=== PATIENT | male | born 1940 | race Two or more races ===

== ENCOUNTER 2017-08-13 17:44 | Inpatient (IN) | payer MEDICARE, OTHER ==
[~2017-08-13] VITALS: Ht 162.6 cm; Wt 65.8 kg
[2017-08-13 17:44] VITALS: BP 82/54
[~2017-08-13 17:44] MED LIST: ASPIRIN81 MG ORAL; ATIVAN0.5 MG ORAL; BISACODYL5 MG RECTAL; CELEXA20 MG ORAL; DOCUSATE SODIU100 MG ORAL; DONEPEZIL HCL10 M2 ORAL; FLEET ENEMA133 ML RECTAL; METFORMIN HCL500 M1 ORAL; METOPROLOL SUC100 MG ORAL; MILK OF MA400 MG/51 ORAL; NAPROSYN500 M1 ORAL; SIMVASTATIN20 MG ORAL; TYLENOL EXTRA500 MG ORAL; VITAMIN D-32000 UNI1 PO; ZOCOR40 MG ORAL
[2017-08-13 18:51] VITALS: BP 119/52
[2017-08-13 18:52] LABS: BASOPHILS % (AUTO) 0.4 % (0.0-2.0); EOSINOPHILS % (AUTO) 0.3 % (0.0-3.0); HEMATOCRIT 40.2 % (42.0-52.0); LYMPHOCYTES % (AUTO) 13.4 % (20.0-45.0); MEAN CORPUSCULAR VOLUME 98 FL (80-99); MONOCYTES % (AUTO) 9.3 % (1.0-10.0); NEUTROPHILS % (AUTO) 76.6 % (45.0-75.0); PLATELET COUNT 148 K/UL (150-450); RED BLOOD COUNT 4.11 M/UL (4.70-6.10); RED CELL DISTRIBUTION WIDTH 11.4 % (11.6-14.8); WHITE BLOOD COUNT 8.6 K/UL (4.8-10.8)
[2017-08-13 19:13] LABS: ANION GAP 9 mmol/L (5-15); BLOOD UREA NITROGEN 50 mg/dL (7-18); CALCIUM 9.8 MG/DL (8.5-10.1); CARBON DIOXIDE 27 MMOL/L (21-32); CHLORIDE 109 MMOL/L (98-107); CREATININE 2.3 MG/DL (0.55-1.30); POTASSIUM 4.3 MMOL/L (3.5-5.1); SODIUM 145 MMOL/L (136-145)
[2017-08-13 19:30] LABS: ALANINE AMINOTRANSFERASE 31 U/L (12-78); ALBUMIN/GLOBULIN RATIO 0.6 (1.0-2.7); ALKALINE PHOSPHATASE 67 U/L (46-116); ASPARTATE AMINO TRANSFERASE 125 U/L (15-37); BILIRUBIN,TOTAL 0.3 MG/DL (0.2-1.0); CKMB < 0.5 NG/ML (0.0-3.6); CREATINE KINASE 1847 U/L (26-308)
[2017-08-13 19:35] VITALS: BP 120/68
--- NOTE | 2017-08-13 19:46 | Emergency Room Report ---
History of Present Illness General Chief Complaint: Generalized Weakness Source: Medical Record Present Illness HPI Patient presents with complaints of altered mental status and weakness Patient himself has underlying dementia History somewhat limited Patient lives at a nursing facility appears to have had recent visit to [facility] for head trauma There was a note that no imaging was obtained Patient has been acting weaker than usual Not eating and presents for further eval history of present illness is limited given the patient's ability to provide history There was no reports of fevers Allergies: Coded Allergies: NO KNOWN ALLERGIES (Unverified Allergy, Unknown, 08/25/15) Patient History Past Medical History: see triage record Pertinent Family History: none Reviewed Nursing Documentation: PMH: Agreed, PSxH: Agreed Nursing Documentation-PMH Hx Cardiac Problems: Yes - chf Hx Hypertension: Yes Hx Pacemaker: Yes - icd Hx COPD: Yes Hx Diabetes: Yes Hx Cancer: No Hx Gastrointestinal Problems: No History Of Psychiatric Problem: Yes - psychosis Hx Neurological Problems: Yes Hx Dementia: Yes Hx Alzheimer's Disease: Yes Hx Seizures: Yes Review of Systems All Other Systems: limited - Other than the ones mentioned in the history of present illness all others are reviewed however they do stay limited due to the patient's mental status Physical Exam Vital Signs Date Time Temp Pulse Resp B/P (MAP) Pulse Ox O2 Delivery O2 Flow Rate FiO2 08/13/17 17:31 97.9 76 16 82/54 97 Room Air Sp02 EP Interpretation: reviewed, normal General Appearance: no apparent distress Head: other - Ecchymosis and hematoma left upper maxillary area and orbital wall, stitches in place Eyes: bilateral eye PERRL ENT: normal pharynx, dry mucus membranes Neck: supple Respiratory: lungs clear, normal breath sounds Cardiovascular #1: regular rate, rhythm, no edema Gastrointestinal: non tender, soft, no mass Musculoskeletal: other - No obvious focal weakness Neurologic: responsive - Patient is verbal appears somewhat confused, no obvious focal weakness Skin: no rash, other - As above with ecchymosis left orbital region Lymphatic: no adenopathy Medical Decision Making Diagnostic Impression: Primary Impression: Rhabdomyolysis Additional Impressions: Head trauma Encephalopathy ER Course Patient is a fairly complex patient with multiple differential to consideration including but not limited to cardiac cardiopulmonary and vascular emergencies Patient's blood work reveals elevated total CK CT head does not show any acute pathology Patient admitted for further inpatient care in improved condition Labs Test 08/13/17 18:25 White Blood Count 8.6 K/UL (4.8-10.8) Red Blood Count 4.11 M/UL (4.70-6.10) Hemoglobin 13.0 G/DL (14.2-18.0) Hematocrit 40.2 % (42.0-52.0) Mean Corpuscular Volume 98 FL (80-99) Mean Corpuscular Hemoglobin 31.7 PG (27.0-31.0) Mean Corpuscular Hemoglobin Concent 32.4 G/DL (32.0-36.0) Red Cell Distribution Width 11.4 % (11.6-14.8) Platelet Count 148 K/UL (150-450) Mean Platelet Volume 8.9 FL (6.5-10.1) Neutrophils (%) (Auto) 76.6 % (45.0-75.0) Lymphocytes (%) (Auto) 13.4 % (20.0-45.0) Monocytes (%) (Auto) 9.3 % (1.0-10.0) Eosinophils (%) (Auto) 0.3 % (0.0-3.0) Basophils (%) (Auto) 0.4 % (0.0-2.0) Sodium Level 145 MMOL/L (136-145) Potassium Level 4.3 MMOL/L (3.5-5.1) Chloride Level 109 MMOL/L (98-107) Carbon Dioxide Level 27 MMOL/L (21-32) Anion Gap 9 mmol/L (5-15) Blood Urea Nitrogen 50 mg/dL (7-18) Creatinine 2.3 MG/DL (0.55-1.30) Estimat Glomerular Filtration Rate mL/min (>60) Glucose Level 158 MG/DL (74-106) Lactic Acid Level 2.70 mmol/L (0.66-2.22) Calcium Level 9.8 MG/DL (8.5-10.1) Total Bilirubin 0.3 MG/DL (0.2-1.0) Aspartate Amino Transf (AST/SGOT) 125 U/L (15-37) Alanine Aminotransferase (ALT/SGPT) 31 U/L (12-78) Alkaline Phosphatase 67 U/L (46-116) Total Creatine Kinase 1847 U/L (26-308) Creatine Kinase MB < 0.5 NG/ML (0.0-3.6) Creatine Kinase MB Relative Index 0.0 Troponin I 0.036 ng/mL (0.000-0.056) Pro-B-Type Natriuretic Peptide 277 pg/mL (0-125) Total Protein 7.8 G/DL (6.4-8.2) Albumin 3.0 G/DL (3.4-5.0) Globulin 4.8 g/dL Albumin/Globulin Ratio 0.6 (1.0-2.7) Lipase 201 U/L (73-393) Rhythm Strip Diag. Results EP Interpretation: yes Rate: 88 Rhythm: NSR, no PVC's, no ectopy Chest X-Ray Diagnostic Results Chest X-Ray Diagnostic Results : Chest X-Ray Ordered: Yes # of Views/Limited/Complete: 1 View Indication: Shortness of Breath EP Interpretation: Yes Interpretation: no consolidation, no effusion, no pneumothorax, other - Wide mediastinum, pacemaker in place Impression: No acute disease Electronically Signed by: Concha Beatty DO CT/MRI/US Diagnostic Results CT/MRI/US Diagnostic Results : Impression CT head no intracranial hemorrhage left periorbital convexity scalp soft tissue swelling Last Vital Signs Date Time Temp Pulse Resp B/P (MAP) Pulse Ox O2 Delivery O2 Flow Rate FiO2 08/13/17 18:51 98.3 63 21 119/52 100 Room Air Status: improved Disposition: ADMITTED INPATIENT Condition: Serious Referrals: [facility]HE[facility] (PCP) CONCHA BEATTY D.O. Aug 13, 2017 19:46
[2017-08-13] MEDS ORDERED: CRANBERRY450 M3 PO (20:32)
[2017-08-13] MEDS ORDERED: DEPAKOTE250 MG PO (20:33)
[2017-08-13] MEDS ORDERED: BISACODYL10 M1 RC (20:35)
[2017-08-13] MEDS ORDERED: FLEET ENEMA133 ML RECTAL (20:37)
[2017-08-13] MEDS ORDERED: ALUM-MAG HYDRO360 ML PO (20:42)
[2017-08-13] MEDS ORDERED: TRADJENTA5 MG PO (20:43)
[2017-08-13] MEDS ORDERED: ISOSORBIDE DINI10 MG ORAL (20:43)
[2017-08-13] MEDS ORDERED: MAGNESIUM400 M2 PO (20:45)
[2017-08-13] MEDS ORDERED: MAGNESIUM OXID400 M1 ORAL (20:45)
[2017-08-13] MEDS ORDERED: NEPHROVITE1 TAB ORAL (20:48)
[2017-08-13] MEDS ORDERED: METOPROLOL TAR100 M1 ORAL (20:48)
[2017-08-13] MEDS ORDERED: SINEMET 25-1001 EAC1 ORAL (20:49)
[2017-08-13] MEDS ORDERED: MIRTAZAPINE7.5 MG ORAL (20:49)
[2017-08-13] MEDS ORDERED: ACETAMINOPHEN325 M1 ORAL (20:52)
[2017-08-13] MEDS ORDERED: LISINOPRIL40 MG ORAL (20:53)
[2017-08-13] MEDS ORDERED: SEROQUEL25 MG ORAL (20:54)
[2017-08-13] MEDS ORDERED: cefTRIAXone 1 GM in NS 55 ML IVPB ONE (21:00)
[2017-08-13 21:05] VITALS: BP 125/68
[2017-08-14] VITALS (7 sets, daily range): BP systolic 125–170; BP diastolic 60–98
[2017-08-14] MEDS ORDERED: Milk of Magnesia 30ml Ud ORAL PRN (04:15)
[2017-08-14] MEDS ORDERED: LORazepam 0.5mg tab ORAL PRN (04:15)
[2017-08-14] MEDS ORDERED: metFORMIN 500mg tab ORAL SCH (09:00)
[2017-08-14] MEDS ORDERED: Heparin 5000 units/ml inj SUBQ SCH ×2 (09:00→21:00)
[2017-08-14] MEDS: Lisinopril 20mg tab ORAL SCH (09:07)
[2017-08-14] MEDS: Levodopa/Carbidopa 25/100 tab ORAL SCH ×3 (09:08→17:24)
[2017-08-14] MEDS: Docusate Sod/Senna tab ORAL SCH (09:12)
[2017-08-14] MEDS: Aspirin Baby 81mg ORAL SCH (09:15)
[2017-08-14] MEDS: Depakote 500mg tab ORAL SCH ×2 (09:17→21:40)
[2017-08-14] MEDS: Metoprolol Succinate XL 100mg tab ORAL SCH (09:39)
[2017-08-14 09:51] LABS: BASOPHILS % (AUTO) 0.6 % (0.0-2.0); EOSINOPHILS % (AUTO) 0.7 % (0.0-3.0); HEMATOCRIT 39.4 % (42.0-52.0); HEMOGLOBIN 12.8 G/DL (14.2-18.0); LYMPHOCYTES % (AUTO) 15.1 % (20.0-45.0); MEAN CORPUSCULAR VOLUME 98 FL (80-99); MONOCYTES % (AUTO) 8.5 % (1.0-10.0); NEUTROPHILS % (AUTO) 75.1 % (45.0-75.0); PLATELET COUNT 149 K/UL (150-450); RED BLOOD COUNT 4.01 M/UL (4.70-6.10); RED CELL DISTRIBUTION WIDTH 11.3 % (11.6-14.8); WHITE BLOOD COUNT 6.1 K/UL (4.8-10.8)
[2017-08-14 09:58] LABS: ALANINE AMINOTRANSFERASE 53 U/L (12-78); ALBUMIN 2.8 G/DL (3.4-5.0); ALBUMIN/GLOBULIN RATIO 0.6 (1.0-2.7); ALKALINE PHOSPHATASE 58 U/L (46-116); ANION GAP 9 mmol/L (5-15); ASPARTATE AMINO TRANSFERASE 114 U/L (15-37); BILIRUBIN,TOTAL 0.4 MG/DL (0.2-1.0); BLOOD UREA NITROGEN 35 mg/dL (7-18); CALCIUM 9.9 MG/DL (8.5-10.1); CARBON DIOXIDE 25 MMOL/L (21-32); CHLORIDE 111 MMOL/L (98-107); CREATININE 1.1 MG/DL (0.55-1.30); POTASSIUM 3.9 MMOL/L (3.5-5.1); SODIUM 145 MMOL/L (136-145)
[2017-08-14] MEDS ORDERED: Acetaminophen 500mg (ES) tab ORAL PRN (10:00)
--- NOTE | 2017-08-14 10:17 | Consultation ---
History of Present Illness General Date patient seen: Aug 14, 2017 Time patient seen: 11:02 Chief Complaint: Generalized Weakness Present Illness HPI 77 y/o M, skilled nursing resident with hx of CHF, HTN, ICM s/p AICD, COPD, DM2, Alzheimer dementia, psychosis and seizure disorder presents to ED on 08/13 with AMS, weakness and poor PO intake No reports of fevers Apparently patient had recent visit to [facility] for head trauma afebrile, no leukocytosis. Given one dose of Ceftriaxone. CXR and U/a pending. Allergies: Coded Allergies: NO KNOWN ALLERGIES (Unverified Allergy, Unknown, 08/25/15) Medication History Scheduled Aspirin* (Aspirin*), 81 MG ORAL DAILY, (Reported) Carbidopa/Levodopa 25-100 Mg* (Sinemet 25-100 Mg Tablet*), 1 TAB ORAL THREE TIMES A DAY, (Reported) Cranberry Fruit Concentrate (Cranberry), 450 MG PO DAILY, (Reported) Divalproex Sodium* (Depakote*), 500 MG PO BID, (Reported) Docusate Sodium* (Docusate Sodium*), 100 MG ORAL DAILY, (Reported) Donepezil Hcl* (Donepezil Hcl*), 10 MG ORAL QHS, (Reported) Isosorbide Dinitrate* (Isordil*), 20 MG ORAL BID, (Reported) Linagliptin (Tradjenta), 5 MG PO DAILY, (Reported) Lisinopril* (Lisinopril*), 40 MG ORAL DAILY, (Reported) Magnesium Oxide (Magnesium Oxide), 400 MG ORAL BID, (Reported) Metformin Hcl* (Metformin Hcl*), 500 MG ORAL BID, (Reported) Metoprolol Tartrate* (Metoprolol Tartrate*), 100 MG ORAL DAILY, (Reported) Mirtazapine* (Mirtazapine*), 7.5 MG ORAL BEDTIME, (Reported) Quetiapine Fumarate* (Seroquel*), 50 MG ORAL TWICE A DAY, (Reported) Vitamin B Cmplx/Vit C/Folic AC (Nephro-[place] Tablet), 1 TAB ORAL DAILY, (Reported ) Scheduled PRN Acetaminophen* (Tylenol Extra Strength*), 1,000 MG ORAL Q6H PRN for Moderate Breakthru Pain (5-7), (Reported) Acetaminophen* (Acetaminophen 325MG Tablet*), 650 MG ORAL Q6H PRN for Mild Pain (Pain Scale 1-3), (Reported) Bisacodyl (Bisacodyl), 10 MG RC DAILY PRN for Constipation, (Reported) Lorazepam* (Ativan*), 0.5 MG ORAL Q6HR PRN for For Anxiety, (Reported) Mag Hydrox/Al Hydrox/Simeth (Alum-Mag Hydroxide-Simeth Liq), Unknown Dose PO Q6HR PRN for STOMACH UPSET, (Reported) Magnesium Hydroxide* (Milk Of Magnesia*), 30 ML ORAL QHS PRN for Constipation, ( Reported) Na Phos,M-B/Na Phos,Di-Ba* (Fleet Enema*), 133 ML RECTAL EVERY OTHER DAY PRN for Constipation, (Reported) Discontinued Medications Acetaminophen* (Tylenol Extra Strength*), 500 MG ORAL BID PRN for Prn Headache/ Temp > 101, (Reported) Discontinued Reason: Therapy completed Cholecalciferol (Vitamin D3) (Vitamin D-3), 5,000 UNIT PO, (Reported) Discontinued Reason: Therapy completed Citalopram Hydrobromide* (Celexa*), 20 MG ORAL DAILY, (Reported) Discontinued Reason: Therapy completed Metoprolol Succinate* (Metoprolol Succinate*), 100 MG ORAL BID, (Reported) Discontinued Reason: Medication dose changed Naproxen* (Naprosyn*), 500 MG ORAL TWICE A DAY, (Reported) Discontinued Reason: Therapy completed Simvastatin (Zocor), 20 MG ORAL BEDTIME, (Reported) Discontinued Reason: Therapy completed Patient History Healthcare decision maker Resuscitation status Full Code Advanced Directive on File Patient History Narrative PMhx: as above Shx: unable to obtain Fhx: non contributory Review of Systems ROS Narrative unable to obtain Physical Exam Physical Exam Narrative General Appearance: no apparent distress Head: other - Ecchymosis and hematoma left upper maxillary area and orbital wall, stitches in place Eyes: bilateral eye PERRL ENT: normal pharynx, dry mucus membranes Neck: supple Respiratory: lungs clear, normal breath sounds Cardiovascular regular rate, rhythm, no edema Gastrointestinal: non tender, soft, no mass Musculoskeletal: other - No obvious focal weakness Neurologic: responsive - Patient is verbal appears somewhat confused, no obvious focal weakness Skin: no rash, other - As above with ecchymosis left orbital region Lymphatic: no adenopathy Last 24 Hour Vital Signs Date Time Temp Pulse Resp B/P (MAP) Pulse Ox O2 Delivery O2 Flow Rate FiO2 08/14/17 09:39 61 170/86 08/14/17 09:17 170/86 08/14/17 09:07 170/86 08/14/17 04:00 63 08/14/17 04:00 97.7 64 20 148/98 94 Room Air 64 08/14/17 00:50 98.3 72 17 130/78 98 Room Air 08/14/17 00:11 98.3 72 17 130/78 98 Room Air 08/14/17 00:00 97.7 63 22 159/74 94 Nasal Cannula 3.0 08/13/17 21:05 98.2 68 22 125/68 99 Room Air 08/13/17 19:35 69 18 120/68 99 Room Air 08/13/17 18:51 98.3 63 21 119/52 100 Room Air 08/13/17 17:44 97.9 78 16 82/54 97 Room Air 08/13/17 17:31 97.9 76 16 82/54 97 Room Air Intake and Output 08/13/17 08/14/17 19:00 07:00 Intake Total 1200 ml Balance 1200 ml Intake IV Total 1200 ml # Voids 1 # Bowel Movements 1 Laboratory Tests Test 08/13/17 18:25 08/13/17 23:15 08/14/17 09:05 White Blood Count 8.6 K/UL (4.8-10.8) 6.1 K/UL (4.8-10.8) Red Blood Count 4.11 M/UL (4.70-6.10) L 4.01 M/UL (4.70-6.10) L Hemoglobin 13.0 G/DL (14.2-18.0) L 12.8 G/DL (14.2-18.0) L Hematocrit 40.2 % (42.0-52.0) L 39.4 % (42.0-52.0) L Mean Corpuscular Volume 98 FL (80-99) 98 FL (80-99) Mean Corpuscular Hemoglobin 31.7 PG (27.0-31.0) H 32.0 PG (27.0-31.0) H Mean Corpuscular Hemoglobin Concent 32.4 G/DL (32.0-36.0) 32.5 G/DL (32.0-36.0) Red Cell Distribution Width 11.4 % (11.6-14.8) L 11.3 % (11.6-14.8) L Platelet Count 148 K/UL (150-450) L 149 K/UL (150-450) L Mean Platelet Volume 8.9 FL (6.5-10.1) 8.4 FL (6.5-10.1) Neutrophils (%) (Auto) 76.6 % (45.0-75.0) H 75.1 % (45.0-75.0) H Lymphocytes (%) (Auto) 13.4 % (20.0-45.0) L 15.1 % (20.0-45.0) L Monocytes (%) (Auto) 9.3 % (1.0-10.0) 8.5 % (1.0-10.0) Eosinophils (%) (Auto) 0.3 % (0.0-3.0) 0.7 % (0.0-3.0) Basophils (%) (Auto) 0.4 % (0.0-2.0) 0.6 % (0.0-2.0) Sodium Level 145 MMOL/L (136-145) 145 MMOL/L (136-145) Potassium Level 4.3 MMOL/L (3.5-5.1) 3.9 MMOL/L (3.5-5.1) Chloride Level 109 MMOL/L (98-107) H 111 MMOL/L (98-107) H Carbon Dioxide Level 27 MMOL/L (21-32) 25 MMOL/L (21-32) Anion Gap 9 mmol/L (5-15) 9 mmol/L (5-15) Blood Urea Nitrogen 50 mg/dL (7-18) H 35 mg/dL (7-18) H Creatinine 2.3 MG/DL (0.55-1.30) H 1.1 MG/DL (0.55-1.30) # Estimat Glomerular Filtration Rate mL/min (>60) mL/min (>60) Glucose Level 158 MG/DL (74-106) H 121 MG/DL (74-106) H Lactic Acid Level 2.70 mmol/L (0.66-2.22) H 2.60 mmol/L (0.66-2.22) H Calcium Level 9.8 MG/DL (8.5-10.1) 9.9 MG/DL (8.5-10.1) Total Bilirubin 0.3 MG/DL (0.2-1.0) 0.4 MG/DL (0.2-1.0) Aspartate Amino Transf (AST/SGOT) 125 U/L (15-37) H 114 U/L (15-37) H Alanine Aminotransferase (ALT/SGPT) 31 U/L (12-78) 53 U/L (12-78) Alkaline Phosphatase 67 U/L (46-116) 58 U/L (46-116) Total Creatine Kinase 1847 U/L (26-308) H Creatine Kinase MB < 0.5 NG/ML (0.0-3.6) Creatine Kinase MB Relative Index 0.0 Troponin I 0.036 ng/mL (0.000-0.056) Pro-B-Type Natriuretic Peptide 277 pg/mL (0-125) H Total Protein 7.8 G/DL (6.4-8.2) 7.5 G/DL (6.4-8.2) Albumin 3.0 G/DL (3.4-5.0) L 2.8 G/DL (3.4-5.0) L Globulin 4.8 g/dL 4.7 g/dL Albumin/Globulin Ratio 0.6 (1.0-2.7) L 0.6 (1.0-2.7) L Lipase 201 U/L (73-393) Height (Feet): 5 Height (Inches): 4.00 Weight (Pounds): 145 Medications Current Medications Medications (Trade) Dose Ordered Sig/Vahe Route PRN Reason Start Time Stop Time Status Last Admin Dose Admin Acetaminophen (Tylenol) 500 mg Q6H PRN ORAL Breakthrough pain 08/14/17 10:00 09/13/17 09:59 Acetaminophen (Tylenol) 650 mg Q6H PRN ORAL Mild Pain (Pain Scale 1-3) 08/14/17 04:15 09/13/17 04:14 Aspirin (ASA) 81 mg DAILY ORAL 08/14/17 09:00 09/13/17 08:59 08/14/17 09:15 Bisacodyl (Dulcolax) 10 mg DAILY PRN RECTAL Constipation 08/14/17 04:15 09/13/17 04:14 Carbidopa/Levodopa (Sinemet 25/100) 1 ea THREE TIMES A DAY ORAL 08/14/17 09:00 09/13/17 08:59 08/14/17 09:08 Divalproex Sodium (Depakote) 500 mg EVERY 12 HOURS ORAL 08/14/17 09:00 09/13/17 08:59 08/14/17 09:17 Donepezil HCl (Aricept) 10 mg QHS ORAL 08/14/17 21:00 09/13/17 20:59 Heparin Sodium (Porcine) (Heparin 5000 units/ml) 5,000 units EVERY 12 HOURS SUBQ 08/14/17 21:00 09/13/17 20:59 Isosorbide Dinitrate (Isordil) 20 mg BID@0900,2100 ORAL 08/14/17 09:00 09/13/17 08:59 08/14/17 09:17 Lisinopril (Prinivil) 40 mg DAILY ORAL 08/14/17 09:00 09/13/17 08:59 08/14/17 09:07 Lorazepam (Ativan) 0.5 mg Q6H PRN ORAL For Anxiety 08/14/17 04:15 08/21/17 04:14 Magnesium Hydroxide (Mom) 30 ml DAILYPRN PRN ORAL Constipation 08/14/17 04:15 09/13/17 04:14 Metoprolol Succinate (Toprol XL) 100 mg DAILY ORAL 08/14/17 09:30 09/13/17 09:29 08/14/17 09:39 Mirtazapine (Remeron) 7.5 mg BEDTIME ORAL 08/14/17 21:00 09/13/17 20:59 Senna/Docusate Sodium ([place]-Colace) 1 ea DAILY ORAL 08/14/17 09:00 09/13/17 08:59 08/14/17 09:12 Sodium Chloride 1,000 ml @ 150 mls/hr Q6H40M IV 08/14/17 05:30 09/13/17 05:29 08/14/17 05:30 Assessment/Plan Assessment/Plan Abx: Ceftriaxone x1 08/13 Assessment: AMS on baseline Dementia- likely dehydration as elevated BUN and Cr; afebrile, no leukocytosis- no evidence fo infectious process at this point u/a p CXR p Afebrile, no leukocytosis RENETTA, elevated BUN- improving Mild lactic acidosis- likely due to dehydration CHF HTN ICM s/p AICD COPD DM2 Alzheimer dementia, psychosis seizure disorder care home resident Full code NKDA Plan: -Continue to monitor off abx unless febrile, HD unstable -f/u cx, u/a and CXR -Monitor CBC/BMP, temperatures -aspiration precautions Thank you for this consultation. Will continue to follow along with you. Discussed with VARINDER. Michelle Watt M.D. Aug 14, 2017 10:17
--- NOTE | 2017-08-14 10:42 | Diagnostic Imaging Report ---
Indication: Head trauma. Headache. Technique: Contiguous 5 mm thick transaxial imaging of the head obtained in a Siemens Sensation [address] scanner. Soft tissue and bone windows generated. Automatic Exposure Control was utilized. Total Dose length Product (DLP): 1453.[address] Dose Index Volume (CTDIvol): 70.38 mGy Comparison: 08/26/2015 Findings: Small cystic focus demonstrated within the right caudate and lentiform nucleus consistent with old lacunar infarcts. There is moderate prominence of the ventricles, basal cisterns, and cerebral sulci consistent with atrophy. Moderate, nonspecific, white matter hypoattenuation is noted throughout the brain consistent with chronic small vessel disease. There is no midline shift, edema, acute hemorrhage, mass effect, or abnormal extra-axial fluid collections. Bones and extra osseous soft tissues are unremarkable. Impression: No acute intracranial bleed, mass effect or edema. Moderate atrophy of the brain. Evidence of chronic small vessel disease involving white matter tracts. [facility] has communicated the preliminary results to the Emergency Department. Their findings are largely concordant with this report. The CT scanner at [facility] is accredited by the [employer] and the scans are performed using dose optimization techniques as appropriate to a performed exam including Automatic Exposure control.
[2017-08-14] MEDS: Heparin 5000 units/ml inj SUBQ SCH ×2 (11:11→21:43)
--- NOTE | 2017-08-14 12:14 | Diagnostic Imaging Report ---
Indication: Dyspnea Comparison: None A single view chest radiograph was obtained. Findings: No definite infiltrate or pulmonary vascular congestion identified. There is a pacemaker on the left noted with 2 leads. The heart is enlarged. The aorta is mildly enlarged consistent with atherosclerotic vascular disease. The bones are osteopenic. Impression: No acute disease
--- NOTE | 2017-08-14 12:57 | Cardiology Report ---
APPROVED REPORT EKG Measurement Heart [id number] Sinus rhythm with premature atrial complexes Otherwise normal ECG
--- NOTE | 2017-08-14 17:44 | Wound Care Consultation ---
Wound Assessment Wound Assessment #1: Wound Number: 1 Wound Present on Admission: Yes New Wound: No Status Change of Wound: No Wound Location Body Site Modif: mid Wound Location Body Site: other - Sacrococcygeal Wound Type: pressure ulcer Odalys Test: Does not Odalys Pressure Ulcer Stage: Deep Tissue Injury Wound Thickness: Full Thickness Wound Length: 6.5 Wound Width: 8.5 Wound Depth: utd Percent of Wound Purple/Maroon: 100 Wound Drainage Amount: None Wound Drainage Odor: None/Absent Tissue Surrounding Wound: Erythemic Wound General Appearance: Reddened - purple/maroon Wound Assessment #2: Wound Number: 2 Wound Present on Admission: Yes New Wound: No Status Change of Wound: No Wound Location Body Site Modif: left, lower Wound Location Body Site: leg Wound Type: lesion-etiology unknown Odalys Test: Does not Odalys Wound Thickness: Full Thickness Wound Length: 1.0 Wound Width: 1.0 Percent of Wound [place]/Red: 100 Wound Drainage Amount: None Wound Drainage Odor: None/Absent Tissue Surrounding Wound: Intact Wound General Appearance: Asymptomatic Wound Assessment #3: Wound Number: 3 Wound Present on Admission: Yes New Wound: No Status Change of Wound: No Wound Location Body Site Modif: right Wound Location Body Site: heel Wound Type: pressure ulcer Odalys Test: Does not Odalys Pressure Ulcer Stage: I Wound Thickness: Partial Thickness Wound Length: 5.5 Wound Width: 3.5 Percent of Wound [place]/Red: 100 Wound Drainage Amount: None Wound Drainage Odor: None/Absent Tissue Surrounding Wound: Intact Wound General Appearance: Reddened Wound Assessment #4: Wound Number: 4 Wound Present on Admission: Yes New Wound: No Status Change of Wound: No Wound Location Body Site Modif: right, anterior Wound Location Body Site: toe - 4th and 5th toe Wound Type: scab Odalys Test: Does not Odalys Wound Thickness: Full Thickness Wound Drainage Amount: None Wound Drainage Odor: None/Absent Tissue Surrounding Wound: Intact Wound General Appearance: Asymptomatic Wound Assessment #5: Wound Number: 5 Wound Present on Admission: Yes New Wound: No Status Change of Wound: No Wound Location Body Site Modif: left Wound Location Body Site: head Wound Type: traumatic injury Odalys Test: Does not Odalys Wound Thickness: Full Thickness Percent of Wound Purple/Maroon: 100 Wound Drainage Amount: None Wound Drainage Odor: None/Absent Tissue Surrounding Wound: Erythemic Wound General Appearance: Reddened - purple/maroon, Sutures Intact Wound Assessment #6: Wound Number: 6 Wound Present on Admission: Yes New Wound: No Status Change of Wound: No Wound Location Body Site: other - right shoulder and left chin abrasion Odalys Test: Does not Odalys Percent of Wound Purple/Maroon: 100 Wound Drainage Amount: None Wound Drainage Odor: None/Absent Tissue Surrounding Wound: Intact Wound General Appearance: Reddened Wound Comment #1 Left forehead traumatic wound with stitches intact.Surrounding skin with purple/maroon discolorations #2 Sacrococcygeal DTI pressure ulcer #3 Left leg lesion etiology unknown #4 Right 4th and 5th dry scabs #5 Right heel stage I pressure ulcer #6 Right shoulder and left chin abrasion Recommendation -Local wound care per protocol -Keep clean and dry -Turn and dry -Optimize nutrition -Low air loss mattress -Offload both heels -Heel protector on both heels -Assess and f/u accordingly for any changes NETTE LANGE RN Aug 14, 2017 17:44
[2017-08-14] MEDS: Donepezil 10mg tab ORAL SCH (21:40)
[2017-08-15] VITALS (7 sets, daily range): BP systolic 119–164; BP diastolic 62–91
[2017-08-15 08:20] LABS: BASOPHILS % (AUTO) 1.2 % (0.0-2.0); EOSINOPHILS % (AUTO) 2.9 % (0.0-3.0); HEMATOCRIT 34.4 % (42.0-52.0); HEMOGLOBIN 11.4 G/DL (14.2-18.0); LYMPHOCYTES % (AUTO) 32.2 % (20.0-45.0); MEAN CORPUSCULAR VOLUME 97 FL (80-99); MONOCYTES % (AUTO) 7.9 % (1.0-10.0); NEUTROPHILS % (AUTO) 55.9 % (45.0-75.0); PLATELET COUNT 144 K/UL (150-450); RED BLOOD COUNT 3.54 M/UL (4.70-6.10); RED CELL DISTRIBUTION WIDTH 11.4 % (11.6-14.8); WHITE BLOOD COUNT 4.8 K/UL (4.8-10.8)
[2017-08-15 09:09] LABS: ALANINE AMINOTRANSFERASE 52 U/L (12-78); ALBUMIN 2.6 G/DL (3.4-5.0); ALBUMIN/GLOBULIN RATIO 0.6 (1.0-2.7); ALKALINE PHOSPHATASE 56 U/L (46-116); ANION GAP 8 mmol/L (5-15); ASPARTATE AMINO TRANSFERASE 109 U/L (15-37); BILIRUBIN,TOTAL 0.4 MG/DL (0.2-1.0); BLOOD UREA NITROGEN 20 mg/dL (7-18); CALCIUM 9.2 MG/DL (8.5-10.1); CARBON DIOXIDE 26 MMOL/L (21-32); CHLORIDE 110 MMOL/L (98-107); CREATININE 0.8 MG/DL (0.55-1.30); POTASSIUM 3.8 MMOL/L (3.5-5.1); SODIUM 144 MMOL/L (136-145)
[2017-08-15] MEDS: Levodopa/Carbidopa 25/100 tab ORAL SCH ×3 (09:15→17:11)
[2017-08-15] MEDS: Metoprolol Succinate XL 100mg tab ORAL SCH (09:16)
[2017-08-15] MEDS: Docusate Sod/Senna tab ORAL SCH (09:16)
[2017-08-15] MEDS: Aspirin Baby 81mg ORAL SCH (09:16)
[2017-08-15] MEDS: Depakote 500mg tab ORAL SCH ×2 (09:16→22:06)
[2017-08-15] MEDS: Lisinopril 20mg tab ORAL SCH (09:18)
[2017-08-15] MEDS: Heparin 5000 units/ml inj SUBQ SCH ×2 (09:19→22:09)
--- NOTE | 2017-08-15 10:15 | History and Physical Report ---
DATE OF ADMISSION: 08/13/2017 NOTE: POOR AUDIO REASON FOR ADMISSION: This is one of several admissions to [facility] of this 77-year-old patient because of multiple traumatic brain injury associated with and periorbital hematoma. HISTORY OF PRESENT ILLNESS: The patient is a resident of an extended care facility where he has been in stable condition over the last several months. He is known to have several chronic medical syndrome, but has been stable on current medication. One day prior to the present admission in the facility, he developed periorbital hematoma. He was get by bath mixer and was brought to [facility] emergency room where apparently he had assessment and discharged back to the facility. According to the patient, he has not had any current management or skull x-rays in the facility. Following his arrival from [facility], the patient became progressively lethargic. He was transferred by paramedics because of hypotension [facility] ER and was admitted. PAST MEDICAL HISTORY: The patient underwent cerebrovascular accident several days ago. He has had an insertion of AICD in 2009. He had no other surgical antecedent. Medically, he is known to have high blood pressure for the last 10 years. MEDICATIONS: , Sinemet mg p.o. t.i.d. x2. He has chronic psychosis mg at bedtime. He is 500 mg q.12 h. He is on lorazepam 0.5 mg q.6 h. 10 mg at bedtime. for which he is on metoprolol 100 mg daily and lisinopril 40 mg daily. FAMILY HISTORY: Noncontributory. SOCIAL HISTORY: He was born in [place]. He lives in [place] most of his life. Prior to the appearance of his total disability, he was not on job. The patient does not smoke, drink, or use illicit drugs. REVIEW OF SYSTEMS: The patient is unable to give any information regarding his state of health. PHYSICAL EXAMINATION: VITAL SIGNS: His blood pressure was 125/66, pulse was 60, respirations were 18, and temperature 97.5. HEENT: Eyes were normal. He has periorbital ecchymosis in the left eye. Extraocular movements were probably normal. Temporal arteries were palpable bilaterally. There was no bilateral temporal wasting. Visual lara to confrontation. Neglect sign could not be assessed. ENT, mucous membranes were not dehydrated. Auditory canals were clear and tympanic membranes could not be visualized. Nasal cavity was not congested. Nasal septum was intact. Soft palate was free of ulcerations. Pharynx was clear from exudate or tonsillar hypertrophy. Uvula micky to phonation. Tongue was moist, midline, and normally papillated. NECK: Supple. There was no goiter. No mass. No lymphadenopathy. There was no jugular venous distention no bruits. Carotid upstroke was 2+. LUNGS: Clear. HEART: PMI was in fifth left intercostal space in midclavicular line. There was normal S1 and normal S2. There was no murmur. No arrhythmia. No S3. No S4. No pericardial rub. ABDOMEN: Soft, nontender without organomegaly. There were no masses palpable. Normal bowel sounds without bruits. There was no guarding. No rebound tenderness. No ascites. No hernia. No CVA tenderness. Liver span was 8 cm, mostly nontender. EXTREMITIES: No cyanosis, clubbing, or edema. Extremities were warm. NEUROLOGICAL: Reflexes in biceps, triceps, and brachioradialis were present. Patellar retinacula were present. Plantar were in flexion. Cranial nerves from II through XII were symmetric and equal. Cerebellar function, gait, [id number] and rapid alternating movements were not performed by the patient. There was no tremor. No nystagmus. No extrapyramidal rigidity. Sensory exam to pinprick, cotton touch, and position could not be assessed because the patient is obtunded. Motor strength was 4/5 against resistance in upper and lower extremities in proximal and distal muscles. LABORATORY DATA: His hemoglobin is 13.0, hematocrit 40.2 with MCV of 98, WBC 8.6 and platelets is 148. His BUN and creatinine is 16 and 0.3 respectively. Sodium 145, potassium 4.3, chloride 109, and CO2 is 27. His calcium was 9.8. SGOT was 95 and SGPT 71. Alkaline phosphatase . His total CK was 1847. Troponin was 0.036. Albumin was 3.0. Globulin 4.8. IMAGING STUDIES: CT scan of the brain shows moderate atrophy of the brain. He has a chronic small vessel disease. IMPRESSION AND PLAN: The patient had traumatic brain injury and noted to be in altered mental status. Neurology consult was called to assist in the management of this case. Evans Jarrett M.D. DR: KEITH JOB#: [id number] CC:
--- NOTE | 2017-08-15 10:15 | Consultation ---
DATE OF CONSULTATION: 08/14/2017 NOTE: POOR AUDIO HEMATOLOGY/ONCOLOGY CONSULTATION IDENTIFICATION DATA: The patient is a pleasant 77-year-old [facility] resident. Dr. Jarrett asked him [facility]. PAST MEDICAL HISTORY: Significant for CHF, hypertension, ICM, status post AICD, COPD, Alzheimer's dementia, and psychosis, at this time presents with altered mental status to the emergency room, noted to be anemic, which is very mild, thrombocytopenia. Creatinine was elevated 2.3, currently improved. The patient with transaminitis, potentially drinking history, and acute . ID Service consulted. PAST MEDICAL HISTORY: As noted above, CHF, hypertension, and ICM. MEDICATIONS: Aspirin, cranberry juice, Colace, donepezil, Imdur, lisinopril, magnesium oxide, metformin, . ALLERGIES: No known drug allergies. SOCIAL HISTORY: Unobtainable. FAMILY HISTORY: Noncontributory. REVIEW OF SYSTEMS: Unobtainable. . PHYSICAL EXAMINATION: GENERAL: In no acute distress. VITAL SIGNS: Reviewed. HEENT: Ecchymosis, hematoma area . PULMONARY: Decreased breath sounds. CARDIOVASCULAR: Regular rate. No S3 or S4. ABDOMEN: Soft, nontender, and nondistended. EXTREMITIES: A 1+ edema. LABORATORY AND DIAGNOSTIC DATA: WBC 8.1, hemoglobin 10.8, hematocrit 29.0, and platelet count 149,000. Imaging reviewed. ASSESSMENT AND RECOMMENDATIONS: 1. Thrombocytopenia, potentially reactive process. Continue to closely monitor. . 2. Congestive heart failure, to be seen Cardiology if worsens, fluid overload. 3. Altered mental status. . 4. Dehydration. BUN and creatinine elevated. 5. half-way resident. 6. Diabetes mellitus type 2. 7. Chronic obstructive pulmonary disease. 8. ICM, status post AICD. 9. . I appreciate the consult, Dr. Jarrett. Elias Walters M.D. DR: MONIKA JOB#: [id number] CC:
--- NOTE | 2017-08-15 10:33 | Infectious Diseases Prog Note ---
Assessment/Plan Assessment/Plan Abx: Ceftriaxone x1 08/13 Assessment: AMS on baseline Dementia- likely dehydration as elevated BUN and Cr; afebrile, no leukocytosis- no evidence fo infectious process at this point- mental status improving Bcx NTD CXR no acute disease Afebrile, no leukocytosis RENETTA, elevated BUN- improving Mild lactic acidosis- likely due to dehydration CHF HTN ICM s/p AICD COPD DM2 Alzheimer dementia, psychosis seizure disorder longterm resident Full code NKDA Plan: -Continue to monitor off abx unless febrile, HD unstable -f/u Bcx -Monitor CBC/BMP, temperatures -aspiration precaution Thank you for this consultation. Will continue to follow along with you. Discussed with RN. Subjective Allergies: Coded Allergies: NO KNOWN ALLERGIES (Unverified Allergy, Unknown, 08/25/15) Subjective afebrile no leukocytosis cxr neg Objective Vital Signs Last 24 Hour Vital Signs Date Time Temp Pulse Resp B/P (MAP) Pulse Ox O2 Delivery O2 Flow Rate FiO2 08/15/17 09:18 162/91 08/15/17 09:17 162/91 08/15/17 09:16 60 162/91 08/15/17 08:00 60 08/15/17 08:00 97.0 60 20 162/91 95 Room Air 08/15/17 05:15 97.0 60 18 146/78 95 08/15/17 04:00 97.0 60 18 164/75 95 08/15/17 04:00 60 08/15/17 00:00 60 08/15/17 00:00 97.2 60 16 124/62 95 08/14/17 21:41 145/76 08/14/17 20:00 97.3 60 16 145/76 97 08/14/17 20:00 60 08/14/17 16:00 97.9 60 18 137/72 96 Room Air 08/14/17 16:00 60 08/14/17 14:54 60 08/14/17 12:00 97.5 60 18 125/60 98 Room Air Height (Feet): 5 Height (Inches): 4.00 Weight (Pounds): 148 Objective General Appearance: no apparent distress Head: other - Ecchymosis and hematoma left upper maxillary area and orbital wall, stitches in place Eyes: bilateral eye PERRL ENT: normal pharynx, dry mucus membranes Neck: supple Respiratory: lungs clear, normal breath sounds Cardiovascular regular rate, rhythm, no edema Gastrointestinal: non tender, soft, no mass Musculoskeletal: other - No obvious focal weakness Neurologic: responsive - Patient is verbal appears somewhat confused, no obvious focal weakness Skin: no rash, other - As above with ecchymosis left orbital region Lymphatic: no adenopathy Microbiology Date/Time Source Procedure Growth Status 08/13/17 18:25 Blood Blood Culture - Preliminary NO GROWTH AFTER 24 HOURS Resulted 08/13/17 18:10 Blood Blood Culture - Preliminary NO GROWTH AFTER 24 HOURS Resulted Laboratory Tests Test 08/15/17 06:50 White Blood Count 4.8 K/UL (4.8-10.8) Red Blood Count 3.54 M/UL (4.70-6.10) L Hemoglobin 11.4 G/DL (14.2-18.0) L Hematocrit 34.4 % (42.0-52.0) L Mean Corpuscular Volume 97 FL (80-99) Mean Corpuscular Hemoglobin 32.3 PG (27.0-31.0) H Mean Corpuscular Hemoglobin Concent 33.2 G/DL (32.0-36.0) Red Cell Distribution Width 11.4 % (11.6-14.8) L Platelet Count 144 K/UL (150-450) L Mean Platelet Volume 8.0 FL (6.5-10.1) Neutrophils (%) (Auto) 55.9 % (45.0-75.0) Lymphocytes (%) (Auto) 32.2 % (20.0-45.0) Monocytes (%) (Auto) 7.9 % (1.0-10.0) Eosinophils (%) (Auto) 2.9 % (0.0-3.0) Basophils (%) (Auto) 1.2 % (0.0-2.0) Erythrocyte Sedimentation Rate 87 MM/HR (0-20) H Sodium Level 144 MMOL/L (136-145) Potassium Level 3.8 MMOL/L (3.5-5.1) Chloride Level 110 MMOL/L (98-107) H Carbon Dioxide Level 26 MMOL/L (21-32) Anion Gap 8 mmol/L (5-15) Blood Urea Nitrogen 20 mg/dL (7-18) H Creatinine 0.8 MG/DL (0.55-1.30) Estimat Glomerular Filtration Rate mL/min (>60) Glucose Level 92 MG/DL (74-106) Calcium Level 9.2 MG/DL (8.5-10.1) Total Bilirubin 0.4 MG/DL (0.2-1.0) Aspartate Amino Transf (AST/SGOT) 109 U/L (15-37) H Alanine Aminotransferase (ALT/SGPT) 52 U/L (12-78) Alkaline Phosphatase 56 U/L (46-116) Total Protein 6.9 G/DL (6.4-8.2) Albumin 2.6 G/DL (3.4-5.0) L Globulin 4.3 g/dL Albumin/Globulin Ratio 0.6 (1.0-2.7) L Thyroid Stimulating Hormone (TSH) 1.309 uiU/mL (0.358-3.740) Current Medications Medications (Trade) Dose Ordered Sig/Vahe Route PRN Reason Start Time Stop Time Status Last Admin Dose Admin Acetaminophen (Tylenol) 500 mg Q6H PRN ORAL Breakthrough pain 08/14/17 10:00 09/13/17 09:59 Acetaminophen (Tylenol) 650 mg Q6H PRN ORAL Mild Pain (Pain Scale 1-3) 08/14/17 04:15 09/13/17 04:14 Aspirin (ASA) 81 mg DAILY ORAL 08/14/17 09:00 09/13/17 08:59 08/15/17 09:16 Bisacodyl (Dulcolax) 10 mg DAILY PRN RECTAL Constipation 08/14/17 04:15 09/13/17 04:14 Carbidopa/Levodopa (Sinemet 25/100) 1 ea THREE TIMES A DAY ORAL 08/14/17 09:00 09/13/17 08:59 08/15/17 09:15 Divalproex Sodium (Depakote) 500 mg EVERY 12 HOURS ORAL 08/14/17 09:00 09/13/17 08:59 08/15/17 09:16 Donepezil HCl (Aricept) 10 mg QHS ORAL 08/14/17 21:00 09/13/17 20:59 08/14/17 21:40 Heparin Sodium (Porcine) (Heparin 5000 units/ml) 5,000 units EVERY 12 HOURS SUBQ 08/14/17 10:45 09/13/17 10:44 08/15/17 09:19 Isosorbide Dinitrate (Isordil) 20 mg BID@0900,2100 ORAL 08/14/17 09:00 09/13/17 08:59 08/15/17 09:17 Lisinopril (Prinivil) 40 mg DAILY ORAL 08/14/17 09:00 09/13/17 08:59 08/15/17 09:18 Lorazepam (Ativan) 0.5 mg Q6H PRN ORAL For Anxiety 08/14/17 04:15 08/21/17 04:14 Magnesium Hydroxide (Mom) 30 ml DAILYPRN PRN ORAL Constipation 08/14/17 04:15 09/13/17 04:14 Metoprolol Succinate (Toprol XL) 100 mg DAILY ORAL 08/14/17 09:30 09/13/17 09:29 08/15/17 09:16 Mirtazapine (Remeron) 7.5 mg BEDTIME ORAL 08/14/17 21:00 09/13/17 20:59 08/14/17 21:39 Senna/Docusate Sodium ([place]-Colace) 1 ea DAILY ORAL 08/14/17 09:00 09/13/17 08:59 08/15/17 09:16 Sodium Chloride 1,000 ml @ 150 mls/hr Q6H40M IV 08/14/17 05:30 09/13/17 05:29 08/15/17 09:15 Michelle Watt M.D. Aug 15, 2017 10:33
[2017-08-15] MEDS: Donepezil 10mg tab ORAL SCH (22:05)
[2017-08-16] VITALS: BP 117/65
[2017-08-16 04:00] VITALS: BP 142/79
--- NOTE | 2017-08-16 04:30 | Progress Note ---
DATE: 08/15/2017 SUBJECTIVE: The patient is awake, alert, afebrile, hemodynamically stable, and oriented x3 most of the time. PHYSICAL EXAMINATION: VITAL SIGNS: Blood pressure 119/76, his pulse is 62, respirations 21, and temperature 97.5. HEENT: Eyes were normal. ENT, mucous membranes were moist and intact. NECK: Supple with no JVD without lymph nodes. LUNGS: Clear. HEART: Normal sounds with regular beat. ABDOMEN: Soft and nontender with normal bowel sounds. EXTREMITIES: Warm without cyanosis, clubbing, or edema. LABORATORY DATA: Hemoglobin 11.4, hematocrit 34.4, MCV of 97, WBC of 4.8, and platelets is 144,000. His BUN and creatinine is 20 and 0.6 respectively. His sodium is 144, potassium 3.6, chloride 110, and CO2 is 26. SGOT is elevated to 109 and SGPT is 52. Albumin is 2.3. Total protein is 6.9. TSH is normal. IMPRESSION AND PLAN: The patient's functional capacity has improved. He can walk with assistance from bed to bathroom and back, however, the patient will be assessed by physical therapy and Neurology in the morning. The patient can be discharged back to the extended care facility. Neurology has been consulted likely to discuss the case. Repeat laboratory tests will be done in the a.m. Evans Jarrett M.D. DR: ALYSSA JOB#: [id number] CC:
[2017-08-16 08:00] VITALS: BP 157/80
[2017-08-16 08:44] LABS: BASOPHILS % (AUTO) 0.8 % (0.0-2.0); EOSINOPHILS % (AUTO) 2.3 % (0.0-3.0); HEMOGLOBIN 12.5 G/DL (14.2-18.0); LYMPHOCYTES % (AUTO) 18.8 % (20.0-45.0); MEAN CORPUSCULAR VOLUME 96 FL (80-99); MONOCYTES % (AUTO) 9.5 % (1.0-10.0); NEUTROPHILS % (AUTO) 68.6 % (45.0-75.0); PLATELET COUNT 182 K/UL (150-450); RED BLOOD COUNT 3.86 M/UL (4.70-6.10); RED CELL DISTRIBUTION WIDTH 10.7 % (11.6-14.8); WHITE BLOOD COUNT 6.2 K/UL (4.8-10.8)
--- NOTE | 2017-08-16 09:06 | General Progress Note ---
Assessment/Plan Assessment/Plan late entry ASSESSMENT AND RECOMMENDATIONS: 1. Thrombocytopenia, potentially reactive process. Continue to closely monitor.resolved 2. Congestive heart failure, to be seen by cardiology service 3. Altered mental status. improved 4. Dehydration. BUN and creatinine elevated. 5. [facility] resident. 6. Diabetes mellitus type 2. 7. Chronic obstructive pulmonary disease. 8. ICM, status post AICD. Subjective Allergies: Coded Allergies: NO KNOWN ALLERGIES (Unverified Allergy, Unknown, 08/25/15) All Systems: reviewed and negative except above Subjective NAD Objective Last 24 Hour Vital Signs Date Time Temp Pulse Resp B/P (MAP) Pulse Ox O2 Delivery O2 Flow Rate FiO2 08/16/17 04:00 97.7 64 21 142/79 95 08/16/17 04:00 60 08/16/17 00:00 60 08/16/17 00:00 97.7 55 20 117/65 96 08/15/17 22:22 119/76 08/15/17 20:00 60 08/15/17 20:00 97.5 60 21 119/76 97 08/15/17 16:00 63 08/15/17 16:00 97.5 20 152/78 08/15/17 12:00 97.2 60 20 131/71 96 Room Air 08/15/17 12:00 60 08/15/17 09:18 162/91 08/15/17 09:17 162/91 08/15/17 09:16 60 162/91 Intake and Output 08/15/17 08/16/17 19:00 07:00 Intake Total 1290 ml Output Total 550 ml Balance 740 ml Intake Oral 240 ml IV Total 1050 ml Output Urine Total 550 ml # Voids 1 4 # Bowel Movements 2 Laboratory Tests 08/16/17 08:05: White Blood Count 6.2, Red Blood Count 3.86L, Hemoglobin 12.5L, Hematocrit 37.0L , Mean Corpuscular Volume 96, Mean Corpuscular Hemoglobin 32.5H, Mean Corpuscular Hemoglobin Concent 33.8, Red Cell Distribution Width 10.7L, Platelet Count 182, Mean Platelet Volume 8.4, Neutrophils (%) (Auto) 68.6, Lymphocytes (%) (Auto) 18.8L, Monocytes (%) (Auto) 9.5, Eosinophils (%) (Auto) 2.3, Basophils (%) (Auto) 0.8, Sodium Level [Pending], Potassium Level [Pending] , Chloride Level [Pending], Carbon Dioxide Level [Pending], Blood Urea Nitrogen [Pending], Creatinine [Pending], Estimat Glomerular Filtration Rate [Pending], Glucose Level [Pending], Calcium Level [Pending], Total Bilirubin [Pending], Aspartate Amino Transf (AST/SGOT) [Pending], Alanine Aminotransferase (ALT/SGPT ) [Pending], Alkaline Phosphatase [Pending], Total Protein [Pending], Albumin [ Pending], Globulin [Pending] Height (Feet): 5 Height (Inches): 4.00 Weight (Pounds): 145 General Appearance: no apparent distress EENT: normal ENT inspection Neck: normal alignment Cardiovascular: normal peripheral pulses Extremities: normal range of motion, non-tender Edema: trace edema Elias Walters Aug 16, 2017 09:06
[2017-08-16 09:12] LABS: ALANINE AMINOTRANSFERASE 60 U/L (12-78); ALBUMIN 2.8 G/DL (3.4-5.0); ALBUMIN/GLOBULIN RATIO 0.6 (1.0-2.7); ALKALINE PHOSPHATASE 69 U/L (46-116); ANION GAP 8 mmol/L (5-15); ASPARTATE AMINO TRANSFERASE 82 U/L (15-37); BILIRUBIN,TOTAL 0.5 MG/DL (0.2-1.0); BLOOD UREA NITROGEN 15 mg/dL (7-18); CALCIUM 9.6 MG/DL (8.5-10.1); CARBON DIOXIDE 27 MMOL/L (21-32); CHLORIDE 106 MMOL/L (98-107); CREATININE 0.8 MG/DL (0.55-1.30); POTASSIUM 3.7 MMOL/L (3.5-5.1); SODIUM 141 MMOL/L (136-145)
[2017-08-16] MEDS: Docusate Sod/Senna tab ORAL SCH (09:27)
[2017-08-16] MEDS: Aspirin Baby 81mg ORAL SCH (09:27)
[2017-08-16] MEDS: Levodopa/Carbidopa 25/100 tab ORAL SCH ×2 (09:27→12:13)
[2017-08-16] MEDS: Depakote 500mg tab ORAL SCH (09:27)
[2017-08-16] MEDS: Metoprolol Succinate XL 100mg tab ORAL SCH (09:29)
[2017-08-16] MEDS: Lisinopril 20mg tab ORAL SCH (09:30)
[2017-08-16] MEDS: Heparin 5000 units/ml inj SUBQ SCH (09:31)
--- NOTE | 2017-08-16 10:42 | Infectious Diseases Prog Note ---
Assessment/Plan Assessment/Plan Abx: Ceftriaxone x1 08/13 Assessment: AMS on baseline Dementia- likely dehydration as elevated BUN and Cr; afebrile, no leukocytosis- no evidence fo infectious process at this point- mental status improving Bcx NTD CXR no acute disease Afebrile, no leukocytosis RENETTA, elevated BUN- resolved Mild lactic acidosis- likely due to dehydration CHF HTN ICM s/p AICD COPD DM2 Alzheimer dementia, psychosis seizure disorder [facility] resident Full code NKDA Plan: -Continue to monitor off abx unless febrile, HD unstable- ok to discharge from ID perspective -f/u Bcx -Monitor CBC/BMP, temperatures -aspiration precaution Thank you for this consultation. Will continue to follow along with you. Discussed with RN. Subjective Allergies: Coded Allergies: NO KNOWN ALLERGIES (Unverified Allergy, Unknown, 08/25/15) Subjective afebrile no leukocytosis Bcx NTD Objective Vital Signs Last 24 Hour Vital Signs Date Time Temp Pulse Resp B/P (MAP) Pulse Ox O2 Delivery O2 Flow Rate FiO2 08/16/17 09:30 157/80 08/16/17 09:29 62 157/80 08/16/17 09:29 157/80 08/16/17 08:00 60 08/16/17 08:00 97.3 62 19 157/80 94 08/16/17 04:00 97.7 64 21 142/79 95 08/16/17 04:00 60 08/16/17 00:00 60 08/16/17 00:00 97.7 55 20 117/65 96 08/15/17 22:22 119/76 08/15/17 20:00 60 08/15/17 20:00 97.5 60 21 119/76 97 08/15/17 16:00 63 08/15/17 16:00 97.5 20 152/78 08/15/17 12:00 97.2 60 20 131/71 96 Room Air 08/15/17 12:00 60 Height (Feet): 5 Height (Inches): 4.00 Weight (Pounds): 145 Objective General Appearance: no apparent distress Head: other - Ecchymosis and hematoma left upper maxillary area and orbital wall, stitches in place Eyes: bilateral eye PERRL ENT: normal pharynx, dry mucus membranes Neck: supple Respiratory: lungs clear, normal breath sounds Cardiovascular regular rate, rhythm, no edema Gastrointestinal: non tender, soft, no mass Musculoskeletal: other - No obvious focal weakness Neurologic: responsive - Patient is verbal appears somewhat confused, no obvious focal weakness Skin: no rash, other - As above with ecchymosis left orbital region Lymphatic: no adenopathy Microbiology Date/Time Source Procedure Growth Status 08/13/17 18:25 Blood Blood Culture - Preliminary NO GROWTH AFTER 48 HOURS Resulted 08/13/17 18:10 Blood Blood Culture - Preliminary NO GROWTH AFTER 48 HOURS Resulted 08/13/17 18:10 Rectum VRE Culture - Final NO VANCOMYCIN RESISTANT ENTEROCOCCUS ... Complete Laboratory Tests Test 08/16/17 08:05 White Blood Count 6.2 K/UL (4.8-10.8) Red Blood Count 3.86 M/UL (4.70-6.10) L Hemoglobin 12.5 G/DL (14.2-18.0) L Hematocrit 37.0 % (42.0-52.0) L Mean Corpuscular Volume 96 FL (80-99) Mean Corpuscular Hemoglobin 32.5 PG (27.0-31.0) H Mean Corpuscular Hemoglobin Concent 33.8 G/DL (32.0-36.0) Red Cell Distribution Width 10.7 % (11.6-14.8) L Platelet Count 182 K/UL (150-450) Mean Platelet Volume 8.4 FL (6.5-10.1) Neutrophils (%) (Auto) 68.6 % (45.0-75.0) Lymphocytes (%) (Auto) 18.8 % (20.0-45.0) L Monocytes (%) (Auto) 9.5 % (1.0-10.0) Eosinophils (%) (Auto) 2.3 % (0.0-3.0) Basophils (%) (Auto) 0.8 % (0.0-2.0) Sodium Level 141 MMOL/L (136-145) Potassium Level 3.7 MMOL/L (3.5-5.1) Chloride Level 106 MMOL/L (98-107) Carbon Dioxide Level 27 MMOL/L (21-32) Anion Gap 8 mmol/L (5-15) Blood Urea Nitrogen 15 mg/dL (7-18) Creatinine 0.8 MG/DL (0.55-1.30) Estimat Glomerular Filtration Rate mL/min (>60) Glucose Level 108 MG/DL (74-106) H Calcium Level 9.6 MG/DL (8.5-10.1) Total Bilirubin 0.5 MG/DL (0.2-1.0) Aspartate Amino Transf (AST/SGOT) 82 U/L (15-37) H Alanine Aminotransferase (ALT/SGPT) 60 U/L (12-78) Alkaline Phosphatase 69 U/L (46-116) Total Protein 7.4 G/DL (6.4-8.2) Albumin 2.8 G/DL (3.4-5.0) L Globulin 4.6 g/dL Albumin/Globulin Ratio 0.6 (1.0-2.7) L Current Medications Medications (Trade) Dose Ordered Sig/Vahe Route PRN Reason Start Time Stop Time Status Last Admin Dose Admin Acetaminophen (Tylenol) 500 mg Q6H PRN ORAL Breakthrough pain 08/14/17 10:00 09/13/17 09:59 Acetaminophen (Tylenol) 650 mg Q6H PRN ORAL Mild Pain (Pain Scale 1-3) 08/14/17 04:15 09/13/17 04:14 Aspirin (ASA) 81 mg DAILY ORAL 08/14/17 09:00 09/13/17 08:59 08/16/17 09:27 Bisacodyl (Dulcolax) 10 mg DAILY PRN RECTAL Constipation 08/14/17 04:15 09/13/17 04:14 Carbidopa/Levodopa (Sinemet 25/100) 1 ea THREE TIMES A DAY ORAL 08/14/17 09:00 09/13/17 08:59 08/16/17 09:27 Divalproex Sodium (Depakote) 500 mg EVERY 12 HOURS ORAL 08/14/17 09:00 09/13/17 08:59 08/16/17 09:27 Donepezil HCl (Aricept) 10 mg QHS ORAL 08/14/17 21:00 09/13/17 20:59 08/15/17 22:05 Heparin Sodium (Porcine) (Heparin 5000 units/ml) 5,000 units EVERY 12 HOURS SUBQ 08/14/17 10:45 09/13/17 10:44 08/16/17 09:31 Isosorbide Dinitrate (Isordil) 20 mg BID@0900,2100 ORAL 08/14/17 09:00 09/13/17 08:59 08/16/17 09:29 Lisinopril (Prinivil) 40 mg DAILY ORAL 08/14/17 09:00 09/13/17 08:59 08/16/17 09:30 Lorazepam (Ativan) 0.5 mg Q6H PRN ORAL For Anxiety 08/14/17 04:15 08/21/17 04:14 Magnesium Hydroxide (Mom) 30 ml DAILYPRN PRN ORAL Constipation 08/14/17 04:15 09/13/17 04:14 Metoprolol Succinate (Toprol XL) 100 mg DAILY ORAL 08/14/17 09:30 09/13/17 09:29 08/16/17 09:29 Mirtazapine (Remeron) 7.5 mg BEDTIME ORAL 08/14/17 21:00 09/13/17 20:59 08/15/17 22:07 Senna/Docusate Sodium ([place]-Colace) 1 ea DAILY ORAL 08/14/17 09:00 09/13/17 08:59 08/16/17 09:27 Sodium Chloride 1,000 ml @ 150 mls/hr Q6H40M IV 08/14/17 05:30 09/13/17 05:29 08/16/17 09:33 Michelle Watt M.D. Aug 16, 2017 10:42
[2017-08-16 12:00] VITALS: BP 123/67
--- NOTE | 2017-08-20 10:08 | Discharge Summary ---
Discharge Summary Hospital Course Date of Admission Aug 13, 2017 at 21:04 Date of Discharge Aug 16, 2017 at 17:06 Admitting Diagnosis HYPOTENSION,WEAKNESS HPI Arie Florence is a 77 year old male who was admitted on Aug 13, 2017 at 21:04 for Hypotension, Weakness Hospital Course dc summary #[id number] Discharge Condition Upon Discharge: stable Discharge Disposition Patient was discharged to SNF/Subacute Facility(03) Discharge Diagnoses: Discharge Instructions Discharge Instructions Special Instructions I have been assigned to complete a D/C Summary on this account. I was not involved in the patient management Sanam Corey NP ([place]) Aug 20, 2017 10:08
--- NOTE | 2017-08-21 02:15 | Discharge Summary 2 SIG ---
DATE OF ADMISSION: 08/13/2017 DATE OF DISCHARGE: 08/16/2017 REASON FOR ADMISSION: 77-year-old male with history of cerebrovascular accident, ischemic cardiomyopathy, status post AICD placement in 2009, congestive heart failure, hypertension, COPD, diabetes, Alzheimer dementia, and chronic psychosis, was sent from the senior care facility for evaluation due to hypotension. Apparently, one day prior to this admission, the patient was evaluated at [facility] for periorbital hematoma and possible head injury. However, the patient was sent back to the senior care facility. No acute findings were apparently noted. Following his arrival from [facility], the patient became progressively lethargic and was transferred for evaluation due to lethargy and hypotension. Upon arrival, blood pressure -82/54. The patient received one liter of fluid. Blood pressure responded to intravenous hydration with increase to 119/52. Noted acute renal insufficiency with BUN - 50 and creatinine-2.3. Lactic acid -2.7. CT of the head revealed no acute intracranial pathology. CK was mildly elevated. No leukocytosis. Stable hemoglobin and hematocrit. Stable electrolytes. Chest x-ray revealed evidence of AICD. However, no acute cardiopulmonary pathology was noted. The patient was admitted with encephalopathy, likely dehydration. mild lactic acidosis, head trauma. HOSPITAL COURSE: The patient was admitted. The patient was started on IV fluids. Renal parameters and electrolytes were closely monitored. Electrolytes were corrected as needed. Nephrotoxics were avoided. Acute kidney injury was likely precipitated by dehydration and prior to discharge, BUN from 50 down to 15 and creatinine from 2.3 down to 0.8. Troponin was negative. Pro-BNP - 77. Infectious Disease doctor seen and evaluated the patient. There was no evidence of acute infection, ID specialist recommended to keep the patient off antibiotics. The patient's cardiovascular regimen was resumed including dual antiplatelet therapy with aspirin and Plavix. Blood pressure was managed with beta-glendy and SACHIN inhibitor. Nitrates were continued. DVT prophylaxis provided. Bowel regimen instituted. The patient was restarted on Aricept and Remeron. Mental status was closely monitored. No seizure activity while in the hospital. Depakote was resumed along with Sinemet. The patient's mental status returned back to baseline. Supplemental oxygen and pulmonary toilet were provided as needed to keep saturation above 92%. Prior to discharge, pulse oximetry was stable on room air. Wound care was provided as per wound care nurse recommendation for sacral coccyx deep tissue injury pressure ulcer present on admission. Blood pressure was stable. Initial hypotension was likely secondary to dehydration and acute renal insufficiency and mild lactic acidosis was also likely due to dehydration. Blood pressure prior to discharge -119/76. The patient was stable for discharge back to senior care facility. DISCHARGE DIAGNOSES: 1. Encephalopathy with altered mental status and baseline dementia. 2. Likely dehydration, resolved. 3. Head trauma. 4. Mild lactic acidosis likely secondary to acute renal insufficiency due to dehydration 5. Congestive heart failure, no evidence of exacerbation. 6. Hypertension with a recent history of hypotension. 7. Ischemic cardiomyopathy, status post automatic implanted cardioverter defibrillator. 8. Chronic obstructive pulmonary disease. 9. Diabetes. 10. Alzheimer dementia. 11. Psychosis. 12. Sacral coccyx deep tissue injury pressure ulcer. present on admission DISCHARGE MEDICATIONS: See medication reconciliation list. DISCHARGE INSTRUCTIONS: The patient was discharged to subacute facility. FOLLOWUP: Follow up with medical doctor at the facility. Evans Jarrett M.D. I have been assigned to dictate discharge summary on this account and I was not involved in the patient's management. Sanam Leamitzi N.PLeela DR: Javed JOB#: [id number] CC: JOSE C
--- NOTE | 2017-08-26 21:47 | Cardiology Report ---
APPROVED REPORT EXAM: Two-dimensional and M-mode echocardiogram with Doppler and color Doppler. INDICATION CARDIOMYOPATHY M-Mode DIMENSIONS IVSd2.1 (0.7-1.1cm)Left Atrium (MM)3.6 (1.6-4.0cm) LVDd6.1 (3.5-5.6cm)Aortic Root4.0 (2.0-3.7cm) PWd1.6 (0.7-1.1cm)Aortic Cusp Exc.1.8 (1.5-2.0cm) IVSs2.6 cm LVDs4.1 (2.5-4.0cm) PWs2.2 cm Technically difficult study due to poor acoustical windows and patient resistance. Normal left ventricular chamber size, systolic function and wall motion to extent visualized. Left ventricular ejection fraction estimated to be 60%. mild left ventricular hypertrophy by 2-D. No evidence of pericardial effusion All other cardiac chamber size are within normal. Focal aortic valve sclerosis with adequate cusp excursion. Thickened mitral valve leaflets with normal excursion. Mitral annulus and aortic root calcification. Pulmonic valve not well visualized. IVC at normal size with physiologic collapse. Apical views can not obtained. Tricuspid systolic velocities suggests peak right ventricular systolic pressure of 16 mmHg . No Pulmonic regurgitation present.
== END 2017-08-16 17:06 | DRG 641 ==
LOC: EDBD 17:44 → EMR 18:01 → 4E 21:04 → 2E 21:04 → UNDOADMIN 21:04 → EDBEDREQ 21:16
DX: E86.0 Dehydration (principal); E87.2 Acidosis; D69.6 Thrombocytopenia, unspecified; I11.0 Hypertensive heart disease with heart failure; I50.9 Heart failure, unspecified; J44.9 Chronic obstructive pulmonary disease, unspecified; G30.9 Alzheimer's disease, unspecified; F02.80 Dementia in other diseases classified elsewhere, unspecified severity, without behavioral disturbance, psychotic disturbance, mood disturbance, and anxiety; G40.909 Epilepsy, unspecified, not intractable, without status epilepticus; E11.9 Type 2 diabetes mellitus without complications; S06.890D Other specified intracranial injury without loss of consciousness, subsequent encounter; S05.12XD Contusion of eyeball and orbital tissues, left eye, subsequent encounter; X58.XXXD Exposure to other specified factors, subsequent encounter; Z86.73 Personal history of transient ischemic attack (TIA), and cerebral infarction without residual deficits; Z79.82 Long term (current) use of aspirin; Z95.810 Presence of automatic (implantable) cardiac defibrillator; Z79.84 Long term (current) use of oral hypoglycemic drugs
CPT/HCPCS: 36415; 70450; 71010; 80053; 82550; 82553; 82962; 83605; 83690; 83880; 84443; 84484; 85025; 85651; 87040; 87081; 93005; 93306; 99285; C9399

== ENCOUNTER 2018-08-24 22:22 | Inpatient (IN) | payer MEDICARE, OTHER ==
[~2018-08-24] VITALS: Ht 160 cm; Wt 73.9 kg
[~2018-08-24 22:22] MED LIST changes: +ACETAMINOPHEN325 M1 ORAL; +ALUM-MAG HYDRO360 ML PO; +BISACODYL10 M1 RC; +CRANBERRY450 M3 PO; +DEPAKOTE250 MG PO; +DOCUSATE SODIU100 MG GT; -DOCUSATE SODIU100 MG ORAL; +ISOSORBIDE DINI10 MG ORAL; +LISINOPRIL40 MG ORAL; +MAGNESIUM OXID400 M1 ORAL; +MAGNESIUM400 M2 PO; +METOPROLOL TAR100 M1 GT; +MILK OF MA400 MG/51 GT; -MILK OF MA400 MG/51 ORAL; +MIRTAZAPINE7.5 MG ORAL; +NEPHROVITE1 TAB ORAL; +SEROQUEL25 MG ORAL; +SINEMET 25-1001 EAC1 GT; +TRADJENTA5 MG PO
[2018-08-24 22:30] VITALS: BP 123/56
--- NOTE | 2018-08-24 22:30 | NUR ---
ED Nurse Note: pt noted to have swelling scrotum, pt have bruise on left leg and multiple pressure injury on bilateral foot.
--- NOTE | 2018-08-24 22:30 | NUR ---
ED Nurse Note: pt was brought in by ambulance from [facility] c/o aspiration of phlegm. pt oxygen upon arrival is 85, pt noted to have cervical collar, per ems pt had cervical injury on the past. pt is non verbal, pt is coughing, rales noted on all 4 lobes, pt noted to have contracture on bilateral lower exstremities and edema on upper extremity. pt arrived with g 20 on right forearm, pt noted with multiple pressure ulcer on the sacrococcyx area, right hip, right foot on the right side,right heel, and left leg. pt also noted with bluish discoloration on right rib part, and multiple open ecchymisis on bilateral arm. ermd on bed. will continue to monitor.
--- NOTE | 2018-08-24 22:35 | NUR ---
ED Nurse Note: g 18 iv inseted on left hand with good blood return and sent to lab, iv g 18 inserted on right arm. vidal catheter g 16 inseted with yellowish urine out, oral suctioning done by career resource technician, 0xygen sat 92.. pt pt connected on monitor. will continue to monitor.
--- NOTE | 2018-08-24 22:46 | Emergency Room Report ---
History of Present Illness General Chief Complaint: General Complaint Source: Medical Record, EMS Present Illness HPI Is an 78-year-old male with multiple medical problem including seizure, schizophrenia, CAD with pacemaker. He also had cervical fracture 6 months ago for which he wears a hard collar. He presents with chief complaint of rest or distress and hypoxia. longterm call EMS who said that patient was in rest or distress with pulse oxing in the 70s. He had a history of aspiration. Patient was placed on oxygen and brought here. Unable to get any history from this patient. Patient was also warm to the touch. Allergies: Coded Allergies: NO KNOWN ALLERGIES (Unverified Allergy, Unknown, 08/25/15) Patient History Past Medical History: see triage record, old chart reviewed Past Surgical History: other Pertinent Family History: none Social History: Denies: smoking Immunizations: other Reviewed Nursing Documentation: PMH: Agreed; PSxH: Agreed Nursing Documentation-PM Past Medical History: No History, Except For Hx Cardiac Problems: Yes - chf Hx Hypertension: Yes Hx Pacemaker: Yes - icd Hx COPD: Yes Hx Diabetes: Yes Hx Cancer: No Hx Gastrointestinal Problems: No Hx Neurological Problems: Yes Hx Dementia: Yes Hx Alzheimer's Disease: Yes Hx Seizures: Yes Review of Systems Constitutional: Reports: fever, malaise Respiratory: Reports: shortness of breath All Other Systems: limited - secondary to condition Physical Exam Vital Signs Date Time Temp Pulse Resp B/P (MAP) Pulse Ox O2 Delivery O2 Flow Rate FiO2 08/24/18 22:20 99.9 77 14 125/49 89 Non-Rebreather 15.0 vitals with low-grade fever Sp02 EP Interpretation: abnormal General Appearance: moderate distress, Chronically Ill, Stupor Head: normocephalic, atraumatic Eyes: bilateral eye PERRL ENT: other - Oropharynx with lots of thick mucus Neck: other - stiff with collar on Respiratory: respiratory distress, decreased breath sounds, accessory muscle use, rhonchi Cardiovascular #1: regular rate, rhythm, no murmur Gastrointestinal: normal bowel sounds, non tender, no mass, no organomegaly, no bruit, non-distended Musculoskeletal: other - contracted. UE with edema Skin: warm/dry Lymphatic: normal inspection Procedures Critical Care Time Critical Care Time Critical care is mandated in this patient who presented with sepsis from aspiration pneumonia. Patient require my urgent intervention to attenuate the risks of metabolic collapse which may lead to cardiovascular collapse and . Critical care time is 35 minutes excluding any reportable procedure. Critical care time included evaluation, multiple reevaluation, looking at old charts, interpreting laboratory and diagnostic data, discussing case with patient and family and consultants, and charting. Medical Decision Making Diagnostic Impression: Primary Impression: Sepsis Qualified Codes: A41.9 - Sepsis, unspecified organism Additional Impressions: Aspiration pneumonia Qualified Codes: J69.0 - Pneumonitis due to inhalation of food and vomit ARF (acute renal failure) Qualified Codes: N17.9 - Acute kidney failure, unspecified Respiratory failure with hypoxia Qualified Codes: J96.01 - Acute respiratory failure with hypoxia Encephalopathy UTI (urinary tract infection) Qualified Codes: N30.00 - Acute cystitis without hematuria Proteinuria Qualified Codes: R80.9 - Proteinuria, unspecified Anemia Qualified Codes: D64.9 - Anemia, unspecified ER Course Patient with respiratory distress secondary to aspiration pneumonia. He's also septic. Patient given oxygen and fluids. More improved. Antibiotics given. Pt's condition is critical. We'll admit for further treatment and IV antibiotics. I discussed case with Dr. Jarrett who will admit. Lab Results Impression labs with elevated bun/creat EKG Diagnostic Results Rate: normal Rhythm: NSR ST Segments: no acute changes Rhythm Strip Diag. Results EP Interpretation: yes Rate: 66 Rhythm: NSR, no PVC's, no ectopy Chest X-Ray Diagnostic Results Chest X-Ray Diagnostic Results : Chest X-Ray Ordered: Yes # of Views/Limited/Complete: 1 View Indication: Shortness of Breath EP Interpretation: Yes Interpretation: no effusion, no pneumothorax, other - RML and RLL infiltrate Impression: Other - Rt lung infiltrate Electronically Signed by: Jose Alejandro Caputo MD Last Vital Signs Date Time Temp Pulse Resp B/P (MAP) Pulse Ox O2 Delivery O2 Flow Rate FiO2 08/24/18 22:20 99.9 77 14 125/49 89 Non-Rebreather 15.0 Status: improved Disposition: ADMITTED INPATIENT Condition: Critical Referrals: Evans Jarrett MD (PCP) Jose Alejandro Caputo MD Aug 24, 2018 22:46
[2018-08-24 23:00] VITALS: BP 143/78
[2018-08-24] MEDS ORDERED: FLEET ENEMA133 ML RECTAL (23:08)
[2018-08-24] MEDS ORDERED: TYLENOL325 M1 PO (23:08)
[2018-08-24] MEDS ORDERED: MILK OF MA2400 MG/10 ORAL (23:08)
[2018-08-24 23:11] LABS: HEMATOCRIT 28.6 % (42.0-52.0); HEMOGLOBIN 9.5 G/DL (14.2-18.0); MEAN CORPUSCULAR VOLUME 95 FL (80-99); PLATELET COUNT 222 K/UL (150-450); RED BLOOD COUNT 3.01 M/UL (4.70-6.10); RED CELL DISTRIBUTION WIDTH 17.2 % (11.6-14.8); WHITE BLOOD COUNT 13.9 K/UL (4.8-10.8)
[2018-08-24 23:13] LABS: APPEARANCE,URINE CLOUDY; BILIRUBIN, URINE NEGATIVE (NEGATIVE); COLOR,URINE AMBER; GLUCOSE, URINE (UA) NEGATIVE (NEGATIVE); KETONES,URINE NEGATIVE (NEGATIVE); LEUKOCYTE ESTERASE ,URINE 1+ (NEGATIVE); NITRITE,URINE NEGATIVE (NEGATIVE); PH,URINE 5 (4.5-8.0); PROTEIN,URINE 4+ (NEGATIVE); UROBILINOGEN,URINE 1 MG/DL (0.0-1.0)
[2018-08-24 23:19] LABS: ANION GAP 10 mmol/L (5-15); BLOOD UREA NITROGEN 91 mg/dL (7-18); CALCIUM 8.8 MG/DL (8.5-10.1); CARBON DIOXIDE 27 MMOL/L (21-32); CHLORIDE 107 MMOL/L (98-107); CREATININE 3.3 MG/DL (0.55-1.30); POTASSIUM 3.4 MMOL/L (3.5-5.1); SODIUM 144 MMOL/L (136-145)
[2018-08-24] MEDS ORDERED: Cefepime HCl 1 GM in D5W 55 ML IVPB ONE (23:30)
[2018-08-24 23:32] LABS: ALANINE AMINOTRANSFERASE 13 U/L (12-78); ALBUMIN 1.8 G/DL (3.4-5.0); ALBUMIN/GLOBULIN RATIO 0.4 (1.0-2.7); ALKALINE PHOSPHATASE 138 U/L (46-116); ASPARTATE AMINO TRANSFERASE 103 U/L (15-37); BILIRUBIN,TOTAL 0.3 MG/DL (0.2-1.0); CKMB 4.6 NG/ML (0.0-3.6); CREATINE KINASE 2442 U/L (26-308)
[2018-08-25] VITALS (7 sets, daily range): BP systolic 120–145; BP diastolic 51–61
--- NOTE | 2018-08-25 00:40 | NUR ---
ED Nurse Note: pt was admitted in the hospital and transferd to tele 221 with rn and transplant worker. report given to amelia echevarria.
--- NOTE | 2018-08-25 01:00 | NUR ---
NURSE NOTES: Received pt from ED via gurney. Pt is awake, non-verbal. In no acute distress. Pt is being admitted for aspiration pneumonia. Placed on monitor worker showing NSR. VS stable. Oriented pt to room and unit. Bed in lowest position, is[place] light within reach. Will contact MD for admission orders.
[2018-08-25] MEDS ORDERED: DEPAKOTE ER250 MG ORAL (01:28)
[2018-08-25] MEDS ORDERED: ATORVASTATIN CA10 MG GT (01:28)
[2018-08-25] MEDS ORDERED: Milk of Magnesia 30ml Ud GT PRN (03:30)
[2018-08-25 06:31] LABS: HEMATOCRIT 22.6 % (42.0-52.0); HEMOGLOBIN 7.5 G/DL (14.2-18.0); MEAN CORPUSCULAR VOLUME 95 FL (80-99); PLATELET COUNT 167 K/UL (150-450); RED BLOOD COUNT 2.37 M/UL (4.70-6.10); RED CELL DISTRIBUTION WIDTH 17.6 % (11.6-14.8); WHITE BLOOD COUNT 12.7 K/UL (4.8-10.8)
[2018-08-25 07:12] LABS: ALANINE AMINOTRANSFERASE 12 U/L (12-78); ALBUMIN 1.2 G/DL (3.4-5.0); ALKALINE PHOSPHATASE 78 U/L (46-116); ANION GAP 12 mmol/L (5-15); ASPARTATE AMINO TRANSFERASE 92 U/L (15-37); BILIRUBIN,DIRECT 0.2 MG/DL (0.0-0.3); BILIRUBIN,TOTAL 0.3 MG/DL (0.2-1.0); BLOOD UREA NITROGEN 86 mg/dL (7-18); CALCIUM 7.9 MG/DL (8.5-10.1); CARBON DIOXIDE 24 MMOL/L (21-32); CHLORIDE 109 MMOL/L (98-107); CREATININE 3.1 MG/DL (0.55-1.30); PHOSPHORUS 3.2 MG/DL (2.5-4.9); POTASSIUM 3.1 MMOL/L (3.5-5.1); SODIUM 145 MMOL/L (136-145)
--- NOTE | 2018-08-25 07:32 | NUR ---
HAND-OFF: Report given to VARINDER [place].
--- NOTE | 2018-08-25 07:33 | NUR ---
NURSE NOTES: Received report from VARINDER [place]. Patient is resting in bed, sleeping. Patient in non-verbal. No signs and symptoms of any distress at this time. IV site intact and patent. Call light and bed side table is within reach. Bed brakes engaged. Bed alarm on. Will contact the doctor to report abnormal lab values. Will continue to monitor and follow plan of care.
--- NOTE | 2018-08-25 07:55 | NUR ---
NURSE NOTES: Called and informed Dr. Jarrett regarding patient's lab values: Hgb 7.5, Mg 1.6, and K 3.1. acknowledged and ordered Type and cross do not transfuse at this time - "it is a known problem." Magnesium sulfate 1 gm IV x 2, potassium chloride 40 mEq GT now x 1. Dr. Ball as pulmonology consult, Dr. Jenkins for cardiology consult. Duoneb treatments PRN. Fax CBC and BMP to Dr. Jarrett's office. Orders entered, noted, and carried out. Will continue to monitor patient. Addendum: 08/25/18 at 1048 by IVAN WEINER RN NURSE NOTES: Also ordered per Dr. Jarrett: order 2 units of PRBC, hold transfusion at this time until further instructed. Read back all orders to Dr. Jarrett, per Dr. Jarrett acknowledged and agreed. Will continue to monitor patient.
[2018-08-25] MEDS ORDERED: Albuterol/Ipratropium 3ml neb HHN PRN (08:15)
[2018-08-25] MEDS ORDERED: Depakote ER 250mg tab ORAL SCH ×2 (09:00→14:00)
[2018-08-25] MEDS: Levodopa/Carbidopa 25/100 tab GT SCH ×4 (09:03→20:33)
[2018-08-25] MEDS ORDERED: Tubing IV Secondary IV ONE (09:14)
--- NOTE | 2018-08-25 09:55 | NUR ---
CASE MANAGEMENT:REVIEW 78 YR OLD MALE BIBA FROM [facility] SI: SEPSIS. ASPIRATION PNEUMONIA 99.9 77 14 125/49 89% ON 15 NON REBREATHER WBC+13.9 H/H-9.5/28.6 BUN+91 CR 3.3 TCK 2442 TROPONIN 0.073 IS: 1L NS BOLUS IV CEFEPIME IV LEVAQUIN IV FLAGYL URINE CX BLOOD CX CXR :TO TELEMETRY INTERQUAL CRITERIA MET
--- NOTE | 2018-08-25 10:26 | Consultation ---
Consult Note Consult Note asked to eval at the request of Dr Ball for renal failure Is an 78-year-old male with multiple medical problem including seizure, schizophrenia, CAD with pacemaker. He also had cervical fracture 6 months ago for which he wears a hard collar. He presents with chief complaint of rest or distress and hypoxia. [facility] call EMS who said that patient was in rest or distress with pulse oxing in the 70s. He had a history of aspiration. Patient was placed on oxygen and brought here. Unable to get any history from this patient. Patient was also warm to the touch. NO KNOWN ALLERGIES (Unverified Allergy, Unknown, 08/25/15) Past Medical History: No History, Except For Hx Cardiac Problems: Yes - chf Hx Hypertension: Yes Hx Pacemaker: Yes - icd Hx COPD: Yes Hx Diabetes: Yes Hx Neurological Problems: Yes Hx Dementia: Yes Hx Alzheimer's Disease: Yes Hx Seizures: Yes non historian has Terell has PEG examined data reviewed discussed with immigration consultant/Plan Renal failure- Pre renal picture ? Underlying Renal failure Sepsis Asp pneumonia UTI Anemia Sz disorder CAD + Pacemaker s/p Cervical Fx 6 months ago COPD DM Hold Zestril and Glucophage for now slow hydrate K and Mag supplement Urine studies antibiotics avoid nephrotoxics Anemia ibarra per orders Joe Feliciano MD Aug 25, 2018 10:26
--- NOTE | 2018-08-25 10:28 | Diagnostic Imaging Report ---
Indication: Shortness of breath Technique: One view of the chest Comparison: 08/13/2017 Findings: Interim development of bilateral pleural effusions and generalized interstitial congestion. The heart is borderline enlarged. There is a left chest bifocal AICD. Impression: Bilateral pleural effusions and bilateral interstitial congestion
[2018-08-25 11:27] LABS: CREATINE KINASE 1594 U/L (26-308); FERRITIN 281 NG/ML (8-388); GAMMA GLUTAMYL TRANSPEPTIDASE 17 U/L (5-85)
[2018-08-25 11:48] LABS: % IRON SATURATION 11 % (15-50); IRON 13 ug/dL (50-175); TOTAL IRON BINDING CAPACITY 121 ug/dL (250-450)
[2018-08-25] MEDS ORDERED: Promethazine/Codeine 5ml UD ORAL PRN (12:00)
--- NOTE | 2018-08-25 12:10 | Consultation ---
History of Present Illness General Date patient seen: Aug 25, 2018 Chief Complaint: General Complaint Present Illness HPI 78-year-old male with PMHx of seizure, schizophrenia, CAD, ICD , bed bound, cervical fracture 6 months ago for which he wears a hard collar, presented to ER with chief complaint of respiratory distress and hypoxia with pulse oximeter in the 70s. Patient was placed on oxygen and brought to ER. Pt was diagnosed to have bilateral pneumonia and admitted to telemetry for further work up. Allergies: Coded Allergies: NO KNOWN ALLERGIES (Unverified Allergy, Unknown, 08/25/15) Medication History Scheduled Aspirin* (Aspirin*), 81 MG ORAL DAILY, (Reported) Atorvastatin Calcium* (Lipitor*), 10 MG GT BEDTIME, (Reported) Carbidopa/Levodopa 25-100 Mg* (Sinemet 25-100 Mg Tablet*), 1 TAB GT FOUR TIMES A DAY, (Reported) Cranberry Fruit Concentrate (Cranberry), 450 MG PO DAILY, (Reported) Divalproex Sodium* (Depakote Er*), 125 MG ORAL THREE TIMES A DAY, (Reported) Docusate Sodium* (Docusate Sodium*), 100 MG GT DAILY, (Reported) Donepezil Hcl* (Donepezil Hcl*), 10 MG ORAL QHS, (Reported) Isosorbide Dinitrate* (Isordil*), 20 MG ORAL BID, (Reported) Linagliptin (Tradjenta), 5 MG PO DAILY, (Reported) Lisinopril* (Lisinopril*), 40 MG ORAL DAILY, (Reported) Magnesium Oxide (Magnesium Oxide), 400 MG ORAL BID, (Reported) Metformin Hcl* (Metformin Hcl*), 500 MG ORAL BID, (Reported) Metoprolol Tartrate* (Metoprolol Tartrate*), 100 MG GT BID, (Reported) Mirtazapine* (Mirtazapine*), 7.5 MG ORAL BEDTIME, (Reported) Na Phos,M-B/Na Phos,Di-Ba* (Fleet Enema*), 133 ML RECTAL DAILY, (Reported) Quetiapine Fumarate* (Seroquel*), 50 MG ORAL TWICE A DAY, (Reported) Vitamin B Cmplx/Vit C/Folic AC (Nephro-Geneva Tablet), 1 TAB ORAL DAILY, (Reported ) Scheduled PRN Acetaminophen (Tylenol), 650 MG PO Q4HR PRN for Fever/Headache/Mild Pain, ( Reported) Acetaminophen* (Tylenol Extra Strength*), 1,000 MG ORAL Q6H PRN for Moderate Breakthru Pain (5-7), (Reported) Acetaminophen* (Acetaminophen 325MG Tablet*), 650 MG ORAL Q6H PRN for Mild Pain (Pain Scale 1-3), (Reported) Bisacodyl (Bisacodyl), 10 MG RC DAILY PRN for Constipation, (Reported) Lorazepam* (Ativan*), 0.5 MG ORAL Q6HR PRN for For Anxiety, (Reported) Mag Hydrox/Al Hydrox/Simeth (Alum-Mag Hydroxide-Simeth Liq), Unknown Dose PO Q6HR PRN for STOMACH UPSET, (Reported) Magnesium Hydroxide* (Milk Of Magnesia*), 30 ML GT PRN PRN for Constipation, ( Reported) Magnesium Hydroxide* (Milk Of Magnesia*), 30 ML ORAL QHS PRN for Constipation, ( Reported) Na Phos,M-B/Na Phos,Di-Ba* (Fleet Enema*), 133 ML RECTAL EVERY OTHER DAY PRN for Constipation, (Reported) Patient History Healthcare decision maker Resuscitation status Do Not Resuscitate Advanced Directive on File Past Medical/Surgical History Past Medical/Surgical History: (1) Anemia (2) HTN (hypertension) (3) 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 Review of Systems Constitutional: Reports: no symptoms Physical Exam General Appearance: WD/WN Lines, tubes and drains: peripheral HEENT: normocephalic, atraumatic Neck: non-tender, normal alignment Respiratory/Chest: chest wall non-tender, lungs clear Cardiovascular/Chest: normal peripheral pulses, no JVD Genitourinary/Rectal: normal genital exam Extremities: normal range of motion 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 Last 24 Hour Vital Signs Date Time Temp Pulse Resp B/P (MAP) Pulse Ox O2 Delivery O2 Flow Rate FiO2 08/25/18 09:25 73 18 92 Nasal Cannula 3.0 32 08/25/18 09:25 73 18 92 08/25/18 09:15 69 18 90 Nasal Cannula 3.0 32 08/25/18 09:03 69 120/51 08/25/18 08:00 97.9 69 24 120/51 (74) 90 08/25/18 04:00 98.2 63 20 122/52 (75) 92 08/25/18 04:00 63 08/25/18 01:00 Nasal Cannula 2.0 08/25/18 00:50 71 08/25/18 00:50 97.2 70 20 131/61 (84) 92 08/25/18 00:40 98.9 69 26 123/56 92 Room Air 2.0 08/25/18 00:40 98.9 69 29 123/56 92 Nasal Cannula 2.0 08/24/18 23:00 98.0 72 28 143/78 92 Nasal Cannula 2.0 08/24/18 22:30 98.9 69 29 123/56 92 Room Air 08/24/18 22:30 69 29 Nasal Cannula 2.0 08/24/18 22:20 99.9 77 14 125/49 89 Non-Rebreather 15.0 Intake and Output 08/24/18 08/25/18 19:00 07:00 Intake Total 4360 ml Output Total 900 ml Balance 3460 ml Intake Free Water 150 ml IV Total 4210 ml Output Urine Total 900 ml # Bowel Movements 1 Laboratory Tests Test 08/24/18 22:40 08/24/18 22:55 08/24/18 23:50 08/25/18 06:00 White Blood Count 13.9 K/UL (4.8-10.8) H 12.7 K/UL (4.8-10.8) H Red Blood Count 3.01 M/UL (4.70-6.10) L 2.37 M/UL (4.70-6.10) L Hemoglobin 9.5 G/DL (14.2-18.0) L 7.5 G/DL (14.2-18.0) L Hematocrit 28.6 % (42.0-52.0) L 22.6 % (42.0-52.0) L Mean Corpuscular Volume 95 FL (80-99) 95 FL (80-99) Mean Corpuscular Hemoglobin 31.7 PG (27.0-31.0) H 31.6 PG (27.0-31.0) H Mean Corpuscular Hemoglobin Concent 33.3 G/DL (32.0-36.0) 33.2 G/DL (32.0-36.0) Red Cell Distribution Width 17.2 % (11.6-14.8) H 17.6 % (11.6-14.8) H Platelet Count 222 K/UL (150-450) 167 K/UL (150-450) Mean Platelet Volume 6.9 FL (6.5-10.1) 7.5 FL (6.5-10.1) Neutrophils (%) (Auto) % (45.0-75.0) % (45.0-75.0) Lymphocytes (%) (Auto) % (20.0-45.0) % (20.0-45.0) Monocytes (%) (Auto) % (1.0-10.0) % (1.0-10.0) Eosinophils (%) (Auto) % (0.0-3.0) % (0.0-3.0) Basophils (%) (Auto) % (0.0-2.0) % (0.0-2.0) Differential Total Cells Counted 100 100 Neutrophils % (Manual) 80 % (45-75) H 66 % (45-75) Lymphocytes % (Manual) 9 % (20-45) L 7 % (20-45) L Monocytes % (Manual) 9 % (1-10) 5 % (1-10) Eosinophils % (Manual) 2 % (0-3) 0 % (0-3) Basophils % (Manual) 0 % (0-2) 0 % (0-2) Band Neutrophils 0 % (0-8) 22 % (0-8) H Platelet Estimate Adequate Adequate Platelet Morphology Normal Normal Red Blood Cell Morphology Normal Prothrombin Time 10.5 SEC (9.30-11.50) Prothromb Time International Ratio 1.0 (0.9-1.1) Activated Partial Thromboplast Time 31 SEC (23-33) Sodium Level 144 MMOL/L (136-145) 145 MMOL/L (136-145) Potassium Level 3.4 MMOL/L (3.5-5.1) L 3.1 MMOL/L (3.5-5.1) L Chloride Level 107 MMOL/L (98-107) 109 MMOL/L (98-107) H Carbon Dioxide Level 27 MMOL/L (21-32) 24 MMOL/L (21-32) Anion Gap 10 mmol/L (5-15) 12 mmol/L (5-15) Blood Urea Nitrogen 91 mg/dL (7-18) H 86 mg/dL (7-18) H Creatinine 3.3 MG/DL (0.55-1.30) H 3.1 MG/DL (0.55-1.30) H Estimat Glomerular Filtration Rate mL/min (>60) mL/min (>60) Glucose Level 145 MG/DL (74-106) H 113 MG/DL (74-106) H Lactic Acid Level 3.00 mmol/L (0.4-2.0) H 2.40 mmol/L (0.66-2.22) H Calcium Level 8.8 MG/DL (8.5-10.1) 7.9 MG/DL (8.5-10.1) L Total Bilirubin 0.3 MG/DL (0.2-1.0) 0.3 MG/DL (0.2-1.0) Aspartate Amino Transf (AST/SGOT) 103 U/L (15-37) H 92 U/L (15-37) H Alanine Aminotransferase (ALT/SGPT) 13 U/L (12-78) 12 U/L (12-78) Alkaline Phosphatase 138 U/L (46-116) H 78 U/L (46-116) Total Creatine Kinase 2442 U/L (26-308) H Creatine Kinase MB 4.6 NG/ML (0.0-3.6) H Creatine Kinase MB Relative Index 0.1 Troponin I 0.073 ng/mL (0.000-0.056) Total Protein 6.2 G/DL (6.4-8.2) L 4.6 G/DL (6.4-8.2) L Albumin 1.8 G/DL (3.4-5.0) L 1.2 G/DL (3.4-5.0) L Globulin 4.4 g/dL Albumin/Globulin Ratio 0.4 (1.0-2.7) L Urine Color Kathy Urine Appearance Cloudy Urine pH 5 (4.5-8.0) Urine Specific Sims 1.010 (1.005-1.035) Urine Protein 4+ (NEGATIVE) H Urine Glucose (UA) Negative (NEGATIVE) Urine Ketones Negative (NEGATIVE) Urine Blood 5+ (NEGATIVE) H Urine Nitrite Negative (NEGATIVE) Urine Bilirubin Negative (NEGATIVE) Urine Ictotest Negative (NEGATIVE) Urine Urobilinogen 1 MG/DL (0.0-1.0) H Urine Leukocyte Esterase 1+ (NEGATIVE) H Urine RBC 15-20 /HPF (0 - 0) H Urine WBC 10-15 /HPF (0 - 0) H Urine Squamous Epithelial Cells Occasional /LPF Urine Bacteria Many /HPF (NONE) H Polychromasia 1+ Hypochromasia 2+ Anisocytosis 1+ Phosphorus Level 3.2 MG/DL (2.5-4.9) Magnesium Level 1.6 MG/DL (1.8-2.4) L Direct Bilirubin 0.2 MG/DL (0.0-0.3) Pro-B-Type Natriuretic Peptide 8263 pg/mL (0-125) H Thyroid Stimulating Hormone (TSH) 3.047 uiU/mL (0.358-3.740) Free Thyroxine 0.81 NG/DL (0.76-1.46) Test 08/25/18 09:00 Uric Acid 4.7 MG/DL (2.6-7.2) Iron Level 13 ug/dL (50-175) L Total Iron Binding Capacity 121 ug/dL (250-450) L Percent Iron Saturation 11 % (15-50) L Unsaturated Iron Binding 108 ug/dL (112-346) L Ferritin 281 NG/ML (8-388) Gamma Glutamyl Transpeptidase 17 U/L (5-85) Total Creatine Kinase 1594 U/L (26-308) H Vitamin B12 Level 416 PG/ML (193-986) Folate 11.7 NG/ML (8.6-58.9) Height (Feet): 5 Height (Inches): 3.00 Weight (Pounds): 163 Medications Current Medications Medications (Trade) Dose Ordered Sig/Vahe Route PRN Reason Start Time Stop Time Status Last Admin Dose Admin Albuterol/ Ipratropium (Albuterol/ Ipratropium) 3 ml Q4H PRN HHN Shortness of Breath 08/25/18 08:15 08/30/18 08:14 08/25/18 09:13 Albuterol/ Ipratropium (Albuterol/ Ipratropium) 3 ml Q6HRT HHN 08/25/18 13:00 08/30/18 12:59 UNV Aspirin (ASA) 81 mg DAILY GT 08/25/18 10:45 09/24/18 10:44 Bisacodyl (Dulcolax) 10 mg DAILY PRN RECTAL Constipation 08/25/18 03:30 09/24/18 03:29 Carbidopa/Levodopa (Sinemet 25/100) 1 tab FOUR TIMES A DAY GT 08/25/18 09:00 09/24/18 08:59 08/25/18 09:03 Cefepime HCl 1 gm/ Dextrose 55 ml @ 110 mls/hr Q24H IVPB 08/25/18 23:00 09/01/18 22:59 Divalproex Sodium (Depakote ER) 125 mg Q8HR ORAL 08/25/18 14:00 09/24/18 08:59 Docusate Sodium (Colace) 100 mg THREE TIMES A DAY GT 08/25/18 13:00 09/24/18 12:59 Lansoprazole (Prevacid) 30 mg BID GT 08/25/18 10:30 09/24/18 10:29 Levofloxacin 50 ml @ 50 mls/hr Q48H IVPB 08/26/18 23:00 09/02/18 22:59 Magnesium Hydroxide (Mom) 30 ml PRN PRN GT Constipation 08/25/18 03:30 09/24/18 03:29 Metoprolol Tartrate (Lopressor) 100 mg BID GT 08/25/18 09:00 09/24/18 08:59 08/25/18 09:03 Metronidazole 100 ml @ 100 mls/hr Q8HR IVPB 08/25/18 06:00 09/01/18 05:59 08/25/18 05:58 Promethazine HCl/ Codeine (Phenergan with Codeine) 5 ml Q4H PRN ORAL For Cough 08/25/18 12:00 09/24/18 11:59 UNV Sodium Chloride 1,000 ml @ 75 mls/hr [id number] IV 08/25/18 10:45 09/24/18 10:44 Assessment/Plan Problem List: (1) Aspiration pneumonia ICD Codes: J69.0 - Pneumonitis due to inhalation of food and vomit SNOMED: 390017549 Qualifiers: Qualified Codes: J69.0 - Pneumonitis due to inhalation of food and vomit (2) HTN (hypertension) ICD Codes: I10 - Essential (primary) hypertension SNOMED: 57527801 (3) Sepsis ICD Codes: A41.9 - Sepsis, unspecified organism SNOMED: 11896408 Qualifiers: Qualified Codes: A41.9 - Sepsis, unspecified organism (4) ARF (acute renal failure) ICD Codes: N17.9 - Acute kidney failure, unspecified SNOMED: 05774692 Qualifiers: Qualified Codes: N17.9 - Acute kidney failure, unspecified (5) 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 (6) Acute respiratory failure ICD Codes: J96.00 - Acute respiratory failure, unspecified whether with hypoxia or hypercapnia SNOMED: 51100875 Assessment/Plan molina cultures sputum cultures IV abx check electrolytes renal f/u prbc prn dvt prophylaxis continue Gtube feeding Stefanie Ball MD Aug 25, 2018 12:10
[2018-08-25] MEDS: Aspirin Baby 81mg GT SCH (12:49)
[2018-08-25] MEDS: Docusate 100mg/10ml Liq GT SCH ×2 (12:49→17:34)
[2018-08-25] MEDS: Albuterol/Ipratropium 3ml neb HHN SCH ×2 (13:00→19:13)
[2018-08-25 13:29] LABS: APPEARANCE,URINE SLIGHTLY CLOUDY; BILIRUBIN, URINE NEGATIVE (NEGATIVE); COLOR,URINE PALE YELLOW; GLUCOSE, URINE (UA) NEGATIVE (NEGATIVE); KETONES,URINE NEGATIVE (NEGATIVE); LEUKOCYTE ESTERASE ,URINE 1+ (NEGATIVE); NITRITE,URINE NEGATIVE (NEGATIVE); PH,URINE 5 (4.5-8.0); PROTEIN,URINE 4+ (NEGATIVE); UROBILINOGEN,URINE NORMAL MG/DL (0.0-1.0)
--- NOTE | 2018-08-25 14:22 | NUR ---
RD ASSESSMENT & RECOMMENDATIONS SEE CARE ACTIVITY FOR COMPLETE ASSESSMENT DAILY ESTIMATED NEEDS: Needs based on DM, renal, wounds, TF LINOTYPIST (Adj 60.8kg) 29-34 kcals/kg 2154-6787 total kcals 1.25-1.7 g protein/kg 76-103 g total protein Fluid per MD NUTRITION DIAGNOSIS: 1) Difficulty chewing r/t chronic condition as evidenced by pt is PEG dep 2) Altered nutrition related lab values r/t clinical status, renal failure as evidenced by elev BUN, Cr (3.1), BG (145), elev BNP (8263), elev Creat kinase (1594). 3) Increased kcal and protein needs r/t wound healing as evidenced by pt w/ multiple wounds, pending eval/ assessment. ENTERAL NUTRITION RECOMMENDATIONS: Glucerna 1.5 @50ml/hr x24 hrs to provide 1200ml, 1800 kcal, 99g prot, 911ml free H2O - Rec to maintain current TF of Glucerna 1.5 w/ 24 run time @LOWER rate of 50ml/hr x24 hrs -> LOWER TF TO 50 ML/HR + INCREASE RUN TIME FOR 24 HRS/DAY - Flush per MD. HOB over 30 degrees ADDITIONAL RECOMMENDATIONS: 1) Calibrated bed scale wts 2) F/Up w/ WC eval -> add SEVERO BID 3) Monitor lytes, renal fxn; need for renal TF 4) Hypoglycemic agents for BG control
--- NOTE | 2018-08-25 14:30 | NUR ---
NURSE NOTES:WOUND CARE NOTES:Pt presents with multiple pressure injuries present on admission.Pt has Sulligent collar that is oiled and malodorous .No evidence of skin breakdown noted under collar. DTPI sacrum,Maroon discoloration,marginal erythema ,(+) induration (L)7.5cm x (W)4.5cm. Large serous blister with non-blanching erythema periwound noted to R ischium (L)4cm x (W)7cm. Partial thickness ulcer noted superior,but in close proximity to lateral L malleolus .Wound bed viable with macerated borders,erythema without elevation in skin temp periwound(L)3cm x (W)4cm. DTPI lateral L 1st metatarsal (L)4cm x(W)3.8cm.Maroon discoloration with red margins (+) induration. DTPI L hallux(L)3.4cm x (W)3cm .Maroon discoloration ,(+) induration. Non-blanching erythema distal/lateral L foot 1.3cm x (W)1.1cm. Non-blanching erythema without induration, Medially /lateral L foot(L) 2cm x (W)2cm. L heel boggy with non-blanching erythema(L)7cm x (W)6.5cm. DTPI medial R heel.Maroon discoloration with fluctuance. Non-blanching erythema periwound(L)3cm x (W)4cm. DTPI R lateral Malleolus. Maroon discoloration ,(+) induration.Non-blanching erythema periwound (L)1.4cm x (W)1.2cm. Maroon discoloration without induration R achilles. Periwound without erythema(L)1.3cm x (W)1.5cm. DTPI Medially/lateral R foot (L)0.7cm x (W)0.8cm. DTPI Distally /lateral R foot .Maroon discoloration with marginal erythema,(+) induration (L)1.3cmx (W)1.2cm. DTPI lateral R 5th metatarsal.Maroon discoloration ,with marginal erythema ,(+) induration(L)1.6cm x(W)1cm DTPI R st metatarsal.Maroon discoloration with marginal erythema.(L)2.5cm x (W)2cm. Tx.Plan:Apply Cavilon Skin Barrier Wipes to DTPI's R and L foot.Cover with Optifoam drsgs .Change every 7 days and prn. Apply Cavilon Skin Barrier wipe to Blister R Ischium. Cover with Optifoam drsg.Change every 3 days and prn. Apply Moisture Barrier Paste to sacrum. Cover with Optifoam drsg. Change every 3 days and prn. Cleanse wound Lateral L lower ext with Saline.Apply Silvasorb gel. Cover with Optifoam drsg.Change every 7 days and prn. Reposition at least every 2 hours or as tolerated. Off-load heels with pillow. Position with pillow between knees. Air Fluidized mattress(DONE)
--- NOTE | 2018-08-25 16:13 | Diagnostic Imaging Report ---
Indication: Abnormal liver function tests and abnormal renal function tests Technique: Echeverria-scale and duplex images of the upper abdomen were obtained Comparison: none Findings: Gallbladder is nondistended. No definite stones, wall thickening, nor pericholecystic fluid, although lack of distention makes the gallbladder wall difficult to assess Sonographic Smith's sign is negative. Common bile duct measures 5 mm in diameter. No intrahepatic biliary ductal dilatation. Liver demonstrates normal echogenicity, no focal abnormality. Portal vein and hepatic veins are patent. Pancreas is unremarkable. Spleen is unremarkable. Left kidney measures 10.5 cm in length. Right kidney measures 10.6 cm length. Both kidneys demonstrate normal echogenicity. There is no hydronephrosis. There is a 17 mm right renal cyst . Non-aneurysmal abdominal aorta . Bilateral pleural effusions are incidentally noted Impression: Negative for gallstones or dilated ducts Incidental finding right renal cyst Bilateral pleural effusions
--- NOTE | 2018-08-25 18:01 | Consultation ---
History of Present Illness General Date patient seen: Aug 25, 2018 Chief Complaint: General Complaint Reason for Consultation: multiple wounds / collar Present Illness HPI 78M with multiple medical comorbidities currently admitted for care and management of SOB and respiratory insufficiency. Noted to have bilateral pneumonia requiring care. on admission noted to have multiple wounds. surgery called to assist with care and management. patient seen, chart reviewed, patient examined Allergies: Coded Allergies: NO KNOWN ALLERGIES (Unverified Allergy, Unknown, 08/25/15) Medication History Scheduled Aspirin* (Aspirin*), 81 MG ORAL DAILY, (Reported) Atorvastatin Calcium* (Lipitor*), 10 MG GT BEDTIME, (Reported) Carbidopa/Levodopa 25-100 Mg* (Sinemet 25-100 Mg Tablet*), 1 TAB GT FOUR TIMES A DAY, (Reported) Cranberry Fruit Concentrate (Cranberry), 450 MG PO DAILY, (Reported) Divalproex Sodium* (Depakote Er*), 125 MG ORAL THREE TIMES A DAY, (Reported) Docusate Sodium* (Docusate Sodium*), 100 MG GT DAILY, (Reported) Donepezil Hcl* (Donepezil Hcl*), 10 MG ORAL QHS, (Reported) Isosorbide Dinitrate* (Isordil*), 20 MG ORAL BID, (Reported) Linagliptin (Tradjenta), 5 MG PO DAILY, (Reported) Lisinopril* (Lisinopril*), 40 MG ORAL DAILY, (Reported) Magnesium Oxide (Magnesium Oxide), 400 MG ORAL BID, (Reported) Metformin Hcl* (Metformin Hcl*), 500 MG ORAL BID, (Reported) Metoprolol Tartrate* (Metoprolol Tartrate*), 100 MG GT BID, (Reported) Mirtazapine* (Mirtazapine*), 7.5 MG ORAL BEDTIME, (Reported) Na Phos,M-B/Na Phos,Di-Ba* (Fleet Enema*), 133 ML RECTAL DAILY, (Reported) Quetiapine Fumarate* (Seroquel*), 50 MG ORAL TWICE A DAY, (Reported) Vitamin B Cmplx/Vit C/Folic AC (Nephro-[place] Tablet), 1 TAB ORAL DAILY, (Reported ) Scheduled PRN Acetaminophen (Tylenol), 650 MG PO Q4HR PRN for Fever/Headache/Mild Pain, ( Reported) Acetaminophen* (Tylenol Extra Strength*), 1,000 MG ORAL Q6H PRN for Moderate Breakthru Pain (5-7), (Reported) Acetaminophen* (Acetaminophen 325MG Tablet*), 650 MG ORAL Q6H PRN for Mild Pain (Pain Scale 1-3), (Reported) Bisacodyl (Bisacodyl), 10 MG RC DAILY PRN for Constipation, (Reported) Lorazepam* (Ativan*), 0.5 MG ORAL Q6HR PRN for For Anxiety, (Reported) Mag Hydrox/Al Hydrox/Simeth (Alum-Mag Hydroxide-Simeth Liq), Unknown Dose PO Q6HR PRN for STOMACH UPSET, (Reported) Magnesium Hydroxide* (Milk Of Magnesia*), 30 ML GT PRN PRN for Constipation, ( Reported) Magnesium Hydroxide* (Milk Of Magnesia*), 30 ML ORAL QHS PRN for Constipation, ( Reported) Na Phos,M-B/Na Phos,Di-Ba* (Fleet Enema*), 133 ML RECTAL EVERY OTHER DAY PRN for Constipation, (Reported) Patient History Limited by: medical condition History Provided By: Medical Record, PMD Healthcare decision maker Resuscitation status Do Not Resuscitate Advanced Directive on File Past Medical/Surgical History Past Medical/Surgical History: (1) Acute respiratory failure (2) Hypercalcemia (3) Confusion with nonfocal neurological examination (4) Hypotension (5) ARF (acute renal failure) (6) Sepsis (7) UTI (urinary tract infection) (8) Aspiration pneumonia (9) Anemia (10) HTN (hypertension) (11) 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 Review of Systems All Other Systems: negative except mentioned in HPI ROS Narrative not responding Physical Exam General Appearance: no apparent distress Lines, tubes and drains: other HEENT: mucous membranes moist Neck: normal inspection, other - collar in place Respiratory/Chest: no respiratory distress, decreased breath sounds Cardiovascular/Chest: regular rhythm Abdomen: soft, no organomegaly, no mass Extremities: other Skin Exam: other Neurologic: unresponsiveness Last 24 Hour Vital Signs Date Time Temp Pulse Resp B/P (MAP) Pulse Ox O2 Delivery O2 Flow Rate FiO2 08/25/18 17:34 60 145/51 08/25/18 16:00 97.0 60 22 145/51 (82) 92 08/25/18 16:00 60 08/25/18 12:00 97.0 62 22 128/61 (83) 90 08/25/18 12:00 65 08/25/18 09:25 73 18 92 Nasal Cannula 3.0 32 08/25/18 09:25 73 18 92 08/25/18 09:15 69 18 90 Nasal Cannula 3.0 32 08/25/18 09:03 69 120/51 08/25/18 09:00 Nasal Cannula 2.0 08/25/18 08:00 97.9 69 24 120/51 (74) 90 08/25/18 08:00 68 08/25/18 04:00 98.2 63 20 122/52 (75) 92 08/25/18 04:00 63 08/25/18 01:00 Nasal Cannula 2.0 08/25/18 00:50 71 08/25/18 00:50 97.2 70 20 131/61 (84) 92 08/25/18 00:40 98.9 69 26 123/56 92 Room Air 2.0 08/25/18 00:40 98.9 69 29 123/56 92 Nasal Cannula 2.0 08/24/18 23:00 98.0 72 28 143/78 92 Nasal Cannula 2.0 08/24/18 22:30 98.9 69 29 123/56 92 Room Air 08/24/18 22:30 69 29 Nasal Cannula 2.0 08/24/18 22:20 99.9 77 14 125/49 89 Non-Rebreather 15.0 Intake and Output 08/24/18 08/25/18 19:00 07:00 Intake Total 4360 ml Output Total 900 ml Balance 3460 ml Intake Free Water 150 ml IV Total 4210 ml Output Urine Total 900 ml # Bowel Movements 1 Laboratory Tests Test 08/24/18 22:40 08/24/18 22:55 08/24/18 23:50 08/25/18 06:00 White Blood Count 13.9 K/UL (4.8-10.8) H 12.7 K/UL (4.8-10.8) H Red Blood Count 3.01 M/UL (4.70-6.10) L 2.37 M/UL (4.70-6.10) L Hemoglobin 9.5 G/DL (14.2-18.0) L 7.5 G/DL (14.2-18.0) L Hematocrit 28.6 % (42.0-52.0) L 22.6 % (42.0-52.0) L Mean Corpuscular Volume 95 FL (80-99) 95 FL (80-99) Mean Corpuscular Hemoglobin 31.7 PG (27.0-31.0) H 31.6 PG (27.0-31.0) H Mean Corpuscular Hemoglobin Concent 33.3 G/DL (32.0-36.0) 33.2 G/DL (32.0-36.0) Red Cell Distribution Width 17.2 % (11.6-14.8) H 17.6 % (11.6-14.8) H Platelet Count 222 K/UL (150-450) 167 K/UL (150-450) Mean Platelet Volume 6.9 FL (6.5-10.1) 7.5 FL (6.5-10.1) Neutrophils (%) (Auto) % (45.0-75.0) % (45.0-75.0) Lymphocytes (%) (Auto) % (20.0-45.0) % (20.0-45.0) Monocytes (%) (Auto) % (1.0-10.0) % (1.0-10.0) Eosinophils (%) (Auto) % (0.0-3.0) % (0.0-3.0) Basophils (%) (Auto) % (0.0-2.0) % (0.0-2.0) Differential Total Cells Counted 100 100 Neutrophils % (Manual) 80 % (45-75) H 66 % (45-75) Lymphocytes % (Manual) 9 % (20-45) L 7 % (20-45) L Monocytes % (Manual) 9 % (1-10) 5 % (1-10) Eosinophils % (Manual) 2 % (0-3) 0 % (0-3) Basophils % (Manual) 0 % (0-2) 0 % (0-2) Band Neutrophils 0 % (0-8) 22 % (0-8) H Platelet Estimate Adequate Adequate Platelet Morphology Normal Normal Red Blood Cell Morphology Normal Prothrombin Time 10.5 SEC (9.30-11.50) Prothromb Time International Ratio 1.0 (0.9-1.1) Activated Partial Thromboplast Time 31 SEC (23-33) Sodium Level 144 MMOL/L (136-145) 145 MMOL/L (136-145) Potassium Level 3.4 MMOL/L (3.5-5.1) L 3.1 MMOL/L (3.5-5.1) L Chloride Level 107 MMOL/L (98-107) 109 MMOL/L (98-107) H Carbon Dioxide Level 27 MMOL/L (21-32) 24 MMOL/L (21-32) Anion Gap 10 mmol/L (5-15) 12 mmol/L (5-15) Blood Urea Nitrogen 91 mg/dL (7-18) H 86 mg/dL (7-18) H Creatinine 3.3 MG/DL (0.55-1.30) H 3.1 MG/DL (0.55-1.30) H Estimat Glomerular Filtration Rate mL/min (>60) mL/min (>60) Glucose Level 145 MG/DL (74-106) H 113 MG/DL (74-106) H Lactic Acid Level 3.00 mmol/L (0.4-2.0) H 2.40 mmol/L (0.66-2.22) H Calcium Level 8.8 MG/DL (8.5-10.1) 7.9 MG/DL (8.5-10.1) L Total Bilirubin 0.3 MG/DL (0.2-1.0) 0.3 MG/DL (0.2-1.0) Aspartate Amino Transf (AST/SGOT) 103 U/L (15-37) H 92 U/L (15-37) H Alanine Aminotransferase (ALT/SGPT) 13 U/L (12-78) 12 U/L (12-78) Alkaline Phosphatase 138 U/L (46-116) H 78 U/L (46-116) Total Creatine Kinase 2442 U/L (26-308) H Creatine Kinase MB 4.6 NG/ML (0.0-3.6) H Creatine Kinase MB Relative Index 0.1 Troponin I 0.073 ng/mL (0.000-0.056) Total Protein 6.2 G/DL (6.4-8.2) L 4.6 G/DL (6.4-8.2) L Albumin 1.8 G/DL (3.4-5.0) L 1.2 G/DL (3.4-5.0) L Globulin 4.4 g/dL Albumin/Globulin Ratio 0.4 (1.0-2.7) L Urine Color Kathy Urine Appearance Cloudy Urine pH 5 (4.5-8.0) Urine Specific [place] 1.010 (1.005-1.035) Urine Protein 4+ (NEGATIVE) H Urine Glucose (UA) Negative (NEGATIVE) Urine Ketones Negative (NEGATIVE) Urine Blood 5+ (NEGATIVE) H Urine Nitrite Negative (NEGATIVE) Urine Bilirubin Negative (NEGATIVE) Urine Ictotest Negative (NEGATIVE) Urine Urobilinogen 1 MG/DL (0.0-1.0) H Urine Leukocyte Esterase 1+ (NEGATIVE) H Urine RBC 15-20 /HPF (0 - 0) H Urine WBC 10-15 /HPF (0 - 0) H Urine Squamous Epithelial Cells Occasional /LPF Urine Bacteria Many /HPF (NONE) H Polychromasia 1+ Hypochromasia 2+ Anisocytosis 1+ Phosphorus Level 3.2 MG/DL (2.5-4.9) Magnesium Level 1.6 MG/DL (1.8-2.4) L Direct Bilirubin 0.2 MG/DL (0.0-0.3) Pro-B-Type Natriuretic Peptide 8263 pg/mL (0-125) H Thyroid Stimulating Hormone (TSH) 3.047 uiU/mL (0.358-3.740) Free Thyroxine 0.81 NG/DL (0.76-1.46) Test 08/25/18 09:00 08/25/18 11:00 08/25/18 12:20 Uric Acid 4.7 MG/DL (2.6-7.2) Iron Level 13 ug/dL (50-175) L Total Iron Binding Capacity 121 ug/dL (250-450) L Percent Iron Saturation 11 % (15-50) L Unsaturated Iron Binding 108 ug/dL (112-346) L Ferritin 281 NG/ML (8-388) Gamma Glutamyl Transpeptidase 17 U/L (5-85) Total Creatine Kinase 1594 U/L (26-308) H Vitamin B12 Level 416 PG/ML (193-986) Folate 11.7 NG/ML (8.6-58.9) Stool Occult Blood Pending Urine Color Pale yellow Urine Appearance Slightly cloudy Urine pH 5 (4.5-8.0) Urine Specific [place] 1.010 (1.005-1.035) Urine Protein 4+ (NEGATIVE) H Urine Glucose (UA) Negative (NEGATIVE) Urine Ketones Negative (NEGATIVE) Urine Blood 5+ (NEGATIVE) H Urine Nitrite Negative (NEGATIVE) Urine Bilirubin Negative (NEGATIVE) Urine Urobilinogen Normal MG/DL (0.0-1.0) Urine Leukocyte Esterase 1+ (NEGATIVE) H Urine RBC 30-40 /HPF (0 - 0) H Urine WBC 2-4 /HPF (0 - 0) Urine Squamous Epithelial Cells Few /LPF (NONE/OCC) Urine Bacteria Few /HPF (NONE) Urine Eosinophils None seen (NONE SEEN) Urine Random Sodium 60 mmol/L (20-110) Urine Potassium Timed 26 mmol/L (12-62) Height (Feet): 5 Height (Inches): 3.00 Weight (Pounds): 163 Medications Current Medications Medications (Trade) Dose Ordered Sig/Vahe Route PRN Reason Start Time Stop Time Status Last Admin Dose Admin Albuterol/ Ipratropium (Albuterol/ Ipratropium) 3 ml Q4H PRN HHN Shortness of Breath 08/25/18 08:15 08/30/18 08:14 08/25/18 09:13 Albuterol/ Ipratropium (Albuterol/ Ipratropium) 3 ml Q6HRT HHN 08/25/18 13:00 08/30/18 12:59 Aspirin (ASA) 81 mg DAILY GT 08/25/18 10:45 09/24/18 10:44 08/25/18 12:49 Bisacodyl (Dulcolax) 10 mg DAILY PRN RECTAL Constipation 08/25/18 03:30 09/24/18 03:29 Carbidopa/Levodopa (Sinemet 25/100) 1 tab FOUR TIMES A DAY GT 08/25/18 09:00 09/24/18 08:59 08/25/18 17:34 Cefepime HCl 1 gm/ Dextrose 55 ml @ 110 mls/hr Q24H IVPB 08/25/18 23:00 09/01/18 22:59 Divalproex Sodium (Depakote ER) 125 mg Q8HR ORAL 08/25/18 14:00 09/24/18 08:59 08/25/18 14:44 Docusate Sodium (Colace) 100 mg THREE TIMES A DAY GT 08/25/18 13:00 09/24/18 12:59 08/25/18 17:34 Lansoprazole (Prevacid) 30 mg BID GT 08/25/18 10:30 09/24/18 10:29 08/25/18 17:34 Levofloxacin 50 ml @ 50 mls/hr Q48H IVPB 08/26/18 23:00 09/02/18 22:59 Magnesium Hydroxide (Mom) 30 ml PRN PRN GT Constipation 08/25/18 03:30 09/24/18 03:29 Metoprolol Tartrate (Lopressor) 100 mg BID GT 08/25/18 09:00 09/24/18 08:59 08/25/18 17:34 Metronidazole 100 ml @ 100 mls/hr Q8HR IVPB 08/25/18 06:00 09/01/18 05:59 08/25/18 14:43 Promethazine HCl/ Codeine (Phenergan with Codeine) 5 ml Q4H PRN ORAL For Cough 08/25/18 12:00 09/24/18 11:59 Sodium Chloride 1,000 ml @ 75 mls/hr [id number] IV 08/25/18 10:45 09/24/18 10:44 08/25/18 10:45 Assessment/Plan Problem List: (1) Decubital ulcer Assessment & Plan: Pt presents with multiple pressure injuries present on admission. He has Stockwell collar that is oiled and malodorous .No evidence of skin breakdown noted under collar. DTPI sacrum,Maroon discoloration,marginal erythema ,(+) induration (L)7.5cm x (W )4.5cm. Large serous blister with non-blanching erythema periwound noted to R ischium ( L)4cm x (W)7cm. Partial thickness ulcer noted superior,but in close proximity to lateral L malleolus .Wound bed viable with macerated borders,erythema without elevation in skin temp periwound(L)3cm x (W)4cm. DTPI lateral L 1st metatarsal (L)4cm x(W)3.8cm.Maroon discoloration with red margins (+) induration. DTPI L hallux(L)3.4cm x (W)3cm .Maroon discoloration ,(+) induration. Non-blanching erythema distal/lateral L foot 1.3cm x (W)1.1cm. Non-blanching erythema without induration, Medially /lateral L foot(L) 2cm x (W) 2cm. L heel boggy with non-blanching erythema(L)7cm x (W)6.5cm. DTPI medial R heel.Maroon discoloration with fluctuance. Non-blanching erythema periwound(L)3cm x (W)4cm. DTPI R lateral Malleolus. Maroon discoloration ,(+) induration.Non-blanching erythema periwound (L)1.4cm x (W)1.2cm. Maroon discoloration without induration R achilles. Periwound without erythema(L )1.3cm x (W)1.5cm. DTPI Medially/lateral R foot (L)0.7cm x (W)0.8cm. DTPI Distally /lateral R foot .Maroon discoloration with marginal erythema,(+) induration (L)1.3cmx (W)1.2cm. DTPI lateral R 5th metatarsal.Maroon discoloration ,with marginal erythema ,(+) induration(L)1.6cm x(W)1cm DTPI R st metatarsal.Maroon discoloration with marginal erythema.(L)2.5cm x (W) 2cm. Tx.Plan: Apply Cavilon Skin Barrier Wipes to DTPI's R and L foot.Cover with Optifoam drsgs .Change every 7 days and prn. Apply Cavilon Skin Barrier wipe to Blister R Ischium. Cover with Optifoam drsg.Change every 3 days and prn. Apply Moisture Barrier Paste to sacrum. Cover with Optifoam drsg. Change every 3 days and prn. Cleanse wound Lateral L lower ext with Saline.Apply Silvasorb gel. Cover with Optifoam drsg.Change every 7 daysand prn. Reposition at least every 2 hours or as tolerated. Off-load heels with pillow. Position with pillow between knees. Air Fluidized mattress ICD Codes: L89.90 - Pressure ulcer of unspecified site, unspecified stage SNOMED: 078211843 (2) Sepsis Assessment & Plan: leukocytosis. low grade fevers wounds stable as above. will continue to monitor cont iv abx thank you ICD Codes: A41.9 - Sepsis, unspecified organism SNOMED: 19271102 Qualifiers: Qualified Codes: A41.9 - Sepsis, unspecified organism Jossue Jimenes Aug 25, 2018 18:01
--- NOTE | 2018-08-25 20:00 | NUR ---
NURSE NOTES: Received report from VARINDER Sosa. Patient comfortable in bed, no SOB, no acute distress on 2 L via NC, no s/sx of pain nor any discomfort at this time. IV sites on L hand #18, patent and intact, currently on 2nd PRBC at 110 ml/hr, no A/R noted, R hand with #22, patent and intact. GTF of Glucerna 1.5 at 20 ml/hr, goal at 50 ml/hr, will advance as tolerated. F/C intact and patent with yellow-colored output. On P200 mattress d/t multiple pressure cores/deep tissue injuries. HOB elevated at all times, also noted with neck collar since from SNF at admission. Bed at lowest position, call light within reach. Will continue plan of care.
[2018-08-25] MEDS: Depakote 125mg Sprinkles GT SCH (21:42)
--- NOTE | 2018-08-25 21:53 | Consultation ---
History of Present Illness General Chief Complaint: General Complaint Reason for Consultation: multiple wounds / collar Present Illness HPI 78-year-old male with multiple medical problem including seizure, schizophrenia , CAD with pacemaker. 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 the pt has waxing and waning of consciousness. Allergies: Coded Allergies: NO KNOWN ALLERGIES (Unverified Allergy, Unknown, 08/25/15) Medication History Scheduled Aspirin* (Aspirin*), 81 MG ORAL DAILY, (Reported) Atorvastatin Calcium* (Lipitor*), 10 MG GT BEDTIME, (Reported) Carbidopa/Levodopa 25-100 Mg* (Sinemet 25-100 Mg Tablet*), 1 TAB GT FOUR TIMES A DAY, (Reported) Cranberry Fruit Concentrate (Cranberry), 450 MG PO DAILY, (Reported) Divalproex Sodium* (Depakote Er*), 125 MG ORAL THREE TIMES A DAY, (Reported) Docusate Sodium* (Docusate Sodium*), 100 MG GT DAILY, (Reported) Donepezil Hcl* (Donepezil Hcl*), 10 MG ORAL QHS, (Reported) Isosorbide Dinitrate* (Isordil*), 20 MG ORAL BID, (Reported) Linagliptin (Tradjenta), 5 MG PO DAILY, (Reported) Lisinopril* (Lisinopril*), 40 MG ORAL DAILY, (Reported) Magnesium Oxide (Magnesium Oxide), 400 MG ORAL BID, (Reported) Metformin Hcl* (Metformin Hcl*), 500 MG ORAL BID, (Reported) Metoprolol Tartrate* (Metoprolol Tartrate*), 100 MG GT BID, (Reported) Mirtazapine* (Mirtazapine*), 7.5 MG ORAL BEDTIME, (Reported) Na Phos,M-B/Na Phos,Di-Ba* (Fleet Enema*), 133 ML RECTAL DAILY, (Reported) Quetiapine Fumarate* (Seroquel*), 50 MG ORAL TWICE A DAY, (Reported) Vitamin B Cmplx/Vit C/Folic AC (Nephro-[place] Tablet), 1 TAB ORAL DAILY, (Reported ) Scheduled PRN Acetaminophen (Tylenol), 650 MG PO Q4HR PRN for Fever/Headache/Mild Pain, ( Reported) Acetaminophen* (Tylenol Extra Strength*), 1,000 MG ORAL Q6H PRN for Moderate Breakthru Pain (5-7), (Reported) Acetaminophen* (Acetaminophen 325MG Tablet*), 650 MG ORAL Q6H PRN for Mild Pain (Pain Scale 1-3), (Reported) Bisacodyl (Bisacodyl), 10 MG RC DAILY PRN for Constipation, (Reported) Lorazepam* (Ativan*), 0.5 MG ORAL Q6HR PRN for For Anxiety, (Reported) Mag Hydrox/Al Hydrox/Simeth (Alum-Mag Hydroxide-Simeth Liq), Unknown Dose PO Q6HR PRN for STOMACH UPSET, (Reported) Magnesium Hydroxide* (Milk Of Magnesia*), 30 ML GT PRN PRN for Constipation, ( Reported) Magnesium Hydroxide* (Milk Of Magnesia*), 30 ML ORAL QHS PRN for Constipation, ( Reported) Na Phos,M-B/Na Phos,Di-Ba* (Fleet Enema*), 133 ML RECTAL EVERY OTHER DAY PRN for Constipation, (Reported) Patient History History Provided By: Patient, Medical Record, PMD Healthcare decision maker Resuscitation status Do Not Resuscitate Advanced Directive on File Review of Systems Psychiatric: Reports: prior hx, anxiety, depressed feelings, emotional problems , hallucinations Physical Exam General Appearance: alert, agitated Last 24 Hour Vital Signs Date Time Temp Pulse Resp B/P (MAP) Pulse Ox O2 Delivery O2 Flow Rate FiO2 08/25/18 20:00 60 08/25/18 19:24 60 18 98 Nasal Cannula 3.0 32 08/25/18 19:13 60 18 96 Nasal Cannula 3.0 32 08/25/18 17:34 60 145/51 08/25/18 16:00 97.0 60 22 145/51 (82) 92 08/25/18 16:00 60 08/25/18 12:00 97.0 62 22 128/61 (83) 90 08/25/18 12:00 65 08/25/18 09:25 73 18 92 Nasal Cannula 3.0 32 08/25/18 09:25 73 18 92 08/25/18 09:15 69 18 90 Nasal Cannula 3.0 32 08/25/18 09:03 69 120/51 08/25/18 09:00 Nasal Cannula 2.0 08/25/18 08:00 97.9 69 24 120/51 (74) 90 08/25/18 08:00 68 08/25/18 04:00 98.2 63 20 122/52 (75) 92 08/25/18 04:00 63 08/25/18 01:00 Nasal Cannula 2.0 08/25/18 00:50 71 08/25/18 00:50 97.2 70 20 131/61 (84) 92 08/25/18 00:40 98.9 69 26 123/56 92 Room Air 2.0 08/25/18 00:40 98.9 69 29 123/56 92 Nasal Cannula 2.0 08/24/18 23:00 98.0 72 28 143/78 92 Nasal Cannula 2.0 08/24/18 22:30 98.9 69 29 123/56 92 Room Air 08/24/18 22:30 69 29 Nasal Cannula 2.0 08/24/18 22:20 99.9 77 14 125/49 89 Non-Rebreather 15.0 Intake and Output 08/24/18 08/25/18 19:00 07:00 Intake Total 4360 ml Output Total 900 ml Balance 3460 ml Intake Free Water 150 ml IV Total 4210 ml Output Urine Total 900 ml # Bowel Movements 1 Laboratory Tests Test 08/24/18 22:40 08/24/18 22:55 08/24/18 23:50 08/25/18 06:00 White Blood Count 13.9 K/UL (4.8-10.8) H 12.7 K/UL (4.8-10.8) H Red Blood Count 3.01 M/UL (4.70-6.10) L 2.37 M/UL (4.70-6.10) L Hemoglobin 9.5 G/DL (14.2-18.0) L 7.5 G/DL (14.2-18.0) L Hematocrit 28.6 % (42.0-52.0) L 22.6 % (42.0-52.0) L Mean Corpuscular Volume 95 FL (80-99) 95 FL (80-99) Mean Corpuscular Hemoglobin 31.7 PG (27.0-31.0) H 31.6 PG (27.0-31.0) H Mean Corpuscular Hemoglobin Concent 33.3 G/DL (32.0-36.0) 33.2 G/DL (32.0-36.0) Red Cell Distribution Width 17.2 % (11.6-14.8) H 17.6 % (11.6-14.8) H Platelet Count 222 K/UL (150-450) 167 K/UL (150-450) Mean Platelet Volume 6.9 FL (6.5-10.1) 7.5 FL (6.5-10.1) Neutrophils (%) (Auto) % (45.0-75.0) % (45.0-75.0) Lymphocytes (%) (Auto) % (20.0-45.0) % (20.0-45.0) Monocytes (%) (Auto) % (1.0-10.0) % (1.0-10.0) Eosinophils (%) (Auto) % (0.0-3.0) % (0.0-3.0) Basophils (%) (Auto) % (0.0-2.0) % (0.0-2.0) Differential Total Cells Counted 100 100 Neutrophils % (Manual) 80 % (45-75) H 66 % (45-75) Lymphocytes % (Manual) 9 % (20-45) L 7 % (20-45) L Monocytes % (Manual) 9 % (1-10) 5 % (1-10) Eosinophils % (Manual) 2 % (0-3) 0 % (0-3) Basophils % (Manual) 0 % (0-2) 0 % (0-2) Band Neutrophils 0 % (0-8) 22 % (0-8) H Platelet Estimate Adequate Adequate Platelet Morphology Normal Normal Red Blood Cell Morphology Normal Prothrombin Time 10.5 SEC (9.30-11.50) Prothromb Time International Ratio 1.0 (0.9-1.1) Activated Partial Thromboplast Time 31 SEC (23-33) Sodium Level 144 MMOL/L (136-145) 145 MMOL/L (136-145) Potassium Level 3.4 MMOL/L (3.5-5.1) L 3.1 MMOL/L (3.5-5.1) L Chloride Level 107 MMOL/L (98-107) 109 MMOL/L (98-107) H Carbon Dioxide Level 27 MMOL/L (21-32) 24 MMOL/L (21-32) Anion Gap 10 mmol/L (5-15) 12 mmol/L (5-15) Blood Urea Nitrogen 91 mg/dL (7-18) H 86 mg/dL (7-18) H Creatinine 3.3 MG/DL (0.55-1.30) H 3.1 MG/DL (0.55-1.30) H Estimat Glomerular Filtration Rate mL/min (>60) mL/min (>60) Glucose Level 145 MG/DL (74-106) H 113 MG/DL (74-106) H Lactic Acid Level 3.00 mmol/L (0.4-2.0) H 2.40 mmol/L (0.66-2.22) H Calcium Level 8.8 MG/DL (8.5-10.1) 7.9 MG/DL (8.5-10.1) L Total Bilirubin 0.3 MG/DL (0.2-1.0) 0.3 MG/DL (0.2-1.0) Aspartate Amino Transf (AST/SGOT) 103 U/L (15-37) H 92 U/L (15-37) H Alanine Aminotransferase (ALT/SGPT) 13 U/L (12-78) 12 U/L (12-78) Alkaline Phosphatase 138 U/L (46-116) H 78 U/L (46-116) Total Creatine Kinase 2442 U/L (26-308) H Creatine Kinase MB 4.6 NG/ML (0.0-3.6) H Creatine Kinase MB Relative Index 0.1 Troponin I 0.073 ng/mL (0.000-0.056) Total Protein 6.2 G/DL (6.4-8.2) L 4.6 G/DL (6.4-8.2) L Albumin 1.8 G/DL (3.4-5.0) L 1.2 G/DL (3.4-5.0) L Globulin 4.4 g/dL Albumin/Globulin Ratio 0.4 (1.0-2.7) L Urine Color Kathy Urine Appearance Cloudy Urine pH 5 (4.5-8.0) Urine Specific [place] 1.010 (1.005-1.035) Urine Protein 4+ (NEGATIVE) H Urine Glucose (UA) Negative (NEGATIVE) Urine Ketones Negative (NEGATIVE) Urine Blood 5+ (NEGATIVE) H Urine Nitrite Negative (NEGATIVE) Urine Bilirubin Negative (NEGATIVE) Urine Ictotest Negative (NEGATIVE) Urine Urobilinogen 1 MG/DL (0.0-1.0) H Urine Leukocyte Esterase 1+ (NEGATIVE) H Urine RBC 15-20 /HPF (0 - 0) H Urine WBC 10-15 /HPF (0 - 0) H Urine Squamous Epithelial Cells Occasional /LPF Urine Bacteria Many /HPF (NONE) H Polychromasia 1+ Hypochromasia 2+ Anisocytosis 1+ Phosphorus Level 3.2 MG/DL (2.5-4.9) Magnesium Level 1.6 MG/DL (1.8-2.4) L Direct Bilirubin 0.2 MG/DL (0.0-0.3) Pro-B-Type Natriuretic Peptide 8263 pg/mL (0-125) H Thyroid Stimulating Hormone (TSH) 3.047 uiU/mL (0.358-3.740) Free Thyroxine 0.81 NG/DL (0.76-1.46) Test 08/25/18 09:00 08/25/18 11:00 08/25/18 12:20 Uric Acid 4.7 MG/DL (2.6-7.2) Iron Level 13 ug/dL (50-175) L Total Iron Binding Capacity 121 ug/dL (250-450) L Percent Iron Saturation 11 % (15-50) L Unsaturated Iron Binding 108 ug/dL (112-346) L Ferritin 281 NG/ML (8-388) Gamma Glutamyl Transpeptidase 17 U/L (5-85) Total Creatine Kinase 1594 U/L (26-308) H Vitamin B12 Level 416 PG/ML (193-986) Folate 11.7 NG/ML (8.6-58.9) Stool Occult Blood Pending Urine Color Pale yellow Urine Appearance Slightly cloudy Urine pH 5 (4.5-8.0) Urine Specific [place] 1.010 (1.005-1.035) Urine Protein 4+ (NEGATIVE) H Urine Glucose (UA) Negative (NEGATIVE) Urine Ketones Negative (NEGATIVE) Urine Blood 5+ (NEGATIVE) H Urine Nitrite Negative (NEGATIVE) Urine Bilirubin Negative (NEGATIVE) Urine Urobilinogen Normal MG/DL (0.0-1.0) Urine Leukocyte Esterase 1+ (NEGATIVE) H Urine RBC 30-40 /HPF (0 - 0) H Urine WBC 2-4 /HPF (0 - 0) Urine Squamous Epithelial Cells Few /LPF (NONE/OCC) Urine Bacteria Few /HPF (NONE) Urine Eosinophils None seen (NONE SEEN) Urine Random Sodium 60 mmol/L (20-110) Urine Potassium Timed 26 mmol/L (12-62) Height (Feet): 5 Height (Inches): 3.00 Weight (Pounds): 163 Medications Current Medications Medications (Trade) Dose Ordered Sig/Vahe Route PRN Reason Start Time Stop Time Status Last Admin Dose Admin Albuterol/ Ipratropium (Albuterol/ Ipratropium) 3 ml Q4H PRN HHN Shortness of Breath 08/25/18 08:15 08/30/18 08:14 08/25/18 09:13 Albuterol/ Ipratropium (Albuterol/ Ipratropium) 3 ml Q6HRT HHN 08/25/18 13:00 08/30/18 12:59 08/25/18 19:13 Aspirin (ASA) 81 mg DAILY GT 08/25/18 10:45 09/24/18 10:44 08/25/18 12:49 Bisacodyl (Dulcolax) 10 mg DAILY PRN RECTAL Constipation 08/25/18 03:30 09/24/18 03:29 Carbidopa/Levodopa (Sinemet 25/100) 1 tab FOUR TIMES A DAY GT 08/25/18 09:00 09/24/18 08:59 08/25/18 20:33 Cefepime HCl 1 gm/ Dextrose 55 ml @ 110 mls/hr Q24H IVPB 08/25/18 23:00 09/01/18 22:59 Divalproex Sodium (Depakote Sprinkles) 125 mg Q8HR GT 08/25/18 22:00 09/24/18 08:59 08/25/18 21:42 Docusate Sodium (Colace) 100 mg THREE TIMES A DAY GT 08/25/18 13:00 09/24/18 12:59 08/25/18 17:34 Lansoprazole (Prevacid) 30 mg BID GT 08/25/18 10:30 09/24/18 10:29 08/25/18 17:34 Levofloxacin 50 ml @ 50 mls/hr Q48H IVPB 08/26/18 23:00 09/02/18 22:59 Magnesium Hydroxide (Mom) 30 ml PRN PRN GT Constipation 08/25/18 03:30 09/24/18 03:29 Metoprolol Tartrate (Lopressor) 100 mg BID GT 08/25/18 09:00 09/24/18 08:59 08/25/18 17:34 Metronidazole 100 ml @ 100 mls/hr Q8HR IVPB 08/25/18 06:00 09/01/18 05:59 08/25/18 21:39 Promethazine HCl/ Codeine (Phenergan with Codeine) 5 ml Q4H PRN ORAL For Cough 08/25/18 12:00 09/24/18 11:59 Sodium Chloride 1,000 ml @ 75 mls/hr [id number] IV 08/25/18 10:45 09/24/18 10:44 08/25/18 10:45 Assessment/Plan Problem List: (1) Schizophrenia ICD Codes: F20.9 - Schizophrenia, unspecified SNOMED: [id number] Assessment/Plan cont current meds will readjust the meds Leslie Pearson Dr., MD Aug 25, 2018 21:53
--- NOTE | 2018-08-25 22:15 | NUR ---
NURSE NOTES: 2nd PRBC done, Vitals as follows: 97.6, 60,137/59, 98%, no A/R noted. Will continue to monitor.
[2018-08-25] MEDS: Cefepime HCl 1 GM in D5W 55 ML IVPB SCH (22:59)
[2018-08-26] VITALS: BP 128/58
[2018-08-26] MEDS: Albuterol/Ipratropium 3ml neb HHN SCH ×4 (01:59→21:13)
--- NOTE | 2018-08-26 03:14 | NUR ---
NURSE NOTES: Patient asleep, breathing even and unlabored, O2 sat at 98%, no s/sx of pain nor any discomfort at this time. F/C intact and patent with yellow colored output. Bed at lowest position, call light within reach. Will continue to monitor.
[2018-08-26 04:00] VITALS: BP 145/61
[2018-08-26] MEDS: Depakote 125mg Sprinkles GT SCH ×3 (05:15→21:51)
[2018-08-26 06:12] LABS: HEMATOCRIT 22.2 % (42.0-52.0); HEMOGLOBIN 7.7 G/DL (14.2-18.0); MEAN CORPUSCULAR VOLUME 91 FL (80-99); PLATELET COUNT 145 K/UL (150-450); RED BLOOD COUNT 2.43 M/UL (4.70-6.10); RED CELL DISTRIBUTION WIDTH 17.9 % (11.6-14.8)
[2018-08-26 06:20] LABS: INR 1.3 (0.9-1.1)
[2018-08-26 07:02] LABS: LACTATE DEHYDROGENASE 239 U/L (81-234)
[2018-08-26 07:05] LABS: % IRON SATURATION 18 % (15-50); IRON 23 ug/dL (50-175); TOTAL IRON BINDING CAPACITY 125 ug/dL (250-450)
[2018-08-26 07:10] LABS: ALBUMIN/GLOBULIN RATIO 0.3 (1.0-2.7); ALKALINE PHOSPHATASE 72 U/L (46-116); ANION GAP 13 mmol/L (5-15); BILIRUBIN,TOTAL 0.3 MG/DL (0.2-1.0); BLOOD UREA NITROGEN 66 mg/dL (7-18); CALCIUM 6.7 MG/DL (8.5-10.1); CARBON DIOXIDE 21 MMOL/L (21-32); CHLORIDE 112 MMOL/L (98-107); CREATININE 2.5 MG/DL (0.55-1.30); PHOSPHORUS 4.8 MG/DL (2.5-4.9); SODIUM 145 MMOL/L (136-145)
[2018-08-26 07:12] LABS: POTASSIUM 2.4 MMOL/L (3.5-5.1)
--- NOTE | 2018-08-26 07:32 | NUR ---
HAND-OFF: Report given to VARINDER Taylor. Endorsed plan of care.
--- NOTE | 2018-08-26 07:33 | NUR ---
NURSE NOTES: Received report from VARINDER Torrez. Patient is alert but nonverbal with no signs of distress and denies pain nor any discomfort at this time. F/C intact and patent with yellow-colored output. Bed at lowest position, call light within reach. Will continue to monitor.
[2018-08-26 07:49] LABS: AMYLASE 28 U/L (25-115)
[2018-08-26 08:00] VITALS: BP 166/78
--- NOTE | 2018-08-26 08:39 | NUR ---
NURSE NOTES: Called Mik Kc's office at about lab results which include 2.4 potassium and 7.7 hgb. at 8:38am. Awaiting call back and will follow up in thirty minutes. Addendum: 08/26/18 at 0855 by Brandon Joyce RN @ 8:54am received call from Dr. Jarrett for orders. Will be entered.
[2018-08-26] MEDS: Heparin 5000 units/ml inj SUBQ SCH ×2 (09:00→20:33)
[2018-08-26] MEDS: Aspirin Baby 81mg GT SCH (09:00)
--- NOTE | 2018-08-26 09:27 | Consultation ---
History of Present Illness General Date patient seen: Aug 26, 2018 Chief Complaint: General Complaint Reason for Consultation: PNA Present Illness HPI Mr. Florence is an 78 yo male with pMHx of Seizures, Schizophrenia, CAD s/p Pacemaker and Neck Fx (6mo ago) who was [facility] ED [facility] with desaturation. In the ED he was aferbile but had WBCs of 14. His UA was positive and CXR showed B/L congestion. Inf screen not done. He was started on O2 and given abx. Today he is aferbile and his leukocytosis has resolved. Today he is saturating well on 3L NC. He is not verbal so Hx was obtained from the chart ID consulted for PNA PMHx/PSHx Seizures Schizophrenia CAD s/p Pacemaker Neck Fx (6mo ago) HTN SocHx No E/T/D FamHx Unable to obtain as the patient is not verbal Allergies: Coded Allergies: NO KNOWN ALLERGIES (Unverified Allergy, Unknown, 08/25/15) Medication History Scheduled Aspirin* (Aspirin*), 81 MG ORAL DAILY, (Reported) Atorvastatin Calcium* (Lipitor*), 10 MG GT BEDTIME, (Reported) Carbidopa/Levodopa 25-100 Mg* (Sinemet 25-100 Mg Tablet*), 1 TAB GT FOUR TIMES A DAY, (Reported) Cranberry Fruit Concentrate (Cranberry), 450 MG PO DAILY, (Reported) Divalproex Sodium* (Depakote Er*), 125 MG ORAL THREE TIMES A DAY, (Reported) Docusate Sodium* (Docusate Sodium*), 100 MG GT DAILY, (Reported) Donepezil Hcl* (Donepezil Hcl*), 10 MG ORAL QHS, (Reported) Isosorbide Dinitrate* (Isordil*), 20 MG ORAL BID, (Reported) Linagliptin (Tradjenta), 5 MG PO DAILY, (Reported) Lisinopril* (Lisinopril*), 40 MG ORAL DAILY, (Reported) Magnesium Oxide (Magnesium Oxide), 400 MG ORAL BID, (Reported) Metformin Hcl* (Metformin Hcl*), 500 MG ORAL BID, (Reported) Metoprolol Tartrate* (Metoprolol Tartrate*), 100 MG GT BID, (Reported) Mirtazapine* (Mirtazapine*), 7.5 MG ORAL BEDTIME, (Reported) Na Phos,M-B/Na Phos,Di-Ba* (Fleet Enema*), 133 ML RECTAL DAILY, (Reported) Quetiapine Fumarate* (Seroquel*), 50 MG ORAL TWICE A DAY, (Reported) Vitamin B Cmplx/Vit C/Folic AC (Nephro-[place] Tablet), 1 TAB ORAL DAILY, (Reported ) Scheduled PRN Acetaminophen (Tylenol), 650 MG PO Q4HR PRN for Fever/Headache/Mild Pain, ( Reported) Acetaminophen* (Tylenol Extra Strength*), 1,000 MG ORAL Q6H PRN for Moderate Breakthru Pain (5-7), (Reported) Acetaminophen* (Acetaminophen 325MG Tablet*), 650 MG ORAL Q6H PRN for Mild Pain (Pain Scale 1-3), (Reported) Bisacodyl (Bisacodyl), 10 MG RC DAILY PRN for Constipation, (Reported) Lorazepam* (Ativan*), 0.5 MG ORAL Q6HR PRN for For Anxiety, (Reported) Mag Hydrox/Al Hydrox/Simeth (Alum-Mag Hydroxide-Simeth Liq), Unknown Dose PO Q6HR PRN for STOMACH UPSET, (Reported) Magnesium Hydroxide* (Milk Of Magnesia*), 30 ML GT PRN PRN for Constipation, ( Reported) Magnesium Hydroxide* (Milk Of Magnesia*), 30 ML ORAL QHS PRN for Constipation, ( Reported) Na Phos,M-B/Na Phos,Di-Ba* (Fleet Enema*), 133 ML RECTAL EVERY OTHER DAY PRN for Constipation, (Reported) Patient History Healthcare decision maker Resuscitation status Do Not Resuscitate Advanced Directive on File Review of Systems ROS Narrative Unable to obtain as the patient is not verbal Physical Exam Last 24 Hour Vital Signs Date Time Temp Pulse Resp B/P (MAP) Pulse Ox O2 Delivery O2 Flow Rate FiO2 08/26/18 08:08 69 18 98 Nasal Cannula 3.0 32 08/26/18 08:05 96 Nasal Cannula 3.0 32 08/26/18 08:05 Nasal Cannula 3.0 32 08/26/18 08:01 66 18 96 Nasal Cannula 3.0 32 08/26/18 08:00 97.3 71 20 166/78 (107) 98 1/8/19 04:00 97.7 62 20 145/61 (89) 98 08/26/18 04:00 63 08/26/18 02:09 63 18 100 Nasal Cannula 3.0 32 08/26/18 01:59 60 18 100 Nasal Cannula 3.0 32 08/26/18 00:00 97.9 60 22 128/58 (81) 98 08/26/18 00:00 60 08/25/18 21:00 Nasal Cannula 2.0 08/25/18 20:00 97.3 60 20 131/55 (80) 93 08/25/18 20:00 60 08/25/18 19:24 60 18 98 Nasal Cannula 3.0 32 08/25/18 19:13 60 18 96 Nasal Cannula 3.0 32 08/25/18 17:34 60 145/51 08/25/18 16:00 97.0 60 22 145/51 (82) 92 08/25/18 16:00 60 08/25/18 12:00 97.0 62 22 128/61 (83) 90 08/25/18 12:00 65 Intake and Output 08/25/18 08/26/18 18:59 06:59 Intake Total 1255 ml Output Total 875 ml Balance 380 ml Intake Free Water 330 ml IV Total 605 ml Tube Feeding 320 ml Output Urine Total 875 ml # Voids 1 # Bowel Movements 2 Laboratory Tests Test 08/25/18 11:00 08/25/18 12:20 08/26/18 05:51 Stool Occult Blood Pending Urine Color Pale yellow Urine Appearance Slightly cloudy Urine pH 5 (4.5-8.0) Urine Specific [place] 1.010 (1.005-1.035) Urine Protein 4+ (NEGATIVE) H Urine Glucose (UA) Negative (NEGATIVE) Urine Ketones Negative (NEGATIVE) Urine Blood 5+ (NEGATIVE) H Urine Nitrite Negative (NEGATIVE) Urine Bilirubin Negative (NEGATIVE) Urine Urobilinogen Normal MG/DL (0.0-1.0) Urine Leukocyte Esterase 1+ (NEGATIVE) H Urine RBC 30-40 /HPF (0 - 0) H Urine WBC 2-4 /HPF (0 - 0) Urine Squamous Epithelial Cells Few /LPF (NONE/OCC) Urine Bacteria Few /HPF (NONE) Urine Eosinophils None seen (NONE SEEN) Urine Random Sodium 60 mmol/L (20-110) Urine Potassium Timed 26 mmol/L (12-62) White Blood Count 8.0 K/UL (4.8-10.8) Red Blood Count 2.43 M/UL (4.70-6.10) L Hemoglobin 7.7 G/DL (14.2-18.0) L Hematocrit 22.2 % (42.0-52.0) L Mean Corpuscular Volume 91 FL (80-99) Mean Corpuscular Hemoglobin 31.5 PG (27.0-31.0) H Mean Corpuscular Hemoglobin Concent 34.6 G/DL (32.0-36.0) Red Cell Distribution Width 17.9 % (11.6-14.8) H Platelet Count 145 K/UL (150-450) L Mean Platelet Volume 7.5 FL (6.5-10.1) Neutrophils (%) (Auto) % (45.0-75.0) Lymphocytes (%) (Auto) % (20.0-45.0) Monocytes (%) (Auto) % (1.0-10.0) Eosinophils (%) (Auto) % (0.0-3.0) Basophils (%) (Auto) % (0.0-2.0) Differential Total Cells Counted 100 Neutrophils % (Manual) 85 % (45-75) H Lymphocytes % (Manual) 7 % (20-45) L Monocytes % (Manual) 7 % (1-10) Eosinophils % (Manual) 1 % (0-3) Basophils % (Manual) 0 % (0-2) Band Neutrophils 0 % (0-8) Platelet Estimate Decreased L Platelet Morphology Normal Hypochromasia 3+ Anisocytosis 1+ Spherocytes 2+ Erythrocyte Sedimentation Rate 75 MM/HR (0-20) H Reticulocyte Count 3.5 % (0.0-2.0) H Prothrombin Time 13.1 SEC (9.30-11.50) H Prothromb Time International Ratio 1.3 (0.9-1.1) H Activated Partial Thromboplast Time 47 SEC (23-33) H Sodium Level 145 MMOL/L (136-145) Potassium Level 2.4 MMOL/L (3.5-5.1) *L Chloride Level 112 MMOL/L (98-107) H Carbon Dioxide Level 21 MMOL/L (21-32) Anion Gap 13 mmol/L (5-15) Blood Urea Nitrogen 66 mg/dL (7-18) H Creatinine 2.5 MG/DL (0.55-1.30) H Estimat Glomerular Filtration Rate mL/min (>60) Glucose Level 220 MG/DL (74-106) #H Hemoglobin A1c 5.5 % (4.3-6.0) Lactic Acid Level 1.30 mmol/L (0.4-2.0) Calcium Level 6.7 MG/DL (8.5-10.1) L Phosphorus Level 4.8 MG/DL (2.5-4.9) Magnesium Level 1.7 MG/DL (1.8-2.4) L Iron Level 23 ug/dL (50-175) L Total Iron Binding Capacity 125 ug/dL (250-450) L Percent Iron Saturation 18 % (15-50) Unsaturated Iron Binding 102 ug/dL (112-346) L Total Bilirubin 0.3 MG/DL (0.2-1.0) Aspartate Amino Transf (AST/SGOT) Pending Alanine Aminotransferase (ALT/SGPT) Pending Alkaline Phosphatase 72 U/L (46-116) Lactate Dehydrogenase 239 U/L (81-234) H C-Reactive Protein, Quantitative 27.6 mg/dL (0.00-0.90) H Pro-B-Type Natriuretic Peptide 6225 pg/mL (0-125) H Total Protein 4.3 G/DL (6.4-8.2) L Albumin 1.0 G/DL (3.4-5.0) L Globulin 3.3 g/dL Albumin/Globulin Ratio 0.3 (1.0-2.7) L Amylase Level 28 U/L (25-115) Lipase 58 U/L (73-393) L Carcinoembryonic Antigen Pending Vitamin B12 Level 503 PG/ML (193-986) Folate 13.0 NG/ML (8.6-58.9) Microbiology Date/Time Source Procedure Growth Status 08/25/18 13:00 Sputum Gram Stain - Final Resulted 08/25/18 13:00 Sputum Sputum Culture Pending Resulted Height (Feet): 5 Height (Inches): 3.00 Weight (Pounds): 163 Medications Current Medications Medications (Trade) Dose Ordered Sig/Vahe Route PRN Reason Start Time Stop Time Status Last Admin Dose Admin Albuterol/ Ipratropium (Albuterol/ Ipratropium) 3 ml Q4H PRN HHN Shortness of Breath 08/25/18 08:15 08/30/18 08:14 08/25/18 09:13 Albuterol/ Ipratropium (Albuterol/ Ipratropium) 3 ml Q6HRT HHN 08/25/18 13:00 08/30/18 12:59 08/26/18 08:01 Aspirin (ASA) 81 mg DAILY GT 08/25/18 10:45 09/24/18 10:44 08/25/18 12:49 Bisacodyl (Dulcolax) 10 mg DAILY PRN RECTAL Constipation 08/25/18 03:30 09/24/18 03:29 Carbidopa/Levodopa (Sinemet 25/100) 1 tab FOUR TIMES A DAY GT 08/25/18 09:00 09/24/18 08:59 08/25/18 20:33 Cefepime HCl 1 gm/ Dextrose 55 ml @ 110 mls/hr Q24H IVPB 08/25/18 23:00 09/01/18 22:59 08/25/18 22:59 Divalproex Sodium (Depakote Sprinkles) 125 mg Q8HR GT 08/25/18 22:00 09/24/18 08:59 08/26/18 05:15 Docusate Sodium (Colace) 100 mg THREE TIMES A DAY GT 08/25/18 13:00 09/24/18 12:59 08/25/18 17:34 Heparin Sodium (Porcine) (Heparin 5000 units/ml) 5,000 units EVERY 12 HOURS SUBQ 08/26/18 09:00 09/25/18 08:59 Lansoprazole (Prevacid) 30 mg BID GT 08/25/18 10:30 09/24/18 10:29 08/25/18 17:34 Levofloxacin 50 ml @ 50 mls/hr Q48H IVPB 08/26/18 23:00 09/02/18 22:59 Magnesium Hydroxide (Mom) 30 ml PRN PRN GT Constipation 08/25/18 03:30 09/24/18 03:29 Metoprolol Tartrate (Lopressor) 100 mg BID GT 08/25/18 09:00 09/24/18 08:59 08/25/18 17:34 Metronidazole 100 ml @ 100 mls/hr Q8HR IVPB 08/25/18 06:00 09/01/18 05:59 08/26/18 05:15 Promethazine HCl/ Codeine (Phenergan with Codeine) 5 ml Q4H PRN ORAL For Cough 08/25/18 12:00 09/24/18 11:59 Sodium Chloride 1,000 ml @ 75 mls/hr [id number] IV 08/25/18 10:45 09/24/18 10:44 08/26/18 00:00 Objective Narrative Gen: NAD, Awake not talking HEENT: Hard collar NCAT, MMM, EOMI, PERRL, No Oral lesion, no scleral icterus NECK: full range of motion, supple, no meningismus, No LAD, No JVD LUNGS: Coarse , No W/C, No Accessory muscle use CARDS: RRR, S1, S2, No M/R/G, ABD: Soft, NT, ND, No R/G, + BS, No HSM, No Masses : Deferred Ext: C/C/E, Pulses 2+ B/L (DP, Rad): NEURO: A/O x 0, Moving arms PSYCH: Mood/affect normal SKIN: Warm/dry, No rashes, Multiple pressure ulcers on buttock and lower ext. Assessment/Plan Assessment/Plan 78 yo male with pMHx of Seizures, Schizophrenia, CAD s/p Pacemaker and Neck Fx ( 6mo ago) who was sent to the ED on 08/24/18 from his [facility] with desaturation. Sepsis PNA and UTI SpCx Pend UCx and BCx - NGTD Seizures Schizophrenia CAD s/p Pacemaker Neck Fx (6mo ago) HTN Plan - Continue Cefepime vancomycin and Levofloxacin pending Cx - f/u B/U/SCx - Monitor CBC and Temps Thank you for this consult. We will continue to follow the patient with you. Mani Saeed MD Aug 26, 2018 09:27
--- NOTE | 2018-08-26 10:00 | History and Physical Report ---
DATE OF ADMISSION: 08/24/2018 This is the first admission to [facility] of this 78-year-old patient because of hypotension, tachycardia, and hypoxia. HISTORY OF PRESENT ILLNESS: The patient is a resident of an extended care facility where he has been in precarious condition over the last several months. He is known to have several chronic medical syndrome, however, is stable on his current medication. On the day of admission, he developed hypotension, tachycardia, and hypoxia, but relieved by increase in the O2 to 6 liters/minute. He was transferred by paramedics to [facility] ER. The patient was found to have pneumonia and was admitted. PAST MEDICAL HISTORY AND SURGERY: The patient had insertion of AICD several years ago. Medically, he is known to have high blood pressure, COPD, chronic psychosis, and diabetes mellitus. His chronic psychosis is over the last several weeks. He refused the pain medications or food for several days. ALLERGIES: No known drug allergies. MEDICATIONS: The patient is on albuterol sulfate and ipratropium bromide inhalation therapy every four hours. He is on aspirin 81 mg daily, 30 mg daily, carbidopa and levodopa 4 times daily. He is on Depakote 125 mg t.i.d., metoprolol 100 mg b.i.d., 30 mg b.i.d, and one teaspoon q.4 h. FAMILY HISTORY: Noncontributory. SOCIAL HISTORY: He is single. He was born in [place]. He has been in [place] for many years prior to the . He worked in . HABITS: The patient smoked 1 pack a day for the last several years. He denies drinking and denies the use of illicit drugs. REVIEW OF SYSTEMS: CARDIOVASCULAR: The patient denied any chest pain, shortness of breath, palpitations, or dizziness. PULMONARY: The patient denied any cough, wheezing, or expectoration. The patient has chronic cough and intermittent shortness of breath with response to breathing therapy. GASTROINTESTINAL: His appetite is poor. His weight has declined by more than 20 pounds over the last year. He has no dysphagia or dyspepsia. He has bowel movements 5 to 7 a week. GENITOURINARY: The patient denies any dysuria, frequency, or incontinence. His nocturia is 3-4. JOINTS: The patient denies any joint swelling, stiffness to extremities, photosensitivity, dry eyes, or alopecia. 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 He has no numbness, tingling, or seizure disorder and he has no headache. All his information is from followup of the patient over the last several years. The patient is nonverbal during this interview. PHYSICAL EXAMINATION: VITAL SIGNS: Blood pressure is 115/51, his pulse is 60, respirations 18, and temperature 97.3. HEENT: Eyes were normal. Pupils were round, equal, and reactive to light. Sclerae were white. Conjunctivae were pink. Extraocular movements were normal. Temporal arteries were palpable bilaterally. There was no bilateral temporal wasting. Visual lara to confrontation. Neglect sign could not be assessed. ENT, mucous membranes were not dehydrated. Auditory canals were clear and tympanic membranes could not be visualized. Nasal cavity was not congested. Nasal septum was intact. Soft palate was free of ulcerations. Pharynx was clear from exudate or tonsillar hypertrophy. Uvula micky to phonation. Tongue was moist, midline, and normally papillated. NECK: Supple. There was no goiter. No mass. No lymphadenopathy. There was no JVD. No bruits. Carotid upstroke was 1+. LUNGS: Clear. HEART: PMI was at fifth left intercostal space in midclavicular line. There was normal S1 and normal S2. There was no murmur. No arrhythmia. No S3 no S4. No pericardial rub. ABDOMEN: Soft and nontender without organomegaly. There were normal bowel sounds without bruits. There was no guarding. No rebound tenderness. No ascites. No hernia. No CVA tenderness. Liver span was 8 cm, mostly nontender. EXTREMITIES: No cyanosis, no clubbing, and no edema. Extremities were warm. NEUROLOGICAL: Reflexes in biceps, triceps, and brachioradialis were present. Patellar retinaculum were present. Plantar were in flexion. Cranial nerves were symmetric and equal. Cerebellar function, gait was . [id number] and rapid alternating movements were normal. Romberg sign declined by the patient. There was no tremor. No nystagmus. No extrapyramidal rigidity. Sensory exam to pinprick, cotton touch, and position were grossly normal. Motor strength was 5/5 against resistance in upper and lower extremities in proximal and distal muscles. LABORATORY AND DIAGNOSTIC DATA: Hemoglobin 7.5, hematocrit 22.6, MCV of 95, WBC of 12.7, and platelets 167. His BUN and creatinine were 86 and 3.1 respectively. Sodium 145, potassium 3.1, chloride 109, and CO2 was 24. His uric acid was 4.7. His calcium was 7.9. His phosphorus was 3.2 and magnesium was 1.6. Chest x-ray showed bilateral pleural effusion and bilateral interstitial congestion. IMPRESSION: 1. The patient has multisystem issue. His hypothyroidism has spontaneously resolved but he remains with tachycardia and leukocytosis. . The patient is currently on half normal saline at per hour. 2. The patient has COPD. We will continue with albuterol sulfate and ipratropium bromide inhalation therapy every four hours. 3. Multiple consultants were called to assist in the management of this case, Cardiology, Pulmonology, Nephrology, and possibly Infectious Disease. Repeat laboratory tests will be done in the a.m. Evans Jarrett M.D. DR: ALYSSA JOB#: [id number] CC:
[2018-08-26] MEDS: Levodopa/Carbidopa 25/100 tab GT SCH ×4 (10:09→20:30)
[2018-08-26] MEDS: Docusate 100mg/10ml Liq GT SCH ×3 (10:13→17:58)
[2018-08-26 10:28] LABS: ALANINE AMINOTRANSFERASE 13 U/L (12-78); ASPARTATE AMINO TRANSFERASE 94 U/L (15-37)
[2018-08-26] MEDS ORDERED: Iron Sucrose 200 MG in NS 110 ML IV SCH (11:00)
--- NOTE | 2018-08-26 11:31 | Pulmonology Progress Note ---
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 (7) HTN (hypertension) Assessment/Plan IV fluids iv abx check cultures sputum for c/s Keep right chest elevated chest pt respiratory treatment Subjective ROS Limited/Unobtainable: No Constitutional: Reports: no symptoms HEENT: Repors: no symptoms Respiratory: Reports: no symptoms Cardiovascular: Reports: no symptoms Allergies: Coded Allergies: NO KNOWN ALLERGIES (Unverified Allergy, Unknown, 08/25/15) Objective Last 24 Hour Vital Signs Date Time Temp Pulse Resp B/P (MAP) Pulse Ox O2 Delivery O2 Flow Rate FiO2 08/26/18 10:10 69 166/78 08/26/18 08:08 69 18 98 Nasal Cannula 3.0 32 08/26/18 08:05 96 Nasal Cannula 3.0 32 08/26/18 08:05 Nasal Cannula 3.0 32 08/26/18 08:01 66 18 96 Nasal Cannula 3.0 32 08/26/18 08:00 66 08/26/18 08:00 97.3 71 20 166/78 (107) 98 08/26/18 04:00 97.7 62 20 145/61 (89) 98 08/26/18 04:00 63 08/26/18 02:09 63 18 100 Nasal Cannula 3.0 32 08/26/18 01:59 60 18 100 Nasal Cannula 3.0 32 08/26/18 00:00 97.9 60 22 128/58 (81) 98 08/26/18 00:00 60 08/25/18 21:00 Nasal Cannula 2.0 08/25/18 20:00 97.3 60 20 131/55 (80) 93 08/25/18 20:00 60 08/25/18 19:24 60 18 98 Nasal Cannula 3.0 32 08/25/18 19:13 60 18 96 Nasal Cannula 3.0 32 08/25/18 17:34 60 145/51 08/25/18 16:00 97.0 60 22 145/51 (82) 92 08/25/18 16:00 60 08/25/18 12:00 97.0 62 22 128/61 (83) 90 08/25/18 12:00 65 Intake and Output 08/25/18 08/26/18 18:59 06:59 Intake Total 1255 ml Output Total 875 ml Balance 380 ml Intake Free Water 330 ml IV Total 605 ml Tube Feeding 320 ml Output Urine Total 875 ml # Voids 1 # Bowel Movements 2 General Appearance: WD/WN HEENT: normocephalic Respiratory/Chest: chest wall non-tender, crackles/rales, rhonchi Cardiovascular: normal peripheral pulses, normal rate Abdomen: normal bowel sounds, soft, non tender Genitourinary: normal external genitalia Extremities: no cyanosis Skin: no rash Microbiology Date/Time Source Procedure Growth Status 08/24/18 22:45 Blood Blood Culture - Preliminary NO GROWTH AFTER 24 HOURS Resulted 08/24/18 22:30 Blood Blood Culture - Preliminary NO GROWTH AFTER 24 HOURS Resulted 08/25/18 13:00 Sputum Gram Stain - Final Resulted 08/25/18 13:00 Sputum Sputum Culture Pending Resulted 08/24/18 22:55 Urine,Clean Catch Urine Culture - Preliminary NO GROWTH Resulted Laboratory Tests 08/25/18 12:20: Urine Color Pale yellow, Urine Appearance Slightly cloudy, Urine pH 5, Urine Specific [place] 1.010, Urine Protein 4+H, Urine Glucose (UA) Negative, Urine Ketones Negative, Urine Blood 5+H, Urine Nitrite Negative, Urine Bilirubin Negative, Urine Urobilinogen Normal, Urine Leukocyte Esterase 1+H, Urine RBC 30- 40H, Urine WBC 2-4, Urine Squamous Epithelial Cells Few, Urine Bacteria Few, Urine Eosinophils None seen, Urine Random Sodium 60, Urine Potassium Timed 26 08/26/18 05:51: White Blood Count 8.0, Red Blood Count 2.43L, Hemoglobin 7.7L, Hematocrit 22.2L , Mean Corpuscular Volume 91, Mean Corpuscular Hemoglobin 31.5H, Mean Corpuscular Hemoglobin Concent 34.6, Red Cell Distribution Width 17.9H, Platelet Count 145L, Mean Platelet Volume 7.5, Neutrophils (%) (Auto) , Lymphocytes (%) (Auto) , Monocytes (%) (Auto) , Eosinophils (%) (Auto) , Basophils (%) (Auto) , Differential Total Cells Counted 100, Neutrophils % ( Manual) 85H, Lymphocytes % (Manual) 7L, Monocytes % (Manual) 7, Eosinophils % ( Manual) 1, Basophils % (Manual) 0, Band Neutrophils 0, Platelet Estimate DecreasedL, Platelet Morphology Normal, Hypochromasia 3+, Anisocytosis 1+, Spherocytes 2+, Erythrocyte Sedimentation Rate 75H, Reticulocyte Count 3.5H, Prothrombin Time 13.1H, Prothromb Time International Ratio 1.3H, Activated Partial Thromboplast Time 47H, Sodium Level 145, Potassium Level 2.4*L, Chloride Level 112H, Carbon Dioxide Level 21, Anion Gap 13, Blood Urea Nitrogen 66H, Creatinine 2.5H, Estimat Glomerular Filtration Rate , Glucose Level 220#H, Hemoglobin A1c 5.5, Lactic Acid Level 1.30, Calcium Level 6.7L, Phosphorus Level 4.8, Magnesium Level 1.7L, Iron Level 23L, Total Iron Binding Capacity 125L, Percent Iron Saturation 18, Unsaturated Iron Binding 102L, Total Bilirubin 0.3, Aspartate Amino Transf (AST/SGOT) 94H, Alanine Aminotransferase ( ALT/SGPT) 13, Alkaline Phosphatase 72, Lactate Dehydrogenase 239H, C-Reactive Protein, Quantitative 27.6H, Pro-B-Type Natriuretic Peptide 6225H, Total Protein 4.3L, Albumin 1.0L, Globulin 3.3, Albumin/Globulin Ratio 0.3L, Amylase Level 28, Lipase 58L, Carcinoembryonic Antigen [Pending], Vitamin B12 Level 503 , Folate 13.0 Current Medications Medications (Trade) Dose Ordered Sig/Vahe Route PRN Reason Start Time Stop Time Status Last Admin Dose Admin Albuterol/ Ipratropium (Albuterol/ Ipratropium) 3 ml Q4H PRN HHN Shortness of Breath 08/25/18 08:15 08/30/18 08:14 08/25/18 09:13 Albuterol/ Ipratropium (Albuterol/ Ipratropium) 3 ml Q6HRT HHN 08/25/18 13:00 08/30/18 12:59 08/26/18 08:01 Aspirin (ASA) 81 mg DAILY GT 08/25/18 10:45 09/24/18 10:44 08/25/18 12:49 Bisacodyl (Dulcolax) 10 mg DAILY PRN RECTAL Constipation 08/25/18 03:30 09/24/18 03:29 Carbidopa/Levodopa (Sinemet 25/100) 1 tab FOUR TIMES A DAY GT 08/25/18 09:00 09/24/18 08:59 08/26/18 10:09 Cefepime HCl 1 gm/ Dextrose 55 ml @ 110 mls/hr Q24H IVPB 08/25/18 23:00 09/01/18 22:59 08/25/18 22:59 Divalproex Sodium (Depakote Sprinkles) 125 mg Q8HR GT 08/25/18 22:00 09/24/18 08:59 08/26/18 05:15 Docusate Sodium (Colace) 100 mg THREE TIMES A DAY GT 08/25/18 13:00 09/24/18 12:59 08/26/18 10:13 Heparin Sodium (Porcine) (Heparin 5000 units/ml) 5,000 units EVERY 12 HOURS SUBQ 08/26/18 09:00 09/25/18 08:59 Iron Sucrose 200 mg/Sodium Chloride 120 ml @ 240 mls/hr ONCE IV 08/26/18 11:00 08/26/18 13:00 Lansoprazole (Prevacid) 30 mg BID GT 08/25/18 10:30 09/24/18 10:29 08/26/18 10:09 Levofloxacin 50 ml @ 50 mls/hr Q48H IVPB 08/26/18 23:00 09/02/18 22:59 Magnesium Hydroxide (Mom) 30 ml PRN PRN GT Constipation 08/25/18 03:30 09/24/18 03:29 Metoprolol Tartrate (Lopressor) 100 mg BID GT 08/25/18 09:00 09/24/18 08:59 08/26/18 10:10 Metronidazole 100 ml @ 100 mls/hr Q8HR IVPB 08/25/18 06:00 09/01/18 05:59 08/26/18 05:15 Potassium Chloride 100 ml @ 100 mls/hr Q1H IVPB 08/26/18 09:30 08/26/18 11:29 08/26/18 10:14 Potassium Chloride 100 ml @ 100 mls/hr Q1H IVPB 08/26/18 13:00 08/26/18 16:59 Promethazine HCl/ Codeine (Phenergan with Codeine) 5 ml Q4H PRN ORAL For Cough 08/25/18 12:00 09/24/18 11:59 Sodium Chloride 1,000 ml @ 75 mls/hr [id number] IV 08/25/18 10:45 09/24/18 10:44 08/26/18 00:00 Stefanie Ball MD Aug 26, 2018 11:31
[2018-08-26 12:00] VITALS: BP 124/65
--- NOTE | 2018-08-26 12:42 | Consultation ---
History of Present Illness General Date patient seen: Aug 26, 2018 Chief Complaint: General Complaint Reason for Consultation: PNA Present Illness Allergies: Coded Allergies: NO KNOWN ALLERGIES (Unverified Allergy, Unknown, 08/25/15) Medication History Scheduled Aspirin* (Aspirin*), 81 MG ORAL DAILY, (Reported) Atorvastatin Calcium* (Lipitor*), 10 MG GT BEDTIME, (Reported) Carbidopa/Levodopa 25-100 Mg* (Sinemet 25-100 Mg Tablet*), 1 TAB GT FOUR TIMES A DAY, (Reported) Cranberry Fruit Concentrate (Cranberry), 450 MG PO DAILY, (Reported) Divalproex Sodium* (Depakote Er*), 125 MG ORAL THREE TIMES A DAY, (Reported) Docusate Sodium* (Docusate Sodium*), 100 MG GT DAILY, (Reported) Donepezil Hcl* (Donepezil Hcl*), 10 MG ORAL QHS, (Reported) Isosorbide Dinitrate* (Isordil*), 20 MG ORAL BID, (Reported) Linagliptin (Tradjenta), 5 MG PO DAILY, (Reported) Lisinopril* (Lisinopril*), 40 MG ORAL DAILY, (Reported) Magnesium Oxide (Magnesium Oxide), 400 MG ORAL BID, (Reported) Metformin Hcl* (Metformin Hcl*), 500 MG ORAL BID, (Reported) Metoprolol Tartrate* (Metoprolol Tartrate*), 100 MG GT BID, (Reported) Mirtazapine* (Mirtazapine*), 7.5 MG ORAL BEDTIME, (Reported) Na Phos,M-B/Na Phos,Di-Ba* (Fleet Enema*), 133 ML RECTAL DAILY, (Reported) Quetiapine Fumarate* (Seroquel*), 50 MG ORAL TWICE A DAY, (Reported) Vitamin B Cmplx/Vit C/Folic AC (Nephro-Geneva Tablet), 1 TAB ORAL DAILY, (Reported ) Scheduled PRN Acetaminophen (Tylenol), 650 MG PO Q4HR PRN for Fever/Headache/Mild Pain, ( Reported) Acetaminophen* (Tylenol Extra Strength*), 1,000 MG ORAL Q6H PRN for Moderate Breakthru Pain (5-7), (Reported) Acetaminophen* (Acetaminophen 325MG Tablet*), 650 MG ORAL Q6H PRN for Mild Pain (Pain Scale 1-3), (Reported) Bisacodyl (Bisacodyl), 10 MG RC DAILY PRN for Constipation, (Reported) Lorazepam* (Ativan*), 0.5 MG ORAL Q6HR PRN for For Anxiety, (Reported) Mag Hydrox/Al Hydrox/Simeth (Alum-Mag Hydroxide-Simeth Liq), Unknown Dose PO Q6HR PRN for STOMACH UPSET, (Reported) Magnesium Hydroxide* (Milk Of Magnesia*), 30 ML GT PRN PRN for Constipation, ( Reported) Magnesium Hydroxide* (Milk Of Magnesia*), 30 ML ORAL QHS PRN for Constipation, ( Reported) Na Phos,M-B/Na Phos,Di-Ba* (Fleet Enema*), 133 ML RECTAL EVERY OTHER DAY PRN for Constipation, (Reported) Patient History Healthcare decision maker Resuscitation status Do Not Resuscitate Advanced Directive on File Physical Exam Last 24 Hour Vital Signs Date Time Temp Pulse Resp B/P (MAP) Pulse Ox O2 Delivery O2 Flow Rate FiO2 08/26/18 10:10 69 166/78 08/26/18 08:08 69 18 98 Nasal Cannula 3.0 32 08/26/18 08:05 96 Nasal Cannula 3.0 32 08/26/18 08:05 Nasal Cannula 3.0 32 08/26/18 08:01 66 18 96 Nasal Cannula 3.0 32 08/26/18 08:00 66 08/26/18 08:00 97.3 71 20 166/78 (107) 98 08/26/18 04:00 97.7 62 20 145/61 (89) 98 08/26/18 04:00 63 08/26/18 02:09 63 18 100 Nasal Cannula 3.0 32 08/26/18 01:59 60 18 100 Nasal Cannula 3.0 32 08/26/18 00:00 97.9 60 22 128/58 (81) 98 08/26/18 00:00 60 08/25/18 21:00 Nasal Cannula 2.0 08/25/18 20:00 97.3 60 20 131/55 (80) 93 08/25/18 20:00 60 08/25/18 19:24 60 18 98 Nasal Cannula 3.0 32 08/25/18 19:13 60 18 96 Nasal Cannula 3.0 32 08/25/18 17:34 60 145/51 08/25/18 16:00 97.0 60 22 145/51 (82) 92 08/25/18 16:00 60 Intake and Output 08/25/18 08/26/18 19:00 07:00 Intake Total 1370 ml Output Total 875 ml Balance 495 ml Intake Free Water 330 ml IV Total 680 ml Tube Feeding 360 ml Output Urine Total 875 ml # Voids 1 # Bowel Movements 2 Laboratory Tests Test 08/26/18 05:51 White Blood Count 8.0 K/UL (4.8-10.8) Red Blood Count 2.43 M/UL (4.70-6.10) L Hemoglobin 7.7 G/DL (14.2-18.0) L Hematocrit 22.2 % (42.0-52.0) L Mean Corpuscular Volume 91 FL (80-99) Mean Corpuscular Hemoglobin 31.5 PG (27.0-31.0) H Mean Corpuscular Hemoglobin Concent 34.6 G/DL (32.0-36.0) Red Cell Distribution Width 17.9 % (11.6-14.8) H Platelet Count 145 K/UL (150-450) L Mean Platelet Volume 7.5 FL (6.5-10.1) Neutrophils (%) (Auto) % (45.0-75.0) Lymphocytes (%) (Auto) % (20.0-45.0) Monocytes (%) (Auto) % (1.0-10.0) Eosinophils (%) (Auto) % (0.0-3.0) Basophils (%) (Auto) % (0.0-2.0) Differential Total Cells Counted 100 Neutrophils % (Manual) 85 % (45-75) H Lymphocytes % (Manual) 7 % (20-45) L Monocytes % (Manual) 7 % (1-10) Eosinophils % (Manual) 1 % (0-3) Basophils % (Manual) 0 % (0-2) Band Neutrophils 0 % (0-8) Platelet Estimate Decreased L Platelet Morphology Normal Hypochromasia 3+ Anisocytosis 1+ Spherocytes 2+ Erythrocyte Sedimentation Rate 75 MM/HR (0-20) H Reticulocyte Count 3.5 % (0.0-2.0) H Prothrombin Time 13.1 SEC (9.30-11.50) H Prothromb Time International Ratio 1.3 (0.9-1.1) H Activated Partial Thromboplast Time 47 SEC (23-33) H Sodium Level 145 MMOL/L (136-145) Potassium Level 2.4 MMOL/L (3.5-5.1) *L Chloride Level 112 MMOL/L (98-107) H Carbon Dioxide Level 21 MMOL/L (21-32) Anion Gap 13 mmol/L (5-15) Blood Urea Nitrogen 66 mg/dL (7-18) H Creatinine 2.5 MG/DL (0.55-1.30) H Estimat Glomerular Filtration Rate mL/min (>60) Glucose Level 220 MG/DL (74-106) #H Hemoglobin A1c 5.5 % (4.3-6.0) Lactic Acid Level 1.30 mmol/L (0.4-2.0) Calcium Level 6.7 MG/DL (8.5-10.1) L Phosphorus Level 4.8 MG/DL (2.5-4.9) Magnesium Level 1.7 MG/DL (1.8-2.4) L Iron Level 23 ug/dL (50-175) L Total Iron Binding Capacity 125 ug/dL (250-450) L Percent Iron Saturation 18 % (15-50) Unsaturated Iron Binding 102 ug/dL (112-346) L Total Bilirubin 0.3 MG/DL (0.2-1.0) Aspartate Amino Transf (AST/SGOT) 94 U/L (15-37) H Alanine Aminotransferase (ALT/SGPT) 13 U/L (12-78) Alkaline Phosphatase 72 U/L (46-116) Lactate Dehydrogenase 239 U/L (81-234) H C-Reactive Protein, Quantitative 27.6 mg/dL (0.00-0.90) H Pro-B-Type Natriuretic Peptide 6225 pg/mL (0-125) H Total Protein 4.3 G/DL (6.4-8.2) L Albumin 1.0 G/DL (3.4-5.0) L Globulin 3.3 g/dL Albumin/Globulin Ratio 0.3 (1.0-2.7) L Amylase Level 28 U/L (25-115) Lipase 58 U/L (73-393) L Carcinoembryonic Antigen Pending Vitamin B12 Level 503 PG/ML (193-986) Folate 13.0 NG/ML (8.6-58.9) Microbiology Date/Time Source Procedure Growth Status 08/25/18 13:00 Sputum Gram Stain - Final Resulted 08/25/18 13:00 Sputum Sputum Culture Pending Resulted Height (Feet): 5 Height (Inches): 3.00 Weight (Pounds): 163 Medications Current Medications Medications (Trade) Dose Ordered Sig/Vahe Route PRN Reason Start Time Stop Time Status Last Admin Dose Admin Albuterol/ Ipratropium (Albuterol/ Ipratropium) 3 ml Q4H PRN HHN Shortness of Breath 08/25/18 08:15 08/30/18 08:14 08/25/18 09:13 Albuterol/ Ipratropium (Albuterol/ Ipratropium) 3 ml Q6HRT HHN 08/25/18 13:00 08/30/18 12:59 08/26/18 08:01 Aspirin (ASA) 81 mg DAILY GT 08/25/18 10:45 09/24/18 10:44 08/25/18 12:49 Bisacodyl (Dulcolax) 10 mg DAILY PRN RECTAL Constipation 08/25/18 03:30 09/24/18 03:29 Carbidopa/Levodopa (Sinemet 25/100) 1 tab FOUR TIMES A DAY GT 08/25/18 09:00 09/24/18 08:59 08/26/18 10:09 Cefepime HCl 1 gm/ Dextrose 55 ml @ 110 mls/hr Q24H IVPB 08/25/18 23:00 09/01/18 22:59 08/25/18 22:59 Divalproex Sodium (Depakote Sprinkles) 125 mg Q8HR GT 08/25/18 22:00 09/24/18 08:59 08/26/18 05:15 Docusate Sodium (Colace) 100 mg THREE TIMES A DAY GT 08/25/18 13:00 09/24/18 12:59 08/26/18 10:13 Heparin Sodium (Porcine) (Heparin 5000 units/ml) 5,000 units EVERY 12 HOURS SUBQ 08/26/18 09:00 09/25/18 08:59 Iron Sucrose 200 mg/Sodium Chloride 120 ml @ 240 mls/hr ONCE IV 08/26/18 11:00 08/26/18 13:00 08/26/18 11:59 Lansoprazole (Prevacid) 30 mg BID GT 08/25/18 10:30 09/24/18 10:29 08/26/18 10:09 Levofloxacin 50 ml @ 50 mls/hr Q48H IVPB 08/26/18 23:00 09/02/18 22:59 Magnesium Hydroxide (Mom) 30 ml PRN PRN GT Constipation 08/25/18 03:30 09/24/18 03:29 Metoprolol Tartrate (Lopressor) 100 mg BID GT 08/25/18 09:00 09/24/18 08:59 08/26/18 10:10 Metronidazole 100 ml @ 100 mls/hr Q8HR IVPB 08/25/18 06:00 09/01/18 05:59 08/26/18 05:15 Potassium Chloride 100 ml @ 100 mls/hr Q1H IVPB 08/26/18 13:00 08/26/18 16:59 Promethazine HCl/ Codeine (Phenergan with Codeine) 5 ml Q4H PRN ORAL For Cough 08/25/18 12:00 09/24/18 11:59 Sodium Chloride 1,000 ml @ 75 mls/hr [id number] IV 08/25/18 10:45 09/24/18 10:44 08/26/18 00:00 Assessment/Plan Assessment/Plan Hematology Consult REQ MD: Evans Jarrett RFC: Anemia evaluation DOS: 08/26/18 HPI Is an 78-year-old male with multiple medical problem including seizure, schizophrenia, CAD with pacemaker. He also had cervical fracture 6 months ago for which he wears a hard collar. He presents with chief complaint of rest or distress and hypoxia. snf call EMS who said that patient was in rest or distress with pulse oxing in the 70s. He had a history of aspiration. Patient was placed on oxygen and brought here. Unable to get any history from this patient. Patient was also warm to the touch. Allergies: NO KNOWN ALLERGIES (Unverified Allergy, Unknown, 08/25/15) Patient History Past Medical History: see triage record, old chart reviewed Past Surgical History: other Pertinent Family History: none Social History: Denies: smoking Immunizations: other Reviewed Nursing Documentation: PMH: Agreed; PSxH: Agreed Nursing Documentation-PMH Past Medical History: No History, Except For Hx Cardiac Problems: Yes - chf Hx Hypertension: Yes Hx Pacemaker: Yes - icd Hx COPD: Yes Hx Diabetes: Yes Hx Cancer: No Hx Gastrointestinal Problems: No Hx Neurological Problems: Yes Hx Dementia: Yes Hx Alzheimer's Disease: Yes Hx Seizures: Yes ER ROS - General Constitutional: Reports: fever, malaise Respiratory: Reports: shortness of breath All Other Systems: limited - secondary to condition ER Physical Exam - General Physical Exam Last 24 Hour Vital Signs Date Time Temp Pulse Resp B/P (MAP) Pulse Ox O2 Delivery O2 Flow Rate FiO2 08/26/18 10:10 69 166/78 08/26/18 08:08 69 18 98 Nasal Cannula 3.0 32 08/26/18 08:05 96 Nasal Cannula 3.0 32 08/26/18 08:05 Nasal Cannula 3.0 32 08/26/18 08:01 66 18 96 Nasal Cannula 3.0 32 08/26/18 08:00 66 08/26/18 08:00 97.3 71 20 166/78 (107) 98 08/26/18 04:00 97.7 62 20 145/61 (89) 98 08/26/18 04:00 63 08/26/18 02:09 63 18 100 Nasal Cannula 3.0 32 08/26/18 01:59 60 18 100 Nasal Cannula 3.0 32 08/26/18 00:00 97.9 60 22 128/58 (81) 98 08/26/18 00:00 60 08/25/18 21:00 Nasal Cannula 2.0 08/25/18 20:00 97.3 60 20 131/55 (80) 93 08/25/18 20:00 60 08/25/18 19:24 60 18 98 Nasal Cannula 3.0 32 08/25/18 19:13 60 18 96 Nasal Cannula 3.0 32 08/25/18 17:34 60 145/51 08/25/18 16:00 97.0 60 22 145/51 (82) 92 08/25/18 16:00 60 Sp02: abnormal General Appearance: moderate distress, Chronically Ill, Stupor Head: normocephalic, atraumatic Eyes: bilateral eye PERRL ENT: other - Oropharynx with lots of thick mucus Neck: other - stiff with collar on Respiratory: respiratory distress, rhonchi Cardiovascular: regular rate, rhythm, no murmur Gastrointestinal: normal bowel sounds, non tender, no mass, no organomegaly, no bruit, non-distended Musculoskeletal: other - contracted. UE with edema Skin: warm/dry Assessment and Recs: # Anemia due to underlying chronic disease -- anemia panel has been reviewed --> Also since downtrending since admission, with sepsis, could be related to hemodilution --> Anemia panel reviewed --> DW PCP, transfuse only if clinically unstable, and hgb <7 --> No evidence of hemolysis is noted --> peripheral smear has been reviewed # Thrombocytopenia from sepsis from aspiration pneumonia. On abx as per ID --> hepatitis and hiv ordered --> us abd to be considered if downtrending # Sepsis is likely from aspiration pna --> on abx, have been started, on ivf # Aspiration pneumonia # ARF (acute renal failure) # Respiratory failure with hypoxia # Encephalopathy # UTI (urinary tract infection) The timing of this note does not necessarily reflect the time of the patient was seen Greatly appreciate consultation! Elias Walters MD Aug 26, 2018 12:42
--- NOTE | 2018-08-26 13:00 | General Progress Note ---
Assessment/Plan Problem List: (1) Schizophrenia ICD Codes: F20.9 - Schizophrenia, unspecified SNOMED: 18659440 (2) Toxic encephalopathy ICD Codes: G92 - Toxic encephalopathy SNOMED: 39952164 Assessment/Plan decrease depakote will readjust the meds farida mendez Dr. Subjective Allergies: Coded Allergies: NO KNOWN ALLERGIES (Unverified Allergy, Unknown, 08/25/15) Subjective the pt is non-verbal lethargic not able to provide hx Objective Last 24 Hour Vital Signs Date Time Temp Pulse Resp B/P (MAP) Pulse Ox O2 Delivery O2 Flow Rate FiO2 08/26/18 12:00 97.1 64 20 124/65 (84) 98 08/26/18 10:10 69 166/78 08/26/18 08:08 69 18 98 Nasal Cannula 3.0 32 08/26/18 08:05 96 Nasal Cannula 3.0 32 08/26/18 08:05 Nasal Cannula 3.0 32 08/26/18 08:01 66 18 96 Nasal Cannula 3.0 32 08/26/18 08:00 66 08/26/18 08:00 97.3 71 20 166/78 (107) 98 08/26/18 04:00 97.7 62 20 145/61 (89) 98 08/26/18 04:00 63 08/26/18 02:09 63 18 100 Nasal Cannula 3.0 32 08/26/18 01:59 60 18 100 Nasal Cannula 3.0 32 08/26/18 00:00 97.9 60 22 128/58 (81) 98 08/26/18 00:00 60 08/25/18 21:00 Nasal Cannula 2.0 08/25/18 20:00 97.3 60 20 131/55 (80) 93 08/25/18 20:00 60 08/25/18 19:24 60 18 98 Nasal Cannula 3.0 32 08/25/18 19:13 60 18 96 Nasal Cannula 3.0 32 08/25/18 17:34 60 145/51 08/25/18 16:00 97.0 60 22 145/51 (82) 92 08/25/18 16:00 60 Intake and Output 08/25/18 08/26/18 19:00 07:00 Intake Total 1370 ml Output Total 875 ml Balance 495 ml Intake Free Water 330 ml IV Total 680 ml Tube Feeding 360 ml Output Urine Total 875 ml # Voids 1 # Bowel Movements 2 Laboratory Tests 08/26/18 05:51: White Blood Count 8.0, Red Blood Count 2.43L, Hemoglobin 7.7L, Hematocrit 22.2L , Mean Corpuscular Volume 91, Mean Corpuscular Hemoglobin 31.5H, Mean Corpuscular Hemoglobin Concent 34.6, Red Cell Distribution Width 17.9H, Platelet Count 145L, Mean Platelet Volume 7.5, Neutrophils (%) (Auto) , Lymphocytes (%) (Auto) , Monocytes (%) (Auto) , Eosinophils (%) (Auto) , Basophils (%) (Auto) , Differential Total Cells Counted 100, Neutrophils % ( Manual) 85H, Lymphocytes % (Manual) 7L, Monocytes % (Manual) 7, Eosinophils % ( Manual) 1, Basophils % (Manual) 0, Band Neutrophils 0, Platelet Estimate DecreasedL, Platelet Morphology Normal, Hypochromasia 3+, Anisocytosis 1+, Spherocytes 2+, Erythrocyte Sedimentation Rate 75H, Reticulocyte Count 3.5H, Prothrombin Time 13.1H, Prothromb Time International Ratio 1.3H, Activated Partial Thromboplast Time 47H, PTT Mixing Study [Pending], APTT Patient/Control Mix [Pending], Mix PTT Incubation Time [Pending], Mix PTT Normal/Saline 1:1 Immediate [Pending], Thrombin Time Normal Plasma [Pending], Sodium Level 145, Potassium Level 2.4*L, Chloride Level 112H, Carbon Dioxide Level 21, Anion Gap 13, Blood Urea Nitrogen 66H, Creatinine 2.5H, Estimat Glomerular Filtration Rate , Glucose Level 220#H, Hemoglobin A1c 5.5, Lactic Acid Level 1.30, Calcium Level 6.7L, Phosphorus Level 4.8, Magnesium Level 1.7L, Iron Level 23L, Total Iron Binding Capacity 125L, Percent Iron Saturation 18, Unsaturated Iron Binding 102L, Total Bilirubin 0.3, Aspartate Amino Transf (AST/SGOT) 94H, Alanine Aminotransferase (ALT/SGPT) 13, Alkaline Phosphatase 72, Lactate Dehydrogenase 239H, C-Reactive Protein, Quantitative 27.6H, Pro-B-Type Natriuretic Peptide 6225H, Total Protein 4.3L, Albumin 1.0L, Globulin 3.3, Albumin/Globulin Ratio 0.3L, Amylase Level 28, Lipase 58L, Carcinoembryonic Antigen [Pending], Vitamin B12 Level 503, Folate 13.0, Hepatitis A IgM Antibody [Pending], Hepatitis B Surface Antigen [Pending], Hepatitis B Core IgM Antibody [Pending], Hepatitis C Antibody [Pending], HIV (1&2) Antibody Rapid [Pending] Height (Feet): 5 Height (Inches): 3.00 Weight (Pounds): 163 General Appearance: lethargic, confused Leslie Granados MD Aug 26, 2018 13:00
--- NOTE | 2018-08-26 13:06 | Nephrology Progress Note ---
Assessment/Plan Problem List: (1) Acute renal failure (ARF) (2) Schizophrenia (3) Toxic encephalopathy (4) Anemia (5) Sepsis Assessment Renal failure- Pre renal picture ? Underlying Renal failure Sepsis Asp pneumonia UTI Anemia Sz disorder CAD + Pacemaker s/p Cervical Fx 6 months ago COPD DM Plan Hold Zestril and Glucophage for now slow hydrate K and Mag supplement Urine studies antibiotics avoid nephrotoxics Anemia ibarra per orders Subjective ROS Limited/Unobtainable: No Constitutional: Reports: malaise Objective Objective Last 24 Hour Vital Signs Date Time Temp Pulse Resp B/P (MAP) Pulse Ox O2 Delivery O2 Flow Rate FiO2 08/26/18 12:00 97.1 64 20 124/65 (84) 98 08/26/18 10:10 69 166/78 08/26/18 08:08 69 18 98 Nasal Cannula 3.0 32 08/26/18 08:05 96 Nasal Cannula 3.0 32 08/26/18 08:05 Nasal Cannula 3.0 32 08/26/18 08:01 66 18 96 Nasal Cannula 3.0 32 08/26/18 08:00 66 08/26/18 08:00 97.3 71 20 166/78 (107) 98 08/26/18 04:00 97.7 62 20 145/61 (89) 98 08/26/18 04:00 63 08/26/18 02:09 63 18 100 Nasal Cannula 3.0 32 08/26/18 01:59 60 18 100 Nasal Cannula 3.0 32 08/26/18 00:00 97.9 60 22 128/58 (81) 98 08/26/18 00:00 60 08/25/18 21:00 Nasal Cannula 2.0 08/25/18 20:00 97.3 60 20 131/55 (80) 93 08/25/18 20:00 60 08/25/18 19:24 60 18 98 Nasal Cannula 3.0 32 08/25/18 19:13 60 18 96 Nasal Cannula 3.0 32 08/25/18 17:34 60 145/51 08/25/18 16:00 97.0 60 22 145/51 (82) 92 08/25/18 16:00 60 Intake and Output 08/25/18 08/26/18 19:00 07:00 Intake Total 1370 ml Output Total 875 ml Balance 495 ml Intake Free Water 330 ml IV Total 680 ml Tube Feeding 360 ml Output Urine Total 875 ml # Voids 1 # Bowel Movements 2 Laboratory Tests 08/26/18 05:51: White Blood Count 8.0, Red Blood Count 2.43L, Hemoglobin 7.7L, Hematocrit 22.2L , Mean Corpuscular Volume 91, Mean Corpuscular Hemoglobin 31.5H, Mean Corpuscular Hemoglobin Concent 34.6, Red Cell Distribution Width 17.9H, Platelet Count 145L, Mean Platelet Volume 7.5, Neutrophils (%) (Auto) , Lymphocytes (%) (Auto) , Monocytes (%) (Auto) , Eosinophils (%) (Auto) , Basophils (%) (Auto) , Differential Total Cells Counted 100, Neutrophils % ( Manual) 85H, Lymphocytes % (Manual) 7L, Monocytes % (Manual) 7, Eosinophils % ( Manual) 1, Basophils % (Manual) 0, Band Neutrophils 0, Platelet Estimate DecreasedL, Platelet Morphology Normal, Hypochromasia 3+, Anisocytosis 1+, Spherocytes 2+, Erythrocyte Sedimentation Rate 75H, Reticulocyte Count 3.5H, Prothrombin Time 13.1H, Prothromb Time International Ratio 1.3H, Activated Partial Thromboplast Time 47H, PTT Mixing Study [Pending], APTT Patient/Control Mix [Pending], Mix PTT Incubation Time [Pending], Mix PTT Normal/Saline 1:1 Immediate [Pending], Thrombin Time Normal Plasma [Pending], Sodium Level 145, Potassium Level 2.4*L, Chloride Level 112H, Carbon Dioxide Level 21, Anion Gap 13, Blood Urea Nitrogen 66H, Creatinine 2.5H, Estimat Glomerular Filtration Rate , Glucose Level 220#H, Hemoglobin A1c 5.5, Lactic Acid Level 1.30, Calcium Level 6.7L, Phosphorus Level 4.8, Magnesium Level 1.7L, Iron Level 23L, Total Iron Binding Capacity 125L, Percent Iron Saturation 18, Unsaturated Iron Binding 102L, Total Bilirubin 0.3, Aspartate Amino Transf (AST/SGOT) 94H, Alanine Aminotransferase (ALT/SGPT) 13, Alkaline Phosphatase 72, Lactate Dehydrogenase 239H, C-Reactive Protein, Quantitative 27.6H, Pro-B-Type Natriuretic Peptide 6225H, Total Protein 4.3L, Albumin 1.0L, Globulin 3.3, Albumin/Globulin Ratio 0.3L, Amylase Level 28, Lipase 58L, Carcinoembryonic Antigen [Pending], Vitamin B12 Level 503, Folate 13.0, Hepatitis A IgM Antibody [Pending], Hepatitis B Surface Antigen [Pending], Hepatitis B Core IgM Antibody [Pending], Hepatitis C Antibody [Pending], HIV (1&2) Antibody Rapid [Pending] Height (Feet): 5 Height (Inches): 3.00 Weight (Pounds): 163 General Appearance: no apparent distress Cardiovascular: normal rate Respiratory/Chest: decreased breath sounds Abdomen: soft Joe Feliciano MD Aug 26, 2018 13:06
--- NOTE | 2018-08-26 13:20 | General Surgery Progress Note ---
General Surgery-Progress Note Subjective Additional Comments no acute events. leukocytosis resolved. fevers improved. Objective Last 24 Hour Vital Signs Date Time Temp Pulse Resp B/P (MAP) Pulse Ox O2 Delivery O2 Flow Rate FiO2 08/26/18 12:00 97.1 64 20 124/65 (84) 98 08/26/18 10:10 69 166/78 08/26/18 08:08 69 18 98 Nasal Cannula 3.0 32 08/26/18 08:05 96 Nasal Cannula 3.0 32 08/26/18 08:05 Nasal Cannula 3.0 32 08/26/18 08:01 66 18 96 Nasal Cannula 3.0 32 08/26/18 08:00 66 08/26/18 08:00 97.3 71 20 166/78 (107) 98 08/26/18 04:00 97.7 62 20 145/61 (89) 98 08/26/18 04:00 63 08/26/18 02:09 63 18 100 Nasal Cannula 3.0 32 08/26/18 01:59 60 18 100 Nasal Cannula 3.0 32 08/26/18 00:00 97.9 60 22 128/58 (81) 98 08/26/18 00:00 60 08/25/18 21:00 Nasal Cannula 2.0 08/25/18 20:00 97.3 60 20 131/55 (80) 93 08/25/18 20:00 60 08/25/18 19:24 60 18 98 Nasal Cannula 3.0 32 08/25/18 19:13 60 18 96 Nasal Cannula 3.0 32 08/25/18 17:34 60 145/51 08/25/18 16:00 97.0 60 22 145/51 (82) 92 08/25/18 16:00 60 I&O Intake and Output 08/25/18 08/26/18 19:00 07:00 Intake Total 1370 ml Output Total 875 ml Balance 495 ml Intake Free Water 330 ml IV Total 680 ml Tube Feeding 360 ml Output Urine Total 875 ml # Voids 1 # Bowel Movements 2 Dressing: other Wound: other Drains: other Cardiovascular: RSR Respiratory: decreased breath sounds Abdomen: soft, non-tender, present bowel sounds Extremities: no cyanosis, other Laboratory Tests Test 08/26/18 05:51 White Blood Count 8.0 K/UL (4.8-10.8) Red Blood Count 2.43 M/UL (4.70-6.10) L Hemoglobin 7.7 G/DL (14.2-18.0) L Hematocrit 22.2 % (42.0-52.0) L Mean Corpuscular Volume 91 FL (80-99) Mean Corpuscular Hemoglobin 31.5 PG (27.0-31.0) H Mean Corpuscular Hemoglobin Concent 34.6 G/DL (32.0-36.0) Red Cell Distribution Width 17.9 % (11.6-14.8) H Platelet Count 145 K/UL (150-450) L Mean Platelet Volume 7.5 FL (6.5-10.1) Neutrophils (%) (Auto) % (45.0-75.0) Lymphocytes (%) (Auto) % (20.0-45.0) Monocytes (%) (Auto) % (1.0-10.0) Eosinophils (%) (Auto) % (0.0-3.0) Basophils (%) (Auto) % (0.0-2.0) Differential Total Cells Counted 100 Neutrophils % (Manual) 85 % (45-75) H Lymphocytes % (Manual) 7 % (20-45) L Monocytes % (Manual) 7 % (1-10) Eosinophils % (Manual) 1 % (0-3) Basophils % (Manual) 0 % (0-2) Band Neutrophils 0 % (0-8) Platelet Estimate Decreased L Platelet Morphology Normal Hypochromasia 3+ Anisocytosis 1+ Spherocytes 2+ Erythrocyte Sedimentation Rate 75 MM/HR (0-20) H Reticulocyte Count 3.5 % (0.0-2.0) H Prothrombin Time 13.1 SEC (9.30-11.50) H Prothromb Time International Ratio 1.3 (0.9-1.1) H Activated Partial Thromboplast Time 47 SEC (23-33) H PTT Mixing Study Pending APTT Patient/Control Mix Pending Mix PTT Incubation Time Pending Mix PTT Normal/Saline 1:1 Immediate Pending Thrombin Time Normal Plasma Pending Sodium Level 145 MMOL/L (136-145) Potassium Level 2.4 MMOL/L (3.5-5.1) *L Chloride Level 112 MMOL/L (98-107) H Carbon Dioxide Level 21 MMOL/L (21-32) Anion Gap 13 mmol/L (5-15) Blood Urea Nitrogen 66 mg/dL (7-18) H Creatinine 2.5 MG/DL (0.55-1.30) H Estimat Glomerular Filtration Rate mL/min (>60) Glucose Level 220 MG/DL (74-106) #H Hemoglobin A1c 5.5 % (4.3-6.0) Lactic Acid Level 1.30 mmol/L (0.4-2.0) Calcium Level 6.7 MG/DL (8.5-10.1) L Phosphorus Level 4.8 MG/DL (2.5-4.9) Magnesium Level 1.7 MG/DL (1.8-2.4) L Iron Level 23 ug/dL (50-175) L Total Iron Binding Capacity 125 ug/dL (250-450) L Percent Iron Saturation 18 % (15-50) Unsaturated Iron Binding 102 ug/dL (112-346) L Total Bilirubin 0.3 MG/DL (0.2-1.0) Aspartate Amino Transf (AST/SGOT) 94 U/L (15-37) H Alanine Aminotransferase (ALT/SGPT) 13 U/L (12-78) Alkaline Phosphatase 72 U/L (46-116) Lactate Dehydrogenase 239 U/L (81-234) H C-Reactive Protein, Quantitative 27.6 mg/dL (0.00-0.90) H Pro-B-Type Natriuretic Peptide 6225 pg/mL (0-125) H Total Protein 4.3 G/DL (6.4-8.2) L Albumin 1.0 G/DL (3.4-5.0) L Globulin 3.3 g/dL Albumin/Globulin Ratio 0.3 (1.0-2.7) L Amylase Level 28 U/L (25-115) Lipase 58 U/L (73-393) L Carcinoembryonic Antigen Pending Vitamin B12 Level 503 PG/ML (193-986) Folate 13.0 NG/ML (8.6-58.9) Hepatitis A IgM Antibody Pending Hepatitis B Surface Antigen Pending Hepatitis B Core IgM Antibody Pending Hepatitis C Antibody Pending HIV (1&2) Antibody Rapid Negative (NEGATIVE) Plan Problems: (1) Decubital ulcer Assessment & Plan: Pt presents with multiple pressure injuries present on admission. He has Sargent collar that is oiled and malodorous .No evidence of skin breakdown noted under collar. DTPI sacrum,Maroon discoloration,marginal erythema ,(+) induration (L)7.5cm x (W )4.5cm. Large serous blister with non-blanching erythema periwound noted to R ischium ( L)4cm x (W)7cm. Partial thickness ulcer noted superior,but in close proximity to lateral L malleolus .Wound bed viable with macerated borders,erythema without elevation in skin temp periwound(L)3cm x (W)4cm. DTPI lateral L 1st metatarsal (L)4cm x(W)3.8cm.Maroon discoloration with red margins (+) induration. DTPI L hallux(L)3.4cm x (W)3cm .Maroon discoloration ,(+) induration. Non-blanching erythema distal/lateral L foot 1.3cm x (W)1.1cm. Non-blanching erythema without induration, Medially /lateral L foot(L) 2cm x (W) 2cm. L heel boggy with non-blanching erythema(L)7cm x (W)6.5cm. DTPI medial R heel.Maroon discoloration with fluctuance. Non-blanching erythema periwound(L)3cm x (W)4cm. DTPI R lateral Malleolus. Maroon discoloration ,(+) induration.Non-blanching erythema periwound (L)1.4cm x (W)1.2cm. Maroon discoloration without induration R achilles. Periwound without erythema(L )1.3cm x (W)1.5cm. DTPI Medially/lateral R foot (L)0.7cm x (W)0.8cm. DTPI Distally /lateral R foot .Maroon discoloration with marginal erythema,(+) induration (L)1.3cmx (W)1.2cm. DTPI lateral R 5th metatarsal.Maroon discoloration ,with marginal erythema ,(+) induration(L)1.6cm x(W)1cm DTPI R st metatarsal.Maroon discoloration with marginal erythema.(L)2.5cm x (W) 2cm. Tx.Plan: Apply Cavilon Skin Barrier Wipes to DTPI's R and L foot.Cover with Optifoam drsgs .Change every 7 days and prn. Apply Cavilon Skin Barrier wipe to Blister R Ischium. Cover with Optifoam drsg.Change every 3 days and prn. Apply Moisture Barrier Paste to sacrum. Cover with Optifoam drsg. Change every 3 days and prn. Cleanse wound Lateral L lower ext with Saline.Apply Silvasorb gel. Cover with Optifoam drsg.Change every 7 daysand prn. Reposition at least every 2 hours or as tolerated. Off-load heels with pillow. Position with pillow between knees. Air Fluidized mattress (2) Sepsis Assessment & Plan: leukocytosis resolved. low grade fevers resolved wounds stable as above. will continue to monitor cont iv abx thank you Jossue Jimenes Aug 26, 2018 13:20
--- NOTE | 2018-08-26 13:51 | NUR ---
Social Service Note SW spoke with SNF ACACIA Wood at [facility] [phone]. Patient has been a resident of SNF since 2014. SNF SW states patient initially was alert and oriented. Patient's Agustín-son Trever Crabtree [phone] would visit every weekend. SNF SW states Trever began to visit less as patient began to decline and had more episodes of agitation. However Trever would attend IDT meetings. Per SNF patient is able to make simple needs known by nodding head. Trever attended the IDT meeting on 08/22/18 to discuss treatment plan of care. Trever signed POLST indicating DNR, Comfort-focused care, No artificial means of nutrition and patient doesn't have an advance directive. [facility] SW states these were patient's wishes he verbalize prior to his decline. Patient was transferred to [facility] 08/24/18 and POLST was not signed. From the prior history of patient's mental status in SNF and current documentation by psych, patient is not appropriate to give consent for procedure and blood at this time. SW and nursing have left messages for Cari for consent for blood transfusion and have not received a return call. Per SNF SW Trever is unable to answer his phone at work and usually calls back in the late afternoon or evening once off from work. MD to document necessity and outcomes and consent for blood transfusion if needed. MD to also sign POLST. ACACIA discussed with charge nurse. Patient will return to SNF once medically appropriate. Will monitor and be available as needed.
--- NOTE | 2018-08-26 13:51 | Diagnostic Imaging Report ---
Indication: Dyspnea Comparison: 08/24/2018 A single view chest radiograph was obtained. Findings: Patchy airspace disease noted bilaterally probably due to heart failure. Differential includes pneumonia. Small bilateral pleural effusions are also suspected. Similar findings seen on the prior occasion. Pacemaker on the left noted. IMPRESSION: Slightly worsening airspace disease probably on the basis of pulmonary edema.
--- NOTE | 2018-08-26 13:55 | NUR ---
NURSE NOTES: Paged Dr. Jarrett about blood transfusion order clarification. Phone numbers called were the office # and cell phone number. Ok by Dr. Walters when called- at 1:30pm. Spoke with Edwina at the office number and left a message at 1:58pm. Awaiting call back. Will follow up.
[2018-08-26 16:00] VITALS: BP 155/82
--- NOTE | 2018-08-26 17:11 | NUR ---
NURSE NOTES: still awaiting a reply from Dr Jarrett in regards to pt blood transfusion, still no reply from the flooring salesperson, Trever, notified Dr Ball that unable to transfuse due to flooring salesperson is not calling back, no new order. still no consent at this point. flame cutting supervisor made aware.
--- NOTE | 2018-08-26 17:25 | NUR ---
NURSE NOTES: call placed to Dr. Jarrett and message left in regards to pt blood transfusion, still no consent at this point.
--- NOTE | 2018-08-26 18:48 | NUR ---
NURSE NOTES: placed a call again to Dr Jarrett regarding pt order for blood trasnfusin, message left awaiting to call back.
--- NOTE | 2018-08-26 19:05 | NUR ---
NURSE NOTES: Spoke with Dr. Jarrett at 7:03pm. Updated Dr. Jarrett of pulse of 74. Dr. Jarrett states to cancelled blood transfusion order. Entered order for nurse to give 1 PRBC unit of blood tranfusion WHEN consent is obtained from linesperson.
--- NOTE | 2018-08-26 19:23 | NUR ---
HAND-OFF: Report given to VARINDER Torrez.
--- NOTE | 2018-08-26 19:30 | NUR ---
NURSE NOTES: Received report from VARINDER Taylor. Patient comfortable in bed, responsive to verbal and external stimuli, no SOB, no acute distress noted on 2 L via NC. F/C intact and patent with yellow-colored output. GTF of Glucerna 1.5 running at 50 ml/hr, tolerated well, HOB elevated at all times. IV sites on L hand and R hand both patent and intact, connected to 1/2 Ns at 75 ml/hr. Per VARINDER Taylor, BT order on hold for now until consent is obtained from responsible green party. Will continue plan of care.
[2018-08-26 20:00] VITALS: BP 146/71
[2018-08-26] MEDS: Cefepime HCl 1 GM in D5W 55 ML IVPB SCH (22:48)
[2018-08-27] VITALS: BP 141/65
--- NOTE | 2018-08-27 03:37 | NUR ---
NURSE NOTES: Patient asleep, breathing even and unlabored, no s/sx of pain nor any discomfort at this time. Bed at lowest position, call light within reach. Will continue to monitor.
[2018-08-27 04:00] VITALS: BP 153/81
--- NOTE | 2018-08-27 04:30 | Progress Note ---
DATE: 08/26/2018 SUBJECTIVE: The patient is awake, alert, afebrile, but his language is not understood. PHYSICAL EXAMINATION: VITAL SIGNS: Blood pressure is 126/71, his pulse is 66, respirations 24, and temperature 97.7. HEENT: Eyes were normal. ENT, mucous membranes were moist and intact. NECK: Supple with no JVD without lymph nodes. LUNGS: Clear. HEART: Normal sounds with regular beats. No S3, S4, or pericardial rub. ABDOMEN: Soft and nontender with normal bowel sounds. Gastrostomy site is clean. EXTREMITIES: Warm without cyanosis, clubbing, or edema. LABORATORY AND DIAGNOSTIC DATA: Hemoglobin is 7.7, hematocrit 22.2, WBC 8.0, and platelets is 145,000. His lactic acid is 1.3. Hemoglobin A1c is 5.5. His iron is 23. His TIBC is 595. His iron saturation is 18%. His 239. Amylase and lipase are normal. Chest x-ray taken today. ASSESSMENT AND PLAN: disease. The patient's in the morning. Repeat laboratory tests will be done in the morning. Evans Jarrett M.D. DR: ALYSSA JOB#: [id number] CC:
[2018-08-27] MEDS: Depakote 125mg Sprinkles GT SCH ×3 (05:35→21:22)
--- NOTE | 2018-08-27 07:08 | NUR ---
HAND-OFF: Report given to VARINDER Taylor. Endorsed plan of care.
--- NOTE | 2018-08-27 07:40 | General Progress Note ---
Assessment/Plan Assessment/Plan Assessment and Recs: # Anemia due to underlying chronic disease -- anemia panel has been reviewed --> Also since downtrending since admission, with sepsis, could be related to hemodilution --> Anemia panel reviewed --> DW PCP, transfuse only if clinically unstable, and hgb <7 --> No evidence of hemolysis is noted --> peripheral smear has been reviewed # Thrombocytopenia from sepsis from aspiration pneumonia. On abx as per ID --> hepatitis and hiv negative --> us abd negative for dilated ducts # Sepsis is likely from aspiration pna --> on abx, have been started, on ivf # Aspiration pneumonia # ARF (acute renal failure) # Respiratory failure with hypoxia # Encephalopathy # UTI (urinary tract infection) The timing of this note does not necessarily reflect the time of the patient was seen Greatly appreciate consultation! Subjective Constitutional: Denies: no symptoms, chills, diaphoresis, fever, malaise, weakness, other HEENT: Denies: no symptoms, eye pain, blurred vision, tearing, double vision, ear pain, ear discharge, nose pain, nose congestion, throat pain, throat swelling, mouth pain, mouth swelling, other Cardiovascular: Denies: no symptoms, chest pain, edema, irregular heart rate, lightheadedness, palpitations, syncope, other Respiratory: Denies: no symptoms, cough, orthopnea, shortness of breath, SOB with excertion, SOB at rest, sputum, stridor, wheezing, other Gastrointestinal/Abdominal: Denies: no symptoms, abdomen distended, abdominal pain, black stools, tarry stools, blood in stool, constipated, diarrhea, difficulty swallowing, nausea, poor appetite, poor fluid intake, rectal bleeding , vomiting, other Neurologic/Psychiatric: Denies: no symptoms, anxiety, depressed, emotional problems, headache, numbness, paresthesia, pre-existing deficit, seizure, tingling, tremors, weakness, other Allergies: Coded Allergies: NO KNOWN ALLERGIES (Unverified Allergy, Unknown, 08/25/15) Subjective 08/27: no events, cbc pending this am, no complaints though noted Objective Last 24 Hour Vital Signs Date Time Temp Pulse Resp B/P (MAP) Pulse Ox O2 Delivery O2 Flow Rate FiO2 08/27/18 04:00 97.5 70 22 153/81 (105) 98 08/27/18 04:00 69 08/27/18 02:04 Nasal Cannula 2.0 28 08/27/18 02:04 Nasal Cannula 2.0 28 08/27/18 00:00 67 08/27/18 00:00 97.7 68 24 141/65 (90) 99 08/26/18 21:24 67 20 97 Nasal Cannula 2.0 28 08/26/18 21:13 95 Nasal Cannula 2.0 28 08/26/18 21:13 Nasal Cannula 2.0 28 08/26/18 21:13 65 18 95 Nasal Cannula 2.0 28 08/26/18 21:00 Nasal Cannula 2.0 08/26/18 20:00 66 08/26/18 20:00 97.7 66 24 146/71 (96) 98 08/26/18 17:58 74 155/82 08/26/18 16:00 97.2 74 20 155/82 (106) 98 08/26/18 16:00 68 08/26/18 13:49 71 20 99 Nasal Cannula 3.0 32 08/26/18 13:44 66 20 98 Nasal Cannula 3.0 32 08/26/18 12:00 97.1 64 20 124/65 (84) 98 08/26/18 12:00 63 08/26/18 10:10 69 166/78 08/26/18 09:00 Nasal Cannula 2.0 08/26/18 08:08 69 18 98 Nasal Cannula 3.0 32 08/26/18 08:05 96 Nasal Cannula 3.0 32 08/26/18 08:05 Nasal Cannula 3.0 32 08/26/18 08:01 66 18 96 Nasal Cannula 3.0 32 08/26/18 08:00 66 08/26/18 08:00 97.3 71 20 166/78 (107) 98 Intake and Output 08/26/18 08/27/18 18:59 06:59 Intake Total 115 ml Output Total 750 ml 1100 ml Balance -635 ml -1100 ml IV Total 75 ml Tube Feeding 40 ml Output Urine Total 750 ml 1100 ml # Bowel Movements 2 Laboratory Tests 08/27/18 07:20: White Blood Count [Pending], Red Blood Count [Pending], Hemoglobin [Pending], Hematocrit [Pending], Mean Corpuscular Volume [Pending], Mean Corpuscular Hemoglobin [Pending], Mean Corpuscular Hemoglobin Concent [Pending], Red Cell Distribution Width [Pending], Platelet Count [Pending], Mean Platelet Volume [ Pending], Neutrophils (%) (Auto) [Pending], Lymphocytes (%) (Auto) [Pending], Monocytes (%) (Auto) [Pending], Eosinophils (%) (Auto) [Pending], Basophils (%) (Auto) [Pending], Sodium Level [Pending], Potassium Level [Pending], Chloride Level [Pending], Carbon Dioxide Level [Pending], Blood Urea Nitrogen [Pending], Creatinine [Pending], Estimat Glomerular Filtration Rate [Pending], Glucose Level [Pending], Uric Acid [Pending], Calcium Level [Pending], Phosphorus Level [Pending], Magnesium Level [Pending], Total Bilirubin [Pending], Aspartate Amino Transf (AST/SGOT) [Pending], Alanine Aminotransferase (ALT/SGPT) [Pending] , Alkaline Phosphatase [Pending], Total Protein [Pending], Albumin [Pending], Globulin [Pending] Height (Feet): 5 Height (Inches): 3.00 Weight (Pounds): 163 General Appearance: alert Objective General Appearance: moderate distress, Chronically Ill, Stupor Head: normocephalic, atraumatic Eyes: bilateral eye PERRL ENT: other - Oropharynx with lots of thick mucus Neck: other - stiff with collar on Respiratory: respiratory distress, rhonchi Cardiovascular: regular rate, rhythm, no murmur Gastrointestinal: normal bowel sounds, non tender, no mass, no organomegaly, no bruit, non-distended Musculoskeletal: other - contracted. UE with edema Skin: warm/dry Elias Walters MD Aug 27, 2018 07:40
--- NOTE | 2018-08-27 07:46 | NUR ---
NURSE NOTES: Received report from VARINDER zhang. Patient comfortable in bed, responsive to verbal and external stimuli. Patient responds in partial [place], no SOB, and no acute distress noted on 2 L via NC. F/C intact and patent with yellow-colored output. GTF of Glucerna 1.5 running at 50 ml/hr, tolerated well, HOB elevated at all times. Right side of the chest elevated at all times. IV sites on L hand and R hand both patent and intact, connected to 1/2 Ns at 75 ml/hr. Will continue plan of care.
[2018-08-27 07:48] LABS: BASOPHILS % (AUTO) 0.5 % (0.0-2.0); EOSINOPHILS % (AUTO) 1.7 % (0.0-3.0); HEMATOCRIT 26.6 % (42.0-52.0); HEMOGLOBIN 9.1 G/DL (14.2-18.0); LYMPHOCYTES % (AUTO) 8.2 % (20.0-45.0); MEAN CORPUSCULAR VOLUME 91 FL (80-99); MONOCYTES % (AUTO) 9.7 % (1.0-10.0); NEUTROPHILS % (AUTO) 79.9 % (45.0-75.0); PLATELET COUNT 208 K/UL (150-450); RED BLOOD COUNT 2.92 M/UL (4.70-6.10); WHITE BLOOD COUNT 8.8 K/UL (4.8-10.8)
[2018-08-27 07:55] LABS: ALANINE AMINOTRANSFERASE 15 U/L (12-78); ALBUMIN 1.1 G/DL (3.4-5.0); ALBUMIN/GLOBULIN RATIO 0.3 (1.0-2.7); ALKALINE PHOSPHATASE 136 U/L (46-116); ANION GAP 8 mmol/L (5-15); ASPARTATE AMINO TRANSFERASE 70 U/L (15-37); BILIRUBIN,TOTAL 0.3 MG/DL (0.2-1.0); BLOOD UREA NITROGEN 68 mg/dL (7-18); CALCIUM 7.9 MG/DL (8.5-10.1); CARBON DIOXIDE 25 MMOL/L (21-32); CHLORIDE 111 MMOL/L (98-107); CREATININE 2.3 MG/DL (0.55-1.30); PHOSPHORUS 3.3 MG/DL (2.5-4.9); POTASSIUM 3.5 MMOL/L (3.5-5.1); SODIUM 144 MMOL/L (136-145)
[2018-08-27 08:00] VITALS: BP 139/75
--- NOTE | 2018-08-27 08:54 | Infectious Diseases Prog Note ---
Assessment/Plan Assessment/Plan 78 yo male with pMHx of Seizures, Schizophrenia, CAD s/p Pacemaker and Neck Fx ( 6mo ago) who was [facility]. Sepsis PNA and UTI SpCx Pend UCx and BCx - NGTD Seizures Schizophrenia CAD s/p Pacemaker Neck Fx (6mo ago) HTN Plan - Continue Levofloxacin 750mg Q48hr #3/7 (end date 08/31/18) - 08/27/18 SP Cefepime #3 vancomycin #3 - Monitor CBC and Temps We will continue to follow the patient with you. Subjective Allergies: Coded Allergies: NO KNOWN ALLERGIES (Unverified Allergy, Unknown, 08/25/15) Subjective No Leukocytosis Aferbile Not verbal Objective Vital Signs Last 24 Hour Vital Signs Date Time Temp Pulse Resp B/P (MAP) Pulse Ox O2 Delivery O2 Flow Rate FiO2 08/27/18 04:00 97.5 70 22 153/81 (105) 98 08/27/18 04:00 69 08/27/18 02:04 Nasal Cannula 2.0 28 08/27/18 02:04 Nasal Cannula 2.0 28 08/27/18 00:00 67 08/27/18 00:00 97.7 68 24 141/65 (90) 99 08/26/18 21:24 67 20 97 Nasal Cannula 2.0 28 08/26/18 21:13 95 Nasal Cannula 2.0 28 08/26/18 21:13 Nasal Cannula 2.0 28 08/26/18 21:13 65 18 95 Nasal Cannula 2.0 28 08/26/18 21:00 Nasal Cannula 2.0 08/26/18 20:00 66 08/26/18 20:00 97.7 66 24 146/71 (96) 98 08/26/18 17:58 74 155/82 08/26/18 16:00 97.2 74 20 155/82 (106) 98 08/26/18 16:00 68 08/26/18 13:49 71 20 99 Nasal Cannula 3.0 32 08/26/18 13:44 66 20 98 Nasal Cannula 3.0 32 08/26/18 12:00 97.1 64 20 124/65 (84) 98 08/26/18 12:00 63 08/26/18 10:10 69 166/78 08/26/18 09:00 Nasal Cannula 2.0 Height (Feet): 5 Height (Inches): 3.00 Weight (Pounds): 163 Objective Gen: NAD, Not verbal HEENT: Hard collar NCAT, MMM, EOMI LUNGS: Coarse , No W CARDS: RRR, S1, S2, No M/R/G, ABD: Soft, NT, ND, + BS Microbiology Date/Time Source Procedure Growth Status 08/24/18 22:45 Blood Blood Culture - Preliminary NO GROWTH AFTER 48 HOURS Resulted 08/24/18 22:30 Blood Blood Culture - Preliminary NO GROWTH AFTER 48 HOURS Resulted 08/26/18 19:55 Nasal Nares Influenza Types A,B Antigen (CURT) - Final Complete 08/25/18 13:00 Sputum Gram Stain - Final Complete 08/25/18 13:00 Sputum Sputum Culture - Final NORMAL UPPER RESPIRATORY JACOB PRESENT Complete 08/24/18 22:55 Urine,Clean Catch Urine Culture - Preliminary NO GROWTH AFTER 24 HOURS Resulted Laboratory Tests Test 08/27/18 07:20 White Blood Count 8.8 K/UL (4.8-10.8) Red Blood Count 2.92 M/UL (4.70-6.10) L Hemoglobin 9.1 G/DL (14.2-18.0) L Hematocrit 26.6 % (42.0-52.0) L Mean Corpuscular Volume 91 FL (80-99) Mean Corpuscular Hemoglobin 31.0 PG (27.0-31.0) Mean Corpuscular Hemoglobin Concent 34.0 G/DL (32.0-36.0) Red Cell Distribution Width 18.0 % (11.6-14.8) H Platelet Count 208 K/UL (150-450) Mean Platelet Volume 7.3 FL (6.5-10.1) Neutrophils (%) (Auto) 79.9 % (45.0-75.0) H Lymphocytes (%) (Auto) 8.2 % (20.0-45.0) L Monocytes (%) (Auto) 9.7 % (1.0-10.0) Eosinophils (%) (Auto) 1.7 % (0.0-3.0) Basophils (%) (Auto) 0.5 % (0.0-2.0) Sodium Level 144 MMOL/L (136-145) Potassium Level 3.5 MMOL/L (3.5-5.1) Chloride Level 111 MMOL/L (98-107) H Carbon Dioxide Level 25 MMOL/L (21-32) Anion Gap 8 mmol/L (5-15) Blood Urea Nitrogen 68 mg/dL (7-18) H Creatinine 2.3 MG/DL (0.55-1.30) H Estimat Glomerular Filtration Rate mL/min (>60) Glucose Level 154 MG/DL (74-106) H Uric Acid 4.5 MG/DL (2.6-7.2) Calcium Level 7.9 MG/DL (8.5-10.1) L Phosphorus Level 3.3 MG/DL (2.5-4.9) Magnesium Level 1.8 MG/DL (1.8-2.4) Total Bilirubin 0.3 MG/DL (0.2-1.0) Aspartate Amino Transf (AST/SGOT) 70 U/L (15-37) H Alanine Aminotransferase (ALT/SGPT) 15 U/L (12-78) Alkaline Phosphatase 136 U/L (46-116) H Total Protein 4.9 G/DL (6.4-8.2) L Albumin 1.1 G/DL (3.4-5.0) L Globulin 3.8 g/dL Albumin/Globulin Ratio 0.3 (1.0-2.7) L Current Medications Medications (Trade) Dose Ordered Sig/Vahe Route PRN Reason Start Time Stop Time Status Last Admin Dose Admin Albuterol/ Ipratropium (Albuterol/ Ipratropium) 3 ml Q4H PRN HHN Shortness of Breath 08/25/18 08:15 08/30/18 08:14 08/25/18 09:13 Albuterol/ Ipratropium (Albuterol/ Ipratropium) 3 ml Q6HRT HHN 08/25/18 13:00 08/30/18 12:59 08/26/18 21:13 Aspirin (ASA) 81 mg DAILY GT 08/25/18 10:45 09/24/18 10:44 08/25/18 12:49 Bisacodyl (Dulcolax) 10 mg DAILY PRN RECTAL Constipation 08/25/18 03:30 09/24/18 03:29 Carbidopa/Levodopa (Sinemet 25/100) 1 tab FOUR TIMES A DAY GT 08/25/18 09:00 09/24/18 08:59 08/26/18 20:30 Cefepime HCl 1 gm/ Dextrose 55 ml @ 110 mls/hr Q24H IVPB 08/25/18 23:00 09/01/18 22:59 08/26/18 22:48 Divalproex Sodium (Depakote Sprinkles) 125 mg Q8HR GT 08/25/18 22:00 09/24/18 08:59 08/27/18 05:35 Docusate Sodium (Colace) 100 mg THREE TIMES A DAY GT 08/25/18 13:00 09/24/18 12:59 08/26/18 17:58 Heparin Sodium (Porcine) (Heparin 5000 units/ml) 5,000 units EVERY 12 HOURS SUBQ 08/26/18 09:00 09/25/18 08:59 08/26/18 20:33 Lansoprazole (Prevacid) 30 mg BID GT 08/25/18 10:30 09/24/18 10:29 08/26/18 17:58 Levofloxacin 50 ml @ 50 mls/hr Q48H IVPB 08/26/18 23:00 09/02/18 22:59 08/26/18 23:28 Magnesium Hydroxide (Mom) 30 ml PRN PRN GT Constipation 08/25/18 03:30 09/24/18 03:29 Metoprolol Tartrate (Lopressor) 100 mg BID GT 08/25/18 09:00 09/24/18 08:59 08/26/18 17:58 Metronidazole 100 ml @ 100 mls/hr Q8HR IVPB 08/25/18 06:00 09/01/18 05:59 08/27/18 05:35 Promethazine HCl/ Codeine (Phenergan with Codeine) 5 ml Q4H PRN ORAL For Cough 08/25/18 12:00 09/24/18 11:59 Sodium Chloride 1,000 ml @ 75 mls/hr [id number] IV 08/25/18 10:45 09/24/18 10:44 08/27/18 03:19 Mani Saeed MD Aug 27, 2018 08:54
[2018-08-27] MEDS: Aspirin Baby 81mg GT SCH (09:58)
[2018-08-27] MEDS: Docusate 100mg/10ml Liq GT SCH ×3 (09:58→18:21)
[2018-08-27] MEDS: Levodopa/Carbidopa 25/100 tab GT SCH ×4 (09:58→21:22)
[2018-08-27] MEDS: Heparin 5000 units/ml inj SUBQ SCH ×2 (10:09→21:22)
[2018-08-27 12:00] VITALS: BP 134/69
--- NOTE | 2018-08-27 12:23 | NUR ---
NURSE NOTES: Spoke verbally with Dr. Galindo about the updated hgb 9.1 on 08/27/18. Dr. Galnido states to discontinue the blood transfusion order.
--- NOTE | 2018-08-27 12:50 | Pulmonology Progress Note ---
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 (7) HTN (hypertension) Assessment/Plan IV fluids iv abx electrolytes better check cultures sputum for c/s Keep right chest elevated chest pt respiratory treatment Subjective ROS Limited/Unobtainable: No HEENT: Repors: no symptoms Respiratory: Reports: no symptoms Allergies: Coded Allergies: NO KNOWN ALLERGIES (Unverified Allergy, Unknown, 08/25/15) Objective Last 24 Hour Vital Signs Date Time Temp Pulse Resp B/P (MAP) Pulse Ox O2 Delivery O2 Flow Rate FiO2 08/27/18 12:02 90 Nasal Cannula 2.0 28 08/27/18 12:00 97.8 63 20 134/69 (90) 96 08/27/18 09:58 70 139/75 08/27/18 09:00 Nasal Cannula 2.0 08/27/18 08:00 98.2 70 18 139/75 (96) 98 08/27/18 07:34 65 08/27/18 07:00 Nasal Cannula 2.0 28 08/27/18 04:00 97.5 70 22 153/81 (105) 98 08/27/18 04:00 69 08/27/18 02:04 Nasal Cannula 2.0 28 08/27/18 02:04 Nasal Cannula 2.0 28 08/27/18 00:00 67 08/27/18 00:00 97.7 68 24 141/65 (90) 99 08/26/18 21:24 67 20 97 Nasal Cannula 2.0 28 08/26/18 21:13 95 Nasal Cannula 2.0 28 08/26/18 21:13 Nasal Cannula 2.0 28 08/26/18 21:13 65 18 95 Nasal Cannula 2.0 28 08/26/18 21:00 Nasal Cannula 2.0 08/26/18 20:00 66 08/26/18 20:00 97.7 66 24 146/71 (96) 98 08/26/18 17:58 74 155/82 08/26/18 16:00 97.2 74 20 155/82 (106) 98 08/26/18 16:00 68 08/26/18 13:49 71 20 99 Nasal Cannula 3.0 32 08/26/18 13:44 66 20 98 Nasal Cannula 3.0 32 Intake and Output 08/26/18 08/27/18 18:59 06:59 Intake Total 115 ml Output Total 750 ml 1100 ml Balance -635 ml -1100 ml IV Total 75 ml Tube Feeding 40 ml Output Urine Total 750 ml 1100 ml # Bowel Movements 2 Objective General Appearance: WD/WN HEENT: normocephalic, anicteric Respiratory/Chest: chest wall non-tender, lungs clear Breasts: no masses Cardiovascular: normal rate Abdomen: normal bowel sounds, no organomegaly Extremities: no clubbing Neurologic/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 Complete 08/24/18 22:55 Urine,Clean Catch Urine Culture - Preliminary NO GROWTH AFTER 24 HOURS Resulted 08/24/18 23:00 Rectum - Final NO CARBAPENEM-RESISTANT ENTEROBACTERI... Complete 08/24/18 23:00 Rectum VRE Culture - Final NO VANCOMYCIN RESISTANT ENTEROCOCCUS ... Complete Laboratory Tests 08/27/18 07:20: White Blood Count 8.8, Red Blood Count 2.92L, Hemoglobin 9.1L, Hematocrit 26.6L , Mean Corpuscular Volume 91, Mean Corpuscular Hemoglobin 31.0, Mean Corpuscular Hemoglobin Concent 34.0, Red Cell Distribution Width 18.0H, Platelet Count 208, Mean Platelet Volume 7.3, Neutrophils (%) (Auto) 79.9H, Lymphocytes (%) (Auto) 8.2L, Monocytes (%) (Auto) 9.7, Eosinophils (%) (Auto) 1.7, Basophils (%) (Auto) 0.5, Sodium Level 144, Potassium Level 3.5, Chloride Level 111H, Carbon Dioxide Level 25, Anion Gap 8, Blood Urea Nitrogen 68H, Creatinine 2.3H, Estimat Glomerular Filtration Rate , Glucose Level 154H, Uric Acid 4.5, Calcium Level 7.9L, Phosphorus Level 3.3, Magnesium Level 1.8, Total Bilirubin 0.3, Aspartate Amino Transf (AST/SGOT) 70H, Alanine Aminotransferase ( ALT/SGPT) 15, Alkaline Phosphatase 136H, Total Protein 4.9L, Albumin 1.1L, Globulin 3.8, Albumin/Globulin Ratio 0.3L Current Medications Medications (Trade) Dose Ordered Sig/Vahe Route PRN Reason Start Time Stop Time Status Last Admin Dose Admin Albuterol/ Ipratropium (Albuterol/ Ipratropium) 3 ml Q4H PRN HHN Shortness of Breath 08/25/18 08:15 08/30/18 08:14 08/25/18 09:13 Albuterol/ Ipratropium (Albuterol/ Ipratropium) 3 ml Q6HRT HHN 08/25/18 13:00 08/30/18 12:59 08/26/18 21:13 Aspirin (ASA) 81 mg DAILY GT 08/25/18 10:45 09/24/18 10:44 08/27/18 09:58 Bisacodyl (Dulcolax) 10 mg DAILY PRN RECTAL Constipation 08/25/18 03:30 09/24/18 03:29 Carbidopa/Levodopa (Sinemet 25/100) 1 tab FOUR TIMES A DAY GT 08/25/18 09:00 09/24/18 08:59 08/27/18 09:58 Divalproex Sodium (Depakote Sprinkles) 125 mg Q8HR GT 08/25/18 22:00 09/24/18 08:59 08/27/18 05:35 Docusate Sodium (Colace) 100 mg THREE TIMES A DAY GT 08/25/18 13:00 09/24/18 12:59 08/27/18 09:58 Heparin Sodium (Porcine) (Heparin 5000 units/ml) 5,000 units EVERY 12 HOURS SUBQ 08/26/18 09:00 09/25/18 08:59 08/27/18 10:09 Lansoprazole (Prevacid) 30 mg BID GT 08/25/18 10:30 09/24/18 10:29 08/27/18 09:58 Levofloxacin 50 ml @ 50 mls/hr Q48H IVPB 08/26/18 23:00 08/31/18 23:15 08/26/18 23:28 Magnesium Hydroxide (Mom) 30 ml PRN PRN GT Constipation 08/25/18 03:30 09/24/18 03:29 Metoprolol Tartrate (Lopressor) 100 mg BID GT 08/25/18 09:00 09/24/18 08:59 08/27/18 09:58 Promethazine HCl/ Codeine (Phenergan with Codeine) 5 ml Q4H PRN ORAL For Cough 08/25/18 12:00 09/24/18 11:59 Sodium Chloride 1,000 ml @ 75 mls/hr [id number] IV 08/25/18 10:45 09/24/18 10:44 08/27/18 03:19 Stefanie Ball MD Aug 27, 2018 12:50
[2018-08-27] MEDS: Albuterol/Ipratropium 3ml neb HHN SCH ×2 (13:00→19:27)
--- NOTE | 2018-08-27 13:48 | General Surgery Progress Note ---
General Surgery-Progress Note Subjective Additional Comments no acute events. Objective Last 24 Hour Vital Signs Date Time Temp Pulse Resp B/P (MAP) Pulse Ox O2 Delivery O2 Flow Rate FiO2 08/27/18 12:00 97.8 63 20 134/69 (90) 96 08/27/18 11:37 62 08/27/18 09:58 70 139/75 08/27/18 09:00 Nasal Cannula 2.0 08/27/18 08:00 98.2 70 18 139/75 (96) 98 08/27/18 07:34 65 08/27/18 07:00 Nasal Cannula 2.0 28 08/27/18 04:00 97.5 70 22 153/81 (105) 98 08/27/18 04:00 69 08/27/18 02:04 Nasal Cannula 2.0 28 08/27/18 02:04 Nasal Cannula 2.0 28 08/27/18 00:00 67 08/27/18 00:00 97.7 68 24 141/65 (90) 99 08/26/18 21:24 67 20 97 Nasal Cannula 2.0 28 08/26/18 21:13 95 Nasal Cannula 2.0 28 08/26/18 21:13 Nasal Cannula 2.0 28 08/26/18 21:13 65 18 95 Nasal Cannula 2.0 28 08/26/18 21:00 Nasal Cannula 2.0 08/26/18 20:00 66 08/26/18 20:00 97.7 66 24 146/71 (96) 98 08/26/18 17:58 74 155/82 08/26/18 16:00 97.2 74 20 155/82 (106) 98 08/26/18 16:00 68 08/26/18 13:49 71 20 99 Nasal Cannula 3.0 32 I&O Intake and Output 08/26/18 08/27/18 18:59 06:59 Intake Total 115 ml Output Total 750 ml 1100 ml Balance -635 ml -1100 ml IV Total 75 ml Tube Feeding 40 ml Output Urine Total 750 ml 1100 ml # Bowel Movements 2 Dressing: other Wound: other Drains: other Cardiovascular: RSR Respiratory: decreased breath sounds Abdomen: soft, present bowel sounds Extremities: other Laboratory Tests Test 08/27/18 07:20 White Blood Count 8.8 K/UL (4.8-10.8) Red Blood Count 2.92 M/UL (4.70-6.10) L Hemoglobin 9.1 G/DL (14.2-18.0) L Hematocrit 26.6 % (42.0-52.0) L Mean Corpuscular Volume 91 FL (80-99) Mean Corpuscular Hemoglobin 31.0 PG (27.0-31.0) Mean Corpuscular Hemoglobin Concent 34.0 G/DL (32.0-36.0) Red Cell Distribution Width 18.0 % (11.6-14.8) H Platelet Count 208 K/UL (150-450) Mean Platelet Volume 7.3 FL (6.5-10.1) Neutrophils (%) (Auto) 79.9 % (45.0-75.0) H Lymphocytes (%) (Auto) 8.2 % (20.0-45.0) L Monocytes (%) (Auto) 9.7 % (1.0-10.0) Eosinophils (%) (Auto) 1.7 % (0.0-3.0) Basophils (%) (Auto) 0.5 % (0.0-2.0) Sodium Level 144 MMOL/L (136-145) Potassium Level 3.5 MMOL/L (3.5-5.1) Chloride Level 111 MMOL/L (98-107) H Carbon Dioxide Level 25 MMOL/L (21-32) Anion Gap 8 mmol/L (5-15) Blood Urea Nitrogen 68 mg/dL (7-18) H Creatinine 2.3 MG/DL (0.55-1.30) H Estimat Glomerular Filtration Rate mL/min (>60) Glucose Level 154 MG/DL (74-106) H Uric Acid 4.5 MG/DL (2.6-7.2) Calcium Level 7.9 MG/DL (8.5-10.1) L Phosphorus Level 3.3 MG/DL (2.5-4.9) Magnesium Level 1.8 MG/DL (1.8-2.4) Total Bilirubin 0.3 MG/DL (0.2-1.0) Aspartate Amino Transf (AST/SGOT) 70 U/L (15-37) H Alanine Aminotransferase (ALT/SGPT) 15 U/L (12-78) Alkaline Phosphatase 136 U/L (46-116) H Total Protein 4.9 G/DL (6.4-8.2) L Albumin 1.1 G/DL (3.4-5.0) L Globulin 3.8 g/dL Albumin/Globulin Ratio 0.3 (1.0-2.7) L Plan Problems: (1) Decubital ulcer Assessment & Plan: Pt presents with multiple pressure injuries present on admission. He has [place] collar that is oiled and malodorous .No evidence of skin breakdown noted under collar. DTPI sacrum,Maroon discoloration,marginal erythema ,(+) induration (L)7.5cm x (W )4.5cm. Large serous blister with non-blanching erythema periwound noted to R ischium ( L)4cm x (W)7cm. Partial thickness ulcer noted superior,but in close proximity to lateral L malleolus .Wound bed viable with macerated borders,erythema without elevation in skin temp periwound(L)3cm x (W)4cm. DTPI lateral L 1st metatarsal (L)4cm x(W)3.8cm.Maroon discoloration with red margins (+) induration. DTPI L hallux(L)3.4cm x (W)3cm .Maroon discoloration ,(+) induration. Non-blanching erythema distal/lateral L foot 1.3cm x (W)1.1cm. Non-blanching erythema without induration, Medially /lateral L foot(L) 2cm x (W) 2cm. L heel boggy with non-blanching erythema(L)7cm x (W)6.5cm. DTPI medial R heel.Maroon discoloration with fluctuance. Non-blanching erythema periwound(L)3cm x (W)4cm. DTPI R lateral Malleolus. Maroon discoloration ,(+) induration.Non-blanching erythema periwound (L)1.4cm x (W)1.2cm. Maroon discoloration without induration R achilles. Periwound without erythema(L )1.3cm x (W)1.5cm. DTPI Medially/lateral R foot (L)0.7cm x (W)0.8cm. DTPI Distally /lateral R foot .Maroon discoloration with marginal erythema,(+) induration (L)1.3cmx (W)1.2cm. DTPI lateral R 5th metatarsal.Maroon discoloration ,with marginal erythema ,(+) induration(L)1.6cm x(W)1cm DTPI R st metatarsal.Maroon discoloration with marginal erythema.(L)2.5cm x (W) 2cm. Tx.Plan: Apply Cavilon Skin Barrier Wipes to DTPI's R and L foot.Cover with Optifoam drsgs .Change every 7 days and prn. Apply Cavilon Skin Barrier wipe to Blister R Ischium. Cover with Optifoam drsg.Change every 3 days and prn. Apply Moisture Barrier Paste to sacrum. Cover with Optifoam drsg. Change every 3 days and prn. Cleanse wound Lateral L lower ext with Saline.Apply Silvasorb gel. Cover with Optifoam drsg.Change every 7 daysand prn. Reposition at least every 2 hours or as tolerated. Off-load heels with pillow. Position with pillow between knees. Air Fluidized mattress (2) Sepsis Assessment & Plan: leukocytosis resolved. low grade fevers resolved wounds stable as above. will continue to monitor cont iv abx thank you Jossue Jimenes Aug 27, 2018 13:48
[2018-08-27 16:00] VITALS: BP 136/74
--- NOTE | 2018-08-27 16:30 | Nephrology Progress Note ---
Assessment/Plan Problem List: (1) Acute renal failure (ARF) (2) Schizophrenia (3) Toxic encephalopathy (4) Anemia (5) Sepsis Assessment Renal failure- Pre renal picture- improving- ? Underlying Renal failure Sepsis Asp pneumonia UTI Anemia Sz disorder CAD + Pacemaker s/p Cervical Fx 6 months ago COPD DM Plan Hold Zestril and Glucophage for now slow hydrate K and Mag supplement Urine studies antibiotics avoid nephrotoxics Anemia ibarra per orders Subjective ROS Limited/Unobtainable: No Constitutional: Reports: malaise Objective Objective Last 24 Hour Vital Signs Date Time Temp Pulse Resp B/P (MAP) Pulse Ox O2 Delivery O2 Flow Rate FiO2 08/27/18 16:00 97.5 60 20 136/74 (94) 96 08/27/18 13:00 2.0 28 08/27/18 13:00 2.0 28 08/27/18 12:00 97.8 63 20 134/69 (90) 96 08/27/18 11:37 62 08/27/18 09:58 70 139/75 08/27/18 09:00 Nasal Cannula 2.0 08/27/18 08:00 98.2 70 18 139/75 (96) 98 08/27/18 07:34 65 08/27/18 07:00 Nasal Cannula 2.0 28 08/27/18 04:00 97.5 70 22 153/81 (105) 98 08/27/18 04:00 69 08/27/18 02:04 Nasal Cannula 2.0 28 08/27/18 02:04 Nasal Cannula 2.0 28 08/27/18 00:00 67 08/27/18 00:00 97.7 68 24 141/65 (90) 99 08/26/18 21:24 67 20 97 Nasal Cannula 2.0 28 08/26/18 21:13 95 Nasal Cannula 2.0 28 08/26/18 21:13 Nasal Cannula 2.0 28 08/26/18 21:13 65 18 95 Nasal Cannula 2.0 28 08/26/18 21:00 Nasal Cannula 2.0 08/26/18 20:00 66 08/26/18 20:00 97.7 66 24 146/71 (96) 98 08/26/18 17:58 74 155/82 Intake and Output 08/26/18 08/27/18 19:00 07:00 Output Total 750 ml 1100 ml Balance -750 ml -1100 ml Output Urine Total 750 ml 1100 ml # Bowel Movements 2 Laboratory Tests 08/27/18 07:20: White Blood Count 8.8, Red Blood Count 2.92L, Hemoglobin 9.1L, Hematocrit 26.6L , Mean Corpuscular Volume 91, Mean Corpuscular Hemoglobin 31.0, Mean Corpuscular Hemoglobin Concent 34.0, Red Cell Distribution Width 18.0H, Platelet Count 208, Mean Platelet Volume 7.3, Neutrophils (%) (Auto) 79.9H, Lymphocytes (%) (Auto) 8.2L, Monocytes (%) (Auto) 9.7, Eosinophils (%) (Auto) 1.7, Basophils (%) (Auto) 0.5, Sodium Level 144, Potassium Level 3.5, Chloride Level 111H, Carbon Dioxide Level 25, Anion Gap 8, Blood Urea Nitrogen 68H, Creatinine 2.3H, Estimat Glomerular Filtration Rate , Glucose Level 154H, Uric Acid 4.5, Calcium Level 7.9L, Phosphorus Level 3.3, Magnesium Level 1.8, Total Bilirubin 0.3, Aspartate Amino Transf (AST/SGOT) 70H, Alanine Aminotransferase ( ALT/SGPT) 15, Alkaline Phosphatase 136H, Total Protein 4.9L, Albumin 1.1L, Globulin 3.8, Albumin/Globulin Ratio 0.3L Height (Feet): 5 Height (Inches): 3.00 Weight (Pounds): 163 General Appearance: no apparent distress Neck: other - cervical collar Cardiovascular: normal rate Respiratory/Chest: decreased breath sounds Abdomen: soft Joe Feliciano MD Aug 27, 2018 16:30
[2018-08-27] MEDS ORDERED: Iron Sucrose 200 MG in NS 110 ML IV ONE (18:00)
--- NOTE | 2018-08-27 19:23 | NUR ---
NURSE NOTES: Received report from VARINDER Taylor. Patient comfortable in bed, responsive to verbal and external stimuli. Patient responds in partial ivorian, no SOB, and no acute distress noted on, vidal catheter with GT Glucerna 1.5 running at 50 ml/hr, no residual noted, HOB elevated at all times. Right hand connected to 1/2 Ns at 75 ml/hr. Bed is in lowest position with call light within reach. Will continue to monitor and follow plan of care.
--- NOTE | 2018-08-27 19:25 | NUR ---
HAND-OFF: Report given to Cathleen Wei. Endorsed plan of care.
[2018-08-27 20:00] VITALS: BP 135/61
[2018-08-28] VITALS: BP 152/74
[2018-08-28] MEDS: Albuterol/Ipratropium 3ml neb HHN SCH ×5 (00:21→23:59)
[2018-08-28 04:00] VITALS: BP 150/82
[2018-08-28] MEDS: Depakote 125mg Sprinkles GT SCH ×3 (06:00→21:17)
--- NOTE | 2018-08-28 07:00 | Progress Note ---
DATE: 08/27/2018 NOTE: POOR AUDIO SUBJECTIVE: The patient is awake, alert, afebrile, attentive verbal response. PHYSICAL EXAMINATION: VITAL SIGNS: Blood pressure 135/61, his pulse is 84, respirations 18, and temperature 97.3. HEENT: Eyes were normal. ENT, mucous membranes were moist and intact. NECK: Supple with no JVD without lymph nodes. It is difficult to assess neck movement the patient. LUNGS: Clear without rhonchi, rales, or wheezing. Secretions are small, thin, and jiménez. HEART: Normal sounds with regular beats. There is no S3, S4, or pericardial rub. ABDOMEN: Soft and nontender with normal bowel sounds. Gastrostomy site is clean. EXTREMITIES: Warm without cyanosis, clubbing, or edema. The patient yesterday because of inability to contact here . In the meantime, his hemoglobin micky to 9. LABORATORY DATA: Hemoglobin 9.1, hematocrit 26.3 with MCV of 91, WBC of 8.8, and platelets 208. His BUN and creatinine are 68 and 2.3 respectively. His sodium is 144, potassium 3.5, chloride 99, and CO2 is 25. His uric acid is 4.5 and his calcium is 7.9. His phosphorus is 1.8. Albumin is 1.1 and total protein is 4.9. IMPRESSION: on meropenem 500 mg IV piggyback and cefepime 1 g IV piggyback q.12 h. . Evans Jarrett M.D. DR: RAMAN JOB#: [id number] CC:
--- NOTE | 2018-08-28 07:25 | NUR ---
NURSE NOTES: RECEIVED PT WITH HOB ELEVATED 45 DEGREE EYES OPENS WITH VERBAL COMMANDS .PT RECEIVING GTF GLUCERNA 1.5 @ 55CC/HRS ,TOLERATING WELL,NO RESIDUAL NOTED.FULL BODY ASSESSMENT DONE.RENDERED ORAL CARE AND SUCTIONED LG AMT OF YELLOWISH SECRETIONS.FULL BODY ASSESSMENT DONE.PT REPOSITIONED Q 2HRS TO PROVIDE COMFORT AND PREVENT FURTHERS SKIN BREAK DOWN.WILL CONT TO MONITOR.
[2018-08-28 07:29] LABS: BASOPHILS % (AUTO) 0.7 % (0.0-2.0); EOSINOPHILS % (AUTO) 2.5 % (0.0-3.0); HEMATOCRIT 32.2 % (42.0-52.0); HEMOGLOBIN 10.8 G/DL (14.2-18.0); LYMPHOCYTES % (AUTO) 7.7 % (20.0-45.0); MEAN CORPUSCULAR VOLUME 93 FL (80-99); MONOCYTES % (AUTO) 8.5 % (1.0-10.0); NEUTROPHILS % (AUTO) 80.6 % (45.0-75.0); PLATELET COUNT 247 K/UL (150-450); RED BLOOD COUNT 3.48 M/UL (4.70-6.10); RED CELL DISTRIBUTION WIDTH 17.6 % (11.6-14.8); WHITE BLOOD COUNT 9.4 K/UL (4.8-10.8)
--- NOTE | 2018-08-28 07:52 | NUR ---
HAND-OFF: Report given to Concha REEDER.
[2018-08-28 07:59] LABS: ALBUMIN 1.2 G/DL (3.4-5.0); ALBUMIN/GLOBULIN RATIO 0.3 (1.0-2.7); ALKALINE PHOSPHATASE 149 U/L (46-116); ANION GAP 7 mmol/L (5-15); ASPARTATE AMINO TRANSFERASE 55 U/L (15-37); BILIRUBIN,TOTAL 0.4 MG/DL (0.2-1.0); BLOOD UREA NITROGEN 58 mg/dL (7-18); CALCIUM 8.4 MG/DL (8.5-10.1); CARBON DIOXIDE 26 MMOL/L (21-32); CHLORIDE 111 MMOL/L (98-107); PHOSPHORUS 2.8 MG/DL (2.5-4.9); POTASSIUM 3.7 MMOL/L (3.5-5.1); SODIUM 144 MMOL/L (136-145)
[2018-08-28 08:00] VITALS: BP 172/77
[2018-08-28 08:15] LABS: ALANINE AMINOTRANSFERASE 15 U/L (12-78)
--- NOTE | 2018-08-28 09:04 | Infectious Diseases Prog Note ---
Assessment/Plan Assessment/Plan 78 yo male with pMHx of Seizures, Schizophrenia, CAD s/p Pacemaker and Neck Fx ( 6mo ago) who was sent to the ED on 08/24/18 from his long term with desaturation. Sepsis PNA and UTI SpCx Pend UCx and BCx - NGTD Seizures Schizophrenia CAD s/p Pacemaker Neck Fx (6mo ago) HTN Plan - Continue Levofloxacin 750mg Q48hr #4/7 (end date 08/31/18) - 08/27/18 SP Cefepime #3 vancomycin #3 - Monitor CBC and Temps We will continue to follow the patient with you. Subjective Allergies: Coded Allergies: NO KNOWN ALLERGIES (Unverified Allergy, Unknown, 08/25/15) Subjective CHANTELLE On RA Aferbile Not verbal Objective Vital Signs Last 24 Hour Vital Signs Date Time Temp Pulse Resp B/P (MAP) Pulse Ox O2 Delivery O2 Flow Rate FiO2 08/28/18 08:09 69 18 98 Nasal Cannula 2.0 28 08/28/18 08:02 Room Air 21 08/28/18 08:02 64 16 96 Room Air 21 08/28/18 08:02 95 Room Air 21 08/28/18 08:00 99.5 76 20 172/77 (108) 95 08/28/18 04:00 73 08/28/18 04:00 98.0 67 20 150/82 (104) 97 08/28/18 00:33 88 18 99 Nasal Cannula 2.0 28 08/28/18 00:21 66 14 94 Nasal Cannula 2.0 28 08/28/18 00:00 98.0 68 18 152/74 (100) 93 08/28/18 00:00 63 08/27/18 21:00 Nasal Cannula 2.0 08/27/18 20:00 60 08/27/18 20:00 97.3 61 18 135/61 (85) 94 08/27/18 19:34 84 18 97 Nasal Cannula 2.0 28 08/27/18 19:27 60 16 98 Nasal Cannula 2.0 28 08/27/18 19:27 Nasal Cannula 2.0 28 08/27/18 19:27 98 Nasal Cannula 2.0 28 08/27/18 18:22 60 136/74 08/27/18 16:00 97.5 60 20 136/74 (94) 96 08/27/18 15:29 66 08/27/18 13:00 2.0 28 08/27/18 13:00 2.0 28 08/27/18 12:00 97.8 63 20 134/69 (90) 96 08/27/18 11:37 62 08/27/18 09:58 70 139/75 Height (Feet): 5 Height (Inches): 3.00 Weight (Pounds): 163 Objective Gen: NAD HEENT: Hard collar NCAT, MMM, EOMI LUNGS: Coarse , No W CARDS: RRR, S1, S2, No M/R/G, ABD: Soft, NT, ND, + BS Microbiology Date/Time Source Procedure Growth Status 08/26/18 19:55 Nasal Nares Influenza Types A,B Antigen (CURT) - Final Complete 08/25/18 13:00 Sputum Gram Stain - Final Complete 08/25/18 13:00 Sputum Sputum Culture - Final NORMAL UPPER RESPIRATORY JACOB PRESENT Complete Laboratory Tests Test 08/28/18 06:50 White Blood Count 9.4 K/UL (4.8-10.8) Red Blood Count 3.48 M/UL (4.70-6.10) L Hemoglobin 10.8 G/DL (14.2-18.0) L Hematocrit 32.2 % (42.0-52.0) L Mean Corpuscular Volume 93 FL (80-99) Mean Corpuscular Hemoglobin 30.9 PG (27.0-31.0) Mean Corpuscular Hemoglobin Concent 33.4 G/DL (32.0-36.0) Red Cell Distribution Width 17.6 % (11.6-14.8) H Platelet Count 247 K/UL (150-450) Mean Platelet Volume 7.0 FL (6.5-10.1) Neutrophils (%) (Auto) 80.6 % (45.0-75.0) H Lymphocytes (%) (Auto) 7.7 % (20.0-45.0) L Monocytes (%) (Auto) 8.5 % (1.0-10.0) Eosinophils (%) (Auto) 2.5 % (0.0-3.0) Basophils (%) (Auto) 0.7 % (0.0-2.0) Erythrocyte Sedimentation Rate Pending Sodium Level 144 MMOL/L (136-145) Potassium Level 3.7 MMOL/L (3.5-5.1) Chloride Level 111 MMOL/L (98-107) H Carbon Dioxide Level 26 MMOL/L (21-32) Anion Gap 7 mmol/L (5-15) Blood Urea Nitrogen 58 mg/dL (7-18) H Creatinine 2.0 MG/DL (0.55-1.30) H Estimat Glomerular Filtration Rate mL/min (>60) Glucose Level 181 MG/DL (74-106) H Calcium Level 8.4 MG/DL (8.5-10.1) L Phosphorus Level 2.8 MG/DL (2.5-4.9) Magnesium Level 1.7 MG/DL (1.8-2.4) L Total Bilirubin 0.4 MG/DL (0.2-1.0) Aspartate Amino Transf (AST/SGOT) 55 U/L (15-37) H Alanine Aminotransferase (ALT/SGPT) 15 U/L (12-78) Alkaline Phosphatase 149 U/L (46-116) H C-Reactive Protein, Quantitative 13.5 mg/dL (0.00-0.90) H Total Protein 5.4 G/DL (6.4-8.2) L Albumin 1.2 G/DL (3.4-5.0) L Globulin 4.2 g/dL Albumin/Globulin Ratio 0.3 (1.0-2.7) L Current Medications Medications (Trade) Dose Ordered Sig/Vaeh Route PRN Reason Start Time Stop Time Status Last Admin Dose Admin Albuterol/ Ipratropium (Albuterol/ Ipratropium) 3 ml Q4H PRN HHN Shortness of Breath 08/25/18 08:15 08/30/18 08:14 08/25/18 09:13 Albuterol/ Ipratropium (Albuterol/ Ipratropium) 3 ml Q6HRT HHN 08/25/18 13:00 08/30/18 12:59 08/28/18 08:01 Aspirin (ASA) 81 mg DAILY GT 08/25/18 10:45 09/24/18 10:44 08/27/18 09:58 Bisacodyl (Dulcolax) 10 mg DAILY PRN RECTAL Constipation 08/25/18 03:30 09/24/18 03:29 Carbidopa/Levodopa (Sinemet 25/100) 1 tab FOUR TIMES A DAY GT 08/25/18 09:00 09/24/18 08:59 08/27/18 21:22 Divalproex Sodium (Depakote Sprinkles) 125 mg Q8HR GT 08/25/18 22:00 09/24/18 08:59 08/28/18 06:00 Docusate Sodium (Colace) 100 mg THREE TIMES A DAY GT 08/25/18 13:00 09/24/18 12:59 08/27/18 18:21 Heparin Sodium (Porcine) (Heparin 5000 units/ml) 5,000 units EVERY 12 HOURS SUBQ 08/26/18 09:00 09/25/18 08:59 08/27/18 21:22 Lansoprazole (Prevacid) 30 mg BID GT 08/25/18 10:30 09/24/18 10:29 08/27/18 18:21 Levofloxacin 50 ml @ 50 mls/hr Q48H IVPB 08/26/18 23:00 08/31/18 23:15 08/26/18 23:28 Magnesium Hydroxide (Mom) 30 ml PRN PRN GT Constipation 08/25/18 03:30 09/24/18 03:29 Metoprolol Tartrate (Lopressor) 100 mg BID GT 08/25/18 09:00 09/24/18 08:59 08/27/18 18:22 Promethazine HCl/ Codeine (Phenergan with Codeine) 5 ml Q4H PRN ORAL For Cough 08/25/18 12:00 09/24/18 11:59 Sodium Chloride 1,000 ml @ 75 mls/hr [id number] IV 08/25/18 10:45 09/24/18 10:44 08/27/18 16:45 Mani Saeed MD Aug 28, 2018 09:04
[2018-08-28] MEDS: Levodopa/Carbidopa 25/100 tab GT SCH ×4 (10:03→21:17)
[2018-08-28] MEDS: Aspirin Baby 81mg GT SCH (10:04)
[2018-08-28] MEDS: Docusate 100mg/10ml Liq GT SCH ×3 (10:04→18:35)
[2018-08-28] MEDS: Heparin 5000 units/ml inj SUBQ SCH ×2 (10:07→21:18)
--- NOTE | 2018-08-28 10:36 | NUR ---
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 3) Increased kcal and protein needs r/t wound healing as evidenced by pt w/ multiple DTPI wounds, refer to MD/ WC eval. CURRENT TF:Glucerna 1.5 @50ml/hr ENTERAL NUTRITION RECOMMENDATIONS: Glucerna 1.5 @50ml/hr x24 hrs to provide 1200ml, 1800 kcal, 99g prot, 911ml free H2O - Maintain current TF of Glucerna 1.5 @50ml/hr x 24hrs. - Flush per MD. HOB over 30 degrees ADDITIONAL RECOMMENDATIONS: 1) Calibrated bed scale wts 2) F/Up w/ WC eval -> add SEVERO BID + Vit C 500mg BID 3) Monitor lytes, renal fxn; need for renal TF-> renal labs improving 4) Hypoglycemic agents for BG control
[2018-08-28 12:00] VITALS: BP 158/90
--- NOTE | 2018-08-28 12:33 | Pulmonology Progress Note ---
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 (7) HTN (hypertension) Assessment/Plan dc IV fluids because of worsening pulmonary edema iv abx as per ID electrolytes better check cultures sputum for c/s Keep right chest elevated chest pt respiratory treatment Subjective ROS Limited/Unobtainable: No HEENT: Repors: no symptoms Respiratory: Reports: no symptoms Allergies: Coded Allergies: NO KNOWN ALLERGIES (Unverified Allergy, Unknown, 08/25/15) Objective Last 24 Hour Vital Signs Date Time Temp Pulse Resp B/P (MAP) Pulse Ox O2 Delivery O2 Flow Rate FiO2 08/28/18 10:04 69 172/77 08/28/18 08:09 69 18 98 Nasal Cannula 2.0 28 08/28/18 08:02 Room Air 21 08/28/18 08:02 64 16 96 Room Air 21 08/28/18 08:02 95 Room Air 21 08/28/18 08:00 99.5 76 20 172/77 (108) 95 08/28/18 04:00 73 08/28/18 04:00 98.0 67 20 150/82 (104) 97 08/28/18 00:33 88 18 99 Nasal Cannula 2.0 28 08/28/18 00:21 66 14 94 Nasal Cannula 2.0 28 08/28/18 00:00 98.0 68 18 152/74 (100) 93 08/28/18 00:00 63 08/27/18 21:00 Nasal Cannula 2.0 08/27/18 20:00 60 08/27/18 20:00 97.3 61 18 135/61 (85) 94 08/27/18 19:34 84 18 97 Nasal Cannula 2.0 28 08/27/18 19:27 60 16 98 Nasal Cannula 2.0 28 08/27/18 19:27 Nasal Cannula 2.0 28 08/27/18 19:27 98 Nasal Cannula 2.0 28 08/27/18 18:22 60 136/74 08/27/18 16:00 97.5 60 20 136/74 (94) 96 08/27/18 15:29 66 08/27/18 13:00 2.0 28 08/27/18 13:00 2.0 28 Intake and Output 08/27/18 08/28/18 18:59 06:59 Output Total 1000 ml 600 ml Balance -1000 ml -600 ml Output Urine Total 1000 ml 600 ml # Bowel Movements 1 Objective General Appearance: WD/WN HEENT: normocephalic, anicteric Respiratory/Chest: chest wall non-tender, lungs clear Breasts: no masses Cardiovascular: normal rate Abdomen: normal bowel sounds, no organomegaly Extremities: no clubbing 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 Microbiology Date/Time Source Procedure Growth Status 08/26/18 19:55 Nasal Nares Influenza Types A,B Antigen (CURT) - Final Complete 08/25/18 13:00 Sputum Gram Stain - Final Complete 08/25/18 13:00 Sputum Sputum Culture - Final NORMAL UPPER RESPIRATORY JACOB PRESENT Complete Laboratory Tests 08/28/18 06:50: White Blood Count 9.4, Red Blood Count 3.48L, Hemoglobin 10.8L, Hematocrit 32.2L , Mean Corpuscular Volume 93, Mean Corpuscular Hemoglobin 30.9, Mean Corpuscular Hemoglobin Concent 33.4, Red Cell Distribution Width 17.6H, Platelet Count 247, Mean Platelet Volume 7.0, Neutrophils (%) (Auto) 80.6H, Lymphocytes (%) (Auto) 7.7L, Monocytes (%) (Auto) 8.5, Eosinophils (%) (Auto) 2.5, Basophils (%) (Auto) 0.7, Erythrocyte Sedimentation Rate 105H, Sodium Level 144, Potassium Level 3.7, Chloride Level 111H, Carbon Dioxide Level 26, Anion Gap 7, Blood Urea Nitrogen 58H, Creatinine 2.0H, Estimat Glomerular Filtration Rate , Glucose Level 181H, Calcium Level 8.4L, Phosphorus Level 2.8, Magnesium Level 1.7L, Total Bilirubin 0.4, Aspartate Amino Transf (AST/SGOT) 55H , Alanine Aminotransferase (ALT/SGPT) 15, Alkaline Phosphatase 149H, C-Reactive Protein, Quantitative 13.5H, Total Protein 5.4L, Albumin 1.2L, Globulin 4.2, Albumin/Globulin Ratio 0.3L Current Medications Medications (Trade) Dose Ordered Sig/Vahe Route PRN Reason Start Time Stop Time Status Last Admin Dose Admin Albuterol/ Ipratropium (Albuterol/ Ipratropium) 3 ml Q4H PRN HHN Shortness of Breath 08/25/18 08:15 08/30/18 08:14 08/25/18 09:13 Albuterol/ Ipratropium (Albuterol/ Ipratropium) 3 ml Q6HRT HHN 08/25/18 13:00 08/30/18 12:59 08/28/18 08:01 Aspirin (ASA) 81 mg DAILY GT 08/25/18 10:45 09/24/18 10:44 08/28/18 10:04 Bisacodyl (Dulcolax) 10 mg DAILY PRN RECTAL Constipation 08/25/18 03:30 09/24/18 03:29 Carbidopa/Levodopa (Sinemet 25/100) 1 tab FOUR TIMES A DAY GT 08/25/18 09:00 09/24/18 08:59 08/28/18 10:03 Divalproex Sodium (Depakote Sprinkles) 125 mg Q8HR GT 08/25/18 22:00 09/24/18 08:59 08/28/18 06:00 Docusate Sodium (Colace) 100 mg THREE TIMES A DAY GT 08/25/18 13:00 09/24/18 12:59 08/28/18 10:04 Heparin Sodium (Porcine) (Heparin 5000 units/ml) 5,000 units EVERY 12 HOURS SUBQ 08/26/18 09:00 09/25/18 08:59 08/28/18 10:07 Lansoprazole (Prevacid) 30 mg BID GT 08/25/18 10:30 09/24/18 10:29 08/28/18 10:03 Levofloxacin 50 ml @ 50 mls/hr Q24H IVPB 08/28/18 23:00 09/04/18 22:59 Magnesium Hydroxide (Mom) 30 ml PRN PRN GT Constipation 08/25/18 03:30 09/24/18 03:29 Metoprolol Tartrate (Lopressor) 100 mg BID GT 08/25/18 09:00 09/24/18 08:59 08/28/18 10:04 Promethazine HCl/ Codeine (Phenergan with Codeine) 5 ml Q4H PRN ORAL For Cough 08/25/18 12:00 09/24/18 11:59 Sodium Chloride 1,000 ml @ 75 mls/hr [id number] IV 08/25/18 10:45 09/24/18 10:44 08/28/18 11:41 Stefanie Ball MD Aug 28, 2018 12:33
--- NOTE | 2018-08-28 12:57 | Nephrology Progress Note ---
Assessment/Plan Problem List: (1) Schizophrenia (2) Toxic encephalopathy (3) Anemia (4) Sepsis Assessment Renal failure- Pre renal picture- improving- ? Underlying Renal failure Sepsis Asp pneumonia UTI Anemia Sz disorder CAD + Pacemaker s/p Cervical Fx 6 months ago COPD DM Plan Hold Zestril and Glucophage for now slow hydrate K and Mag supplement Urine studies antibiotics avoid nephrotoxics Anemia ibarra per orders Subjective ROS Limited/Unobtainable: No Constitutional: Reports: malaise Objective Objective Last 24 Hour Vital Signs Date Time Temp Pulse Resp B/P (MAP) Pulse Ox O2 Delivery O2 Flow Rate FiO2 08/28/18 12:00 62 08/28/18 12:00 Nasal Cannula 2.0 08/28/18 10:04 69 172/77 08/28/18 08:09 69 18 98 Nasal Cannula 2.0 28 08/28/18 08:02 Room Air 21 08/28/18 08:02 64 16 96 Room Air 21 08/28/18 08:02 95 Room Air 21 08/28/18 08:00 74 08/28/18 08:00 99.5 76 20 172/77 (108) 95 08/28/18 04:00 73 08/28/18 04:00 98.0 67 20 150/82 (104) 97 08/28/18 00:33 88 18 99 Nasal Cannula 2.0 28 08/28/18 00:21 66 14 94 Nasal Cannula 2.0 28 08/28/18 00:00 98.0 68 18 152/74 (100) 93 08/28/18 00:00 63 08/27/18 21:00 Nasal Cannula 2.0 08/27/18 20:00 60 08/27/18 20:00 97.3 61 18 135/61 (85) 94 08/27/18 19:34 84 18 97 Nasal Cannula 2.0 28 08/27/18 19:27 60 16 98 Nasal Cannula 2.0 28 08/27/18 19:27 Nasal Cannula 2.0 28 08/27/18 19:27 98 Nasal Cannula 2.0 28 08/27/18 18:22 60 136/74 08/27/18 16:00 97.5 60 20 136/74 (94) 96 08/27/18 15:29 66 08/27/18 13:00 2.0 28 08/27/18 13:00 2.0 28 Intake and Output 08/27/18 08/28/18 18:59 06:59 Output Total 1000 ml 600 ml Balance -1000 ml -600 ml Output Urine Total 1000 ml 600 ml # Bowel Movements 1 Laboratory Tests 08/28/18 06:50: White Blood Count 9.4, Red Blood Count 3.48L, Hemoglobin 10.8L, Hematocrit 32.2L , Mean Corpuscular Volume 93, Mean Corpuscular Hemoglobin 30.9, Mean Corpuscular Hemoglobin Concent 33.4, Red Cell Distribution Width 17.6H, Platelet Count 247, Mean Platelet Volume 7.0, Neutrophils (%) (Auto) 80.6H, Lymphocytes (%) (Auto) 7.7L, Monocytes (%) (Auto) 8.5, Eosinophils (%) (Auto) 2.5, Basophils (%) (Auto) 0.7, Erythrocyte Sedimentation Rate 105H, Sodium Level 144, Potassium Level 3.7, Chloride Level 111H, Carbon Dioxide Level 26, Anion Gap 7, Blood Urea Nitrogen 58H, Creatinine 2.0H, Estimat Glomerular Filtration Rate , Glucose Level 181H, Calcium Level 8.4L, Phosphorus Level 2.8, Magnesium Level 1.7L, Total Bilirubin 0.4, Aspartate Amino Transf (AST/SGOT) 55H , Alanine Aminotransferase (ALT/SGPT) 15, Alkaline Phosphatase 149H, C-Reactive Protein, Quantitative 13.5H, Total Protein 5.4L, Albumin 1.2L, Globulin 4.2, Albumin/Globulin Ratio 0.3L Height (Feet): 5 Height (Inches): 3.00 Weight (Pounds): 163 General Appearance: no apparent distress Cardiovascular: normal rate Respiratory/Chest: decreased breath sounds Abdomen: soft Objective no change Joe Feliciano MD Aug 28, 2018 12:57
--- NOTE | 2018-08-28 15:42 | General Surgery Progress Note ---
General Surgery-Progress Note Subjective Additional Comments no acute events. esr up. crp down Objective Last 24 Hour Vital Signs Date Time Temp Pulse Resp B/P (MAP) Pulse Ox O2 Delivery O2 Flow Rate FiO2 08/28/18 13:15 66 20 98 Nasal Cannula 2.0 28 08/28/18 13:09 65 18 98 Nasal Cannula 2.0 28 08/28/18 12:00 97.3 71 20 158/90 (112) 95 08/28/18 12:00 62 08/28/18 12:00 Nasal Cannula 2.0 08/28/18 10:04 69 172/77 08/28/18 08:09 69 18 98 Nasal Cannula 2.0 28 08/28/18 08:02 Room Air 21 08/28/18 08:02 64 16 96 Room Air 21 08/28/18 08:02 95 Room Air 21 08/28/18 08:00 74 08/28/18 08:00 99.5 76 20 172/77 (108) 95 08/28/18 04:00 73 08/28/18 04:00 98.0 67 20 150/82 (104) 97 08/28/18 00:33 88 18 99 Nasal Cannula 2.0 28 08/28/18 00:21 66 14 94 Nasal Cannula 2.0 28 08/28/18 00:00 98.0 68 18 152/74 (100) 93 08/28/18 00:00 63 08/27/18 21:00 Nasal Cannula 2.0 08/27/18 20:00 60 08/27/18 20:00 97.3 61 18 135/61 (85) 94 08/27/18 19:34 84 18 97 Nasal Cannula 2.0 28 08/27/18 19:27 60 16 98 Nasal Cannula 2.0 28 08/27/18 19:27 Nasal Cannula 2.0 28 08/27/18 19:27 98 Nasal Cannula 2.0 28 08/27/18 18:22 60 136/74 08/27/18 16:00 97.5 60 20 136/74 (94) 96 I&O Intake and Output 08/27/18 08/28/18 18:59 06:59 Output Total 1000 ml 600 ml Balance -1000 ml -600 ml Output Urine Total 1000 ml 600 ml # Bowel Movements 1 Dressing: other Wound: other Drains: other Cardiovascular: RSR Respiratory: decreased breath sounds Abdomen: soft, present bowel sounds Extremities: other Laboratory Tests Test 08/28/18 06:50 White Blood Count 9.4 K/UL (4.8-10.8) Red Blood Count 3.48 M/UL (4.70-6.10) L Hemoglobin 10.8 G/DL (14.2-18.0) L Hematocrit 32.2 % (42.0-52.0) L Mean Corpuscular Volume 93 FL (80-99) Mean Corpuscular Hemoglobin 30.9 PG (27.0-31.0) Mean Corpuscular Hemoglobin Concent 33.4 G/DL (32.0-36.0) Red Cell Distribution Width 17.6 % (11.6-14.8) H Platelet Count 247 K/UL (150-450) Mean Platelet Volume 7.0 FL (6.5-10.1) Neutrophils (%) (Auto) 80.6 % (45.0-75.0) H Lymphocytes (%) (Auto) 7.7 % (20.0-45.0) L Monocytes (%) (Auto) 8.5 % (1.0-10.0) Eosinophils (%) (Auto) 2.5 % (0.0-3.0) Basophils (%) (Auto) 0.7 % (0.0-2.0) Erythrocyte Sedimentation Rate 105 MM/HR (0-20) H Sodium Level 144 MMOL/L (136-145) Potassium Level 3.7 MMOL/L (3.5-5.1) Chloride Level 111 MMOL/L (98-107) H Carbon Dioxide Level 26 MMOL/L (21-32) Anion Gap 7 mmol/L (5-15) Blood Urea Nitrogen 58 mg/dL (7-18) H Creatinine 2.0 MG/DL (0.55-1.30) H Estimat Glomerular Filtration Rate mL/min (>60) Glucose Level 181 MG/DL (74-106) H Calcium Level 8.4 MG/DL (8.5-10.1) L Phosphorus Level 2.8 MG/DL (2.5-4.9) Magnesium Level 1.7 MG/DL (1.8-2.4) L Total Bilirubin 0.4 MG/DL (0.2-1.0) Aspartate Amino Transf (AST/SGOT) 55 U/L (15-37) H Alanine Aminotransferase (ALT/SGPT) 15 U/L (12-78) Alkaline Phosphatase 149 U/L (46-116) H C-Reactive Protein, Quantitative 13.5 mg/dL (0.00-0.90) H Total Protein 5.4 G/DL (6.4-8.2) L Albumin 1.2 G/DL (3.4-5.0) L Globulin 4.2 g/dL Albumin/Globulin Ratio 0.3 (1.0-2.7) L Plan Problems: (1) Decubital ulcer Assessment & Plan: Pt presents with multiple pressure injuries present on admission. He has [place] collar that is oiled and malodorous .No evidence of skin breakdown noted under collar. DTPI sacrum,Maroon discoloration,marginal erythema ,(+) induration (L)7.5cm x (W )4.5cm. Large serous blister with non-blanching erythema periwound noted to R ischium ( L)4cm x (W)7cm. Partial thickness ulcer noted superior,but in close proximity to lateral L malleolus .Wound bed viable with macerated borders,erythema without elevation in skin temp periwound(L)3cm x (W)4cm. DTPI lateral L 1st metatarsal (L)4cm x(W)3.8cm.Maroon discoloration with red margins (+) induration. DTPI L hallux(L)3.4cm x (W)3cm .Maroon discoloration ,(+) induration. Non-blanching erythema distal/lateral L foot 1.3cm x (W)1.1cm. Non-blanching erythema without induration, Medially /lateral L foot(L) 2cm x (W) 2cm. L heel boggy with non-blanching erythema(L)7cm x (W)6.5cm. DTPI medial R heel.Maroon discoloration with fluctuance. Non-blanching erythema periwound(L)3cm x (W)4cm. DTPI R lateral Malleolus. Maroon discoloration ,(+) induration.Non-blanching erythema periwound (L)1.4cm x (W)1.2cm. Maroon discoloration without induration R achilles. Periwound without erythema(L )1.3cm x (W)1.5cm. DTPI Medially/lateral R foot (L)0.7cm x (W)0.8cm. DTPI Distally /lateral R foot .Maroon discoloration with marginal erythema,(+) induration (L)1.3cmx (W)1.2cm. DTPI lateral R 5th metatarsal.Maroon discoloration ,with marginal erythema ,(+) induration(L)1.6cm x(W)1cm DTPI R st metatarsal.Maroon discoloration with marginal erythema.(L)2.5cm x (W) 2cm. Tx.Plan: Apply Cavilon Skin Barrier Wipes to DTPI's R and L foot.Cover with Optifoam drsgs .Change every 7 days and prn. Apply Cavilon Skin Barrier wipe to Blister R Ischium. Cover with Optifoam drsg.Change every 3 days and prn. Apply Moisture Barrier Paste to sacrum. Cover with Optifoam drsg. Change every 3 days and prn. Cleanse wound Lateral L lower ext with Saline.Apply Silvasorb gel. Cover with Optifoam drsg.Change every 7 daysand prn. Reposition at least every 2 hours or as tolerated. Off-load heels with pillow. Position with pillow between knees. Air Fluidized mattress (2) Sepsis Assessment & Plan: leukocytosis resolved. low grade fevers resolved wounds stable as above. will continue to monitor cont iv abx thank you Jossue Jimenes Aug 28, 2018 15:42
[2018-08-28 16:00] VITALS: BP 100/69
--- NOTE | 2018-08-28 19:30 | NUR ---
NURSE NOTES: Received report from VARINDER Mccullough. Patient comfortable in bed, responsive to verbal and external stimuli. Patient responds in partial cypriot, no SOB, and no acute distress noted on, vidal catheter with GT Glucerna 1.5 running at 50 ml/hr, no residual noted, HOB elevated at all times. . Bed is in lowest position with call light within reach. Will continue to monitor and follow plan of care.
--- NOTE | 2018-08-28 19:35 | NUR ---
NURSE NOTES: Received pt. and report from VARINDER Colon. Observe pt. resting in bed. ekg monitor tech is in placed, IV site is intact, asymptomatic and patent. Bed is in the lowest position and locked, call light within reach. Pt. has a GT; continuous feeing of Glucernia 1.5 @ 50cc/hr. Pt. has a Figueredo 16 uzbek in placed for retention. No acute distress noted at this time. Will continue plan of care.
--- NOTE | 2018-08-28 19:44 | NUR ---
HAND-OFF: Report given to .MY RN.
[2018-08-28 20:00] VITALS: BP 168/74
--- NOTE | 2018-08-28 21:10 | General Progress Note ---
Assessment/Plan Assessment/Plan Assessment and Recs: # Anemia due to underlying chronic disease -- anemia panel has been reviewed --> Also since downtrending since admission, with sepsis, could be related to hemodilution --> Anemia panel reviewed --> DW PCP, transfuse only if clinically unstable, and hgb <7 --> No evidence of hemolysis is noted --> peripheral smear has been reviewed # Thrombocytopenia from sepsis from aspiration pneumonia. On abx as per ID --> hepatitis and hiv negative --> us abd negative for dilated ducts # Sepsis is likely from aspiration pna --> on abx, have been started, on ivf # Aspiration pneumonia # ARF (acute renal failure) # Respiratory failure with hypoxia # Encephalopathy # UTI (urinary tract infection) The timing of this note does not necessarily reflect the time of the patient was seen Greatly appreciate consultation! Subjective Constitutional: Denies: no symptoms, chills, diaphoresis, fever, malaise, weakness, other HEENT: Denies: no symptoms, eye pain, blurred vision, tearing, double vision, ear pain, ear discharge, nose pain, nose congestion, throat pain, throat swelling, mouth pain, mouth swelling, other Cardiovascular: Denies: no symptoms, chest pain, edema, irregular heart rate, lightheadedness, palpitations, syncope, other Respiratory: Denies: no symptoms, cough, orthopnea, shortness of breath, SOB with excertion, SOB at rest, sputum, stridor, wheezing, other Gastrointestinal/Abdominal: Denies: no symptoms, abdomen distended, abdominal pain, black stools, tarry stools, blood in stool, constipated, diarrhea, difficulty swallowing, nausea, poor appetite, poor fluid intake, rectal bleeding , vomiting, other Genitourinary: Denies: no symptoms, burning, discharge, frequency, flank pain, hematuria, incontinence, pain, urgency, other Endocrine: Denies: no symptoms, excessive sweating, flushing, intolerance to cold, intolerance to heat, increased hunger, increased thirst, increased urine, unexplained weight gain, unexplained weight loss, other Hematologic/Lymphatic: Denies: no symptoms, anemia, easy bleeding, easy bruising, other Allergies: Coded Allergies: NO KNOWN ALLERGIES (Unverified Allergy, Unknown, 08/25/15) Subjective 08/27: no events, cbc pending this am, no complaints though noted 08/28: Pt is awake and resting in bed, denies fevers or chills, no events, cbc reviewed. Objective Last 24 Hour Vital Signs Date Time Temp Pulse Resp B/P (MAP) Pulse Ox O2 Delivery O2 Flow Rate FiO2 08/28/18 20:00 63 08/28/18 19:50 72 20 95 Nasal Cannula 2.0 28 08/28/18 19:40 67 18 98 Nasal Cannula 2.0 28 08/28/18 19:40 Nasal Cannula 2.0 28 08/28/18 19:40 98 Nasal Cannula 2.0 28 08/28/18 18:37 77 177/69 08/28/18 16:00 97.2 73 20 100/69 (79) 95 08/28/18 16:00 70 08/28/18 13:15 66 20 98 Nasal Cannula 2.0 28 08/28/18 13:09 65 18 98 Nasal Cannula 2.0 28 08/28/18 12:00 97.3 71 20 158/90 (112) 95 08/28/18 12:00 62 08/28/18 12:00 Nasal Cannula 2.0 08/28/18 10:04 69 172/77 08/28/18 08:09 69 18 98 Nasal Cannula 2.0 28 08/28/18 08:02 Room Air 21 08/28/18 08:02 64 16 96 Room Air 21 08/28/18 08:02 95 Room Air 21 08/28/18 08:00 74 08/28/18 08:00 99.5 76 20 172/77 (108) 95 08/28/18 04:00 73 08/28/18 04:00 98.0 67 20 150/82 (104) 97 08/28/18 00:33 88 18 99 Nasal Cannula 2.0 28 08/28/18 00:21 66 14 94 Nasal Cannula 2.0 28 08/28/18 00:00 98.0 68 18 152/74 (100) 93 08/28/18 00:00 63 Intake and Output 08/27/18 08/28/18 19:00 07:00 Intake Total 130 ml Output Total 1000 ml 600 ml Balance -1000 ml -470 ml IV Total 75 ml Tube Feeding 55 ml Output Urine Total 1000 ml 600 ml # Bowel Movements 1 Laboratory Tests 08/28/18 06:50: White Blood Count 9.4, Red Blood Count 3.48L, Hemoglobin 10.8L, Hematocrit 32.2L , Mean Corpuscular Volume 93, Mean Corpuscular Hemoglobin 30.9, Mean Corpuscular Hemoglobin Concent 33.4, Red Cell Distribution Width 17.6H, Platelet Count 247, Mean Platelet Volume 7.0, Neutrophils (%) (Auto) 80.6H, Lymphocytes (%) (Auto) 7.7L, Monocytes (%) (Auto) 8.5, Eosinophils (%) (Auto) 2.5, Basophils (%) (Auto) 0.7, Erythrocyte Sedimentation Rate 105H, Sodium Level 144, Potassium Level 3.7, Chloride Level 111H, Carbon Dioxide Level 26, Anion Gap 7, Blood Urea Nitrogen 58H, Creatinine 2.0H, Estimat Glomerular Filtration Rate , Glucose Level 181H, Calcium Level 8.4L, Phosphorus Level 2.8, Magnesium Level 1.7L, Total Bilirubin 0.4, Aspartate Amino Transf (AST/SGOT) 55H , Alanine Aminotransferase (ALT/SGPT) 15, Alkaline Phosphatase 149H, C-Reactive Protein, Quantitative 13.5H, Total Protein 5.4L, Albumin 1.2L, Globulin 4.2, Albumin/Globulin Ratio 0.3L Height (Feet): 5 Height (Inches): 3.00 Weight (Pounds): 163 Objective General Appearance: moderate distress, Chronically Ill, Stupor Head: normocephalic, atraumatic Eyes: bilateral eye PERRL ENT: other - Oropharynx with lots of thick mucus Neck: other - stiff with collar on Respiratory: respiratory distress, rhonchi Cardiovascular: regular rate, rhythm, no murmur Gastrointestinal: normal bowel sounds, non tender, no mass, no organomegaly, no bruit, non-distended Musculoskeletal: other - contracted. UE with edema Skin: warm/dry Elias Walters MD Aug 28, 2018 21:09
[2018-08-29] VITALS: BP 153/76
--- NOTE | 2018-08-29 03:15 | Progress Note ---
DATE: 08/28/2018 SUBJECTIVE: The patient is afebrile, hemodynamically stable with poorly controlled blood pressure. PHYSICAL EXAMINATION: VITAL SIGNS: Blood pressure 168/74, his pulse is 63, respirations of 20, and temperature was 98. HEENT: Eyes were normal. ENT, mucous membranes moist and intact. NECK: Supple with no JVD without lymph nodes. LUNGS: Clear. HEART: Normal sounds with regular beats. ABDOMEN: Soft and nontender with normal bowel sounds. EXTREMITIES: Warm without cyanosis, clubbing, or edema. LABORATORY AND DIAGNOSTIC DATA: Hemoglobin is 10.10, hematocrit 32.2 with MCV of 93, and WBC of . His BUN and creatinine are 68 and 2.0 respectively. Sodium is 144, potassium 3.7, chloride 111, and CO2 is 26. His calcium is 8.4. His phosphorus is 2.8. His magnesium is 1.7. SGOT is 55, SGPT is 80, and alkaline phosphatase . IMPRESSION: The patient appears in stable condition. He has been seen today by multimedia authoring specialist, steel analyst, and operations business partner. Repeat laboratory tests will be done in the a.m. Evans Jarrett M.D. DR: APRIL JOB#: [id number] CC:
[2018-08-29 04:00] VITALS: BP 150/58
[2018-08-29] MEDS: Depakote 125mg Sprinkles GT SCH ×3 (05:34→22:01)
--- NOTE | 2018-08-29 07:35 | NUR ---
HAND-OFF: Report given to VARINDER Mccullough. Pt. is in stable condition. Plan of care endorsed.
[2018-08-29 08:00] VITALS: BP 169/71
--- NOTE | 2018-08-29 08:05 | NUR ---
NURSE NOTES: Received report from VARINDER Gambino. Patient in bed resting, SR with HR 76. No active s/s cardiac, respiratory noticed at this time. IV running at prescribed rate. IV site asymptomatic, patent, intact. Bed is in the lowest position and locked, side rails up x3, call light within reach. Patient on G-tube feeding with continuous of Glucernia 1.5 @ 50cc/hr. No residual, flushed with 150cc. Figueredo catheter 16 azerbaijani in placed for retention and draining well to gravity. Will continue to monitor.
[2018-08-29 08:09] LABS: BASOPHILS % (AUTO) 0.9 % (0.0-2.0); EOSINOPHILS % (AUTO) 2.3 % (0.0-3.0); HEMATOCRIT 28.9 % (42.0-52.0); HEMOGLOBIN 9.4 G/DL (14.2-18.0); LYMPHOCYTES % (AUTO) 8.8 % (20.0-45.0); MEAN CORPUSCULAR VOLUME 93 FL (80-99); MONOCYTES % (AUTO) 13.1 % (1.0-10.0); NEUTROPHILS % (AUTO) 74.9 % (45.0-75.0); PLATELET COUNT 277 K/UL (150-450); RED CELL DISTRIBUTION WIDTH 17.3 % (11.6-14.8); WHITE BLOOD COUNT 9.2 K/UL (4.8-10.8)
[2018-08-29 08:30] LABS: ALANINE AMINOTRANSFERASE 14 U/L (12-78); ALBUMIN 1.1 G/DL (3.4-5.0); ALBUMIN/GLOBULIN RATIO 0.3 (1.0-2.7); ALKALINE PHOSPHATASE 142 U/L (46-116); ANION GAP 8 mmol/L (5-15); ASPARTATE AMINO TRANSFERASE 38 U/L (15-37); BILIRUBIN,TOTAL 0.3 MG/DL (0.2-1.0); BLOOD UREA NITROGEN 56 mg/dL (7-18); CALCIUM 8.6 MG/DL (8.5-10.1); CARBON DIOXIDE 26 MMOL/L (21-32); CHLORIDE 110 MMOL/L (98-107); CREATININE 1.8 MG/DL (0.55-1.30); POTASSIUM 3.7 MMOL/L (3.5-5.1); SODIUM 143 MMOL/L (136-145)
--- NOTE | 2018-08-29 08:33 | Infectious Diseases Prog Note ---
Assessment/Plan Assessment/Plan 78 yo male with pMHx of Seizures, Schizophrenia, CAD s/p Pacemaker and Neck Fx ( 6mo ago) who was sent to the ED on 08/24/18 from his retirement with desaturation. Sepsis PNA and UTI SpCx Pend UCx and BCx - NGTD Seizures Schizophrenia CAD s/p Pacemaker Neck Fx (6mo ago) HTN Plan - Continue Levofloxacin 750mg Q48hr #5/7 (end date 08/31/18) - 08/27/18 SP Cefepime #3 vancomycin #3 - Monitor CBC and Temps We will continue to follow the patient with you. Subjective Allergies: Coded Allergies: NO KNOWN ALLERGIES (Unverified Allergy, Unknown, 08/25/15) Subjective CHANTELLE On RA Aferbile Objective Vital Signs Last 24 Hour Vital Signs Date Time Temp Pulse Resp B/P (MAP) Pulse Ox O2 Delivery O2 Flow Rate FiO2 08/29/18 04:00 76 08/29/18 04:00 98.0 77 20 150/58 (88) 96 08/29/18 01:00 Nasal Cannula 2.0 08/29/18 00:19 70 20 99 Nasal Cannula 2.0 28 08/29/18 00:02 69 18 98 Nasal Cannula 2.0 28 08/29/18 00:00 73 08/29/18 00:00 98.0 78 20 153/76 (101) 96 08/28/18 21:00 Nasal Cannula 2.0 08/28/18 20:00 63 08/28/18 20:00 97.9 67 18 168/74 (105) 94 08/28/18 19:50 72 20 95 Nasal Cannula 2.0 28 08/28/18 19:40 67 18 98 Nasal Cannula 2.0 28 08/28/18 19:40 Nasal Cannula 2.0 28 08/28/18 19:40 98 Nasal Cannula 2.0 28 08/28/18 18:37 77 177/69 08/28/18 16:00 97.2 73 20 100/69 (79) 95 08/28/18 16:00 70 08/28/18 13:15 66 20 98 Nasal Cannula 2.0 28 08/28/18 13:09 65 18 98 Nasal Cannula 2.0 28 08/28/18 12:00 97.3 71 20 158/90 (112) 95 08/28/18 12:00 62 08/28/18 12:00 Nasal Cannula 2.0 08/28/18 10:04 69 172/77 Height (Feet): 5 Height (Inches): 3.00 Weight (Pounds): 163 Objective Gen: NAD, laying in bed HEENT: Hard collar NCAT, MMM, EOMI LUNGS: Coarse , No W CARDS: RRR, S1, S2, No M/R/G, ABD: Soft, NT, ND, + BS Microbiology Date/Time Source Procedure Growth Status 08/26/18 19:55 Nasal Nares Influenza Types A,B Antigen (CURT) - Final Complete Laboratory Tests Test 08/29/18 06:18 White Blood Count 9.2 K/UL (4.8-10.8) Red Blood Count 3.10 M/UL (4.70-6.10) L Hemoglobin 9.4 G/DL (14.2-18.0) L Hematocrit 28.9 % (42.0-52.0) L Mean Corpuscular Volume 93 FL (80-99) Mean Corpuscular Hemoglobin 30.4 PG (27.0-31.0) Mean Corpuscular Hemoglobin Concent 32.6 G/DL (32.0-36.0) Red Cell Distribution Width 17.3 % (11.6-14.8) H Platelet Count 277 K/UL (150-450) Mean Platelet Volume 6.5 FL (6.5-10.1) Neutrophils (%) (Auto) 74.9 % (45.0-75.0) Lymphocytes (%) (Auto) 8.8 % (20.0-45.0) L Monocytes (%) (Auto) 13.1 % (1.0-10.0) H Eosinophils (%) (Auto) 2.3 % (0.0-3.0) Basophils (%) (Auto) 0.9 % (0.0-2.0) Sodium Level 143 MMOL/L (136-145) Potassium Level 3.7 MMOL/L (3.5-5.1) Chloride Level 110 MMOL/L (98-107) H Carbon Dioxide Level 26 MMOL/L (21-32) Anion Gap 8 mmol/L (5-15) Blood Urea Nitrogen 56 mg/dL (7-18) H Creatinine 1.8 MG/DL (0.55-1.30) H Estimat Glomerular Filtration Rate mL/min (>60) Glucose Level 194 MG/DL (74-106) H Calcium Level 8.6 MG/DL (8.5-10.1) Total Bilirubin 0.3 MG/DL (0.2-1.0) Aspartate Amino Transf (AST/SGOT) 38 U/L (15-37) H Alanine Aminotransferase (ALT/SGPT) 14 U/L (12-78) Alkaline Phosphatase 142 U/L (46-116) H Pro-B-Type Natriuretic Peptide 75340 pg/mL (0-125) H Total Protein 5.2 G/DL (6.4-8.2) L Albumin 1.1 G/DL (3.4-5.0) L Globulin 4.1 g/dL Albumin/Globulin Ratio 0.3 (1.0-2.7) L Current Medications Medications (Trade) Dose Ordered Sig/Vahe Route PRN Reason Start Time Stop Time Status Last Admin Dose Admin Albuterol/ Ipratropium (Albuterol/ Ipratropium) 3 ml Q4H PRN HHN Shortness of Breath 08/25/18 08:15 08/30/18 08:14 08/25/18 09:13 Albuterol/ Ipratropium (Albuterol/ Ipratropium) 3 ml Q6HRT HHN 08/25/18 13:00 08/30/18 12:59 08/28/18 23:59 Aspirin (ASA) 81 mg DAILY GT 08/25/18 10:45 09/24/18 10:44 08/28/18 10:04 Bisacodyl (Dulcolax) 10 mg DAILY PRN RECTAL Constipation 08/25/18 03:30 09/24/18 03:29 Carbidopa/Levodopa (Sinemet 25/100) 1 tab FOUR TIMES A DAY GT 08/25/18 09:00 09/24/18 08:59 08/28/18 21:17 Divalproex Sodium (Depakote Sprinkles) 125 mg Q8HR GT 08/25/18 22:00 09/24/18 08:59 08/29/18 05:34 Docusate Sodium (Colace) 100 mg THREE TIMES A DAY GT 08/25/18 13:00 09/24/18 12:59 08/28/18 18:35 Heparin Sodium (Porcine) (Heparin 5000 units/ml) 5,000 units EVERY 12 HOURS SUBQ 08/26/18 09:00 09/25/18 08:59 08/28/18 21:18 Lansoprazole (Prevacid) 30 mg BID GT 08/25/18 10:30 09/24/18 10:29 08/28/18 18:35 Levofloxacin 50 ml @ 50 mls/hr Q24H IVPB 08/28/18 23:00 09/04/18 22:59 08/28/18 23:07 Magnesium Hydroxide (Mom) 30 ml PRN PRN GT Constipation 08/25/18 03:30 09/24/18 03:29 Metoprolol Tartrate (Lopressor) 100 mg BID GT 08/25/18 09:00 09/24/18 08:59 08/28/18 18:37 Promethazine HCl/ Codeine (Phenergan with Codeine) 5 ml Q4H PRN ORAL For Cough 08/25/18 12:00 09/24/18 11:59 Mani Saeed MD Aug 29, 2018 08:33
[2018-08-29] MEDS: Levodopa/Carbidopa 25/100 tab GT SCH ×4 (08:43→21:00)
[2018-08-29] MEDS: Docusate 100mg/10ml Liq GT SCH ×3 (08:43→17:29)
[2018-08-29] MEDS: Aspirin Baby 81mg GT SCH (08:43)
[2018-08-29] MEDS: Heparin 5000 units/ml inj SUBQ SCH ×2 (08:46→21:00)
--- NOTE | 2018-08-29 09:26 | NUR ---
RADIOLOGY DEPT CHEST X-RAY DONE.-P.DYE
--- NOTE | 2018-08-29 09:34 | NUR ---
NURSE NOTES: Dr. Feliciano made aware of edematous scrotum. Per Dr. Feliciano it may be expected with low albumin level. No further order given at this time. Will continue to monitor.
[2018-08-29] MEDS: Albuterol/Ipratropium 3ml neb HHN SCH ×3 (09:35→19:28)
--- NOTE | 2018-08-29 11:51 | Diagnostic Imaging Report ---
Indication: Dyspnea Comparison: 08/26/2018 A single view chest radiograph was obtained. Findings: Central congestion/airspace disease is moderate but may be improved since the last occasion. The heart is enlarged. Bilateral pleural effusions are suspected. Pacemaker again noted. IMPRESSION: Evidence of pulmonary edema with some interval improvement.
[2018-08-29 12:00] VITALS: BP 159/70
[2018-08-29 12:16] LABS: APTT 1:1 NORMAL PLASMA 31.9 sec (22.9-30.2); APTT 1:1NP MIX 60M INCUBATION 33.3 sec (22.9-30.2); APTT 1:1NP MIX CONTROL 31.6 sec (22.9-30.2)
--- NOTE | 2018-08-29 12:46 | General Progress Note ---
Assessment/Plan Assessment/Plan Assessment and Recs: # Anemia due to underlying chronic disease -- anemia panel has been reviewed --> Also since downtrending since admission, with sepsis, could be related to hemodilution --> Anemia panel reviewed --> DW PCP, transfuse only if clinically unstable, and hgb <7 --> No evidence of hemolysis is noted, trend 10.8-->9.4 --> peripheral smear has been reviewed # Thrombocytopenia from sepsis from aspiration pneumonia. On abx as per ID --> hepatitis and hiv negative --> us abd negative for dilated ducts # Sepsis is likely from aspiration pna --> on abx, have been started, on ivf # Aspiration pneumonia # ARF (acute renal failure) # Respiratory failure with hypoxia # Encephalopathy # UTI (urinary tract infection) The timing of this note does not necessarily reflect the time of the patient was seen Greatly appreciate consultation! Subjective Constitutional: Denies: no symptoms, chills, diaphoresis, fever, malaise, weakness, other HEENT: Denies: no symptoms, eye pain, blurred vision, tearing, double vision, ear pain, ear discharge, nose pain, nose congestion, throat pain, throat swelling, mouth pain, mouth swelling, other Cardiovascular: Denies: no symptoms, chest pain, edema, irregular heart rate, lightheadedness, palpitations, syncope, other Respiratory: Denies: no symptoms, cough, orthopnea, shortness of breath, SOB with excertion, SOB at rest, sputum, stridor, wheezing, other Gastrointestinal/Abdominal: Denies: no symptoms, abdomen distended, abdominal pain, black stools, tarry stools, blood in stool, constipated, diarrhea, difficulty swallowing, nausea, poor appetite, poor fluid intake, rectal bleeding , vomiting, other Neurologic/Psychiatric: Denies: no symptoms, anxiety, depressed, emotional problems, headache, numbness, paresthesia, pre-existing deficit, seizure, tingling, tremors, weakness, other Endocrine: Denies: no symptoms, excessive sweating, flushing, intolerance to cold, intolerance to heat, increased hunger, increased thirst, increased urine, unexplained weight gain, unexplained weight loss, other Allergies: Coded Allergies: NO KNOWN ALLERGIES (Unverified Allergy, Unknown, 08/25/15) Subjective 08/27: no events, cbc pending this am, no complaints though noted 08/28: Pt is awake and resting in bed, denies fevers or chills, no events, cbc reviewed 08/29: no events, seen by renal, scrotum is mildly swollen, on levofloxacin per id Objective Last 24 Hour Vital Signs Date Time Temp Pulse Resp B/P (MAP) Pulse Ox O2 Delivery O2 Flow Rate FiO2 08/29/18 11:51 97 Nasal Cannula 2.0 28 08/29/18 11:51 Nasal Cannula 2.0 28 08/29/18 09:54 74 20 99 Nasal Cannula 2.0 28 08/29/18 09:46 72 18 98 Nasal Cannula 2.0 28 08/29/18 09:00 Nasal Cannula 2.0 08/29/18 08:45 72 169/71 08/29/18 08:00 77 08/29/18 08:00 97.9 77 19 169/71 (103) 94 08/29/18 04:00 76 08/29/18 04:00 98.0 77 20 150/58 (88) 96 08/29/18 01:00 Nasal Cannula 2.0 08/29/18 00:19 70 20 99 Nasal Cannula 2.0 28 08/29/18 00:02 69 18 98 Nasal Cannula 2.0 28 08/29/18 00:00 73 08/29/18 00:00 98.0 78 20 153/76 (101) 96 08/28/18 21:00 Nasal Cannula 2.0 08/28/18 20:00 63 08/28/18 20:00 97.9 67 18 168/74 (105) 94 08/28/18 19:50 72 20 95 Nasal Cannula 2.0 28 08/28/18 19:40 67 18 98 Nasal Cannula 2.0 28 08/28/18 19:40 Nasal Cannula 2.0 28 08/28/18 19:40 98 Nasal Cannula 2.0 28 08/28/18 18:37 77 177/69 08/28/18 16:00 97.2 73 20 100/69 (79) 95 08/28/18 16:00 70 08/28/18 13:15 66 20 98 Nasal Cannula 2.0 28 08/28/18 13:09 65 18 98 Nasal Cannula 2.0 28 Intake and Output 08/28/18 08/29/18 19:00 07:00 Intake Total 1145 ml 850 ml Output Total 675 ml Balance 470 ml 850 ml Intake Free Water 250 ml 300 ml IV Total 400 ml Tube Feeding 495 ml 550 ml Output Urine Total 675 ml # Bowel Movements 1 Laboratory Tests 08/29/18 06:18: White Blood Count 9.2, Red Blood Count 3.10L, Hemoglobin 9.4L, Hematocrit 28.9L , Mean Corpuscular Volume 93, Mean Corpuscular Hemoglobin 30.4, Mean Corpuscular Hemoglobin Concent 32.6, Red Cell Distribution Width 17.3H, Platelet Count 277, Mean Platelet Volume 6.5, Neutrophils (%) (Auto) 74.9, Lymphocytes (%) (Auto) 8.8L, Monocytes (%) (Auto) 13.1H, Eosinophils (%) (Auto) 2.3, Basophils (%) (Auto) 0.9, Sodium Level 143, Potassium Level 3.7, Chloride Level 110H, Carbon Dioxide Level 26, Anion Gap 8, Blood Urea Nitrogen 56H, Creatinine 1.8H, Estimat Glomerular Filtration Rate , Glucose Level 194H, Calcium Level 8.6, Total Bilirubin 0.3, Aspartate Amino Transf (AST/SGOT) 38H, Alanine Aminotransferase (ALT/SGPT) 14, Alkaline Phosphatase 142H, Pro-B-Type Natriuretic Peptide 93459S, Total Protein 5.2L, Albumin 1.1L, Globulin 4.1, Albumin/Globulin Ratio 0.3L Height (Feet): 5 Height (Inches): 3.00 Weight (Pounds): 163 Objective General Appearance: moderate distress, Chronically Ill, Stupor Head: normocephalic, atraumatic Eyes: bilateral eye PERRL ENT: other - Oropharynx with lots of thick mucus Neck: other - stiff with collar on Respiratory: respiratory distress, rhonchi Cardiovascular: rrr, no murmur Gastrointestinal: normal bowel sounds, non tender, no mass, no organomegaly, no bruit, non-distended Musculoskeletal: other - contracted. UE with edema Skin: warm/dry Elias Walters MD Aug 29, 2018 12:46
--- NOTE | 2018-08-29 12:49 | Pulmonology Progress Note ---
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 (7) HTN (hypertension) Assessment/Plan improving iv abx as per ID electrolytes better check cultures sputum for c/s Keep right chest elevated chest pt respiratory treatment med/surg Subjective ROS Limited/Unobtainable: No Constitutional: Reports: no symptoms HEENT: Repors: no symptoms Respiratory: Reports: no symptoms Allergies: Coded Allergies: NO KNOWN ALLERGIES (Unverified Allergy, Unknown, 08/25/15) Objective Last 24 Hour Vital Signs Date Time Temp Pulse Resp B/P (MAP) Pulse Ox O2 Delivery O2 Flow Rate FiO2 08/29/18 11:51 97 Nasal Cannula 2.0 28 08/29/18 11:51 Nasal Cannula 2.0 28 08/29/18 09:54 74 20 99 Nasal Cannula 2.0 28 08/29/18 09:46 72 18 98 Nasal Cannula 2.0 28 08/29/18 09:00 Nasal Cannula 2.0 08/29/18 08:45 72 169/71 08/29/18 08:00 77 08/29/18 08:00 97.9 77 19 169/71 (103) 94 08/29/18 04:00 76 08/29/18 04:00 98.0 77 20 150/58 (88) 96 08/29/18 01:00 Nasal Cannula 2.0 08/29/18 00:19 70 20 99 Nasal Cannula 2.0 28 08/29/18 00:02 69 18 98 Nasal Cannula 2.0 28 08/29/18 00:00 73 08/29/18 00:00 98.0 78 20 153/76 (101) 96 08/28/18 21:00 Nasal Cannula 2.0 08/28/18 20:00 63 08/28/18 20:00 97.9 67 18 168/74 (105) 94 08/28/18 19:50 72 20 95 Nasal Cannula 2.0 28 08/28/18 19:40 67 18 98 Nasal Cannula 2.0 28 08/28/18 19:40 Nasal Cannula 2.0 28 08/28/18 19:40 98 Nasal Cannula 2.0 28 08/28/18 18:37 77 177/69 1/10/19 16:00 97.2 73 20 100/69 (79) 95 08/28/18 16:00 70 08/28/18 13:15 66 20 98 Nasal Cannula 2.0 28 08/28/18 13:09 65 18 98 Nasal Cannula 2.0 28 Intake and Output 08/28/18 08/29/18 19:00 07:00 Intake Total 1145 ml 850 ml Output Total 675 ml Balance 470 ml 850 ml Intake Free Water 250 ml 300 ml IV Total 400 ml Tube Feeding 495 ml 550 ml Output Urine Total 675 ml # Bowel Movements 1 Objective General Appearance: WD/WN HEENT: normocephalic, anicteric Respiratory/Chest: chest wall non-tender, lungs clear Breasts: no masses Cardiovascular: normal rate Abdomen: normal bowel sounds, no organomegaly Extremities: no clubbing 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 grossly normal Microbiology Date/Time Source Procedure Growth Status 08/26/18 19:55 Nasal Nares Influenza Types A,B Antigen (CURT) - Final Complete Laboratory Tests 08/29/18 06:18: White Blood Count 9.2, Red Blood Count 3.10L, Hemoglobin 9.4L, Hematocrit 28.9L , Mean Corpuscular Volume 93, Mean Corpuscular Hemoglobin 30.4, Mean Corpuscular Hemoglobin Concent 32.6, Red Cell Distribution Width 17.3H, Platelet Count 277, Mean Platelet Volume 6.5, Neutrophils (%) (Auto) 74.9, Lymphocytes (%) (Auto) 8.8L, Monocytes (%) (Auto) 13.1H, Eosinophils (%) (Auto) 2.3, Basophils (%) (Auto) 0.9, Sodium Level 143, Potassium Level 3.7, Chloride Level 110H, Carbon Dioxide Level 26, Anion Gap 8, Blood Urea Nitrogen 56H, Creatinine 1.8H, Estimat Glomerular Filtration Rate , Glucose Level 194H, Calcium Level 8.6, Total Bilirubin 0.3, Aspartate Amino Transf (AST/SGOT) 38H, Alanine Aminotransferase (ALT/SGPT) 14, Alkaline Phosphatase 142H, Pro-B-Type Natriuretic Peptide 36532P, Total Protein 5.2L, Albumin 1.1L, Globulin 4.1, Albumin/Globulin Ratio 0.3L Current Medications Medications (Trade) Dose Ordered Sig/Vahe Route PRN Reason Start Time Stop Time Status Last Admin Dose Admin Albuterol/ Ipratropium (Albuterol/ Ipratropium) 3 ml Q4H PRN HHN Shortness of Breath 08/25/18 08:15 08/30/18 08:14 08/25/18 09:13 Albuterol/ Ipratropium (Albuterol/ Ipratropium) 3 ml Q6HRT HHN 08/25/18 13:00 08/30/18 12:59 08/29/18 09:35 Aspirin (ASA) 81 mg DAILY GT 08/25/18 10:45 09/24/18 10:44 08/29/18 08:43 Bisacodyl (Dulcolax) 10 mg DAILY PRN RECTAL Constipation 08/25/18 03:30 09/24/18 03:29 Carbidopa/Levodopa (Sinemet 25/100) 1 tab FOUR TIMES A DAY GT 08/25/18 09:00 09/24/18 08:59 08/29/18 08:43 Dextrose (Dextrose 50%) 25 ml Q30M PRN IV Hypoglycemia 08/29/18 12:45 09/28/18 12:44 UNV Dextrose (Dextrose 50%) 50 ml Q30M PRN IV Hypoglycemia 08/29/18 12:45 09/28/18 12:44 Divalproex Sodium (Depakote Sprinkles) 125 mg Q8HR GT 08/25/18 22:00 09/24/18 08:59 08/29/18 05:34 Docusate Sodium (Colace) 100 mg THREE TIMES A DAY GT 08/25/18 13:00 09/24/18 12:59 08/29/18 08:43 Heparin Sodium (Porcine) (Heparin 5000 units/ml) 5,000 units EVERY 12 HOURS SUBQ 08/26/18 09:00 09/25/18 08:59 08/29/18 08:46 Insulin Aspart (NovoLOG) BEFORE MEALS AND HS SUBQ 08/29/18 16:30 09/28/18 16:29 UNV Lansoprazole (Prevacid) 30 mg BID GT 08/25/18 10:30 09/24/18 10:29 08/29/18 08:43 Levofloxacin 50 ml @ 50 mls/hr Q24H IVPB 08/28/18 23:00 09/04/18 22:59 08/28/18 23:07 Magnesium Hydroxide (Mom) 30 ml PRN PRN GT Constipation 08/25/18 03:30 09/24/18 03:29 Metoprolol Tartrate (Lopressor) 100 mg BID GT 08/25/18 09:00 09/24/18 08:59 08/29/18 08:45 Promethazine HCl/ Codeine (Phenergan with Codeine) 5 ml Q4H PRN ORAL For Cough 08/25/18 12:00 09/24/18 11:59 Stefanie Ball MD Aug 29, 2018 12:49
--- NOTE | 2018-08-29 12:58 | NUR ---
NURSE NOTES: Per Dr. Ball, patient on accucheck q6h and patient on sensitive sliding scale. Order entered, noted, and carried out. Will continue to monitor.
--- NOTE | 2018-08-29 14:59 | Nephrology Progress Note ---
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 Underlying Renal failure Sepsis Asp pneumonia UTI Anemia Sz disorder CAD + Pacemaker s/p Cervical Fx 6 months ago COPD DM Plan Norvasc 5mg added Hold Zestril and Glucophage for now slow hydrate K and Mag supplement Urine studies antibiotics avoid nephrotoxics Anemia ibarra per orders Objective Objective Last 24 Hour Vital Signs Date Time Temp Pulse Resp B/P (MAP) Pulse Ox O2 Delivery O2 Flow Rate FiO2 08/29/18 14:08 68 20 99 Nasal Cannula 2.0 28 08/29/18 14:00 71 18 97 Nasal Cannula 2.0 28 08/29/18 12:00 97.4 82 18 159/70 (99) 94 08/29/18 11:51 97 Nasal Cannula 2.0 28 08/29/18 11:51 Nasal Cannula 2.0 28 08/29/18 09:54 74 20 99 Nasal Cannula 2.0 28 08/29/18 09:46 72 18 98 Nasal Cannula 2.0 28 08/29/18 09:00 Nasal Cannula 2.0 08/29/18 08:45 72 169/71 08/29/18 08:00 77 08/29/18 08:00 97.9 77 19 169/71 (103) 94 08/29/18 04:00 76 08/29/18 04:00 98.0 77 20 150/58 (88) 96 08/29/18 01:00 Nasal Cannula 2.0 08/29/18 00:19 70 20 99 Nasal Cannula 2.0 28 08/29/18 00:02 69 18 98 Nasal Cannula 2.0 28 08/29/18 00:00 73 08/29/18 00:00 98.0 78 20 153/76 (101) 96 08/28/18 21:00 Nasal Cannula 2.0 08/28/18 20:00 63 08/28/18 20:00 97.9 67 18 168/74 (105) 94 08/28/18 19:50 72 20 95 Nasal Cannula 2.0 28 08/28/18 19:40 67 18 98 Nasal Cannula 2.0 28 08/28/18 19:40 Nasal Cannula 2.0 28 08/28/18 19:40 98 Nasal Cannula 2.0 28 08/28/18 18:37 77 177/69 08/28/18 16:00 97.2 73 20 100/69 (79) 95 08/28/18 16:00 70 Intake and Output 08/28/18 08/29/18 19:00 07:00 Intake Total 1145 ml 850 ml Output Total 675 ml Balance 470 ml 850 ml Intake Free Water 250 ml 300 ml IV Total 400 ml Tube Feeding 495 ml 550 ml Output Urine Total 675 ml # Bowel Movements 1 Laboratory Tests 08/29/18 06:18: White Blood Count 9.2, Red Blood Count 3.10L, Hemoglobin 9.4L, Hematocrit 28.9L , Mean Corpuscular Volume 93, Mean Corpuscular Hemoglobin 30.4, Mean Corpuscular Hemoglobin Concent 32.6, Red Cell Distribution Width 17.3H, Platelet Count 277, Mean Platelet Volume 6.5, Neutrophils (%) (Auto) 74.9, Lymphocytes (%) (Auto) 8.8L, Monocytes (%) (Auto) 13.1H, Eosinophils (%) (Auto) 2.3, Basophils (%) (Auto) 0.9, Sodium Level 143, Potassium Level 3.7, Chloride Level 110H, Carbon Dioxide Level 26, Anion Gap 8, Blood Urea Nitrogen 56H, Creatinine 1.8H, Estimat Glomerular Filtration Rate , Glucose Level 194H, Calcium Level 8.6, Total Bilirubin 0.3, Aspartate Amino Transf (AST/SGOT) 38H, Alanine Aminotransferase (ALT/SGPT) 14, Alkaline Phosphatase 142H, Pro-B-Type Natriuretic Peptide 70243H, Total Protein 5.2L, Albumin 1.1L, Globulin 4.1, Albumin/Globulin Ratio 0.3L Height (Feet): 5 Height (Inches): 3.00 Weight (Pounds): 163 Objective no change Joe Feliciano MD Aug 29, 2018 14:59
[2018-08-29 16:00] VITALS: BP 150/64
[2018-08-29] MEDS: NovoLOG Insulin Flexpen SUBQ SCH ×2 (17:29→21:00)
--- NOTE | 2018-08-29 19:30 | NUR ---
NURSE NOTES: Received report from VARINDER Mccullough. Patient comfortable in bed, responsive to verbal and external stimuli. Patient responds in partial chadian, no SOB, and no acute distress noted on, vidal catheter with GT Glucerna 1.5 running at 50 ml/hr, no residual noted, HOB elevated at all times. . Bed is in lowest position with call light within reach. Will continue to monitor and follow plan of care.
[2018-08-29 20:00] VITALS: BP 111/62
--- NOTE | 2018-08-29 20:04 | NUR ---
HAND-OFF: Report given to VARINDER Ibrahim. Patient in stable condition.
[2018-08-30] VITALS (7 sets, daily range): BP systolic 129–184; BP diastolic 66–85
[2018-08-30] MEDS ORDERED: Albuterol/Ipratropium 3ml neb HHN PRN (01:33)
[2018-08-30] MEDS ORDERED: Promethazine/Codeine 5ml UD ORAL PRN (01:38)
--- NOTE | 2018-08-30 01:42 | NUR ---
NURSE NOTES: Transferred patient to without incident. Belongings list checked and confirmed, tele box removed, patient chart and cassette medications sent with patient. Patient was transferred in stable condition.
[2018-08-30] MEDS ORDERED: Albuterol/Ipratropium 3ml neb HHN SCH (02:00)
--- NOTE | 2018-08-30 02:18 | NUR ---
NURSE NOTES: Received patient from tele unit, non-verbal, with cervical collar on the neck. IV access on the right forearm. With Gtube connected to feeding. With Figueredo cath intact and draining well. Skin assessment done. Photos taken and uploaded. Dressings changed. Instructed pt the use of call light. Call light and needs in reach. Bed in lowest position, lock engaged and alarm on. Will continue to monitor.
--- NOTE | 2018-08-30 02:45 | Progress Note ---
DATE: 08/29/2018 SUBJECTIVE: The patient is awake, alert, afebrile, and hemodynamically stable. He denied any chest pain, shortness of breath, palpitation, or dizziness. PHYSICAL EXAMINATION: VITAL SIGNS: Blood pressure 111/62, his pulse is 82, respirations are 18, and temperature was 97.2 degrees. HEENT: Eyes were normal. ENT, mucous membranes were moist and intact. NECK: Supple with no JVD without lymph nodes. LUNGS: Clear. There are bilateral crackles at the lateral kahn only. HEART: Normal sounds with regular beats. There is no tachycardia at rest. ABDOMEN: Soft and nontender with normal bowel sounds. EXTREMITIES: Warm without cyanosis, clubbing, or edema. LABORATORY AND DIAGNOSTIC DATA: His hemoglobin is 9.4, hematocrit 28.9 with MCV of 93, WBC of 9.2, and platelets are 277,000. His BUN and creatinine are 56 and 1.8 respectively. His sodium is 143, potassium 3.7, chloride 110, and CO2 is 26. His proBNP is 15,162. His chest x-ray showed bilateral pleural effusion and pulmonary congestion. PLAN: The patient is now off antibiotic without evidence of radiological signs of congestive heart failure. We will increase the spironolactone 25 mg daily. Repeat laboratory tests will be done in a.m. Evans Jarrett M.D. DR: PAULA JOB#: [id number] CC:
[2018-08-30] MEDS ORDERED: Milk of Magnesia 30ml Ud GT PRN (03:30)
[2018-08-30] MEDS: Depakote 125mg Sprinkles GT SCH ×3 (05:15→21:08)
[2018-08-30] MEDS: NovoLOG Insulin Flexpen SUBQ SCH ×4 (05:22→22:01)
--- NOTE | 2018-08-30 07:35 | NUR ---
HAND-OFF: Report given to VARINDER Houser.
[2018-08-30 08:34] LABS: BASOPHILS % (AUTO) 1.1 % (0.0-2.0); EOSINOPHILS % (AUTO) 4.4 % (0.0-3.0); HEMATOCRIT 27.4 % (42.0-52.0); MEAN CORPUSCULAR VOLUME 94 FL (80-99); MONOCYTES % (AUTO) 11.7 % (1.0-10.0); NEUTROPHILS % (AUTO) 71.8 % (45.0-75.0); PLATELET COUNT 263 K/UL (150-450); RED BLOOD COUNT 2.91 M/UL (4.70-6.10); RED CELL DISTRIBUTION WIDTH 16.6 % (11.6-14.8); WHITE BLOOD COUNT 9.3 K/UL (4.8-10.8)
[2018-08-30 09:04] LABS: ANION GAP 8 mmol/L (5-15); BLOOD UREA NITROGEN 61 mg/dL (7-18); CALCIUM 8.9 MG/DL (8.5-10.1); CARBON DIOXIDE 26 MMOL/L (21-32); CHLORIDE 112 MMOL/L (98-107); POTASSIUM 3.9 MMOL/L (3.5-5.1); SODIUM 146 MMOL/L (136-145)
[2018-08-30] MEDS: Levodopa/Carbidopa 25/100 tab GT SCH ×4 (09:44→21:08)
[2018-08-30] MEDS: Docusate 100mg/10ml Liq GT SCH ×3 (09:44→17:28)
[2018-08-30] MEDS: Aspirin Baby 81mg GT SCH (09:44)
[2018-08-30] MEDS: Spironolactone 25mg tab GT SCH (09:44)
[2018-08-30] MEDS: Heparin 5000 units/ml inj SUBQ SCH ×2 (09:51→21:12)
[2018-08-30] MEDS ORDERED: 1/2 NS 1000ml IV ONE (10:25)
[2018-08-30] MEDS ORDERED: Sterile Water Irrig 1000ml IRRIG ONE (10:25)
[2018-08-30] MEDS ORDERED: NS 275ml ONE (10:25)
[2018-08-30] MEDS ORDERED: Tubing IV Secondary IV ONE (10:25)
--- NOTE | 2018-08-30 11:38 | Infectious Diseases Prog Note ---
Assessment/Plan Assessment/Plan 78 yo male with pMHx of Seizures, Schizophrenia, CAD s/p Pacemaker and Neck Fx ( 6mo ago) who was sent to the ED on 08/24/18 from his group home with desaturation. Sepsis PNA and UTI SpCx normal dwight UCx and BCx - NGTD Seizures Schizophrenia CAD s/p Pacemaker Neck Fx (6mo ago) HTN Plan - Continue Levofloxacin 750mg Q48hr #6/7 (end date 08/31/18) - 08/27/18 SP Cefepime #3 vancomycin #3 - Monitor CBC and Temps We will continue to follow the patient with you. Subjective Allergies: Coded Allergies: NO KNOWN ALLERGIES (Unverified Allergy, Unknown, 08/25/15) Subjective afebrile Objective Vital Signs Last 24 Hour Vital Signs Date Time Temp Pulse Resp B/P (MAP) Pulse Ox O2 Delivery O2 Flow Rate FiO2 08/30/18 10:40 94 Nasal Cannula 2.0 28 08/30/18 10:40 Nasal Cannula 2.0 28 08/30/18 09:52 77 161/85 08/30/18 09:44 77 161/85 08/30/18 09:00 Nasal Cannula 2.0 08/30/18 08:00 96.9 77 22 161/85 (110) 92 08/30/18 04:00 97.6 66 20 149/68 (95) 94 08/30/18 02:20 Nasal Cannula 08/30/18 02:20 Nasal Cannula 08/30/18 00:00 97.9 70 18 129/70 (89) 94 08/30/18 00:00 66 08/29/18 21:00 Nasal Cannula 2.0 08/29/18 20:00 97.2 82 18 111/62 (78) 95 08/29/18 20:00 68 08/29/18 19:40 72 20 99 Nasal Cannula 2.0 28 08/29/18 19:35 Nasal Cannula 2.0 28 08/29/18 19:30 70 18 96 Nasal Cannula 2.0 28 08/29/18 19:28 96 Nasal Cannula 2.0 28 08/29/18 17:34 69 150/64 08/29/18 17:30 69 150/64 08/29/18 16:00 98.7 69 17 150/64 (92) 94 08/29/18 14:08 68 20 99 Nasal Cannula 2.0 28 08/29/18 14:00 71 18 97 Nasal Cannula 2.0 28 08/29/18 12:00 71 08/29/18 12:00 97.4 82 18 159/70 (99) 94 08/29/18 11:51 97 Nasal Cannula 2.0 28 08/29/18 11:51 Nasal Cannula 2.0 28 Height (Feet): 5 Height (Inches): 3.00 Weight (Pounds): 163 Objective Gen: NAD, laying in bed HEENT: Hard collar NCAT, MMM, EOMI LUNGS: Coarse , No W CARDS: RRR, S1, S2, No M/R/G, ABD: Soft, NT, ND, + BS Laboratory Tests Test 08/30/18 07:52 White Blood Count 9.3 K/UL (4.8-10.8) Red Blood Count 2.91 M/UL (4.70-6.10) L Hemoglobin 9.0 G/DL (14.2-18.0) L Hematocrit 27.4 % (42.0-52.0) L Mean Corpuscular Volume 94 FL (80-99) Mean Corpuscular Hemoglobin 30.9 PG (27.0-31.0) Mean Corpuscular Hemoglobin Concent 32.8 G/DL (32.0-36.0) Red Cell Distribution Width 16.6 % (11.6-14.8) H Platelet Count 263 K/UL (150-450) Mean Platelet Volume 5.8 FL (6.5-10.1) L Neutrophils (%) (Auto) 71.8 % (45.0-75.0) Lymphocytes (%) (Auto) 11.0 % (20.0-45.0) L Monocytes (%) (Auto) 11.7 % (1.0-10.0) H Eosinophils (%) (Auto) 4.4 % (0.0-3.0) H Basophils (%) (Auto) 1.1 % (0.0-2.0) Sodium Level 146 MMOL/L (136-145) H Potassium Level 3.9 MMOL/L (3.5-5.1) Chloride Level 112 MMOL/L (98-107) H Carbon Dioxide Level 26 MMOL/L (21-32) Anion Gap 8 mmol/L (5-15) Blood Urea Nitrogen 61 mg/dL (7-18) H Creatinine 2.0 MG/DL (0.55-1.30) H Estimat Glomerular Filtration Rate mL/min (>60) Glucose Level 179 MG/DL (74-106) H Calcium Level 8.9 MG/DL (8.5-10.1) Current Medications Medications (Trade) Dose Ordered Sig/Vahe Route PRN Reason Start Time Stop Time Status Last Admin Dose Admin Amlodipine Besylate (Norvasc) 5 mg DAILY GT 08/30/18 09:00 09/29/18 08:59 08/30/18 09:52 Aspirin (ASA) 81 mg DAILY GT 08/30/18 09:00 09/24/18 10:44 08/30/18 09:44 Bisacodyl (Dulcolax) 10 mg DAILY PRN RECTAL Constipation 08/30/18 09:00 09/24/18 03:29 Carbidopa/Levodopa (Sinemet 25/100) 1 tab FOUR TIMES A DAY GT 08/30/18 09:00 09/24/18 08:59 08/30/18 09:44 Dextrose (Dextrose 50%) 25 ml Q30M PRN IV Hypoglycemia 08/30/18 01:15 09/28/18 12:44 Dextrose (Dextrose 50%) 50 ml Q30M PRN IV Hypoglycemia 08/30/18 01:15 09/28/18 12:44 Divalproex Sodium (Depakote Sprinkles) 125 mg Q8HR GT 08/30/18 06:00 09/24/18 08:59 08/30/18 05:15 Docusate Sodium (Colace) 100 mg THREE TIMES A DAY GT 08/30/18 09:00 09/24/18 12:59 08/30/18 09:44 Heparin Sodium (Porcine) (Heparin 5000 units/ml) 5,000 units EVERY 12 HOURS SUBQ 08/30/18 09:00 09/25/18 08:59 08/30/18 09:51 Insulin Aspart (NovoLOG) BEFORE MEALS AND HS SUBQ 08/30/18 06:30 09/28/18 16:29 08/30/18 05:22 Lansoprazole (Prevacid) 30 mg BID GT 08/30/18 09:00 09/24/18 10:29 08/30/18 09:44 Levofloxacin 150 ml @ 150 mls/hr Q48H IVPB 08/31/18 23:00 09/05/18 22:59 Magnesium Hydroxide (Mom) 30 ml PRN PRN GT Constipation 08/30/18 03:30 09/24/18 03:29 Metoprolol Tartrate (Lopressor) 100 mg BID GT 08/30/18 09:00 09/24/18 08:59 08/30/18 09:44 Promethazine HCl/ Codeine (Phenergan with Codeine) 5 ml Q4H PRN ORAL For Cough 08/30/18 01:38 09/24/18 01:37 Spironolactone (Aldactone) 25 mg DAILY GT 08/30/18 09:00 09/29/18 08:59 08/30/18 09:44 Michelle Watt M.D. Aug 30, 2018 11:38
--- NOTE | 2018-08-30 12:24 | Nephrology Progress Note ---
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 Underlying Renal failure Sepsis Asp pneumonia UTI Anemia Sz disorder CAD + Pacemaker s/p Cervical Fx 6 months ago COPD DM Plan Norvasc 5mg increase to BID Hold Zestril and Glucophage for now slow hydrate K and Mag supplement Urine studies antibiotics avoid nephrotoxics Anemia ibarra per orders Subjective ROS Limited/Unobtainable: No Constitutional: Reports: malaise Objective Objective Last 24 Hour Vital Signs Date Time Temp Pulse Resp B/P (MAP) Pulse Ox O2 Delivery O2 Flow Rate FiO2 08/30/18 10:40 94 Nasal Cannula 2.0 28 08/30/18 10:40 Nasal Cannula 2.0 28 08/30/18 09:52 77 161/85 08/30/18 09:44 77 161/85 08/30/18 09:00 Nasal Cannula 2.0 08/30/18 08:00 96.9 77 22 161/85 (110) 92 08/30/18 04:00 97.6 66 20 149/68 (95) 94 08/30/18 02:20 Nasal Cannula 08/30/18 02:20 Nasal Cannula 08/30/18 00:00 97.9 70 18 129/70 (89) 94 08/30/18 00:00 66 08/29/18 21:00 Nasal Cannula 2.0 08/29/18 20:00 97.2 82 18 111/62 (78) 95 08/29/18 20:00 68 08/29/18 19:40 72 20 99 Nasal Cannula 2.0 28 08/29/18 19:35 Nasal Cannula 2.0 28 08/29/18 19:30 70 18 96 Nasal Cannula 2.0 28 08/29/18 19:28 96 Nasal Cannula 2.0 28 08/29/18 17:34 69 150/64 08/29/18 17:30 69 150/64 08/29/18 16:00 98.7 69 17 150/64 (92) 94 08/29/18 14:08 68 20 99 Nasal Cannula 2.0 28 08/29/18 14:00 71 18 97 Nasal Cannula 2.0 28 Intake and Output 08/29/18 08/30/18 19:00 07:00 Intake Total 450 ml Output Total 625 ml Balance -625 ml 450 ml Intake Free Water 150 ml Tube Feeding 300 ml Output Urine Total 625 ml # Bowel Movements 2 Laboratory Tests 08/30/18 07:52: White Blood Count 9.3, Red Blood Count 2.91L, Hemoglobin 9.0L, Hematocrit 27.4L , Mean Corpuscular Volume 94, Mean Corpuscular Hemoglobin 30.9, Mean Corpuscular Hemoglobin Concent 32.8, Red Cell Distribution Width 16.6H, Platelet Count 263, Mean Platelet Volume 5.8L, Neutrophils (%) (Auto) 71.8, Lymphocytes (%) (Auto) 11.0L, Monocytes (%) (Auto) 11.7H, Eosinophils (%) (Auto ) 4.4H, Basophils (%) (Auto) 1.1, Sodium Level 146H, Potassium Level 3.9, Chloride Level 112H, Carbon Dioxide Level 26, Anion Gap 8, Blood Urea Nitrogen 61H, Creatinine 2.0H, Estimat Glomerular Filtration Rate , Glucose Level 179H, Calcium Level 8.9 Height (Feet): 5 Height (Inches): 3.00 Weight (Pounds): 163 General Appearance: no apparent distress Respiratory/Chest: decreased breath sounds Objective no change Joe Feliciano MD Aug 30, 2018 12:24
--- NOTE | 2018-08-30 15:09 | NUR ---
NURSE NOTES: PT WITH ELEVATED BP 184/84 PULSE 73 AND UPON REASSESSMENT BP 164/82 PULSE 76. RN LEFT MESSAGE FOR DR. WINCHESTER. PT IN NO APPARENT DISTRESS AT THIS TIME.
--- NOTE | 2018-08-30 15:20 | NUR ---
NURSE NOTES: DR WINCHESTER WITH ORDER TO START CARDIZEM 60MG PO THREE TIMES A DAY.
[2018-08-30] MEDS: dilTIAZem HCl 60mg tab ORAL SCH ×2 (15:34→21:08)
--- NOTE | 2018-08-30 15:37 | General Progress Note ---
Assessment/Plan Assessment/Plan Assessment and Recs: # Anemia due to underlying chronic disease -- anemia panel has been reviewed --> Also since downtrending since admission, with sepsis, could be related to hemodilution --> Anemia panel reviewed --> DW PCP, transfuse only if clinically unstable, and hgb <7 --> No evidence of hemolysis is noted, trend 10.8-->9.4-->9 --> peripheral smear has been reviewed # Thrombocytopenia from sepsis from aspiration pneumonia. On abx as per ID --> hepatitis and hiv negative --> us abd negative for dilated ducts # Sepsis is likely from aspiration pna --> on abx, have been started, on ivf # Aspiration pneumonia # ARF (acute renal failure) # Respiratory failure with hypoxia # Encephalopathy # UTI (urinary tract infection) The timing of this note does not necessarily reflect the time of the patient was seen Greatly appreciate consultation! Subjective Allergies: Coded Allergies: NO KNOWN ALLERGIES (Unverified Allergy, Unknown, 08/25/15) Subjective 08/27: no events, cbc pending this am, no complaints though noted 08/28: Pt is awake and resting in bed, denies fevers or chills, no events, cbc reviewed 08/29: no events, seen by renal, scrotum is mildly swollen, on levofloxacin per id 08/30: bp high, given cardizem, hgb is 9 Objective Last 24 Hour Vital Signs Date Time Temp Pulse Resp B/P (MAP) Pulse Ox O2 Delivery O2 Flow Rate FiO2 08/30/18 15:34 76 164/82 08/30/18 13:00 76 164/82 (109) 08/30/18 12:00 97.0 73 22 184/84 (117) 96 08/30/18 10:40 94 Nasal Cannula 2.0 28 08/30/18 10:40 Nasal Cannula 2.0 28 08/30/18 09:52 77 161/85 08/30/18 09:44 77 161/85 08/30/18 09:00 Nasal Cannula 2.0 08/30/18 08:00 96.9 77 22 161/85 (110) 92 08/30/18 04:00 97.6 66 20 149/68 (95) 94 08/30/18 02:20 Nasal Cannula 08/30/18 02:20 Nasal Cannula 08/30/18 00:00 97.9 70 18 129/70 (89) 94 08/30/18 00:00 66 08/29/18 21:00 Nasal Cannula 2.0 08/29/18 20:00 97.2 82 18 111/62 (78) 95 08/29/18 20:00 68 08/29/18 19:40 72 20 99 Nasal Cannula 2.0 28 08/29/18 19:35 Nasal Cannula 2.0 28 08/29/18 19:30 70 18 96 Nasal Cannula 2.0 28 08/29/18 19:28 96 Nasal Cannula 2.0 28 08/29/18 17:34 69 150/64 08/29/18 17:30 69 150/64 08/29/18 16:00 98.7 69 17 150/64 (92) 94 Intake and Output 08/29/18 08/30/18 19:00 07:00 Intake Total 450 ml Output Total 625 ml Balance -625 ml 450 ml Intake Free Water 150 ml Tube Feeding 300 ml Output Urine Total 625 ml # Bowel Movements 2 Laboratory Tests 08/30/18 07:52: White Blood Count 9.3, Red Blood Count 2.91L, Hemoglobin 9.0L, Hematocrit 27.4L , Mean Corpuscular Volume 94, Mean Corpuscular Hemoglobin 30.9, Mean Corpuscular Hemoglobin Concent 32.8, Red Cell Distribution Width 16.6H, Platelet Count 263, Mean Platelet Volume 5.8L, Neutrophils (%) (Auto) 71.8, Lymphocytes (%) (Auto) 11.0L, Monocytes (%) (Auto) 11.7H, Eosinophils (%) (Auto ) 4.4H, Basophils (%) (Auto) 1.1, Sodium Level 146H, Potassium Level 3.9, Chloride Level 112H, Carbon Dioxide Level 26, Anion Gap 8, Blood Urea Nitrogen 61H, Creatinine 2.0H, Estimat Glomerular Filtration Rate , Glucose Level 179H, Calcium Level 8.9 Height (Feet): 5 Height (Inches): 3.00 Weight (Pounds): 163 EENT: PERRL/EOMI Neck: normal alignment Cardiovascular: normal rate Respiratory/Chest: normal breath sounds Abdomen: no mass Extremities: non-tender Neurologic: alert Skin: warm/dry Objective General Appearance: moderate distress, Chronically Ill, Stupor Head: normocephalic, atraumatic Eyes: bilateral eye PERRL ENT: other - Oropharynx with lots of thick mucus Neck: other - stiff with collar on Respiratory: respiratory distress, rhonchi Cardiovascular: rrr, no murmur Gastrointestinal: normal bowel sounds, non tender, no mass, no organomegaly, no bruit, non-distended Musculoskeletal: other - contracted. UE with edema Skin: warm/dry Elias Walters MD Aug 30, 2018 15:37
--- NOTE | 2018-08-30 19:33 | NUR ---
HAND-OFF: Report given to Moy GONZALEZ RN.
--- NOTE | 2018-08-30 20:00 | NUR ---
NURSE NOTES: Patient received in bed, awake, nonverbal. Cervical collar on. On 2LPM, no acute cardiorespiratory distress noted at this time. IV site intact. GT intact, no feeding residual noted. FC draining dark marcus urine. HOB elevated 40degrees, aspiration precaution. Turned and repositioned. Will continue POC.
--- NOTE | 2018-08-30 21:30 | Pulmonology Progress Note ---
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 (7) HTN (hypertension) Assessment/Plan improving iv abx as per ID electrolytes better check cultures sputum for c/s Keep right chest elevated chest pt respiratory treatment med/surg Subjective Allergies: Coded Allergies: NO KNOWN ALLERGIES (Unverified Allergy, Unknown, 08/25/15) Objective Last 24 Hour Vital Signs Date Time Temp Pulse Resp B/P (MAP) Pulse Ox O2 Delivery O2 Flow Rate FiO2 08/30/18 21:08 66 157/68 08/30/18 20:00 98.1 66 18 157/68 (97) 96 08/30/18 19:35 Nasal Cannula 2.0 28 08/30/18 19:35 94 Nasal Cannula 2.0 28 08/30/18 17:28 71 153/66 08/30/18 17:28 71 153/66 08/30/18 16:00 97.5 71 22 153/66 (95) 94 08/30/18 15:34 76 164/82 08/30/18 13:00 76 164/82 (109) 08/30/18 12:00 97.0 73 22 184/84 (117) 96 08/30/18 10:40 94 Nasal Cannula 2.0 28 08/30/18 10:40 Nasal Cannula 2.0 28 08/30/18 09:52 77 161/85 08/30/18 09:44 77 161/85 08/30/18 09:00 Nasal Cannula 2.0 08/30/18 08:00 96.9 77 22 161/85 (110) 92 08/30/18 04:00 97.6 66 20 149/68 (95) 94 08/30/18 02:20 Nasal Cannula 08/30/18 02:20 Nasal Cannula 08/30/18 00:00 97.9 70 18 129/70 (89) 94 08/30/18 00:00 66 Intake and Output 08/29/18 08/30/18 18:59 06:59 Intake Total 400 ml Output Total 625 ml Balance -625 ml 400 ml Intake Free Water 150 ml Tube Feeding 250 ml Output Urine Total 625 ml # Bowel Movements 2 Objective General Appearance: WD/WN HEENT: normocephalic, anicteric Respiratory/Chest: chest wall non-tender, lungs clear Breasts: no masses Cardiovascular: normal rate Abdomen: normal bowel sounds, no organomegaly Extremities: no clubbing 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 Laboratory Tests 08/30/18 07:52: White Blood Count 9.3, Red Blood Count 2.91L, Hemoglobin 9.0L, Hematocrit 27.4L , Mean Corpuscular Volume 94, Mean Corpuscular Hemoglobin 30.9, Mean Corpuscular Hemoglobin Concent 32.8, Red Cell Distribution Width 16.6H, Platelet Count 263, Mean Platelet Volume 5.8L, Neutrophils (%) (Auto) 71.8, Lymphocytes (%) (Auto) 11.0L, Monocytes (%) (Auto) 11.7H, Eosinophils (%) (Auto ) 4.4H, Basophils (%) (Auto) 1.1, Sodium Level 146H, Potassium Level 3.9, Chloride Level 112H, Carbon Dioxide Level 26, Anion Gap 8, Blood Urea Nitrogen 61H, Creatinine 2.0H, Estimat Glomerular Filtration Rate , Glucose Level 179H, Calcium Level 8.9 Current Medications Medications (Trade) Dose Ordered Sig/Vahe Route PRN Reason Start Time Stop Time Status Last Admin Dose Admin Amlodipine Besylate (Norvasc) 5 mg BID GT 08/30/18 18:00 09/29/18 08:59 08/30/18 17:28 Aspirin (ASA) 81 mg DAILY GT 08/30/18 09:00 09/24/18 10:44 08/30/18 09:44 Bisacodyl (Dulcolax) 10 mg DAILY PRN RECTAL Constipation 08/30/18 09:00 09/24/18 03:29 Carbidopa/Levodopa (Sinemet 25/100) 1 tab FOUR TIMES A DAY GT 08/30/18 09:00 09/24/18 08:59 08/30/18 21:08 Dextrose (Dextrose 50%) 25 ml Q30M PRN IV Hypoglycemia 08/30/18 01:15 09/28/18 12:44 Dextrose (Dextrose 50%) 50 ml Q30M PRN IV Hypoglycemia 08/30/18 01:15 09/28/18 12:44 Diltiazem HCl (Cardizem) 60 mg EVERY 8 HOURS ORAL 08/30/18 15:21 09/29/18 15:20 08/30/18 21:08 Divalproex Sodium (Depakote Sprinkles) 125 mg Q8HR GT 08/30/18 06:00 09/24/18 08:59 08/30/18 21:08 Docusate Sodium (Colace) 100 mg THREE TIMES A DAY GT 08/30/18 09:00 09/24/18 12:59 08/30/18 17:28 Heparin Sodium (Porcine) (Heparin 5000 units/ml) 5,000 units EVERY 12 HOURS SUBQ 08/30/18 09:00 09/25/18 08:59 08/30/18 21:12 Insulin Aspart (NovoLOG) BEFORE MEALS AND HS SUBQ 08/30/18 06:30 09/28/18 16:29 08/30/18 17:38 Lansoprazole (Prevacid) 30 mg BID GT 08/30/18 09:00 09/24/18 10:29 08/30/18 17:28 Levofloxacin 150 ml @ 150 mls/hr Q48H IVPB 08/31/18 23:00 09/05/18 22:59 Magnesium Hydroxide (Mom) 30 ml PRN PRN GT Constipation 08/30/18 03:30 09/24/18 03:29 Metoprolol Tartrate (Lopressor) 100 mg BID GT 08/30/18 09:00 09/24/18 08:59 08/30/18 17:28 Promethazine HCl/ Codeine (Phenergan with Codeine) 5 ml Q4H PRN ORAL For Cough 08/30/18 01:38 09/24/18 01:37 Spironolactone (Aldactone) 25 mg DAILY GT 08/30/18 09:00 09/29/18 08:59 08/30/18 09:44 Stefanie Ball MD Aug 30, 2018 21:30
[2018-08-31] VITALS: BP 159/64
--- NOTE | 2018-08-31 00:40 | NUR ---
NURSE NOTES: Patient seen by Dr. Jarrett. Ordered to DC patient in AM back to [facility] with hospital medications except for IV meds.
[2018-08-31 04:00] VITALS: BP 153/69
[2018-08-31] MEDS ORDERED: DEPAKOTE SPRIN125 MG GT (04:35)
[2018-08-31] MEDS ORDERED: COLACE100 MG/10 GT (04:36)
[2018-08-31] MEDS ORDERED: HEPARIN SO5000 UNIT2 SUBQ (04:36)
[2018-08-31] MEDS ORDERED: PREVACID30 MG ORAL (04:37)
[2018-08-31] MEDS ORDERED: NOVOLOG100 UNITS1 (04:37)
[2018-08-31] MEDS ORDERED: PROMETHAZINE-C118 M1 ORAL (04:38)
[2018-08-31] MEDS ORDERED: ALDACTONE25 MG GT (04:38)
[2018-08-31] MEDS ORDERED: CARDIZEM60 MG GT (04:39)
[2018-08-31] MEDS ORDERED: NORVASC5 MG GT (04:39)
[2018-08-31] MEDS: dilTIAZem HCl 60mg tab ORAL SCH ×2 (05:12→15:12)
[2018-08-31] MEDS: Depakote 125mg Sprinkles GT SCH ×2 (05:12→15:12)
[2018-08-31] MEDS: NovoLOG Insulin Flexpen SUBQ SCH ×3 (05:18→17:14)
--- NOTE | 2018-08-31 05:30 | Progress Note ---
DATE: 08/30/2018 SUBJECTIVE: The patient is awake, alert, afebrile, and hemodynamically stable. PHYSICAL EXAMINATION: VITAL SIGNS: Blood pressure 157/65, pulse is 66, respirations are 18, and temperature 98.1. HEENT: Eyes were normal. ENT, mucous membranes were moist and intact. NECK: Supple with no JVD without lymph nodes. LUNGS: Clear. HEART: Normal sounds with regular beats. There are no S3, S4, or pericardial rub. ABDOMEN: Soft and nontender with normal bowel sounds. Gastrostomy site is clean. EXTREMITIES: Warm without cyanosis, clubbing, or edema. LABORATORY AND DIAGNOSTIC DATA: Hemoglobin is 9.0, hematocrit 27.4 with MCV of 94, WBC of 9.3, and platelets 263,000. His BUN and creatinine are 61 and 2.0 respectively. Sodium is 146, potassium 3.9, chloride 112, and CO2 is 26. His calcium is 8.9. IMPRESSION AND PLAN: The patient is in relatively stable condition. His blood pressure is sufficiently controlled, however, this will be checked over the next several days by progressively and slowly increasing the blood pressure medication. The patient to the extended care facility where he would continue his congestive heart failure medication with preload and afterload medications. The case was discussed with treatment staff. Evans Jarrett M.D. DR: RAMAN JOB#: [id number] CC:
--- NOTE | 2018-08-31 07:28 | NUR ---
HAND-OFF: Report given to Marshal REEDER.
[2018-08-31 08:00] VITALS: BP 185/86
--- NOTE | 2018-08-31 08:05 | NUR ---
NURSE NOTES: RN CALLED [facility] WITH NO ANSWER, NO OPTION FOR VOICEMAIL.
[2018-08-31] MEDS: Docusate 100mg/10ml Liq GT SCH ×3 (08:43→17:13)
[2018-08-31] MEDS: Levodopa/Carbidopa 25/100 tab GT SCH ×3 (08:44→17:13)
[2018-08-31] MEDS: Aspirin Baby 81mg GT SCH (08:44)
[2018-08-31] MEDS: Spironolactone 25mg tab GT SCH (08:44)
[2018-08-31] MEDS: Heparin 5000 units/ml inj SUBQ SCH (08:56)
[2018-08-31 12:00] VITALS: BP 168/79
--- NOTE | 2018-08-31 12:46 | NUR ---
NURSE NOTES: CRN NOTIFIED [facility] ([facility] [employer]) REGARDING DISCHARGE ORDER.
--- NOTE | 2018-08-31 15:14 | NUR ---
Social Service Note ACACIA spoke with the DON who accepted patient back into room ANEX 2D. Charge nurse notified. Nurse to call report prior to transfer. 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 SW left a message for patient's God-son Trever Grewal [phone]. Referral faxed to [phone] per [facility] [employer] request.
--- NOTE | 2018-08-31 15:35 | General Progress Note ---
Assessment/Plan Assessment/Plan Assessment and Recs: # Anemia due to underlying chronic disease -- anemia panel has been reviewed --> Also since downtrending since admission, with sepsis, could be related to hemodilution --> Anemia panel reviewed --> DW PCP, transfuse only if clinically unstable, and hgb <7 --> No evidence of hemolysis is noted, trend 10.8-->9.4-->9 --> peripheral smear has been reviewed # Thrombocytopenia from sepsis from aspiration pneumonia. On abx as per ID --> hepatitis and hiv negative --> us abd negative for dilated ducts # Sepsis is likely from aspiration pna --> on abx, have been started, on ivf # Aspiration pneumonia # ARF (acute renal failure) # Respiratory failure with hypoxia # Encephalopathy # UTI (urinary tract infection) The timing of this note does not necessarily reflect the time of the patient was seen Greatly appreciate consultation! Subjective Constitutional: Denies: no symptoms, chills, diaphoresis, fever, malaise, weakness, other HEENT: Denies: no symptoms, eye pain, blurred vision, tearing, double vision, ear pain, ear discharge, nose pain, nose congestion, throat pain, throat swelling, mouth pain, mouth swelling, other Cardiovascular: Denies: no symptoms, chest pain, edema, irregular heart rate, lightheadedness, palpitations, syncope, other Respiratory: Denies: no symptoms, cough, orthopnea, shortness of breath, SOB with excertion, SOB at rest, sputum, stridor, wheezing, other Genitourinary: Denies: no symptoms, burning, discharge, frequency, flank pain, hematuria, incontinence, pain, urgency, other Neurologic/Psychiatric: Denies: no symptoms, anxiety, depressed, emotional problems, headache, numbness, paresthesia, pre-existing deficit, seizure, tingling, tremors, weakness, other Endocrine: Denies: no symptoms, excessive sweating, flushing, intolerance to cold, intolerance to heat, increased hunger, increased thirst, increased urine, unexplained weight gain, unexplained weight loss, other Hematologic/Lymphatic: Denies: no symptoms, anemia, easy bleeding, easy bruising, other Allergies: Coded Allergies: NO KNOWN ALLERGIES (Unverified Allergy, Unknown, 08/25/15) Subjective 08/27: no events, cbc pending this am, no complaints though noted 08/28: Pt is awake and resting in bed, denies fevers or chills, no events, cbc reviewed 08/29: no events, seen by renal, scrotum is mildly swollen, on levofloxacin per id 08/30: bp high, given cardizem, hgb is 9 08/31: wants to be discharged shortly, transportation being arranged for today Objective Last 24 Hour Vital Signs Date Time Temp Pulse Resp B/P (MAP) Pulse Ox O2 Delivery O2 Flow Rate FiO2 08/31/18 15:12 72 168/79 08/31/18 12:00 97.9 72 22 168/79 (108) 96 08/31/18 09:00 Nasal Cannula 2.0 08/31/18 08:44 77 185/86 08/31/18 08:44 77 185/86 08/31/18 08:00 97.9 77 24 185/86 (119) 96 08/31/18 07:32 96 Nasal Cannula 2.0 28 08/31/18 07:32 Nasal Cannula 2.0 28 08/31/18 05:12 79 153/78 08/31/18 04:00 97.9 79 18 153/69 (97) 93 08/31/18 00:00 98.1 68 18 159/64 (95) 94 08/30/18 21:08 66 157/68 08/30/18 21:00 Nasal Cannula 2.0 08/30/18 20:00 98.1 66 18 157/68 (97) 96 08/30/18 19:35 Nasal Cannula 2.0 28 08/30/18 19:35 94 Nasal Cannula 2.0 28 08/30/18 17:28 71 153/66 08/30/18 17:28 71 153/66 08/30/18 16:00 97.5 71 22 153/66 (95) 94 Intake and Output 08/30/18 08/31/18 19:00 07:00 Intake Total 940 ml 850 ml Output Total 500 ml 400 ml Balance 440 ml 450 ml Intake Free Water 340 ml 300 ml Tube Feeding 600 ml 550 ml Output Urine Total 500 ml 400 ml # Voids 1 # Bowel Movements 1 Height (Feet): 5 Height (Inches): 3.00 Weight (Pounds): 163 Objective General Appearance: moderate distress, Chronically Ill, Stupor Head: normocephalic, atraumatic Eyes: bilateral eye PERRL ENT: other - Oropharynx with lots of thick mucus Neck: other - stiff with collar on Respiratory: respiratory distress, rhonchi Cardiovascular: rrr, no murmur Gastrointestinal: normal bowel sounds, non tender, no mass, no organomegaly, no bruit, non-distended Musculoskeletal: other - contracted. UE with edema Skin: warm/dry Elias Walters MD Aug 31, 2018 15:35
--- NOTE | 2018-08-31 15:52 | Pulmonology Progress Note ---
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 (7) HTN (hypertension) Assessment/Plan improving iv abx as per ID electrolytes better check cultures sputum for c/s Keep right chest elevated chest pt respiratory treatment med/surg Subjective Allergies: Coded Allergies: NO KNOWN ALLERGIES (Unverified Allergy, Unknown, 08/25/15) Objective Last 24 Hour Vital Signs Date Time Temp Pulse Resp B/P (MAP) Pulse Ox O2 Delivery O2 Flow Rate FiO2 08/31/18 15:12 72 168/79 08/31/18 12:00 97.9 72 22 168/79 (108) 96 08/31/18 09:00 Nasal Cannula 2.0 08/31/18 08:44 77 185/86 08/31/18 08:44 77 185/86 08/31/18 08:00 97.9 77 24 185/86 (119) 96 08/31/18 07:32 96 Nasal Cannula 2.0 28 08/31/18 07:32 Nasal Cannula 2.0 28 08/31/18 05:12 79 153/78 08/31/18 04:00 97.9 79 18 153/69 (97) 93 08/31/18 00:00 98.1 68 18 159/64 (95) 94 08/30/18 21:08 66 157/68 08/30/18 21:00 Nasal Cannula 2.0 08/30/18 20:00 98.1 66 18 157/68 (97) 96 08/30/18 19:35 Nasal Cannula 2.0 28 08/30/18 19:35 94 Nasal Cannula 2.0 28 08/30/18 17:28 71 153/66 08/30/18 17:28 71 153/66 08/30/18 16:00 97.5 71 22 153/66 (95) 94 Intake and Output 08/30/18 08/31/18 19:00 07:00 Intake Total 940 ml 850 ml Output Total 500 ml 400 ml Balance 440 ml 450 ml Intake Free Water 340 ml 300 ml Tube Feeding 600 ml 550 ml Output Urine Total 500 ml 400 ml # Voids 1 # Bowel Movements 1 Objective General Appearance: WD/WN HEENT: normocephalic, anicteric Respiratory/Chest: chest wall non-tender, lungs clear Breasts: no masses Cardiovascular: normal rate Abdomen: normal bowel sounds, no organomegaly Extremities: no clubbing 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 Current Medications Medications (Trade) Dose Ordered Sig/Vahe Route PRN Reason Start Time Stop Time Status Last Admin Dose Admin Amlodipine Besylate (Norvasc) 5 mg BID GT 08/30/18 18:00 09/29/18 08:59 08/31/18 08:44 Aspirin (ASA) 81 mg DAILY GT 08/30/18 09:00 09/24/18 10:44 08/31/18 08:44 Bisacodyl (Dulcolax) 10 mg DAILY PRN RECTAL Constipation 08/30/18 09:00 09/24/18 03:29 Carbidopa/Levodopa (Sinemet 25/100) 1 tab FOUR TIMES A DAY GT 08/30/18 09:00 09/24/18 08:59 08/31/18 12:21 Dextrose (Dextrose 50%) 25 ml Q30M PRN IV Hypoglycemia 08/30/18 01:15 09/28/18 12:44 Dextrose (Dextrose 50%) 50 ml Q30M PRN IV Hypoglycemia 08/30/18 01:15 09/28/18 12:44 Diltiazem HCl (Cardizem) 60 mg EVERY 8 HOURS ORAL 08/30/18 15:21 09/29/18 15:20 08/31/18 15:12 Divalproex Sodium (Depakote Sprinkles) 125 mg Q8HR GT 08/30/18 06:00 09/24/18 08:59 08/31/18 15:12 Docusate Sodium (Colace) 100 mg THREE TIMES A DAY GT 08/30/18 09:00 09/24/18 12:59 08/31/18 12:21 Heparin Sodium (Porcine) (Heparin 5000 units/ml) 5,000 units EVERY 12 HOURS SUBQ 08/30/18 09:00 09/25/18 08:59 08/31/18 08:56 Insulin Aspart (NovoLOG) BEFORE MEALS AND HS SUBQ 08/30/18 06:30 09/28/18 16:29 08/31/18 12:32 Lansoprazole (Prevacid) 30 mg BID GT 08/30/18 09:00 09/24/18 10:29 08/31/18 08:44 Levofloxacin 150 ml @ 150 mls/hr Q48H IVPB 08/31/18 23:00 09/05/18 22:59 Magnesium Hydroxide (Mom) 30 ml PRN PRN GT Constipation 08/30/18 03:30 09/24/18 03:29 Metoprolol Tartrate (Lopressor) 100 mg BID GT 08/30/18 09:00 09/24/18 08:59 08/31/18 08:44 Promethazine HCl/ Codeine (Phenergan with Codeine) 5 ml Q4H PRN ORAL For Cough 08/30/18 01:38 09/24/18 01:37 Spironolactone (Aldactone) 25 mg DAILY GT 08/30/18 09:00 09/29/18 08:59 08/31/18 08:44 Stefanie Ball MD Aug 31, 2018 15:52
[2018-08-31 16:00] VITALS: BP 157/82
--- NOTE | 2018-08-31 16:06 | Nephrology Progress Note ---
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 Underlying Renal failure Sepsis Asp pneumonia UTI Anemia Sz disorder CAD + Pacemaker s/p Cervical Fx 6 months ago COPD DM Plan norvasc changed to cardiazem check labs in am Hold Zestril and Glucophage for now slow hydrate K and Mag supplement Urine studies antibiotics avoid nephrotoxics Anemia ibarra per orders Subjective ROS Limited/Unobtainable: No Constitutional: Reports: malaise Objective Objective Last 24 Hour Vital Signs Date Time Temp Pulse Resp B/P (MAP) Pulse Ox O2 Delivery O2 Flow Rate FiO2 08/31/18 15:12 72 168/79 08/31/18 12:00 97.9 72 22 168/79 (108) 96 08/31/18 09:00 Nasal Cannula 2.0 08/31/18 08:44 77 185/86 08/31/18 08:44 77 185/86 08/31/18 08:00 97.9 77 24 185/86 (119) 96 08/31/18 07:32 96 Nasal Cannula 2.0 28 08/31/18 07:32 Nasal Cannula 2.0 28 08/31/18 05:12 79 153/78 08/31/18 04:00 97.9 79 18 153/69 (97) 93 08/31/18 00:00 98.1 68 18 159/64 (95) 94 08/30/18 21:08 66 157/68 08/30/18 21:00 Nasal Cannula 2.0 08/30/18 20:00 98.1 66 18 157/68 (97) 96 08/30/18 19:35 Nasal Cannula 2.0 28 08/30/18 19:35 94 Nasal Cannula 2.0 28 08/30/18 17:28 71 153/66 08/30/18 17:28 71 153/66 Intake and Output 08/30/18 08/31/18 19:00 07:00 Intake Total 940 ml 850 ml Output Total 500 ml 400 ml Balance 440 ml 450 ml Intake Free Water 340 ml 300 ml Tube Feeding 600 ml 550 ml Output Urine Total 500 ml 400 ml # Voids 1 # Bowel Movements 1 Height (Feet): 5 Height (Inches): 3.00 Weight (Pounds): 163 General Appearance: no apparent distress Respiratory/Chest: decreased breath sounds Abdomen: soft Objective no change Joe Feliciano MD Aug 31, 2018 16:06
[2018-08-31] MEDS ORDERED: HydrALAZINE 25mg tab GT PRN (16:15)
[2018-08-31 17:13] VITALS: BP 157/82
[2018-08-31] MEDS ORDERED: LEVAQUIN750 MG ORAL (17:59)
[2018-08-31] MEDS ORDERED: dilTIAZem HCl 60mg tab ORAL SCH (18:00)
--- NOTE | 2018-08-31 18:00 | NUR ---
NURSE NOTES: RN SPOKE TO PT'S YANDY LUCERO, AND MADE AWARE OF PT'S DISCHARGE BACK TO [facility] TONIGHT. DR. ÁLVAREZ WITH ORDER FOR LEVAQUIN 750MG PO X1 TODAY. RN GAVE REPORT TO KASSANDRA MCCAIN, AT [facility] AND MADE AWARE OF LAST LEVAQUIN DOSE TONIGHT. PT'S WOUND DRESSINGS CHANGED AND PICTURES TAKEN. NO BELONGINGS NOTED ON BELONGINGS SHEET. VSS AND IN NO APPARENT DISTRESS AT THIS TIME.
--- NOTE | 2018-08-31 19:30 | NUR ---
NURSE NOTES: PT LEFT WITH AMBULANCE PERSONNEL IN STABLE CONDITION.
--- NOTE | 2018-09-02 07:49 | Discharge Summary ---
Discharge Summary Discharge Summary _ DATE OF ADMISSION: 08/24/2018 DATE OF DISCHARGE: 08/31/2018 DISCHARGED BY: Dr. Jarrett REASON FOR ADMISSION: 78 years old male with past medical history of hypertension, AICD, COPD, congestive heart failure, diabetes mellitus, Alzheimer dementia, seizure disorder, schizophrenia, presented due to respiratory distress and hypoxia. Nursing facility called paramedics due to respiratory distress, pulse oximetry was in the 70s. Patient was placed on supplemental oxygen and brought to emergency department for further evaluation. Patient has a history of cervical fracture 6 months, and he still wears a hard collar. Upon evaluation patient had low-grade fever and was hypoxemic ; pulse oximetry was 89% on 100% nonrebreathing mask. Laboratory workup revealed leukocytosis WBC 13.9 and anemia with hemoglobin 9.5 hematocrit 28.6. Lactic acid 3.0. Chemistry showed evidence of renal failure with BUN 91 and creatinine 3.3. AST 103 ,ALT 13. Potassium 3.4. Glucose 145. EKG revealed sinus rhythm, no acute ischemic changes. Urinalysis with +4 protein and was grossly positive for UTI. Chest x-ray revealed bilateral pleural effusions and bilateral interstitial congestion. Septic workup initiated in the emergency department. Patient was admitted for further management. CONSULTANTS: pulmonary Dr. Ball ID specialist Dr. Dominguez accounting analyst Dr. Feliciano engine service repairer/oncologist Dr. Walters surgery Dr. Jimenes psychiatrist [facility] COURSE: Patient admitted and started on empiric antibiotics. Blood cultures were negative. Sputum culture was negative. Urine culture was negative. Influenza screen test was negative. Pneumonia clinically evident on CXR and UA was grossly positive for UTI. Patient was on empiric antibiotic as per ID recommendations. Leukocytosis and fever resolved. Patient will need 1 more dose of antibiotics at the facility as per ID recommendation. People Manager closely followed. Supplemental oxygen provided as needed to keep oximetry above 92%. Pulmonary toilet provided [id number] and as needed. Patient was followed up with chest x-ray. Antitussive provided as needed. As patient condition improved, he was able to be weaned from nonrebreathing mask. Prior to discharge pulse oximetry stable on oxygen 2 L via nasal cannula. Echocardiogram revealed preserved ejection fraction 55-60%. No evidence of wall motion abnormality, no evidence of left ventricular hypertrophy. Right ventricular systolic pressure of 43 consistent with mild pulmonary hypertension. Blood pressure was managed with multiply antihypertensive medications, including Cardizem, hydralazine, calcium channel glendy and beta-glendy. Antiplatelet therapy with aspirin and statin were continued. Patient consistently demonstrated sinus rhythm on telemetry , no evidence of arrhythmia, no acute ischemic changes. Maintenance dose of Aldactone was increased with close monitoring of volumes and cardiorenal parameters . Medical Care Administrator followed for acute renal failure,present on admission. Patient initially was slowly hydrated. Nephrotoxic were stopped, including Zestril and Glucophage. Renal parameters and electrolytes were closely monitored, electrolytes corrected as needed. Urine studies were done. Abdominal ultrasound revealed revealed normal bilateral kidney echogenicity. Prior to discharge BUN 61 from initial 91, and creatinine 2.0 from initial 3.3. Patient likely had acute renal failure probably due to sepsis on chronic renal insufficiency, likely due to diabetic nephropathy given high grade of proteinuria. Avoidance of nephrotoxic in future was recommended with close monitoring of renal parameters. Hemoglobin and hematocrit were closely monitored with goal to keep hemoglobin above 7. Patient undergone transfusion of 2 units of packed red blood cells. Anemia workup was consistent with anemia of chronic disease. No evidence of hemolysis noted. Prior to discharge hemoglobin 9.0 hematocrit 27.4. Initially elevated AST down to 38. Abdominal ultrasound revealed no evidence of biliary duct dilatation , no gallstones. Hepatitis panel was negative. HIV test was nonreactive.. Blood sugar was managed with sliding scale of insulin. Hemoglobin A1c at goal . DVT and GI prophylaxis provided. Seizure precautions were maintained. No evidence of seizure activity while in the hospital. Depakote was continued. Bowel regimen instituted. Supportive care provided. Patient had multiply pressure injuries, present on admission. Wound care provided surgeon recommendation. Continue wound care at the facility. Psychiatrist followed. Depakote dose was down titrated , psychiatric psychotropic medication regimen was optimized. Patient clinically stabilized : leukocytosis resolved, no fever, renal parameters improved. Patient was stable for transfer back to half-way facility for continuation of care. FINAL DIAGNOSES: Acute hypoxemic respiratory failure due to pneumonia-resolved Sepsis due to pneumonia and UTI Aspiration pneumonia UTI Acute renal failure likely on chronic kidney disease Toxic encephalopathy Anemia of chronic disease. 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 DISCHARGE INSTRUCTIONS: Patient was discharged to the half-way facility. Follow up with medical doctor at the facility. I have been assigned to dictate discharge summary for this account. I was not involved in the patient's management. Sanam Corey NP Sep 02, 2018 07:49
--- NOTE | 2018-09-02 11:16 | NUR ---
*-* DISCHARGE PLANNED PATIENT WAS DISCHARGED BACK TO: [facility] ROOM# ANEX 2-D SKILLED
--- NOTE | 2018-09-02 20:51 | Cardiology Report ---
APPROVED REPORT EXAM: Two-dimensional and M-mode echocardiogram with Doppler and color Doppler. INDICATION Chest Pain Technically difficult and limited study due to poor acoustic windows. Study quality precludes accurate assessment of regional wall motion. M-mode measurements of left ventricle not obtainable due to cardiac position (angle). Normal left ventricular chamber size, systolic function and wall motion to extent visualized. Left ventricular ejection fraction estimated to be 55-60 %. No evidence of left ventricular hypertrophy. No evidence of pericardial effusion. Mild left atrial enlargement. Mild right ventricular enlargement. Right atrial chamber size is within normal limits. Mild focal aortic valve sclerosis with reduced cusp excursion. Mildly thickened mitral valve leaflets with normal excursion. Mild mitral annulus and aortic root calcification. Pulmonic valve not visualized. Normal tricuspid valve structure. Subcostal views not obtainable due to G-tube. A color flow and spectral Doppler study was performed and revealed: No aortic insufficiency. Peak aortic valve gradient of 13 mmHg and a mean of 6 mmHg. Mild mitral regurgitation. Mitral diastolic velocities suggest mild left ventricular diastolic dysfunction (Grade I). Mild tricuspid regurgitation. Tricuspid systolic velocities suggests peak right ventricular systolic pressure of 43 mmHg, consistent with mild pulmonary hypertension.
== END 2018-08-31 19:55 | DRG 871 ==
LOC: EDBD 22:22 → EMR 22:37 → 2E 23:24 → EDBEDREQ 08-25 00:08 → 4E 08-30 01:25
PROC: 30233N1 Transfusion of Nonautologous Red Blood Cells into Peripheral Vein, Percutaneous Approach (ICD-10-PCS; principal; 2018-08-25)
DX: A41.9 Sepsis, unspecified organism (principal); J69.0 Pneumonitis due to inhalation of food and vomit; J96.00 Acute respiratory failure, unspecified whether with hypoxia or hypercapnia; G92 Toxic encephalopathy; N17.9 Acute kidney failure, unspecified; N39.0 Urinary tract infection, site not specified; I13.0 Hypertensive heart and chronic kidney disease with heart failure and stage 1 through stage 4 chronic kidney disease, or unspecified chronic kidney disease; J44.9 Chronic obstructive pulmonary disease, unspecified; D63.8 Anemia in other chronic diseases classified elsewhere; E11.22 Type 2 diabetes mellitus with diabetic chronic kidney disease; L89.150 Pressure ulcer of sacral region, unstageable; L89.890 Pressure ulcer of other site, unstageable; L89.610 Pressure ulcer of right heel, unstageable; N18.9 Chronic kidney disease, unspecified; Z86.73 Personal history of transient ischemic attack (TIA), and cerebral infarction without residual deficits; I50.9 Heart failure, unspecified; G40.909 Epilepsy, unspecified, not intractable, without status epilepticus; Z95.0 Presence of cardiac pacemaker; F20.9 Schizophrenia, unspecified; F17.200 Nicotine dependence, unspecified, uncomplicated; G30.9 Alzheimer's disease, unspecified; F02.80 Dementia in other diseases classified elsewhere, unspecified severity, without behavioral disturbance, psychotic disturbance, mood disturbance, and anxiety; I27.20 Pulmonary hypertension, unspecified; Z66 Do not resuscitate; S12.9XXD Fracture of neck, unspecified, subsequent encounter; X58.XXXD Exposure to other specified factors, subsequent encounter
CPT/HCPCS: 36415; 51702; 71045; 76700; 80048; 80053; 80076; 81001; 81003; 82150; 82270; 82378; 82550; 82553; 82607; 82728; 82746; 82962; 82977; 83036; 83540; 83550; 83605; 83615; 83690; 83735; 83880; 84100; 84133; 84300; 84439; 84443; 84484; 84550; 85007; 85025; 85044; 85060; 85610; 85651; 85730; 86140; 86703; 86705; 86709; 86710; 86803; 86850; 86900; 86901; 86920; 87040; 87070; 87081; 87086; 87205; 87340; 89050; 93005; 93306; 94640; 94760; 96361; 96365; 96367; 96368; 99291; J1815; J7620; J8499

== ENCOUNTER 2018-09-04 05:21 | Inpatient (IN) | payer MEDICARE, OTHER ==
[~2018-09-04] VITALS: Ht 175.3 cm; Wt 95.3 kg
[2018-09-04] VITALS (9 sets, daily range): BP systolic 68–169; BP diastolic 20–90
--- NOTE | 2018-09-04 05:18 | Emergency Room Report ---
History of Present Illness General Chief Complaint: Dyspnea/Respdistress Present Illness HPI patient is an 78-year-old male who presented for increased difficulty breathing. Patient had gradual onset of symptoms. [facility] Patient recent hospitalization after similar symptoms. Patient to be nonverbal. He had been wearing cervical collar after prior neck fracture. Patient had been brought in by EMS who reported that this was a new fracture however the patient had been in collar for 6 months and has been documented on prior visit. Allergies: Coded Allergies: NO KNOWN ALLERGIES (Unverified Allergy, Unknown, 08/25/15) Patient History Past Medical History: see triage record Reviewed Nursing Documentation: PMH: Agreed; PSxH: Agreed Review of Systems All Other Systems: limited - by mental status Physical Exam Vital Signs Date Time Temp Pulse Resp B/P (MAP) Pulse Ox O2 Delivery O2 Flow Rate FiO2 09/04/18 05:11 98.1 88 20 110/90 88 Bi-pap Sp02 EP Interpretation: reviewed, normal General Appearance: severe distress, lethargic, Chronically Ill Head: atraumatic ENT: normal ENT inspection, hearing grossly normal, normal voice Neck: supple, no bony tend, limited range of motion - c-collar Respiratory: normal inspection, lungs clear, normal breath sounds, no respiratory distress, no retraction, no wheezing Cardiovascular #1: tachycardia, edema Gastrointestinal: normal inspection, normal bowel sounds, non tender, soft, no guarding, no hernia Genitourinary: no CVA tenderness Musculoskeletal: normal inspection, back normal, decreased range of motion Neurologic: alert, speech normal, motor weakness - bilateral upper and lower Skin: normal inspection, normal color, no rash Procedures Critical Care Time Critical Care Time Patient had a critical medical condition which untreated could potentially result in life or limb threatening injury. Total critical care time excluding procedures approximately 45 minutes. Central Line Central Line : Consent: Emergent Central Line Lumen: triple Maximal Sterile Barrier Tech: yes cap, yes mask, yes sterile gown, yes sterile gloves, yes large sterile sheet, yes hand hygiene, yes chlorhexidine prep Central Line Postion: femoral (L) Anesthesia: local cc's of anesthesia: 5 Complications: none Central Line Post Position: sutured, good blood return Attempts: One Patient Tolerated: Well Complications: None Medical Decision Making Diagnostic Impression: Primary Impression: Acute respiratory failure Additional Impressions: Pleural effusion Acute kidney failure Hyperkalemia ER Course Patient presented for shortness of breath. Differential diagnosis includes is not limited to pneumonia, pulmonary embolism, anemia, sepsis among others. Because of complexity of patient's case laboratory testing and imaging studies were ordered. Patient was noted to have severe difficulty breathing. He was started on CPAP by EMS but continued to have severe difficulty with respirations. Patient was noted to be somewhat hypotensive. Patient was noted to have a large right pleural effusion on chest x-ray laboratory testing was notable for some evidence of acute renal failure.. Dr. Jarrett was contacted for inpatient management due to primary care physician. Dr. Feliciano was contacted for nephrology consult. Patient was given Kayexalate as well as IV calcium due to hyperkalemia. Labs Test 09/04/18 05:45 09/04/18 06:52 09/04/18 07:58 White Blood Count 16.9 K/UL (4.8-10.8) Red Blood Count 3.41 M/UL (4.70-6.10) Hemoglobin 10.4 G/DL (14.2-18.0) Hematocrit 31.9 % (42.0-52.0) Mean Corpuscular Volume 94 FL (80-99) Mean Corpuscular Hemoglobin 30.6 PG (27.0-31.0) Mean Corpuscular Hemoglobin Concent 32.7 G/DL (32.0-36.0) Red Cell Distribution Width 16.4 % (11.6-14.8) Platelet Count 412 K/UL (150-450) Mean Platelet Volume 5.9 FL (6.5-10.1) Neutrophils (%) (Auto) 83.9 % (45.0-75.0) Lymphocytes (%) (Auto) 6.8 % (20.0-45.0) Monocytes (%) (Auto) 6.4 % (1.0-10.0) Eosinophils (%) (Auto) 1.4 % (0.0-3.0) Basophils (%) (Auto) 1.5 % (0.0-2.0) Sodium Level 143 MMOL/L (136-145) Potassium Level 6.9 MMOL/L (3.5-5.1) Chloride Level 110 MMOL/L (98-107) Carbon Dioxide Level 26 MMOL/L (21-32) Anion Gap 8 mmol/L (5-15) Blood Urea Nitrogen 118 mg/dL (7-18) Creatinine 4.9 MG/DL (0.55-1.30) Estimat Glomerular Filtration Rate mL/min (>60) Glucose Level 172 MG/DL (74-106) Lactic Acid Level 1.90 mmol/L (0.4-2.0) Calcium Level 8.2 MG/DL (8.5-10.1) Phosphorus Level 6.0 MG/DL (2.5-4.9) Magnesium Level 2.5 MG/DL (1.8-2.4) Total Bilirubin 0.3 MG/DL (0.2-1.0) Aspartate Amino Transf (AST/SGOT) 29 U/L (15-37) Alanine Aminotransferase (ALT/SGPT) 15 U/L (12-78) Alkaline Phosphatase 106 U/L (46-116) Total Creatine Kinase 84 U/L (26-308) Creatine Kinase MB 1.1 NG/ML (0.0-3.6) Creatine Kinase MB Relative Index 1.3 Troponin I 0.062 ng/mL (0.000-0.056) Pro-B-Type Natriuretic Peptide 44663 pg/mL (0-125) Total Protein 5.9 G/DL (6.4-8.2) Albumin 1.4 G/DL (3.4-5.0) Globulin 4.5 g/dL Albumin/Globulin Ratio 0.3 (1.0-2.7) Arterial Blood pH 7.491 (7.350-7.450) Arterial Blood Partial Pressure CO2 35.4 mmHg (35.0-45.0) Arterial Blood Partial Pressure O2 192.8 mmHg (75.0-100.0) Arterial Blood HCO3 26.4 mmol/L (22.0-26.0) Arterial Blood Oxygen Saturation 98.8 % (95-100) Arterial Blood Base Excess 3.2 (-2-2) Popeye Test Positive Urine Color Pale yellow Urine Appearance Cloudy Urine pH 6 (4.5-8.0) Urine Specific [place] 1.010 (1.005-1.035) Urine Protein 4+ (NEGATIVE) Urine Glucose (UA) Negative (NEGATIVE) Urine Ketones 1+ (NEGATIVE) Urine Blood 5+ (NEGATIVE) Urine Nitrite Negative (NEGATIVE) Urine Bilirubin Negative (NEGATIVE) Urine Urobilinogen Normal MG/DL (0.0-1.0) Urine Leukocyte Esterase 1+ (NEGATIVE) Urine RBC 20-30 /HPF (0 - 0) Urine WBC 5-10 /HPF (0 - 0) Urine Squamous Epithelial Cells Occasional /LPF Urine Bacteria Many /HPF (NONE) Urine Coarse Granular Casts 10-15 /LPF (NONE) EKG Diagnostic Results Rate: normal Rhythm: NSR ST Segments: other - hyperkalemia Last Vital Signs Date Time Temp Pulse Resp B/P (MAP) Pulse Ox O2 Delivery O2 Flow Rate FiO2 09/04/18 05:11 98.1 88 20 110/90 88 Bi-pap Status: unchanged Disposition: ADMITTED INPATIENT Condition: Critical Carter Carson MD Sep 04, 2018 05:18
[~2018-09-04 05:21] MED LIST changes: +ALDACTONE25 MG GT; +ATORVASTATIN CA10 MG GT; +CARDIZEM60 MG GT; +COLACE100 MG/10 GT; +DEPAKOTE ER250 MG ORAL; +DEPAKOTE SPRIN125 MG GT; +HEPARIN SO5000 UNIT2 SUBQ; +LEVAQUIN750 MG ORAL; +MILK OF MA2400 MG/10 ORAL; +NORVASC5 MG GT; +NOVOLOG100 UNITS1; +PREVACID30 MG ORAL; +PROMETHAZINE-C118 M1 ORAL; +TYLENOL325 M1 PO
--- NOTE | 2018-09-04 05:22 | NUR ---
ED Nurse Note: Received report. Pt MARBIN from [facility]. Pt had ALOC and SOB at [place], brought in on oxygen 15L on simple mask. Pt's baseline is aphasic but only change observed was drop in saturation to 60% at [facility]. Will carry out orders and monitior closely.
[2018-09-04] MEDS ORDERED: Ampicillin/Sulbactam Sod 3 GM in NS 110 ML IV SCH (05:30)
[2018-09-04 06:07] LABS: BASOPHILS % (AUTO) 1.5 % (0.0-2.0); EOSINOPHILS % (AUTO) 1.4 % (0.0-3.0); HEMATOCRIT 31.9 % (42.0-52.0); HEMOGLOBIN 10.4 G/DL (14.2-18.0); LYMPHOCYTES % (AUTO) 6.8 % (20.0-45.0); MEAN CORPUSCULAR VOLUME 94 FL (80-99); MONOCYTES % (AUTO) 6.4 % (1.0-10.0); NEUTROPHILS % (AUTO) 83.9 % (45.0-75.0); PLATELET COUNT 412 K/UL (150-450); RED BLOOD COUNT 3.41 M/UL (4.70-6.10); RED CELL DISTRIBUTION WIDTH 16.4 % (11.6-14.8); WHITE BLOOD COUNT 16.9 K/UL (4.8-10.8)
[2018-09-04] MEDS ORDERED: DILTIAZEM ER180 M3 PO (06:10)
[2018-09-04] MEDS ORDERED: LEVOFLOXACIN500 MG ORAL (06:11)
[2018-09-04] MEDS ORDERED: DIVALPROEX SOD125 MG PO (06:12)
--- NOTE | 2018-09-04 06:39 | NUR ---
ED Nurse Note: Called RT for ABG.
[2018-09-04 06:44] LABS: ALANINE AMINOTRANSFERASE 15 U/L (12-78); ALBUMIN 1.4 G/DL (3.4-5.0); ALBUMIN/GLOBULIN RATIO 0.3 (1.0-2.7); ALKALINE PHOSPHATASE 106 U/L (46-116); ANION GAP 8 mmol/L (5-15); ASPARTATE AMINO TRANSFERASE 29 U/L (15-37); BILIRUBIN,TOTAL 0.3 MG/DL (0.2-1.0); BLOOD UREA NITROGEN 118 mg/dL (7-18); CALCIUM 8.2 MG/DL (8.5-10.1); CARBON DIOXIDE 26 MMOL/L (21-32); CHLORIDE 110 MMOL/L (98-107); CKMB 1.1 NG/ML (0.0-3.6); CREATINE KINASE 84 U/L (26-308); CREATININE 4.9 MG/DL (0.55-1.30); SODIUM 143 MMOL/L (136-145)
[2018-09-04 06:46] LABS: POTASSIUM 6.9 MMOL/L (3.5-5.1)
[2018-09-04] MEDS ORDERED: Calcium Chloride 10% 10ml carpuject IVP ONE (07:00)
[2018-09-04] MEDS ORDERED: Sodium Polystyrene Sulfonate 15gm Powder ORAL ONE (07:00)
--- NOTE | 2018-09-04 07:00 | NUR ---
ED Nurse Note: Received pt on bed with bipap machine on. NO IV access established and medicines were not given. Established 20 gauge access on L hand and Dr. Carson inserted PICC line on the L groin area
[2018-09-04] MEDS ORDERED: DIGOXIN125 MCG ORAL (07:19)
[2018-09-04] MEDS ORDERED: Lidocaine 1% Plain 30 ml INJ ONE ×2 (07:21→08:45)
--- NOTE | 2018-09-04 07:26 | NUR ---
HAND-OFF: Report given to Radha REEDER. Currently in room helping ERMD put line in for IV access for antibiotic and Rx orders. MD Feliciano in to see pt and made aware.
--- NOTE | 2018-09-04 07:57 | NUR ---
ED Nurse Note: Called pharmacy to follow up with calcium chloride and unasyn. NO IV access
--- NOTE | 2018-09-04 08:13 | NUR ---
RESPIRATORY NOTE: received pt in trauma-ER on bipap 15/5 fio2 100%. No redness or skin breakdown visible around facial area. foam tape is in place. bipap is plugged into red outlet with ambu bag in room. will cont to monitor.
[2018-09-04 08:23] LABS: APPEARANCE,URINE CLOUDY; BILIRUBIN, URINE NEGATIVE (NEGATIVE); COLOR,URINE PALE YELLOW; GLUCOSE, URINE (UA) NEGATIVE (NEGATIVE); KETONES,URINE 1+ (NEGATIVE); LEUKOCYTE ESTERASE ,URINE 1+ (NEGATIVE); NITRITE,URINE NEGATIVE (NEGATIVE); PH,URINE 6 (4.5-8.0); PROTEIN,URINE 4+ (NEGATIVE); UROBILINOGEN,URINE NORMAL MG/DL (0.0-1.0)
--- NOTE | 2018-09-04 08:31 | Consultation ---
Consult Note Consult Note seen in ER at request of Dr Jarrett Known to ester his recent admission HPI patient is an 78-year-old male who presented for increased difficulty breathing. Patient had gradual onset of symptoms. Patient was brought in from assisted. Patient recent hospitalization after similar symptoms. Patient to be nonverbal. He had been wearing cervical collar after prior neck fracture. Patient had been brought in by EMS who reported that this was a new fracture however the patient had been in collar for 6 months and has been documented on prior visit. Allergies: NO KNOWN ALLERGIES (Unverified Allergy, Unknown, 08/25/15) examined- data reviewed- discussed with Dr Carson Assessment/Plan (1) ARF (acute renal failure) (2) Schizophrenia (3) Toxic encephalopathy (4) Anemia (5) Sepsis (6) ICD (implantable cardioverter-defibrillator) in place Renal failure- Pre renal picture- ? Underlying Chronic Renal failure Sepsis Asp pneumonia UTI Anemia Sz disorder CAD + Pacemaker s/p Cervical Fx 6 months ago COPD DM Plan Kayexelate Hydrate Antibiotics Monitor renal parameters Avoid Nephrotoxics per orders Joe Feliciano MD Sep 04, 2018 08:31
--- NOTE | 2018-09-04 08:50 | NUR ---
ED Nurse Note: multiple wounds noted. Refer to other reports for imaging
--- NOTE | 2018-09-04 09:02 | NUR ---
ED Nurse Note: Telephone report given to VARINDER Moreno Addendum: 09/04/18 at 0904 by DINH ED Nurse Note: Per VARINDER Moreno she has 2 patients at this time and cannot received the admission yet. Will give a call back once she transferred her other patient
--- NOTE | 2018-09-04 09:21 | NUR ---
ED Nurse Note: Pt. has a g-tube and came in with vidal catehter inserted Addendum: 09/04/18 at 0921 by DINH vidal catheter inserted prior to ER arrival
--- NOTE | 2018-09-04 09:38 | NUR ---
ED Nurse Note: called RT to transport patient
--- NOTE | 2018-09-04 09:45 | NUR ---
ED Nurse Note: Pt. transferred to ICU via gurney with 2 techs, RT and RN. attached to pvc monitor.Pt. did have any belongings
--- NOTE | 2018-09-04 10:15 | NUR ---
NURSE NOTES: Received pt from ER nurse wilfrido. Pt transferred to bed H via gurney with no incidence noted. Patient is on 3L NC, SPO2 98% breathing is labored and episodes of tachypnea. VSS. patient came with vidal catheter and left femoral TLC. Received orders to continue per Dr. Marie. Skin assessment done, sacral wound and skin tears on bilateral feet and ankles noted. Pt also came in with a neck collar. PEG noted, auscultated by stethoscope for placement. Patient is NSR on ground defence officer with HR 79. Breathing is labored and even. Sides rails padded for seizure precautions. Dr. marie in ICU inputting admission orders now. Bed locked, alarmed and in lowest position.
[2018-09-04] MEDS ORDERED: Mylanta II UD 30ml ORAL PRN (10:30)
[2018-09-04] MEDS ORDERED: Miralax 17gm pkt ORAL PRN (10:30)
[2018-09-04] MEDS ORDERED: Zolpidem 5mg tab ORAL PRN (10:30)
[2018-09-04] MEDS ORDERED: Morphine Sulfate 2mg/ml Inj IVP PRN (10:30)
[2018-09-04] MEDS ORDERED: LORazepam Inj 2mg/ml 1ml IV PRN (10:30)
--- NOTE | 2018-09-04 10:36 | Pulmonolgy Critical Care Note ---
Critical Care - Asmt/Plan Problems: (1) ATN (acute tubular necrosis) (2) Hyperkalemia (3) Pleural effusion (4) 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 (5) ICD (implantable cardioverter-defibrillator) in place (6) Decubital ulcer (7) HTN (hypertension) Respiratory: monitor respiratory rate, adjust FIO2, CXR Cardiac: continue to monitor HR/BP Renal: F/U I&O, keep IV fluid Infectious Disease: check cultures Gastrointestinal: hold feedings Endocrine: monitor blood sugar Hematologic: monitor H/H, transfuse if hgb<8.5 Neurologic: PRN Ativan, PRN Morphine, keep patient comfortable Affect: PRN ativan Prophylaxis: Protonix, Heparin Disposition: keep in ICU Notes Reviewed: instrument assembler, renal Discussed with: nurses, consultants, ed case managersenior clinical study manager - Objective Last 24 Hour Vital Signs Date Time Temp Pulse Resp B/P (MAP) Pulse Ox O2 Delivery O2 Flow Rate FiO2 09/04/18 10:24 96 Nasal Cannula 3.0 32 09/04/18 10:24 Nasal Cannula 3.0 32 09/04/18 09:45 98.0 89 30 163/83 100 Mechanical Ventilator 15.0 50 09/04/18 09:15 98.0 89 30 163/83 100 Mechanical Ventilator 15.0 50 09/04/18 08:48 15.0 50 09/04/18 08:30 96 28 100 Facial 50 09/04/18 08:21 98.0 89 19 169/87 100 15.0 100 09/04/18 07:30 98.2 70 24 68/20 100 Mechanical Ventilator 15.0 100 09/04/18 07:04 15.0 100 09/04/18 06:53 96 28 100 Facial 100 09/04/18 05:50 Bi-pap 09/04/18 05:44 111 36 99 Facial 100 09/04/18 05:40 111 36 Bi-pap 100 09/04/18 05:30 98.0 89 20 110/90 88 Bi-pap 15.0 09/04/18 05:11 98.1 88 20 110/90 88 Bi-pap Status: awake Condition: critical Lungs: clear Heart: HR/BP unstable Abdomen: non-tender, feeding tube Extremities: edema Critical Care - Subjective ROS Limited/Unobtainable: No Condition: critical EKG Rhythm: Sinus Rhythm FI02: 32 Sputum Amount: None I&O: Intake and Output 09/03/18 09/04/18 18:59 06:59 Output Total 100 ml Balance -100 ml Output Urine Total 100 ml # Voids 1 Labs: Laboratory Tests Test 09/04/18 05:45 09/04/18 06:52 09/04/18 07:58 White Blood Count 16.9 K/UL (4.8-10.8) H Red Blood Count 3.41 M/UL (4.70-6.10) L Hemoglobin 10.4 G/DL (14.2-18.0) L Hematocrit 31.9 % (42.0-52.0) L Mean Corpuscular Volume 94 FL (80-99) Mean Corpuscular Hemoglobin 30.6 PG (27.0-31.0) Mean Corpuscular Hemoglobin Concent 32.7 G/DL (32.0-36.0) Red Cell Distribution Width 16.4 % (11.6-14.8) H Platelet Count 412 K/UL (150-450) Mean Platelet Volume 5.9 FL (6.5-10.1) L Neutrophils (%) (Auto) 83.9 % (45.0-75.0) H Lymphocytes (%) (Auto) 6.8 % (20.0-45.0) L Monocytes (%) (Auto) 6.4 % (1.0-10.0) Eosinophils (%) (Auto) 1.4 % (0.0-3.0) Basophils (%) (Auto) 1.5 % (0.0-2.0) Sodium Level 143 MMOL/L (136-145) Potassium Level 6.9 MMOL/L (3.5-5.1) *H Chloride Level 110 MMOL/L (98-107) H Carbon Dioxide Level 26 MMOL/L (21-32) Anion Gap 8 mmol/L (5-15) Blood Urea Nitrogen 118 mg/dL (7-18) H Creatinine 4.9 MG/DL (0.55-1.30) H Estimat Glomerular Filtration Rate mL/min (>60) Glucose Level 172 MG/DL (74-106) H Lactic Acid Level 1.90 mmol/L (0.4-2.0) Calcium Level 8.2 MG/DL (8.5-10.1) L Phosphorus Level 6.0 MG/DL (2.5-4.9) H Magnesium Level 2.5 MG/DL (1.8-2.4) H Total Bilirubin 0.3 MG/DL (0.2-1.0) Aspartate Amino Transf (AST/SGOT) 29 U/L (15-37) Alanine Aminotransferase (ALT/SGPT) 15 U/L (12-78) Alkaline Phosphatase 106 U/L (46-116) Total Creatine Kinase 84 U/L (26-308) Creatine Kinase MB 1.1 NG/ML (0.0-3.6) Creatine Kinase MB Relative Index 1.3 Troponin I 0.062 ng/mL (0.000-0.056) Pro-B-Type Natriuretic Peptide 49587 pg/mL (0-125) H Total Protein 5.9 G/DL (6.4-8.2) L Albumin 1.4 G/DL (3.4-5.0) L Globulin 4.5 g/dL Albumin/Globulin Ratio 0.3 (1.0-2.7) L Arterial Blood pH 7.491 (7.350-7.450) Arterial Blood Partial Pressure CO2 35.4 mmHg (35.0-45.0) Arterial Blood Partial Pressure O2 192.8 mmHg (75.0-100.0) H Arterial Blood HCO3 26.4 mmol/L (22.0-26.0) H Arterial Blood Oxygen Saturation 98.8 % (95-100) Arterial Blood Base Excess 3.2 (-2-2) H Popeye Test Positive Urine Color Pale yellow Urine Appearance Cloudy Urine pH 6 (4.5-8.0) Urine Specific [place] 1.010 (1.005-1.035) Urine Protein 4+ (NEGATIVE) H Urine Glucose (UA) Negative (NEGATIVE) Urine Ketones 1+ (NEGATIVE) H Urine Blood 5+ (NEGATIVE) H Urine Nitrite Negative (NEGATIVE) Urine Bilirubin Negative (NEGATIVE) Urine Urobilinogen Normal MG/DL (0.0-1.0) Urine Leukocyte Esterase 1+ (NEGATIVE) H Urine RBC 20-30 /HPF (0 - 0) H Urine WBC 5-10 /HPF (0 - 0) H Urine Squamous Epithelial Cells Occasional /LPF Urine Bacteria Many /HPF (NONE) H Urine Coarse Granular Casts 10-15 /LPF (NONE) H Stefanie Ball MD Sep 04, 2018 10:36
--- NOTE | 2018-09-04 13:15 | NUR ---
REHAB MED PT NOTE CONSULT RECEIVED, MIKALA CMPLTED, PATIENT AT BASELINE LEVEL OF FUNCTION. NO SKILLED NEEDS. DEPENDENT. DC PT ORDER. RECOMMEND NURSING TO CONTINUE WITH COMFORT AND CARE. EARL MOLINA PT DPT Addendum: 09/04/18 at 1316 by EARL MOLINA PT Amended: Links added.
--- NOTE | 2018-09-04 13:32 | NUR ---
CASE MANAGEMENT: REVIEW 78/M BIBA FROM [facility] CC: DYSPNEA . RESP DISTRESS SI: RESP DISTRESS . PNEUMONITIS T 98.1 HR 111 RR 36 BP 68/20 SAT 100% MECH VENT FIO2 100 WBC 16.9 H/H 10.4/31.9 K 6.9 BUN 118 CR 4.9 IS: NS IVF BOLUS X1 UNASYN IV X1 CALCIUM CHLORIDE IV X1 KAYEXALATE PO QD NS IVF BOLUS X1 INTERQUAL CRITERIA MET: PATIENT ADMITTED TO ICU 09/04/2018 DCP: PATIENT IS FROM [facility]
--- NOTE | 2018-09-04 13:57 | Diagnostic Imaging Report ---
Indication: Dyspnea Comparison: 08/29/2018 A single view chest radiograph was obtained. Findings: Pulmonary edema again demonstrated. Hazy basilar opacities consistent with pleural effusions again demonstrated. Heart is enlarged. Pacemaker again noted. IMPRESSION: No significant change. Pulmonary edema. Bilateral pleural effusion
[2018-09-04] MEDS ORDERED: dilTIAZem HCl 60mg tab GT SCH ×2 (14:00→16:00)
[2018-09-04] MEDS: NovoLOG Insulin Flexpen SUBQ SCH ×2 (14:15→18:22)
--- NOTE | 2018-09-04 14:28 | NUR ---
NURSE NOTES: Unable to obtain insulin pen, administered coverage at 1400. Addendum: 09/04/18 at 1538 by MCKNEZIE MITCHELL RN chiara Mckeon is aware.
--- NOTE | 2018-09-04 14:29 | NUR ---
NURSE NOTES: Received orders for Reglan 10mg IVP x1 per dr. england
[2018-09-04] MEDS ORDERED: Morphine Sulfate 4mg/ml Inj (IV/IM USE ONLY) IVP PRN (14:30)
[2018-09-04] MEDS ORDERED: Metoclopramide 10mg/2ml Inj IVP SCH (14:43)
--- NOTE | 2018-09-04 15:13 | NUR ---
NURSE NOTES: Wound care nurse at bedside. P200 mattress ordered.
[2018-09-04 15:31] LABS: ALANINE AMINOTRANSFERASE 14 U/L (12-78); ALBUMIN 1.7 G/DL (3.4-5.0); ALBUMIN/GLOBULIN RATIO 0.5 (1.0-2.7); ALKALINE PHOSPHATASE 75 U/L (46-116); ANION GAP 8 mmol/L (5-15); ASPARTATE AMINO TRANSFERASE 23 U/L (15-37); BILIRUBIN,TOTAL 0.4 MG/DL (0.2-1.0); BLOOD UREA NITROGEN 112 mg/dL (7-18); CARBON DIOXIDE 25 MMOL/L (21-32); CHLORIDE 113 MMOL/L (98-107); CREATININE 4.6 MG/DL (0.55-1.30); PHOSPHORUS 6.2 MG/DL (2.5-4.9); SODIUM 145 MMOL/L (136-145)
[2018-09-04 15:33] LABS: POTASSIUM 6.2 MMOL/L (3.5-5.1)
--- NOTE | 2018-09-04 15:36 | NUR ---
NURSE NOTES: potassium 6.2, notified by laborer bituminous paving Giulia Watt. Pt did not pass BM yet. Notified Dr. Feliciano, Received orders for reglan 10mg IVP x1. Read back given and verified.
--- NOTE | 2018-09-04 15:38 | NUR ---
NURSE NOTES:WOUND CARE NOTES:Pt from [facility] presents with multiple pressure injuries present on admission.Pt wearing Jayton collar and scattered red areas noted around neck. Scrotum red and enlarged.scattered dry scabbed areas bilat lower ext. Partial thickness pressure injury R thoracic,wound bed moist -viable ,edges adherent and flat .Periwound without erythema(L)2.3cm x (W)3cm DTPI sacrum, maroon discoloration with induration,partially opened on R sacrum ,minimal serous exudate.non-blanchaing erythema periwound(L)4.5cm x (W)6.5cm Unstageable pressure injury to R ischium with 100% yellow slough ,marginal erythema along borders .No odor noted .Non-blanchable erythema periwound(L)4.1cm x (W)2.4cm. DTPI R trochanter .Maroon with induration with partial opening along borders .Small amt sanguineous exudate noted.Non-blanchable erythema periwound (L)4.5cm x (W)4.5cm. Partial thickness pressure injury medial L knee wound bed moist -viable ,edges adherent and flat .Periwound clean and pink (L)1.5cm x (W)4.5cm. UNstageable Pressure injury distal L lower ext in close proximity to Medial malleolus.Wound maroon ,indurated with marginal erythema along borders.Non-blanchable erythema periwound((L)3.5cm x (W)4.5cm DTPI L hallux.Wound maroon and indurated .Non-blanchable erythema periwound(L)3cm x (W)3cm. DTPI lateral L 1st metatarsal .Blood filled blister with non-blanchable erythema periwound(L)3.5cm x (W)2.3cm. DTPI L lateral malleolus.Maroon discoloration with fluctuance .Non-blanching erythema periwound(L)2cm x (W)1.5cm DTPI L medial L heel .Wound maroon in colour and is fluctuant.Periwound pink but also fluctuant(L)4.5cm x (W)6cm. DTPI medial /Plantar R heel.Maroon in colour with fluctuance .Non-blanchable erythema periwound. (L)4cm x (W)3.5cm. DTPI lateral R malleolus .Wound maroon in colour fluctuant centrally with marginal erythema. Non-blanchable erythema periwound. DTPI lateral R 5th metatarsal .Blood filled blister with non-blanching erythema periwound (L)2.5cm x (W)1cm . DTPI distal /lateral R foot .Blood filled blister with non-blanching erythema periwound (L)1cm x (W)1.2cm. Tx.Plan: Apply Cavilon Skin Barrier wipes to DTPI's Both feet .Cover with Optifoam drsg .Change every 7 days and prn. Apply Triad to sacrum .Cavilon along borders .Cover with Optifoam drsg .Change every 3 days and prn. Cleanse wound R upper back with saline .Cover with Optifoam drsg .Change every 3 days and prn. Cleanse wound R Ischium with saline.Apply Therahoney .Cavilon skin barrier to borders .Cover with Optifoam drsg. Change daily and prn. Cleanse wound distal /medail L lower ext .Apply Therahoney .Cavilon Skin Barrier to borders .Cover with Optifoam Drsg .Change daily and Prn. Cleanse wound medial L knee with Saline.Cover with Optifoam drsg .Change every 7 days and prn. Reposition at least every 2 hours or as tolerated. Air fluidized mattress. Off-load heels with Pillow. Apply Moisture barrier to neck daily and prn .
[2018-09-04 15:41] LABS: CREATINE KINASE 108 U/L (26-308)
[2018-09-04 16:01] LABS: HEMATOCRIT 25.2 % (42.0-52.0); HEMOGLOBIN 8.4 G/DL (14.2-18.0); MEAN CORPUSCULAR VOLUME 95 FL (80-99); PLATELET COUNT 249 K/UL (150-450); RED BLOOD COUNT 2.66 M/UL (4.70-6.10); RED CELL DISTRIBUTION WIDTH 15.8 % (11.6-14.8)
--- NOTE | 2018-09-04 16:16 | NUR ---
NURSE NOTES: urine collected and sent to lab.
[2018-09-04] MEDS ORDERED: Sodium Polystyrene Sulfonate 15gm Powder GT SCH (17:08)
[2018-09-04] MEDS ORDERED: Metoclopramide 10mg/2ml Inj IVP PRN (17:15)
[2018-09-04 17:45] LABS: APPEARANCE,URINE SLIGHTLY CLOUDY; BILIRUBIN, URINE NEGATIVE (NEGATIVE); COLOR,URINE YELLOW; GLUCOSE, URINE (UA) 1+ (NEGATIVE); KETONES,URINE NEGATIVE (NEGATIVE); LEUKOCYTE ESTERASE ,URINE 1+ (NEGATIVE); NITRITE,URINE NEGATIVE (NEGATIVE); PH,URINE 6.5 (4.5-8.0); PROTEIN,URINE 4+ (NEGATIVE); UROBILINOGEN,URINE NORMAL MG/DL (0.0-1.0)
[2018-09-04] MEDS ORDERED: Depakote 125mg Sprinkles GT SCH (18:00)
[2018-09-04] MEDS: Depakote 125mg Sprinkles GT SCH (18:27)
[2018-09-04 18:38] LABS: ANION GAP 7 mmol/L (5-15); BLOOD UREA NITROGEN 115 mg/dL (7-18); CARBON DIOXIDE 26 MMOL/L (21-32); CHLORIDE 114 MMOL/L (98-107); CREATININE 4.7 MG/DL (0.55-1.30); SODIUM 147 MMOL/L (136-145)
[2018-09-04 18:45] LABS: POTASSIUM 6.4 MMOL/L (3.5-5.1)
--- NOTE | 2018-09-04 18:55 | NUR ---
NURSE NOTES: Patient seen asleep. VSS, Tolerating GTF well. HOB 35 degrees. Productive cough noted. No BM yet.
--- NOTE | 2018-09-04 19:16 | NUR ---
HAND-OFF: Report given to VARINDER Gastelum using SBAR.
--- NOTE | 2018-09-04 19:30 | NUR ---
NURSE NOTES: Received pt in no acute distress; opens eyes to name but non verbal. No evidence of pain; no SOB. Pt is on 3l/m via NC, saturating 100%. chest sounds diminished at bases. Noted an AICD on Left upper chest; sinus rhythm currently in the 70's; BP stable; afebrile. GT noted with GTF of Nepro running at 30ml/h with 0 residual. FC patent, draining small amts of clear yellow urine. Pt has multiple skin breakdown; all dressings dry and intact. Will continue to monitor
--- NOTE | 2018-09-04 20:00 | NUR ---
NURSE NOTES: Placed pt on P-200 mattress. Pt had 1 large soft BM; cleaned and rendered dry. Pt wearing a cervical collar. TLC on Left femoral area intact; IVF of 1/2 NS infuses at 150ml/h.
[2018-09-04] MEDS ORDERED: Heparin 5000 units/ml inj SUBQ SCH (21:00)
[2018-09-04] MEDS ORDERED: Sodium Polystyrene Sulfonate 15gm Powder ORAL SCH (21:15)
[2018-09-04] MEDS: Pantoprazole Inj IVP SCH (21:27)
[2018-09-04] MEDS: dilTIAZem HCl 60mg tab GT SCH (21:29)
[2018-09-04] MEDS: Heparin 5000 units/ml inj SUBQ SCH (21:34)
--- NOTE | 2018-09-04 22:00 | NUR ---
NURSE NOTES: Dr Jarrett here, saw pt and gave orders to give 60gms of Kayexelate and repeat labs and CXR in AM.
[2018-09-05] VITALS (17 sets, daily range): BP systolic 116–159; BP diastolic 56–95
--- NOTE | 2018-09-05 | NUR ---
NURSE NOTES: Tolerating current TF. No residuals.Increased TF rate to 40ml/h. Pt calm, asleep, no distress. No BM
[2018-09-05] MEDS: NovoLOG Insulin Flexpen SUBQ SCH ×4 (00:39→18:16)
--- NOTE | 2018-09-05 02:00 | NUR ---
NURSE NOTES:Sleeping, no distress, VSS. No seizure activity noted.
--- NOTE | 2018-09-05 04:00 | NUR ---
NURSE NOTES: Incontinent of large amt of soft stool. Sacral dressing contaminated with stool. Complete bed bath done. Redressed sacral and perianal wounds. Changed dressing of the right femoral TLC. Pt combative.
--- NOTE | 2018-09-05 04:00 | History and Physical Report ---
DATE OF ADMISSION: 09/04/2018 This is the first admission to [facility] of this 78-year-old patient because of acute renal failure. HISTORY OF PRESENT ILLNESS: The patient was discharged several days ago from this hospital back to [facility] where he was relatively in stable condition. On the day of admission, he was found to be foaming in his bed in shortness of breath, tachycardia, and hypotension. He was brought by paramedics to [facility] ER and was found to be in acute renal failure with BUN of 112, potassium was 6.2, and creatinine of 4.6. The patient was admitted. PAST MEDICAL HISTORY: The patient several weeks ago in which he had shortness of breath and renal failure. He is known to have several chronic medical syndrome that include congestive heart failure, chronic psychosis, and toxic encephalopathy. Recently had an injury to his neck for which he has got a soft neck collar around. over the last 6 months. ALLERGIES: No known drug allergies. MEDICATIONS: The patient was on amlodipine 5 mg daily, aspirin 81 mg daily, bisacodyl 10 mg. His p.r.n. medications, he is on Vicodin, he is on cough syrup that includes promethazine and codeine, diltiazem 180 mg q.24 h. and 60 mg in the a.m., he is on Depakote 125 t.i.d., heparin sodium for DVT prevention 5000 units subcutaneously q.12 h. He was on Prevacid 30 mg daily, levofloxacin 500 mg daily, and metoprolol 100 mg b.i.d. FAMILY HISTORY: Noncontributory. SOCIAL HISTORY: He is single. He was born in [place] and living in [place] for many years. Prior to the appearance of his disability, he was unemployed as well. HABITS: The patient did smoke more than 60 years. He discontinued smoking several years ago. He has a history of alcoholism and also stopped 10 years ago. He has no history of drug abuse. REVIEW OF SYSTEMS: The patient is adamant to give any information regarding his state of health. The patient had insertion of AICD in 2010. PHYSICAL EXAMINATION: VITAL SIGNS: Blood pressure is 154/58, his pulse is 79, respirations 17, and temperature is 98. HEENT: Eyes were normal. Pupils were round, equal, and reactive to light. Sclerae was white. Conjunctivae were pink. Extraocular movements are normal. Temporal arteries were palpable bilaterally. There was bilateral temporal wasting. Visual lara to confrontation. Neglect sign could not be assessed. ENT, mucous membranes were not dehydrated. Auditory canals were clear and tympanic membranes could not be visualized. Nasal cavity was not congested. Nasal septum was intact. Soft palate was free of ulcerations. Pharynx was clear from exudate or tonsillar hypertrophy. Uvula micky to phonation. Tongue was moist, midline, and normally papillated. NECK: Supple. There was no goiter. No mass. No lymphadenopathy. There was no JVD. No bruits. Carotid upstroke was 2+. LUNGS: Clear. HEART: PMI was in fifth left intercostal space in midclavicular line. There was normal S1 and normal S2. There was no murmur. No arrhythmia. No S3. No S4. No pericardial rub. ABDOMEN: Soft and nontender without organomegaly. There were normal bowel sounds without bruits. There was no guarding. No rebound tenderness. No ascites. No hernia. No CVA tenderness. Liver span was 8 cm, mostly nontender. EXTREMITIES: No cyanosis, no clubbing, and no edema. Extremities were warm. NEUROLOGICAL: Excellent biceps, triceps, and brachioradialis were present. Patellar retinaculum were present. Plantar were in flexion. Cranial nerves II through XII were symmetric and equal. Cerebellar function, gait [id number], rapid alternating movements, and Romberg sign were not performed by the patient. There was no tremor. No nystagmus. No extrapyramidal rigidity. Sensory exam to pinprick, cotton touch, position, and motor strength was difficult to assess because of the patient's clinical status. LABORATORY AND DIAGNOSTIC DATA: His hemoglobin is 10.4, hematocrit 31.9 with MCV of 94, WBC of 16.9, and platelets 412. His BUN and creatinine is 115 and 1.7 respectively. His sodium is 147, potassium 6.4, chloride 140, and CO2 was 26. His lactic acid is 1.9. His calcium is 8.0. His total CK is 1.3. His albumin was 1.7 and total protein is 5.0. His urinalysis showed 5+ blood, 4+ protein, 5 to 10 wbc's and too numerous to count RBC. Urine sodium was 26, urine chloride was 60, urine potassium was 62. His chest x-ray showed pulmonary edema and bilateral pleural effusion. IMPRESSION: The patient has exacerbation of renal failure associated with congestive heart failure with bilateral pleural effusion and pulmonary edema. PLAN: Multiple consultants was called to assist in the management of this case. Pulmonary consulted and Nephrology consulted and Cardiology consult was called as well. Repeat laboratory tests will be done in the morning. Evans Jarrett M.D. DR: APRIL JOB#: [id number] CC:
[2018-09-05] MEDS: dilTIAZem HCl 60mg tab GT SCH ×2 (05:35→18:15)
--- NOTE | 2018-09-05 06:00 | NUR ---
NURSE NOTES: Calm, quiet, asleep. No distress, no SOB. VSS. No seizures noted. Tolerating GTF at 50ml/h.Neck collar in place
--- NOTE | 2018-09-05 07:01 | NUR ---
HAND-OFF: Report given to Rosie Newby RN via SBAR.
--- NOTE | 2018-09-05 07:12 | NUR ---
NURSE NOTES: Received pt from VARINDER Gastelum. Patient is asleep, no distress noted at this time. Pt is on 3LNC, SPO2 100%. Breathing unlabored and even. Bilateral lung sounds are diminished. GTF running Nepro@50cc/hr, no residual noted. HOB 35 degrees. Pt has cervical neck collar. Dressings clean and intact. F/C draining cloudy yellow urine to gravity. AICD noted on left upper chest. Left femoral TLC running 1/2NS@150, dressing changed last night. Pt is on p200 mattress. Will continue plan of care.
[2018-09-05 07:29] LABS: HEMATOCRIT 26.2 % (42.0-52.0); HEMOGLOBIN 8.5 G/DL (14.2-18.0); MEAN CORPUSCULAR VOLUME 95 FL (80-99); PLATELET COUNT 257 K/UL (150-450); RED BLOOD COUNT 2.76 M/UL (4.70-6.10); RED CELL DISTRIBUTION WIDTH 15.7 % (11.6-14.8); WHITE BLOOD COUNT 12.8 K/UL (4.8-10.8)
[2018-09-05] MEDS: Pantoprazole Inj IVP SCH ×2 (08:03→20:45)
[2018-09-05] MEDS: Depakote 125mg Sprinkles GT SCH ×2 (08:04→20:49)
[2018-09-05] MEDS: Heparin 5000 units/ml inj SUBQ SCH ×2 (08:05→20:45)
[2018-09-05 08:13] LABS: PHOSPHORUS 6.8 MG/DL (2.5-4.9)
[2018-09-05 08:56] LABS: ALANINE AMINOTRANSFERASE 14 U/L (12-78); ALBUMIN 1.7 G/DL (3.4-5.0); ALBUMIN/GLOBULIN RATIO 0.5 (1.0-2.7); ALKALINE PHOSPHATASE 87 U/L (46-116); ANION GAP 12 mmol/L (5-15); ASPARTATE AMINO TRANSFERASE 35 U/L (15-37); BILIRUBIN,TOTAL 0.5 MG/DL (0.2-1.0); BLOOD UREA NITROGEN 113 mg/dL (7-18); CALCIUM 7.6 MG/DL (8.5-10.1); CARBON DIOXIDE 25 MMOL/L (21-32); CHLORIDE 111 MMOL/L (98-107); CHOLESTEROL 81 MG/DL (< 200); CREATININE 4.8 MG/DL (0.55-1.30); HDL CHOLESTEROL 22 MG/DL (40-60); SODIUM 148 MMOL/L (136-145); TRIGLYCERIDES 107 MG/DL (30-150)
--- NOTE | 2018-09-05 10:22 | Pulmonolgy Critical Care Note ---
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 (6) ICD (implantable cardioverter-defibrillator) in place (7) Decubital ulcer (8) HTN (hypertension) Respiratory: monitor respiratory rate, adjust FIO2, CXR Cardiac: continue to monitor HR/BP Renal: F/U I&O, keep IV fluid Infectious Disease: check cultures Gastrointestinal: continue feedings/current rate Endocrine: monitor blood sugar, continue sliding scale insulin Hematologic: transfuse if hgb<8.5 Neurologic: PRN Ativan, keep patient comfortable Prophylaxis: Protonix Time Spent (Minutes): 40 Notes Reviewed: cardio, renal Discussed with: nurses, consultants, 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 - Objective Last 24 Hour Vital Signs Date Time Temp Pulse Resp B/P (MAP) Pulse Ox O2 Delivery O2 Flow Rate FiO2 09/05/18 08:04 95 136/90 09/05/18 08:00 Nasal Cannula 3.0 09/05/18 08:00 76 25 142/92 (109) 95 09/05/18 07:00 98.6 95 21 136/90 (105) 95 09/05/18 06:50 95 Nasal Cannula 3.0 32 09/05/18 06:50 Nasal Cannula 3.0 32 09/05/18 06:00 74 25 129/60 (83) 94 09/05/18 05:35 78 159/66 09/05/18 05:00 75 25 159/66 (97) 96 09/05/18 04:06 98.7 78 27 155/62 (93) 96 09/05/18 04:05 Nasal Cannula 3.0 09/05/18 04:05 73 09/05/18 03:00 77 22 145/95 (112) 94 09/05/18 02:00 74 22 148/71 (96) 99 09/05/18 01:00 76 22 138/76 (96) 98 09/05/18 00:00 Nasal Cannula 3.0 09/05/18 00:00 98.0 72 22 137/60 (85) 97 09/05/18 00:00 75 09/04/18 23:00 73 21 153/72 (99) 99 09/04/18 22:00 76 22 146/77 (100) 97 09/04/18 21:33 77 151/74 09/04/18 21:29 78 151/74 09/04/18 21:00 76 21 151/74 (99) 98 09/04/18 20:00 Nasal Cannula 3.0 09/04/18 20:00 74 09/04/18 20:00 74 21 142/67 (92) 100 09/04/18 19:24 Nasal Cannula 3.0 32 09/04/18 19:23 99 Nasal Cannula 3.0 32 09/04/18 19:00 97.7 76 21 146/74 (98) 100 09/04/18 16:07 78 154/58 09/04/18 16:00 79 09/04/18 16:00 Nasal Cannula 3.0 09/04/18 16:00 3.0 09/04/18 12:00 3.0 09/04/18 12:00 78 09/04/18 12:00 Nasal Cannula 3.0 09/04/18 10:47 Nasal Cannula 4.0 09/04/18 10:45 Nasal Cannula 4.0 09/04/18 10:24 96 Nasal Cannula 3.0 32 09/04/18 10:24 Nasal Cannula 3.0 32 Status: awake Condition: critical HEENT: atraumatic Lungs: rales, rhonchi Heart: HR/BP stable Abdomen: soft, active bowel sounds Extremities: edema Micro: Microbiology Date/Time Source Procedure Growth Status 09/04/18 16:20 Urine,Clean Catch Urine Culture - Preliminary NO GROWTH Resulted 09/04/18 07:58 Urine,Clean Catch Urine Culture - Preliminary NO GROWTH Resulted Accucheck: 136 Critical Care - Subjective ROS Limited/Unobtainable: Yes Condition: critical EKG Rhythm: Sinus Rhythm FI02: 32 Sputum Amount: None Tube Feeding Amount: 50 I&O: Intake and Output 09/04/18 09/05/18 19:00 07:00 Intake Total 440 ml 2420 ml Output Total 220 ml 460 ml Balance 220 ml 1960 ml Intake Free Water 60 ml 60 ml IV Total 250 ml 1650 ml Tube Feeding 130 ml 470 ml Other 240 ml Output Urine Total 220 ml 460 ml # Bowel Movements 4 2 CXR: pleural effusion Labs: Laboratory Tests Test 09/04/18 14:50 09/04/18 15:00 09/04/18 16:20 09/04/18 17:50 White Blood Count 17.0 K/UL (4.8-10.8) H Red Blood Count 2.66 M/UL (4.70-6.10) L Hemoglobin 8.4 G/DL (14.2-18.0) L Hematocrit 25.2 % (42.0-52.0) L Mean Corpuscular Volume 95 FL (80-99) Mean Corpuscular Hemoglobin 31.3 PG (27.0-31.0) H Mean Corpuscular Hemoglobin Concent 33.1 G/DL (32.0-36.0) Red Cell Distribution Width 15.8 % (11.6-14.8) H Platelet Count 249 K/UL (150-450) Mean Platelet Volume 6.0 FL (6.5-10.1) L Neutrophils (%) (Auto) % (45.0-75.0) Lymphocytes (%) (Auto) % (20.0-45.0) Monocytes (%) (Auto) % (1.0-10.0) Eosinophils (%) (Auto) % (0.0-3.0) Basophils (%) (Auto) % (0.0-2.0) Differential Total Cells Counted 100 Neutrophils % (Manual) 94 % (45-75) H Lymphocytes % (Manual) 3 % (20-45) L Monocytes % (Manual) 3 % (1-10) Eosinophils % (Manual) 0 % (0-3) Basophils % (Manual) 0 % (0-2) Band Neutrophils 0 % (0-8) Platelet Estimate Adequate Platelet Morphology Normal Polychromasia 1+ Anisocytosis 1+ Sodium Level 145 MMOL/L (136-145) 147 MMOL/L (136-145) H Potassium Level 6.2 MMOL/L (3.5-5.1) *H 6.4 MMOL/L (3.5-5.1) *H Chloride Level 113 MMOL/L (98-107) H 114 MMOL/L (98-107) H Carbon Dioxide Level 25 MMOL/L (21-32) 26 MMOL/L (21-32) Anion Gap 8 mmol/L (5-15) 7 mmol/L (5-15) Blood Urea Nitrogen 112 mg/dL (7-18) H 115 mg/dL (7-18) H Creatinine 4.6 MG/DL (0.55-1.30) H 4.7 MG/DL (0.55-1.30) H Estimat Glomerular Filtration Rate mL/min (>60) mL/min (>60) Glucose Level 161 MG/DL (74-106) H 139 MG/DL (74-106) H Osmolality 342 mOsm/kg (297-317) H Uric Acid 6.3 MG/DL (2.6-7.2) Calcium Level 8.0 MG/DL (8.5-10.1) L 8.0 MG/DL (8.5-10.1) L Phosphorus Level 6.2 MG/DL (2.5-4.9) H Magnesium Level 2.3 MG/DL (1.8-2.4) Total Bilirubin 0.4 MG/DL (0.2-1.0) Aspartate Amino Transf (AST/SGOT) 23 U/L (15-37) Alanine Aminotransferase (ALT/SGPT) 14 U/L (12-78) Alkaline Phosphatase 75 U/L (46-116) Total Creatine Kinase 108 U/L (26-308) Total Protein 5.0 G/DL (6.4-8.2) L Albumin 1.7 G/DL (3.4-5.0) L Globulin 3.3 g/dL Albumin/Globulin Ratio 0.5 (1.0-2.7) L Free Thyroxine 1.07 NG/DL (0.76-1.46) Free Triiodothyronine 1.3 pg/mL (2.3-4.2) L Cortisol 10.1 UG/DL Urine Color Yellow Urine Appearance Slightly cloudy Urine pH 6.5 (4.5-8.0) Urine Specific [place] 1.005 (1.005-1.035) Urine Protein 4+ (NEGATIVE) H Urine Glucose (UA) 1+ (NEGATIVE) H Urine Ketones Negative (NEGATIVE) Urine Blood 5+ (NEGATIVE) H Urine Nitrite Negative (NEGATIVE) Urine Bilirubin Negative (NEGATIVE) Urine Urobilinogen Normal MG/DL (0.0-1.0) Urine Leukocyte Esterase 1+ (NEGATIVE) H Urine RBC Tntc /HPF (0 - 0) H Urine WBC 5-10 /HPF (0 - 0) H Urine Squamous Epithelial Cells None /LPF (NONE/OCC) Urine Bacteria Moderate /HPF (NONE) H Urine Eosinophils None seen (NONE SEEN) Urine Osmolality 370 mOsm/kg (429-449) L Urine Random Sodium 26 mmol/L (20-110) Urine Random Chloride 60 mmol/L (55-125) Urine Potassium Timed 62 mmol/L (12-62) Test 09/05/18 06:20 White Blood Count 12.8 K/UL (4.8-10.8) H Red Blood Count 2.76 M/UL (4.70-6.10) L Hemoglobin 8.5 G/DL (14.2-18.0) L Hematocrit 26.2 % (42.0-52.0) L Mean Corpuscular Volume 95 FL (80-99) Mean Corpuscular Hemoglobin 30.7 PG (27.0-31.0) Mean Corpuscular Hemoglobin Concent 32.5 G/DL (32.0-36.0) Red Cell Distribution Width 15.7 % (11.6-14.8) H Platelet Count 257 K/UL (150-450) Mean Platelet Volume 6.6 FL (6.5-10.1) Neutrophils (%) (Auto) % (45.0-75.0) Lymphocytes (%) (Auto) % (20.0-45.0) Monocytes (%) (Auto) % (1.0-10.0) Eosinophils (%) (Auto) % (0.0-3.0) Basophils (%) (Auto) % (0.0-2.0) Neutrophils % (Manual) Pending Lymphocytes % (Manual) Pending Platelet Estimate Pending Platelet Morphology Pending Sodium Level 148 MMOL/L (136-145) H Potassium Level 5.0 MMOL/L (3.5-5.1) Chloride Level 111 MMOL/L (98-107) H Carbon Dioxide Level 25 MMOL/L (21-32) Anion Gap 12 mmol/L (5-15) Blood Urea Nitrogen 113 mg/dL (7-18) H Creatinine 4.8 MG/DL (0.55-1.30) H Estimat Glomerular Filtration Rate mL/min (>60) Glucose Level 114 MG/DL (74-106) H Hemoglobin A1c 5.8 % (4.3-6.0) Uric Acid 6.1 MG/DL (2.6-7.2) Calcium Level 7.6 MG/DL (8.5-10.1) L Phosphorus Level 6.8 MG/DL (2.5-4.9) H Magnesium Level 2.2 MG/DL (1.8-2.4) Total Bilirubin 0.5 MG/DL (0.2-1.0) Aspartate Amino Transf (AST/SGOT) 35 U/L (15-37) Alanine Aminotransferase (ALT/SGPT) 14 U/L (12-78) Alkaline Phosphatase 87 U/L (46-116) Troponin I 0.048 ng/mL (0.000-0.056) C-Reactive Protein, Quantitative 13.9 mg/dL (0.00-0.90) H Pro-B-Type Natriuretic Peptide 18853 pg/mL (0-125) H Total Protein 5.1 G/DL (6.4-8.2) L Albumin 1.7 G/DL (3.4-5.0) L Globulin 3.4 g/dL Albumin/Globulin Ratio 0.5 (1.0-2.7) L Triglycerides Level 107 MG/DL (30-150) Cholesterol Level 81 MG/DL (< 200) LDL Cholesterol 45 mg/dL (<100) HDL Cholesterol 22 MG/DL (40-60) L Cholesterol/HDL Ratio 3.7 (3.3-4.4) Thyroid Stimulating Hormone (TSH) 4.122 uiU/mL (0.358-3.740) Steafnie Ball MD Sep 05, 2018 10:22
--- NOTE | 2018-09-05 10:49 | NUR ---
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 3) Increased kcal and protein needs r/t wound healing as evidenced by pt w/ recent adm w/ multiple DTPI wounds. CURRENT TF: NEPRO @50ml/hr ENTERAL NUTRITION RECOMMENDATIONS: NEPRO @45ml/hr x24 hrs to provide 1080ml, 1944 kcal, 87g prot, 785ml free H2O - LOWER current TF of NEPRO to goal of 45ml/hr x24 hrs. - Flush per MD. HOB over 30 degrees ADDITIONAL RECOMMENDATIONS: 1) Calibrated bed scale wts 2) WOUNDS: add SEVERO BID + Vit C 500mg daily 3) weekly calibrated bed scale wts 4) monitor need for HD/ adj prot needs
--- NOTE | 2018-09-05 10:59 | NUR ---
NURSE NOTES: Decreased GTF to 45cc/hr per dietitian rec and Dr. Ball
--- NOTE | 2018-09-05 11:42 | Nephrology Progress Note ---
Assessment/Plan Problem List: (1) ICD (implantable cardioverter-defibrillator) in place (2) ATN (acute tubular necrosis) (3) Acute respiratory failure (4) Anemia in chronic kidney disease (CKD) Assessment (1) ARF (acute renal failure) (2) Schizophrenia (3) Toxic encephalopathy (4) Anemia (5) Sepsis (6) ICD (implantable cardioverter-defibrillator) in place Renal failure- Pre renal picture- ? Underlying Chronic Renal failure Sepsis Asp pneumonia UTI Anemia Sz disorder CAD + Pacemaker s/p Cervical Fx 6 months ago COPD DM Plan Plan aim to reduce pre load and after load Kayexelate as needed Hydrate Antibiotics Monitor renal parameters Avoid Nephrotoxics watch for chf per orders Subjective ROS Limited/Unobtainable: Yes Objective Objective Last 24 Hour Vital Signs Date Time Temp Pulse Resp B/P (MAP) Pulse Ox O2 Delivery O2 Flow Rate FiO2 09/05/18 11:00 73 25 151/64 (93) 98 09/05/18 10:00 73 25 149/61 (90) 95 09/05/18 08:04 95 136/90 09/05/18 08:00 Nasal Cannula 3.0 09/05/18 08:00 76 25 142/92 (109) 95 09/05/18 08:00 75 09/05/18 07:00 98.6 95 21 136/90 (105) 95 09/05/18 06:50 95 Nasal Cannula 3.0 32 09/05/18 06:50 Nasal Cannula 3.0 32 09/05/18 06:00 74 25 129/60 (83) 94 09/05/18 05:35 78 159/66 09/05/18 05:00 75 25 159/66 (97) 96 09/05/18 04:06 98.7 78 27 155/62 (93) 96 09/05/18 04:05 Nasal Cannula 3.0 09/05/18 04:05 73 09/05/18 03:00 77 22 145/95 (112) 94 09/05/18 02:00 74 22 148/71 (96) 99 09/05/18 01:00 76 22 138/76 (96) 98 09/05/18 00:00 Nasal Cannula 3.0 09/05/18 00:00 98.0 72 22 137/60 (85) 97 1/18/19 00:00 75 09/04/18 23:00 73 21 153/72 (99) 99 09/04/18 22:00 76 22 146/77 (100) 97 09/04/18 21:33 77 151/74 09/04/18 21:29 78 151/74 09/04/18 21:00 76 21 151/74 (99) 98 09/04/18 20:00 Nasal Cannula 3.0 09/04/18 20:00 74 09/04/18 20:00 74 21 142/67 (92) 100 09/04/18 19:24 Nasal Cannula 3.0 32 09/04/18 19:23 99 Nasal Cannula 3.0 32 09/04/18 19:00 97.7 76 21 146/74 (98) 100 09/04/18 16:07 78 154/58 09/04/18 16:00 79 09/04/18 16:00 Nasal Cannula 3.0 09/04/18 16:00 3.0 09/04/18 12:00 3.0 09/04/18 12:00 78 09/04/18 12:00 Nasal Cannula 3.0 Intake and Output 09/04/18 09/05/18 18:59 06:59 Intake Total 520 ml 2480 ml Output Total 200 ml 430 ml Balance 320 ml 2050 ml Intake Free Water 60 ml IV Total 350 ml 1800 ml Tube Feeding 110 ml 440 ml Other 240 ml Output Urine Total 200 ml 430 ml # Bowel Movements 4 2 Laboratory Tests 09/04/18 14:50: White Blood Count 17.0H, Red Blood Count 2.66L, Hemoglobin 8.4L, Hematocrit 25.2L, Mean Corpuscular Volume 95, Mean Corpuscular Hemoglobin 31.3H, Mean Corpuscular Hemoglobin Concent 33.1, Red Cell Distribution Width 15.8H, Platelet Count 249, Mean Platelet Volume 6.0L, Neutrophils (%) (Auto) , Lymphocytes (%) (Auto) , Monocytes (%) (Auto) , Eosinophils (%) (Auto) , Basophils (%) (Auto) , Differential Total Cells Counted 100, Neutrophils % ( Manual) 94H, Lymphocytes % (Manual) 3L, Monocytes % (Manual) 3, Eosinophils % ( Manual) 0, Basophils % (Manual) 0, Band Neutrophils 0, Platelet Estimate Adequate, Platelet Morphology Normal, Polychromasia 1+, Anisocytosis 1+ 1/17/19 15:00: Sodium Level 145, Potassium Level 6.2*H, Chloride Level 113H, Carbon Dioxide Level 25, Anion Gap 8, Blood Urea Nitrogen 112H, Creatinine 4.6H, Estimat Glomerular Filtration Rate , Glucose Level 161H, Osmolality 342H, Uric Acid 6.3 , Calcium Level 8.0L, Phosphorus Level 6.2H, Magnesium Level 2.3, Total Bilirubin 0.4, Aspartate Amino Transf (AST/SGOT) 23, Alanine Aminotransferase ( ALT/SGPT) 14, Alkaline Phosphatase 75, Total Creatine Kinase 108, Total Protein 5.0L, Albumin 1.7L, Globulin 3.3, Albumin/Globulin Ratio 0.5L, Free Thyroxine 1.07, Free Triiodothyronine 1.3L, Cortisol 10.1 09/04/18 16:20: Urine Color Yellow, Urine Appearance Slightly cloudy, Urine pH 6.5, Urine Specific [place] 1.005, Urine Protein 4+H, Urine Glucose (UA) 1+H, Urine Ketones Negative, Urine Blood 5+H, Urine Nitrite Negative, Urine Bilirubin Negative, Urine Urobilinogen Normal, Urine Leukocyte Esterase 1+H, Urine RBC TntcH, Urine WBC 5-10H, Urine Squamous Epithelial Cells None, Urine Bacteria ModerateH, Urine Eosinophils None seen, Urine Osmolality 370L, Urine Random Sodium 26, Urine Random Chloride 60, Urine Potassium Timed 62 09/04/18 17:50: Sodium Level 147H, Potassium Level 6.4*H, Chloride Level 114H, Carbon Dioxide Level 26, Anion Gap 7, Blood Urea Nitrogen 115H, Creatinine 4.7H, Estimat Glomerular Filtration Rate , Glucose Level 139H, Calcium Level 8.0L 09/05/18 06:20: White Blood Count 12.8H, Red Blood Count 2.76L, Hemoglobin 8.5L, Hematocrit 26.2L, Mean Corpuscular Volume 95, Mean Corpuscular Hemoglobin 30.7, Mean Corpuscular Hemoglobin Concent 32.5, Red Cell Distribution Width 15.7H, Platelet Count 257, Mean Platelet Volume 6.6, Neutrophils (%) (Auto) , Lymphocytes (%) (Auto) , Monocytes (%) (Auto) , Eosinophils (%) (Auto) , Basophils (%) (Auto) , Differential Total Cells Counted 100, Neutrophils % ( Manual) 87H, Lymphocytes % (Manual) 7L, Monocytes % (Manual) 2, Eosinophils % ( Manual) 3, Basophils % (Manual) 1, Band Neutrophils 0, Platelet Estimate Adequate, Platelet Morphology Normal, Hypochromasia 2+, Anisocytosis 1+, Sodium Level 148H, Potassium Level 5.0, Chloride Level 111H, Carbon Dioxide Level 25, Anion Gap 12, Blood Urea Nitrogen 113H, Creatinine 4.8H, Estimat Glomerular Filtration Rate , Glucose Level 114H, Hemoglobin A1c 5.8, Uric Acid 6.1, Calcium Level 7.6L, Phosphorus Level 6.8H, Magnesium Level 2.2, Total Bilirubin 0.5, Aspartate Amino Transf (AST/SGOT) 35, Alanine Aminotransferase (ALT/SGPT) 14, Alkaline Phosphatase 87, Troponin I 0.048, C-Reactive Protein, Quantitative 13.9H, Pro-B-Type Natriuretic Peptide 10580G, Total Protein 5.1L, Albumin 1.7L, Globulin 3.4, Albumin/Globulin Ratio 0.5L, Triglycerides Level 107, Cholesterol Level 81, LDL Cholesterol 45, HDL Cholesterol 22L, Cholesterol/HDL Ratio 3.7, Thyroid Stimulating Hormone (TSH) 4.122H Height (Feet): 5 Height (Inches): 9.00 Weight (Pounds): 180 General Appearance: no apparent distress, lethargic Cardiovascular: normal rate, pacemaker/AICD Respiratory/Chest: decreased breath sounds Abdomen: distended Joe Feliciano MD Sep 05, 2018 11:42
--- NOTE | 2018-09-05 11:56 | NUR ---
Social Work This Sw met with patient, currently in the ICU who is confused, unable to make own decisions. Patient is from [facility], in emt intermediate care and remains full code, full treatment. This SW left a message with Trever Christian to return this SW call (awaiting call back at this time).
[2018-09-05] MEDS ORDERED: HydrALAZINE 10mg Tab GT SCH (12:00)
[2018-09-05] MEDS ORDERED: dilTIAZem HCl 60mg tab GT SCH (12:00)
--- NOTE | 2018-09-05 12:29 | NUR ---
RADIOLOGY DEPT CHEST X-RAY DONE.-P.DYE
--- NOTE | 2018-09-05 12:39 | Diagnostic Imaging Report ---
Indication: Dyspnea Comparison: 09/04/2018 A single view chest radiograph was obtained. Findings: Hazy bilateral basilar opacities likely pleural effusions demonstrated. The heart is enlarged. There is suggestion of interstitial edema. Lung volumes are considerably lower than on the prior occasion. A pacemaker is again noted on the left. IMPRESSION: Similar findings. No significant change appreciated compared to the prior day
--- NOTE | 2018-09-05 13:45 | NUR ---
CASE MANAGEMENT: REVIEW SI: RESP DISTRESS . PNEUMONITIS T 98.4 HR 95 RR 25 BP 151/64 SAT 98% NC/3L WBC 12.8 H/H 8.5/26.2 NA 148 IS: PROCRIT SQ MWF ZOSYN IV Q12HR CARDIZEM GT Q6HR ISOSORBIDE GT Q6HR HYDRALAZINE GT Q6HR LOPRESSOR GT Q12HR ICU STATUS DCP: PATIENT IS FROM THE [facility] PLAN: TRANSFER TO [facility]
--- NOTE | 2018-09-05 13:47 | Consultation ---
History of Present Illness General Date patient seen: Sep 05, 2018 Chief Complaint: Dyspnea/Respdistress Present Illness HPI 78 y/o M with hx of Seizures, HTN, CHF, Schizophrenia, CAD s/p Pacemaker and Neck Fx (6mo ago) on cervical collar, MD resident presented to ED on 09/04 with worsening SOB, tachycardia and hypotension. Upon admission was noted to be on RENETTA Of note, patient admitted here from 08/24-08/30 for desaturation and PNA. Also had UTI - Allergies: Coded Allergies: NO KNOWN ALLERGIES (Unverified Allergy, Unknown, 08/25/15) Medication History Scheduled Amlodipine Besylate (Norvasc), 5 MG GT DAILY, (Reported) Aspirin* (Aspirin*), 81 MG ORAL DAILY, (Reported) Diltiazem Hcl* (Cardizem*), 60 MG GT EVERY 8 HOURS, (Reported) Divalproex Sodium (Depakote Sprinkle), 125 MG GT Q8HR, (Reported) Docusate Sodium (Docusate Sodium), 100 MG GT THREE TIMES A DAY, (Reported) Heparin Sod (Porcine) (Heparin Sodium*), 5,000 UNITS SUBQ EVERY 12 HOURS, ( Reported) Lansoprazole* (Prevacid*), 30 MG ORAL BID, (Reported) Levofloxacin (Levofloxacin*), 750 MG ORAL DAILY, (Reported) Levofloxacin* (Levaquin*), 750 MG ORAL DAILY, (Reported) Metoprolol Tartrate* (Metoprolol Tartrate*), 100 MG GT BID, (Reported) Spironolactone (Aldactone), 25 MG GT DAILY, (Reported) Scheduled PRN Bisacodyl (Bisacodyl), 10 MG RC DAILY PRN for Constipation, (Reported) Codeine/Promethazine Hcl* (Promethazine-Codeine Syrup*), 5 ML ORAL Q4H PRN for For Cough, (Reported) Magnesium Hydroxide* (Milk Of Magnesia*), 30 ML GT PRN PRN for Constipation, ( Reported) Miscellaneous Medications Diltiazem HCl (Diltiazem ER), 60 MG PO, (Reported) Divalproex Sodium (Divalproex Sodium), 125 MG PO, (Reported) Insulin Aspart (Novolog Flexpen), (Reported) Discontinued Medications Acetaminophen (Tylenol), 650 MG PO Q4HR PRN for Fever/Headache/Mild Pain, ( Reported) Discontinued Reason: MD discontinued med Acetaminophen* (Tylenol Extra Strength*), 1,000 MG ORAL Q6H PRN for Moderate Breakthru Pain (5-7), (Reported) Discontinued Reason: MD discontinued med Acetaminophen* (Acetaminophen 325MG Tablet*), 650 MG ORAL Q6H PRN for Mild Pain (Pain Scale 1-3), (Reported) Discontinued Reason: MD discontinued med Atorvastatin Calcium* (Lipitor*), 10 MG GT BEDTIME, (Reported) Discontinued Reason: MD discontinued med Carbidopa/Levodopa 25-100 Mg* (Sinemet 25-100 Mg Tablet*), 1 TAB GT FOUR TIMES A DAY, (Reported) Discontinued Reason: Medication dose changed Cranberry Fruit Concentrate (Cranberry), 450 MG PO DAILY, (Reported) Discontinued Reason: MD discontinued med Divalproex Sodium* (Depakote Er*), 125 MG ORAL THREE TIMES A DAY, (Reported) Discontinued Reason: MD discontinued med Docusate Sodium* (Docusate Sodium*), 100 MG GT DAILY, (Reported) Discontinued Reason: Medication dose changed Donepezil Hcl* (Donepezil Hcl*), 10 MG ORAL QHS, (Reported) Discontinued Reason: MD discontinued med Isosorbide Dinitrate* (Isordil*), 20 MG ORAL BID, (Reported) Discontinued Reason: MD discontinued med Linagliptin (Tradjenta), 5 MG PO DAILY, (Reported) Discontinued Reason: MD discontinued med Lisinopril* (Lisinopril*), 40 MG ORAL DAILY, (Reported) Discontinued Reason: MD discontinued med Lorazepam* (Ativan*), 0.5 MG ORAL Q6HR PRN for For Anxiety, (Reported) Discontinued Reason: MD discontinued med Mag Hydrox/Al Hydrox/Simeth (Alum-Mag Hydroxide-Simeth Liq), Unknown Dose PO Q6HR PRN for STOMACH UPSET, (Reported) Discontinued Reason: MD discontinued med Magnesium Hydroxide* (Milk Of Magnesia*), 30 ML ORAL QHS PRN for Constipation, ( Reported) Discontinued Reason: MD discontinued med Magnesium Oxide (Magnesium Oxide), 400 MG ORAL BID, (Reported) Discontinued Reason: MD discontinued med Metformin Hcl* (Metformin Hcl*), 500 MG ORAL BID, (Reported) Discontinued Reason: MD discontinued med Mirtazapine* (Mirtazapine*), 7.5 MG ORAL BEDTIME, (Reported) Discontinued Reason: MD discontinued med Na Phos,M-B/Na Phos,Di-Ba* (Fleet Enema*), 133 ML RECTAL EVERY OTHER DAY PRN for Constipation, (Reported) Discontinued Reason: MD discontinued med Na Phos,M-B/Na Phos,Di-Ba* (Fleet Enema*), 133 ML RECTAL DAILY, (Reported) Discontinued Reason: MD discontinued med Quetiapine Fumarate* (Seroquel*), 50 MG ORAL TWICE A DAY, (Reported) Discontinued Reason: MD discontinued med Vitamin B Cmplx/Vit C/Folic AC (Nephro-[place] Tablet), 1 TAB ORAL DAILY, (Reported ) Discontinued Reason: MD discontinued med Patient History Healthcare decision maker Trever Grewal Resuscitation status Full Code Advanced Directive on File Patient History Narrative Pmhx: as above Shx: He is single. He was born in [place] and living in [place] for many years. Prior to the appearance of his disability, he was unemployed as well. The patient did smoke more than 60 years. He discontinued smoking several years ago. He has a history of alcoholism and also stopped 10 years ago. He has no history of drug abuse. Fhx:non contributory Review of Systems All Other Systems: negative except mentioned in HPI ROS Narrative unable to obtain Physical Exam Physical Exam Narrative General Appearance: severe distress, lethargic, Chronically Ill Head: atraumatic ENT: normal ENT inspection, hearing grossly normal, normal voice Neck: supple, no bony tend, limited range of motion - c-collar Respiratory: normal inspection, lungs clear, normal breath sounds, no respiratory distress, no retraction, no wheezing Cardiovascular # tachycardia, edema Gastrointestinal: normal inspection, normal bowel sounds, non tender, soft, no guarding, no hernia Genitourinary: no CVA tenderness Musculoskeletal: normal inspection, back normal, decreased range of motion Neurologic: alert, speech normal, motor weakness - bilateral upper and lower Skin: normal inspection, normal color, no rash Last 24 Hour Vital Signs Date Time Temp Pulse Resp B/P (MAP) Pulse Ox O2 Delivery O2 Flow Rate FiO2 09/05/18 12:38 151/64 09/05/18 12:38 151/64 09/05/18 12:38 73 151/64 09/05/18 12:00 89 09/05/18 12:00 88 28 145/59 (87) 98 09/05/18 12:00 Nasal Cannula 3.0 09/05/18 11:00 73 25 151/64 (93) 98 09/05/18 10:00 73 25 149/61 (90) 95 09/05/18 08:04 95 136/90 09/05/18 08:00 Nasal Cannula 3.0 09/05/18 08:00 76 25 142/92 (109) 95 09/05/18 08:00 75 09/05/18 07:00 98.6 95 21 136/90 (105) 95 09/05/18 06:50 95 Nasal Cannula 3.0 32 09/05/18 06:50 Nasal Cannula 3.0 32 09/05/18 06:00 74 25 129/60 (83) 94 09/05/18 05:35 78 159/66 09/05/18 05:00 75 25 159/66 (97) 96 09/05/18 04:06 98.7 78 27 155/62 (93) 96 09/05/18 04:05 Nasal Cannula 3.0 09/05/18 04:05 73 09/05/18 03:00 77 22 145/95 (112) 94 09/05/18 02:00 74 22 148/71 (96) 99 09/05/18 01:00 76 22 138/76 (96) 98 09/05/18 00:00 Nasal Cannula 3.0 09/05/18 00:00 98.0 72 22 137/60 (85) 97 09/05/18 00:00 75 09/04/18 23:00 73 21 153/72 (99) 99 09/04/18 22:00 76 22 146/77 (100) 97 09/04/18 21:33 77 151/74 09/04/18 21:29 78 151/74 09/04/18 21:00 76 21 151/74 (99) 98 09/04/18 20:00 Nasal Cannula 3.0 09/04/18 20:00 74 09/04/18 20:00 74 21 142/67 (92) 100 09/04/18 19:24 Nasal Cannula 3.0 32 09/04/18 19:23 99 Nasal Cannula 3.0 32 09/04/18 19:00 97.7 76 21 146/74 (98) 100 09/04/18 16:07 78 154/58 09/04/18 16:00 79 09/04/18 16:00 Nasal Cannula 3.0 09/04/18 16:00 3.0 Intake and Output 09/04/18 09/05/18 18:59 06:59 Intake Total 520 ml 2480 ml Output Total 200 ml 430 ml Balance 320 ml 2050 ml Intake Free Water 60 ml IV Total 350 ml 1800 ml Tube Feeding 110 ml 440 ml Other 240 ml Output Urine Total 200 ml 430 ml # Bowel Movements 4 2 Laboratory Tests Test 09/04/18 14:50 09/04/18 15:00 09/04/18 16:20 09/04/18 17:50 White Blood Count 17.0 K/UL (4.8-10.8) H Red Blood Count 2.66 M/UL (4.70-6.10) L Hemoglobin 8.4 G/DL (14.2-18.0) L Hematocrit 25.2 % (42.0-52.0) L Mean Corpuscular Volume 95 FL (80-99) Mean Corpuscular Hemoglobin 31.3 PG (27.0-31.0) H Mean Corpuscular Hemoglobin Concent 33.1 G/DL (32.0-36.0) Red Cell Distribution Width 15.8 % (11.6-14.8) H Platelet Count 249 K/UL (150-450) Mean Platelet Volume 6.0 FL (6.5-10.1) L Neutrophils (%) (Auto) % (45.0-75.0) Lymphocytes (%) (Auto) % (20.0-45.0) Monocytes (%) (Auto) % (1.0-10.0) Eosinophils (%) (Auto) % (0.0-3.0) Basophils (%) (Auto) % (0.0-2.0) Differential Total Cells Counted 100 Neutrophils % (Manual) 94 % (45-75) H Lymphocytes % (Manual) 3 % (20-45) L Monocytes % (Manual) 3 % (1-10) Eosinophils % (Manual) 0 % (0-3) Basophils % (Manual) 0 % (0-2) Band Neutrophils 0 % (0-8) Platelet Estimate Adequate Platelet Morphology Normal Polychromasia 1+ Anisocytosis 1+ Sodium Level 145 MMOL/L (136-145) 147 MMOL/L (136-145) H Potassium Level 6.2 MMOL/L (3.5-5.1) *H 6.4 MMOL/L (3.5-5.1) *H Chloride Level 113 MMOL/L (98-107) H 114 MMOL/L (98-107) H Carbon Dioxide Level 25 MMOL/L (21-32) 26 MMOL/L (21-32) Anion Gap 8 mmol/L (5-15) 7 mmol/L (5-15) Blood Urea Nitrogen 112 mg/dL (7-18) H 115 mg/dL (7-18) H Creatinine 4.6 MG/DL (0.55-1.30) H 4.7 MG/DL (0.55-1.30) H Estimat Glomerular Filtration Rate mL/min (>60) mL/min (>60) Glucose Level 161 MG/DL (74-106) H 139 MG/DL (74-106) H Osmolality 342 mOsm/kg (297-317) H Uric Acid 6.3 MG/DL (2.6-7.2) Calcium Level 8.0 MG/DL (8.5-10.1) L 8.0 MG/DL (8.5-10.1) L Phosphorus Level 6.2 MG/DL (2.5-4.9) H Magnesium Level 2.3 MG/DL (1.8-2.4) Total Bilirubin 0.4 MG/DL (0.2-1.0) Aspartate Amino Transf (AST/SGOT) 23 U/L (15-37) Alanine Aminotransferase (ALT/SGPT) 14 U/L (12-78) Alkaline Phosphatase 75 U/L (46-116) Total Creatine Kinase 108 U/L (26-308) Total Protein 5.0 G/DL (6.4-8.2) L Albumin 1.7 G/DL (3.4-5.0) L Globulin 3.3 g/dL Albumin/Globulin Ratio 0.5 (1.0-2.7) L Free Thyroxine 1.07 NG/DL (0.76-1.46) Free Triiodothyronine 1.3 pg/mL (2.3-4.2) L Cortisol 10.1 UG/DL Urine Color Yellow Urine Appearance Slightly cloudy Urine pH 6.5 (4.5-8.0) Urine Specific [place] 1.005 (1.005-1.035) Urine Protein 4+ (NEGATIVE) H Urine Glucose (UA) 1+ (NEGATIVE) H Urine Ketones Negative (NEGATIVE) Urine Blood 5+ (NEGATIVE) H Urine Nitrite Negative (NEGATIVE) Urine Bilirubin Negative (NEGATIVE) Urine Urobilinogen Normal MG/DL (0.0-1.0) Urine Leukocyte Esterase 1+ (NEGATIVE) H Urine RBC Tntc /HPF (0 - 0) H Urine WBC 5-10 /HPF (0 - 0) H Urine Squamous Epithelial Cells None /LPF (NONE/OCC) Urine Bacteria Moderate /HPF (NONE) H Urine Eosinophils None seen (NONE SEEN) Urine Osmolality 370 mOsm/kg (429-449) L Urine Random Sodium 26 mmol/L (20-110) Urine Random Chloride 60 mmol/L (55-125) Urine Potassium Timed 62 mmol/L (12-62) Test 09/05/18 06:20 White Blood Count 12.8 K/UL (4.8-10.8) H Red Blood Count 2.76 M/UL (4.70-6.10) L Hemoglobin 8.5 G/DL (14.2-18.0) L Hematocrit 26.2 % (42.0-52.0) L Mean Corpuscular Volume 95 FL (80-99) Mean Corpuscular Hemoglobin 30.7 PG (27.0-31.0) Mean Corpuscular Hemoglobin Concent 32.5 G/DL (32.0-36.0) Red Cell Distribution Width 15.7 % (11.6-14.8) H Platelet Count 257 K/UL (150-450) Mean Platelet Volume 6.6 FL (6.5-10.1) Neutrophils (%) (Auto) % (45.0-75.0) Lymphocytes (%) (Auto) % (20.0-45.0) Monocytes (%) (Auto) % (1.0-10.0) Eosinophils (%) (Auto) % (0.0-3.0) Basophils (%) (Auto) % (0.0-2.0) Differential Total Cells Counted 100 Neutrophils % (Manual) 87 % (45-75) H Lymphocytes % (Manual) 7 % (20-45) L Monocytes % (Manual) 2 % (1-10) Eosinophils % (Manual) 3 % (0-3) Basophils % (Manual) 1 % (0-2) Band Neutrophils 0 % (0-8) Platelet Estimate Adequate Platelet Morphology Normal Hypochromasia 2+ Anisocytosis 1+ Sodium Level 148 MMOL/L (136-145) H Potassium Level 5.0 MMOL/L (3.5-5.1) Chloride Level 111 MMOL/L (98-107) H Carbon Dioxide Level 25 MMOL/L (21-32) Anion Gap 12 mmol/L (5-15) Blood Urea Nitrogen 113 mg/dL (7-18) H Creatinine 4.8 MG/DL (0.55-1.30) H Estimat Glomerular Filtration Rate mL/min (>60) Glucose Level 114 MG/DL (74-106) H Hemoglobin A1c 5.8 % (4.3-6.0) Uric Acid 6.1 MG/DL (2.6-7.2) Calcium Level 7.6 MG/DL (8.5-10.1) L Phosphorus Level 6.8 MG/DL (2.5-4.9) H Magnesium Level 2.2 MG/DL (1.8-2.4) Total Bilirubin 0.5 MG/DL (0.2-1.0) Aspartate Amino Transf (AST/SGOT) 35 U/L (15-37) Alanine Aminotransferase (ALT/SGPT) 14 U/L (12-78) Alkaline Phosphatase 87 U/L (46-116) Troponin I 0.048 ng/mL (0.000-0.056) C-Reactive Protein, Quantitative 13.9 mg/dL (0.00-0.90) H Pro-B-Type Natriuretic Peptide 43652 pg/mL (0-125) H Total Protein 5.1 G/DL (6.4-8.2) L Albumin 1.7 G/DL (3.4-5.0) L Globulin 3.4 g/dL Albumin/Globulin Ratio 0.5 (1.0-2.7) L Triglycerides Level 107 MG/DL (30-150) Cholesterol Level 81 MG/DL (< 200) LDL Cholesterol 45 mg/dL (<100) HDL Cholesterol 22 MG/DL (40-60) L Cholesterol/HDL Ratio 3.7 (3.3-4.4) Thyroid Stimulating Hormone (TSH) 4.122 uiU/mL (0.358-3.740) Microbiology Date/Time Source Procedure Growth Status 09/04/18 16:20 Urine,Clean Catch Urine Culture - Preliminary NO GROWTH Resulted Height (Feet): 5 Height (Inches): 9.00 Weight (Pounds): 180 Medications Current Medications Medications (Trade) Dose Ordered Sig/Vahe Route PRN Reason Start Time Stop Time Status Last Admin Dose Admin Acetaminophen (Tylenol) 650 mg Q4H PRN ORAL fever 09/04/18 10:30 10/04/18 10:29 Chlorhexidine Gluconate (Sadia-Hex 2%) 1 applic DAILY@1999 TOPIC 09/05/18 20:00 10/05/18 19:59 Clonidine HCl (Catapres Tab) 0.1 mg Q4H PRN ORAL SBP>160 09/04/18 10:30 10/04/18 10:29 Dextrose (Dextrose 50%) 25 ml Q30M PRN IV Hypoglycemia 09/04/18 11:00 10/04/18 10:59 Dextrose (Dextrose 50%) 50 ml Q30M PRN IV Hypoglycemia 09/04/18 11:00 10/04/18 10:59 Diltiazem HCl (Cardizem) 60 mg EVERY 6 HOURS GT 09/05/18 12:00 10/04/18 21:59 09/05/18 12:38 Divalproex Sodium (Depakote Sprinkles) 125 mg BID GT 09/04/18 18:14 10/04/18 18:13 09/05/18 08:04 Epoetin Jacobo (Procrit (for non ESRD use)) 10,000 units MON-WED-SAT SUBQ 09/05/18 21:00 10/05/18 20:59 Heparin Sodium (Porcine) (Heparin 5000 units/ml) 5,000 units EVERY 12 HOURS SUBQ 09/04/18 21:00 10/04/18 20:59 09/05/18 08:05 Hydralazine HCl (Apresoline) 10 mg Q4H PRN IV bp over 160 syst 09/05/18 12:00 10/05/18 11:59 Hydralazine HCl (Apresoline) 10 mg Q6HR GT 09/05/18 12:00 10/05/18 11:59 09/05/18 12:38 Insulin Aspart (NovoLOG) Q6HR SUBQ 09/04/18 12:00 10/04/18 11:59 09/05/18 11:30 Isosorbide Dinitrate (Isordil) 10 mg Q6HR GT 09/05/18 12:00 10/05/18 11:59 09/05/18 12:38 Lorazepam (Ativan 2mg/ml 1ml) 0.5 mg Q4H PRN IV For Anxiety 09/04/18 10:30 09/11/18 10:29 Metoclopramide HCl (Reglan) 10 mg Q8H PRN IVP Nausea & Vomiting 09/04/18 17:15 10/04/18 17:14 Metoprolol Tartrate (Lopressor) 100 mg Q12HR GT 09/04/18 21:00 10/04/18 20:59 09/05/18 08:04 Morphine Sulfate (Morphine Sulfate) 1 mg Q4H PRN IVP For Pain 09/04/18 14:30 09/11/18 10:29 Ondansetron HCl (Zofran) 4 mg Q6H PRN IVP Nausea & Vomiting 09/04/18 10:30 10/04/18 10:29 Pantoprazole (Protonix) 40 mg EVERY 12 HOURS IVP 09/04/18 21:00 10/04/18 20:59 09/05/18 08:03 Polyethylene Glycol (Miralax) 17 gm HSPRN PRN ORAL Constipation 09/04/18 10:30 10/04/18 10:29 Sodium Chloride 1,000 ml @ 150 mls/hr Q6H40M IV 09/04/18 17:10 10/04/18 17:09 09/05/18 10:50 Zolpidem Tartrate (Ambien) 5 mg HSPRN PRN ORAL Insomnia 09/04/18 10:30 09/11/18 10:29 Assessment/Plan Assessment/Plan Abx: Unasyn x1 07/05 Assessment: Sepsis- 2ry to PNA vs UTI -CXR: Hazy bilateral basilar opacities likely pleural effusions demonstrated. The heart is enlarged. There is suggestion of interstitial edema. -u/a wbc 5-10, nit neg, leuk +1 ;UCx NTD afebrile Leukocytosis, improving RENETTA Hx of recent PNA/UTI Seizures HTN CHF Schizophrenia CAD s/p Pacemaker hx of Neck Fx (6mo ago) on cervical collar [place] resident Plan: -Start empiric IV Vancomycin and Zosyn pending cultures - 08/31 SP Levofloxacin #7 - 08/27/18 SP Cefepime #3 vancomycin #3 -sp cx, influenza sc, legionella ag urine -f/u cx -Monitor CBC/CMP, temperatures Thank you for this consultation. Will continue to follow along with you. Discussed with Michelle Farias M.D. Sep 05, 2018 13:47
--- NOTE | 2018-09-05 14:17 | Consultation ---
History of Present Illness General Date patient seen: Sep 05, 2018 Chief Complaint: Dyspnea/Respdistress Present Illness HPI 78M well known to me from prior admissions presented for medical care and management. Currently in ICU. multiple wounds requiring care and management. surgery called to evaluate and assist with care. patient seen, chart reviewed, patient examined Allergies: Coded Allergies: NO KNOWN ALLERGIES (Unverified Allergy, Unknown, 08/25/15) Medication History Scheduled Amlodipine Besylate (Norvasc), 5 MG GT DAILY, (Reported) Aspirin* (Aspirin*), 81 MG ORAL DAILY, (Reported) Diltiazem Hcl* (Cardizem*), 60 MG GT EVERY 8 HOURS, (Reported) Divalproex Sodium (Depakote Sprinkle), 125 MG GT Q8HR, (Reported) Docusate Sodium (Docusate Sodium), 100 MG GT THREE TIMES A DAY, (Reported) Heparin Sod (Porcine) (Heparin Sodium*), 5,000 UNITS SUBQ EVERY 12 HOURS, ( Reported) Lansoprazole* (Prevacid*), 30 MG ORAL BID, (Reported) Levofloxacin (Levofloxacin*), 750 MG ORAL DAILY, (Reported) Levofloxacin* (Levaquin*), 750 MG ORAL DAILY, (Reported) Metoprolol Tartrate* (Metoprolol Tartrate*), 100 MG GT BID, (Reported) Spironolactone (Aldactone), 25 MG GT DAILY, (Reported) Scheduled PRN Bisacodyl (Bisacodyl), 10 MG RC DAILY PRN for Constipation, (Reported) Codeine/Promethazine Hcl* (Promethazine-Codeine Syrup*), 5 ML ORAL Q4H PRN for For Cough, (Reported) Magnesium Hydroxide* (Milk Of Magnesia*), 30 ML GT PRN PRN for Constipation, ( Reported) Miscellaneous Medications Diltiazem HCl (Diltiazem ER), 60 MG PO, (Reported) Divalproex Sodium (Divalproex Sodium), 125 MG PO, (Reported) Insulin Aspart (Novolog Flexpen), (Reported) Discontinued Medications Acetaminophen (Tylenol), 650 MG PO Q4HR PRN for Fever/Headache/Mild Pain, ( Reported) Discontinued Reason: MD discontinued med Acetaminophen* (Tylenol Extra Strength*), 1,000 MG ORAL Q6H PRN for Moderate Breakthru Pain (5-7), (Reported) Discontinued Reason: MD discontinued med Acetaminophen* (Acetaminophen 325MG Tablet*), 650 MG ORAL Q6H PRN for Mild Pain (Pain Scale 1-3), (Reported) Discontinued Reason: MD discontinued med Atorvastatin Calcium* (Lipitor*), 10 MG GT BEDTIME, (Reported) Discontinued Reason: MD discontinued med Carbidopa/Levodopa 25-100 Mg* (Sinemet 25-100 Mg Tablet*), 1 TAB GT FOUR TIMES A DAY, (Reported) Discontinued Reason: Medication dose changed Cranberry Fruit Concentrate (Cranberry), 450 MG PO DAILY, (Reported) Discontinued Reason: MD discontinued med Divalproex Sodium* (Depakote Er*), 125 MG ORAL THREE TIMES A DAY, (Reported) Discontinued Reason: MD discontinued med Docusate Sodium* (Docusate Sodium*), 100 MG GT DAILY, (Reported) Discontinued Reason: Medication dose changed Donepezil Hcl* (Donepezil Hcl*), 10 MG ORAL QHS, (Reported) Discontinued Reason: MD discontinued med Isosorbide Dinitrate* (Isordil*), 20 MG ORAL BID, (Reported) Discontinued Reason: MD discontinued med Linagliptin (Tradjenta), 5 MG PO DAILY, (Reported) Discontinued Reason: MD discontinued med Lisinopril* (Lisinopril*), 40 MG ORAL DAILY, (Reported) Discontinued Reason: MD discontinued med Lorazepam* (Ativan*), 0.5 MG ORAL Q6HR PRN for For Anxiety, (Reported) Discontinued Reason: MD discontinued med Mag Hydrox/Al Hydrox/Simeth (Alum-Mag Hydroxide-Simeth Liq), Unknown Dose PO Q6HR PRN for STOMACH UPSET, (Reported) Discontinued Reason: MD discontinued med Magnesium Hydroxide* (Milk Of Magnesia*), 30 ML ORAL QHS PRN for Constipation, ( Reported) Discontinued Reason: MD discontinued med Magnesium Oxide (Magnesium Oxide), 400 MG ORAL BID, (Reported) Discontinued Reason: MD discontinued med Metformin Hcl* (Metformin Hcl*), 500 MG ORAL BID, (Reported) Discontinued Reason: MD discontinued med Mirtazapine* (Mirtazapine*), 7.5 MG ORAL BEDTIME, (Reported) Discontinued Reason: MD discontinued med Na Phos,M-B/Na Phos,Di-Ba* (Fleet Enema*), 133 ML RECTAL EVERY OTHER DAY PRN for Constipation, (Reported) Discontinued Reason: MD discontinued med Na Phos,M-B/Na Phos,Di-Ba* (Fleet Enema*), 133 ML RECTAL DAILY, (Reported) Discontinued Reason: MD discontinued med Quetiapine Fumarate* (Seroquel*), 50 MG ORAL TWICE A DAY, (Reported) Discontinued Reason: MD discontinued med Vitamin B Cmplx/Vit C/Folic AC (Nephro-[place] Tablet), 1 TAB ORAL DAILY, (Reported ) Discontinued Reason: MD discontinued med Patient History Limited by: medical condition History Provided By: Medical Record, PMD Healthcare decision maker Trever Grewal Resuscitation status Full Code Advanced Directive on File Past Medical/Surgical History Past Medical/Surgical History: (1) Anemia in chronic kidney disease (CKD) (2) Hypercalcemia (3) Confusion with nonfocal neurological examination (4) HTN (hypertension) (5) 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 (6) Acute respiratory failure (7) Decubital ulcer (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 (9) Schizophrenia (10) Hyperkalemia (11) Pleural effusion (12) ATN (acute tubular necrosis) Review of Systems ROS Narrative cannot obtain Physical Exam General Appearance: mild distress Lines, tubes and drains: other HEENT: mucous membranes moist Neck: normal inspection Respiratory/Chest: decreased breath sounds Cardiovascular/Chest: normal rate Abdomen: soft, no organomegaly, no mass Extremities: other Skin Exam: other Neurologic: other Last 24 Hour Vital Signs Date Time Temp Pulse Resp B/P (MAP) Pulse Ox O2 Delivery O2 Flow Rate FiO2 09/05/18 13:00 98.4 72 22 127/71 (89) 100 09/05/18 12:38 151/64 09/05/18 12:38 151/64 09/05/18 12:38 73 151/64 09/05/18 12:00 89 09/05/18 12:00 88 28 145/59 (87) 98 09/05/18 12:00 Nasal Cannula 3.0 09/05/18 11:00 73 25 151/64 (93) 98 09/05/18 10:00 73 25 149/61 (90) 95 1/18/19 08:04 95 136/90 09/05/18 08:00 Nasal Cannula 3.0 09/05/18 08:00 76 25 142/92 (109) 95 09/05/18 08:00 75 09/05/18 07:00 98.6 95 21 136/90 (105) 95 09/05/18 06:50 95 Nasal Cannula 3.0 32 09/05/18 06:50 Nasal Cannula 3.0 32 09/05/18 06:00 74 25 129/60 (83) 94 09/05/18 05:35 78 159/66 09/05/18 05:00 75 25 159/66 (97) 96 09/05/18 04:06 98.7 78 27 155/62 (93) 96 09/05/18 04:05 Nasal Cannula 3.0 09/05/18 04:05 73 09/05/18 03:00 77 22 145/95 (112) 94 09/05/18 02:00 74 22 148/71 (96) 99 09/05/18 01:00 76 22 138/76 (96) 98 09/05/18 00:00 Nasal Cannula 3.0 09/05/18 00:00 98.0 72 22 137/60 (85) 97 09/05/18 00:00 75 09/04/18 23:00 73 21 153/72 (99) 99 09/04/18 22:00 76 22 146/77 (100) 97 09/04/18 21:33 77 151/74 09/04/18 21:29 78 151/74 09/04/18 21:00 76 21 151/74 (99) 98 09/04/18 20:00 Nasal Cannula 3.0 09/04/18 20:00 74 09/04/18 20:00 74 21 142/67 (92) 100 09/04/18 19:24 Nasal Cannula 3.0 32 09/04/18 19:23 99 Nasal Cannula 3.0 32 09/04/18 19:00 97.7 76 21 146/74 (98) 100 09/04/18 16:07 78 154/58 09/04/18 16:00 79 09/04/18 16:00 Nasal Cannula 3.0 09/04/18 16:00 3.0 Intake and Output 09/04/18 09/05/18 18:59 06:59 Intake Total 520 ml 2480 ml Output Total 200 ml 430 ml Balance 320 ml 2050 ml Intake Free Water 60 ml IV Total 350 ml 1800 ml Tube Feeding 110 ml 440 ml Other 240 ml Output Urine Total 200 ml 430 ml # Bowel Movements 4 2 Laboratory Tests Test 09/04/18 14:50 09/04/18 15:00 09/04/18 16:20 09/04/18 17:50 White Blood Count 17.0 K/UL (4.8-10.8) H Red Blood Count 2.66 M/UL (4.70-6.10) L Hemoglobin 8.4 G/DL (14.2-18.0) L Hematocrit 25.2 % (42.0-52.0) L Mean Corpuscular Volume 95 FL (80-99) Mean Corpuscular Hemoglobin 31.3 PG (27.0-31.0) H Mean Corpuscular Hemoglobin Concent 33.1 G/DL (32.0-36.0) Red Cell Distribution Width 15.8 % (11.6-14.8) H Platelet Count 249 K/UL (150-450) Mean Platelet Volume 6.0 FL (6.5-10.1) L Neutrophils (%) (Auto) % (45.0-75.0) Lymphocytes (%) (Auto) % (20.0-45.0) Monocytes (%) (Auto) % (1.0-10.0) Eosinophils (%) (Auto) % (0.0-3.0) Basophils (%) (Auto) % (0.0-2.0) Differential Total Cells Counted 100 Neutrophils % (Manual) 94 % (45-75) H Lymphocytes % (Manual) 3 % (20-45) L Monocytes % (Manual) 3 % (1-10) Eosinophils % (Manual) 0 % (0-3) Basophils % (Manual) 0 % (0-2) Band Neutrophils 0 % (0-8) Platelet Estimate Adequate Platelet Morphology Normal Polychromasia 1+ Anisocytosis 1+ Sodium Level 145 MMOL/L (136-145) 147 MMOL/L (136-145) H Potassium Level 6.2 MMOL/L (3.5-5.1) *H 6.4 MMOL/L (3.5-5.1) *H Chloride Level 113 MMOL/L (98-107) H 114 MMOL/L (98-107) H Carbon Dioxide Level 25 MMOL/L (21-32) 26 MMOL/L (21-32) Anion Gap 8 mmol/L (5-15) 7 mmol/L (5-15) Blood Urea Nitrogen 112 mg/dL (7-18) H 115 mg/dL (7-18) H Creatinine 4.6 MG/DL (0.55-1.30) H 4.7 MG/DL (0.55-1.30) H Estimat Glomerular Filtration Rate mL/min (>60) mL/min (>60) Glucose Level 161 MG/DL (74-106) H 139 MG/DL (74-106) H Osmolality 342 mOsm/kg (297-317) H Uric Acid 6.3 MG/DL (2.6-7.2) Calcium Level 8.0 MG/DL (8.5-10.1) L 8.0 MG/DL (8.5-10.1) L Phosphorus Level 6.2 MG/DL (2.5-4.9) H Magnesium Level 2.3 MG/DL (1.8-2.4) Total Bilirubin 0.4 MG/DL (0.2-1.0) Aspartate Amino Transf (AST/SGOT) 23 U/L (15-37) Alanine Aminotransferase (ALT/SGPT) 14 U/L (12-78) Alkaline Phosphatase 75 U/L (46-116) Total Creatine Kinase 108 U/L (26-308) Total Protein 5.0 G/DL (6.4-8.2) L Albumin 1.7 G/DL (3.4-5.0) L Globulin 3.3 g/dL Albumin/Globulin Ratio 0.5 (1.0-2.7) L Free Thyroxine 1.07 NG/DL (0.76-1.46) Free Triiodothyronine 1.3 pg/mL (2.3-4.2) L Cortisol 10.1 UG/DL Urine Color Yellow Urine Appearance Slightly cloudy Urine pH 6.5 (4.5-8.0) Urine Specific [place] 1.005 (1.005-1.035) Urine Protein 4+ (NEGATIVE) H Urine Glucose (UA) 1+ (NEGATIVE) H Urine Ketones Negative (NEGATIVE) Urine Blood 5+ (NEGATIVE) H Urine Nitrite Negative (NEGATIVE) Urine Bilirubin Negative (NEGATIVE) Urine Urobilinogen Normal MG/DL (0.0-1.0) Urine Leukocyte Esterase 1+ (NEGATIVE) H Urine RBC Tntc /HPF (0 - 0) H Urine WBC 5-10 /HPF (0 - 0) H Urine Squamous Epithelial Cells None /LPF (NONE/OCC) Urine Bacteria Moderate /HPF (NONE) H Urine Eosinophils None seen (NONE SEEN) Urine Osmolality 370 mOsm/kg (429-449) L Urine Random Sodium 26 mmol/L (20-110) Urine Random Chloride 60 mmol/L (55-125) Urine Potassium Timed 62 mmol/L (12-62) Test 09/05/18 06:20 White Blood Count 12.8 K/UL (4.8-10.8) H Red Blood Count 2.76 M/UL (4.70-6.10) L Hemoglobin 8.5 G/DL (14.2-18.0) L Hematocrit 26.2 % (42.0-52.0) L Mean Corpuscular Volume 95 FL (80-99) Mean Corpuscular Hemoglobin 30.7 PG (27.0-31.0) Mean Corpuscular Hemoglobin Concent 32.5 G/DL (32.0-36.0) Red Cell Distribution Width 15.7 % (11.6-14.8) H Platelet Count 257 K/UL (150-450) Mean Platelet Volume 6.6 FL (6.5-10.1) Neutrophils (%) (Auto) % (45.0-75.0) Lymphocytes (%) (Auto) % (20.0-45.0) Monocytes (%) (Auto) % (1.0-10.0) Eosinophils (%) (Auto) % (0.0-3.0) Basophils (%) (Auto) % (0.0-2.0) Differential Total Cells Counted 100 Neutrophils % (Manual) 87 % (45-75) H Lymphocytes % (Manual) 7 % (20-45) L Monocytes % (Manual) 2 % (1-10) Eosinophils % (Manual) 3 % (0-3) Basophils % (Manual) 1 % (0-2) Band Neutrophils 0 % (0-8) Platelet Estimate Adequate Platelet Morphology Normal Hypochromasia 2+ Anisocytosis 1+ Sodium Level 148 MMOL/L (136-145) H Potassium Level 5.0 MMOL/L (3.5-5.1) Chloride Level 111 MMOL/L (98-107) H Carbon Dioxide Level 25 MMOL/L (21-32) Anion Gap 12 mmol/L (5-15) Blood Urea Nitrogen 113 mg/dL (7-18) H Creatinine 4.8 MG/DL (0.55-1.30) H Estimat Glomerular Filtration Rate mL/min (>60) Glucose Level 114 MG/DL (74-106) H Hemoglobin A1c 5.8 % (4.3-6.0) Uric Acid 6.1 MG/DL (2.6-7.2) Calcium Level 7.6 MG/DL (8.5-10.1) L Phosphorus Level 6.8 MG/DL (2.5-4.9) H Magnesium Level 2.2 MG/DL (1.8-2.4) Total Bilirubin 0.5 MG/DL (0.2-1.0) Aspartate Amino Transf (AST/SGOT) 35 U/L (15-37) Alanine Aminotransferase (ALT/SGPT) 14 U/L (12-78) Alkaline Phosphatase 87 U/L (46-116) Troponin I 0.048 ng/mL (0.000-0.056) C-Reactive Protein, Quantitative 13.9 mg/dL (0.00-0.90) H Pro-B-Type Natriuretic Peptide 87162 pg/mL (0-125) H Total Protein 5.1 G/DL (6.4-8.2) L Albumin 1.7 G/DL (3.4-5.0) L Globulin 3.4 g/dL Albumin/Globulin Ratio 0.5 (1.0-2.7) L Triglycerides Level 107 MG/DL (30-150) Cholesterol Level 81 MG/DL (< 200) LDL Cholesterol 45 mg/dL (<100) HDL Cholesterol 22 MG/DL (40-60) L Cholesterol/HDL Ratio 3.7 (3.3-4.4) Thyroid Stimulating Hormone (TSH) 4.122 uiU/mL (0.358-3.740) Microbiology Date/Time Source Procedure Growth Status 09/04/18 16:20 Urine,Clean Catch Urine Culture - Preliminary NO GROWTH Resulted Height (Feet): 5 Height (Inches): 9.00 Weight (Pounds): 180 Medications Current Medications Medications (Trade) Dose Ordered Sig/Vahe Route PRN Reason Start Time Stop Time Status Last Admin Dose Admin Acetaminophen (Tylenol) 650 mg Q4H PRN ORAL fever 09/04/18 10:30 10/04/18 10:29 Chlorhexidine Gluconate (Sadia-Hex 2%) 1 applic DAILY@2000 TOPIC 09/05/18 20:00 10/05/18 19:59 Clonidine HCl (Catapres Tab) 0.1 mg Q4H PRN ORAL SBP>160 09/04/18 10:30 10/04/18 10:29 Dextrose (Dextrose 50%) 25 ml Q30M PRN IV Hypoglycemia 09/04/18 11:00 10/04/18 10:59 Dextrose (Dextrose 50%) 50 ml Q30M PRN IV Hypoglycemia 09/04/18 11:00 10/04/18 10:59 Diltiazem HCl (Cardizem) 60 mg EVERY 6 HOURS GT 09/05/18 12:00 10/04/18 21:59 09/05/18 12:38 Divalproex Sodium (Depakote Sprinkles) 125 mg BID GT 09/04/18 18:14 10/04/18 18:13 09/05/18 08:04 Epoetin Jacobo (Procrit (for non ESRD use)) 10,000 units SAT-SAT-SAT SUBQ 09/05/18 21:00 10/05/18 20:59 Heparin Sodium (Porcine) (Heparin 5000 units/ml) 5,000 units EVERY 12 HOURS SUBQ 09/04/18 21:00 10/04/18 20:59 09/05/18 08:05 Hydralazine HCl (Apresoline) 10 mg Q4H PRN IV bp over 160 syst 09/05/18 12:00 10/05/18 11:59 Hydralazine HCl (Apresoline) 10 mg Q6HR GT 09/05/18 12:00 10/05/18 11:59 09/05/18 12:38 Insulin Aspart (NovoLOG) Q6HR SUBQ 09/04/18 12:00 10/04/18 11:59 09/05/18 11:30 Isosorbide Dinitrate (Isordil) 10 mg Q6HR GT 09/05/18 12:00 10/05/18 11:59 09/05/18 12:38 Lorazepam (Ativan 2mg/ml 1ml) 0.5 mg Q4H PRN IV For Anxiety 09/04/18 10:30 09/11/18 10:29 Metoclopramide HCl (Reglan) 10 mg Q8H PRN IVP Nausea & Vomiting 09/04/18 17:15 10/04/18 17:14 Metoprolol Tartrate (Lopressor) 100 mg Q12HR GT 09/04/18 21:00 10/04/18 20:59 09/05/18 08:04 Morphine Sulfate (Morphine Sulfate) 1 mg Q4H PRN IVP For Pain 09/04/18 14:30 09/11/18 10:29 Ondansetron HCl (Zofran) 4 mg Q6H PRN IVP Nausea & Vomiting 09/04/18 10:30 10/04/18 10:29 Pantoprazole (Protonix) 40 mg EVERY 12 HOURS IVP 09/04/18 21:00 10/04/18 20:59 09/05/18 08:03 Piperacillin Sod/ Tazobactam Sod 3.375 gm/Dextrose 110 ml @ 27.5 mls/hr Q12H IVPB 09/05/18 15:00 09/12/18 14:59 Polyethylene Glycol (Miralax) 17 gm HSPRN PRN ORAL Constipation 09/04/18 10:30 10/04/18 10:29 Sodium Chloride 1,000 ml @ 150 mls/hr Q6H40M IV 09/04/18 17:10 10/04/18 17:09 09/05/18 10:50 Vancomycin HCl (Vanco rx to dose) 1 ea DAILY PRN MISC Per rx protocol 09/05/18 13:30 10/05/18 13:29 Vancomycin HCl/ Dextrose 250 ml @ 166.667 mls/hr ONCE ONCE IVPB 09/05/18 15:00 09/05/18 16:29 Zolpidem Tartrate (Ambien) 5 mg HSPRN PRN ORAL Insomnia 09/04/18 10:30 09/11/18 10:29 Assessment/Plan Problem List: (1) Decubital ulcer Assessment & Plan: Pt from SN[facility] presents with multiple pressure injuries present on admission.Pt wearing Calvin collar and scattered red areas noted around neck. Scrotum red and enlarged.scattered dry scabbed areas bilat lower ext. Partial thickness pressure injury R thoracic,wound bed moist -viable ,edges adherent and flat .Periwound without erythema(L)2.3cm x (W)3cm DTPI sacrum, maroon discoloration with induration,partially opened on R sacrum , minimal serous exudate.non-blanchaing erythema periwound(L)4.5cm x (W)6.5cm Unstageable pressure injury to R ischium with 100% yellow slough ,marginal erythema along borders .No odor noted .Non-blanchable erythema periwound(L) 4.1cm x (W)2.4cm. DTPI R trochanter .Maroon with induration with partial opening along borders .Small amt sanguineous exudate noted.Non-blanchable erythema periwound (L)4.5cm x (W)4.5cm. Partial thickness pressure injury medial L knee wound bed moist -viable ,edges adherent and flat .Periwound clean and pink (L)1.5cm x (W)4.5cm. Unstageable Pressure injury distal L lower ext in close proximity to Medial malleolus.Wound maroon ,indurated with marginal erythema along borders.Non- blanchable erythema periwound((L)3.5cm x (W)4.5cm DTPI L hallux.Wound maroon and indurated .Non-blanchable erythema periwound(L) 3cm x (W)3cm. DTPI lateral L 1st metatarsal .Blood filled blister with non-blanchable erythema periwound(L)3.5cm x (W)2.3cm. DTPI L lateral malleolus.Maroon discoloration with fluctuance .Non-blanching erythema periwound(L)2cm x (W)1.5cm DTPI L medial L heel .Wound maroon in colour and is fluctuant.Periwound pink but also fluctuant(L)4.5cm x (W)6cm. DTPI medial /Plantar R heel.Maroon in colour with fluctuance .Non-blanchable erythema periwound. (L)4cm x (W)3.5cm. DTPI lateral R malleolus .Wound maroon in colour fluctuant centrally with marginal erythema. Non-blanchable erythema periwound. DTPI lateral R 5th metatarsal .Blood filled blister with non-blanching erythema periwound (L)2.5cm x (W)1cm . DTPI distal /lateral R foot .Blood filled blister with non-blanching erythema periwound (L)1cm x (W)1.2cm. Plan: Apply Cavilon Skin Barrier wipes to DTPI's Both feet .Cover with Optifoam drsg .Change every 7 days and prn. Apply Triad to sacrum .Cavilon along borders .Cover with Optifoam drsg .Change every 3 days and prn. Cleanse wound R upper back with saline .Cover with Optifoam drsg .Change every 3 days and prn. Cleanse wound R Ischium with saline.Apply Therahoney .Cavilon skin barrier to borders .Cover with Optifoam drsg. Change daily and prn. Cleanse wound distal /medail L lower ext .Apply Therahoney .Cavilon Skin Barrier to borders .Cover with Optifoam Drsg .Change daily and Prn. Cleanse wound medial L knee with Saline.Cover with Optifoam drsg .Change every 7 days and prn. Reposition at least every 2 hours or as tolerated. Air fluidized mattress. Off-load heels with Pillow. Apply Moisture barrier to neck daily and prn . ICD Codes: L89.90 - Pressure ulcer of unspecified site, unspecified stage SNOMED: [id number] [email or web address] Sep 05, 2018 14:17
--- NOTE | 2018-09-05 14:20 | NUR ---
TRANSFER TO FLOOR: Patient transferred to [facility], per Dr. Ball. Report given to Tiffanie Bowens RN using SBAR. Pt has no belongings. Patient has no family members. No acute distress noted during transfer.
--- NOTE | 2018-09-05 14:21 | NUR ---
NURSE NOTES: Received patient from Tiffanie Arriola RN. Patient VS stable at this time with no sign of acute distress. Patient BP 139/74, temp 98.4, and HR 74, and SpO2 sat 98%. Patient moldovan speaking and confused at this time. Patient is SR on the monitor. Patient on 3L NC at this time with stable saturation. Patient has G tube that is patent and running Nepro at 45mL/hr at this time. Patient has vidal for urine retention at this time. Patient has multiple wounds. All wound dressings are clean and intact. Patient has DTIs on the feet, sacral stage 3, and bilateral ischial and trochanter DTI. Patient has a left femoral TLC at this time that is patient and running 1/2 NS at 150cc/hr at this time. Patient bed in low position with bed alarm on and call light in reach at this time.
[2018-09-05] MEDS ORDERED: Vancomycin 1250mg/D5W 250ml IVPB ONE (15:00)
[2018-09-05] MEDS ORDERED: Metoclopramide 10mg/2ml Inj IVP PRN (15:00)
[2018-09-05] MEDS ORDERED: Vancomycin 1250mg/D5W 250ml 250 ML IVPB ONE (15:00)
[2018-09-05] MEDS ORDERED: Piperacillin/Tazobactam 3.375 GM in D5W 110 ML IVPB SCH (15:00)
--- NOTE | 2018-09-05 15:14 | Consultation ---
History of Present Illness General Date patient seen: Sep 05, 2018 Chief Complaint: Dyspnea/Respdistress Present Illness Allergies: Coded Allergies: NO KNOWN ALLERGIES (Unverified Allergy, Unknown, 08/25/15) Medication History Scheduled Amlodipine Besylate (Norvasc), 5 MG GT DAILY, (Reported) Aspirin* (Aspirin*), 81 MG ORAL DAILY, (Reported) Diltiazem Hcl* (Cardizem*), 60 MG GT EVERY 8 HOURS, (Reported) Divalproex Sodium (Depakote Sprinkle), 125 MG GT Q8HR, (Reported) Docusate Sodium (Docusate Sodium), 100 MG GT THREE TIMES A DAY, (Reported) Heparin Sod (Porcine) (Heparin Sodium*), 5,000 UNITS SUBQ EVERY 12 HOURS, ( Reported) Lansoprazole* (Prevacid*), 30 MG ORAL BID, (Reported) Levofloxacin (Levofloxacin*), 750 MG ORAL DAILY, (Reported) Levofloxacin* (Levaquin*), 750 MG ORAL DAILY, (Reported) Metoprolol Tartrate* (Metoprolol Tartrate*), 100 MG GT BID, (Reported) Spironolactone (Aldactone), 25 MG GT DAILY, (Reported) Scheduled PRN Bisacodyl (Bisacodyl), 10 MG RC DAILY PRN for Constipation, (Reported) Codeine/Promethazine Hcl* (Promethazine-Codeine Syrup*), 5 ML ORAL Q4H PRN for For Cough, (Reported) Magnesium Hydroxide* (Milk Of Magnesia*), 30 ML GT PRN PRN for Constipation, ( Reported) Miscellaneous Medications Diltiazem HCl (Diltiazem ER), 60 MG PO, (Reported) Divalproex Sodium (Divalproex Sodium), 125 MG PO, (Reported) Insulin Aspart (Novolog Flexpen), (Reported) Discontinued Medications Acetaminophen (Tylenol), 650 MG PO Q4HR PRN for Fever/Headache/Mild Pain, ( Reported) Discontinued Reason: MD discontinued med Acetaminophen* (Tylenol Extra Strength*), 1,000 MG ORAL Q6H PRN for Moderate Breakthru Pain (5-7), (Reported) Discontinued Reason: MD discontinued med Acetaminophen* (Acetaminophen 325MG Tablet*), 650 MG ORAL Q6H PRN for Mild Pain (Pain Scale 1-3), (Reported) Discontinued Reason: MD discontinued med Atorvastatin Calcium* (Lipitor*), 10 MG GT BEDTIME, (Reported) Discontinued Reason: MD discontinued med Carbidopa/Levodopa 25-100 Mg* (Sinemet 25-100 Mg Tablet*), 1 TAB GT FOUR TIMES A DAY, (Reported) Discontinued Reason: Medication dose changed Cranberry Fruit Concentrate (Cranberry), 450 MG PO DAILY, (Reported) Discontinued Reason: MD discontinued med Divalproex Sodium* (Depakote Er*), 125 MG ORAL THREE TIMES A DAY, (Reported) Discontinued Reason: MD discontinued med Docusate Sodium* (Docusate Sodium*), 100 MG GT DAILY, (Reported) Discontinued Reason: Medication dose changed Donepezil Hcl* (Donepezil Hcl*), 10 MG ORAL QHS, (Reported) Discontinued Reason: MD discontinued med Isosorbide Dinitrate* (Isordil*), 20 MG ORAL BID, (Reported) Discontinued Reason: MD discontinued med Linagliptin (Tradjenta), 5 MG PO DAILY, (Reported) Discontinued Reason: MD discontinued med Lisinopril* (Lisinopril*), 40 MG ORAL DAILY, (Reported) Discontinued Reason: MD discontinued med Lorazepam* (Ativan*), 0.5 MG ORAL Q6HR PRN for For Anxiety, (Reported) Discontinued Reason: MD discontinued med Mag Hydrox/Al Hydrox/Simeth (Alum-Mag Hydroxide-Simeth Liq), Unknown Dose PO Q6HR PRN for STOMACH UPSET, (Reported) Discontinued Reason: MD discontinued med Magnesium Hydroxide* (Milk Of Magnesia*), 30 ML ORAL QHS PRN for Constipation, ( Reported) Discontinued Reason: MD discontinued med Magnesium Oxide (Magnesium Oxide), 400 MG ORAL BID, (Reported) Discontinued Reason: MD discontinued med Metformin Hcl* (Metformin Hcl*), 500 MG ORAL BID, (Reported) Discontinued Reason: MD discontinued med Mirtazapine* (Mirtazapine*), 7.5 MG ORAL BEDTIME, (Reported) Discontinued Reason: MD discontinued med Na Phos,M-B/Na Phos,Di-Ba* (Fleet Enema*), 133 ML RECTAL EVERY OTHER DAY PRN for Constipation, (Reported) Discontinued Reason: MD discontinued med Na Phos,M-B/Na Phos,Di-Ba* (Fleet Enema*), 133 ML RECTAL DAILY, (Reported) Discontinued Reason: MD discontinued med Quetiapine Fumarate* (Seroquel*), 50 MG ORAL TWICE A DAY, (Reported) Discontinued Reason: MD discontinued med Vitamin B Cmplx/Vit C/Folic AC (Nephro-[place] Tablet), 1 TAB ORAL DAILY, (Reported ) Discontinued Reason: MD discontinued med Patient History Healthcare decision maker Trever Grewal Resuscitation status Full Code Advanced Directive on File Physical Exam Last 24 Hour Vital Signs Date Time Temp Pulse Resp B/P (MAP) Pulse Ox O2 Delivery O2 Flow Rate FiO2 09/05/18 13:00 98.4 72 22 127/71 (89) 100 09/05/18 12:38 151/64 09/05/18 12:38 151/64 09/05/18 12:38 73 151/64 09/05/18 12:00 89 09/05/18 12:00 88 28 145/59 (87) 98 09/05/18 12:00 Nasal Cannula 3.0 09/05/18 11:00 73 25 151/64 (93) 98 09/05/18 10:00 73 25 149/61 (90) 95 09/05/18 08:04 95 136/90 09/05/18 08:00 Nasal Cannula 3.0 09/05/18 08:00 76 25 142/92 (109) 95 09/05/18 08:00 75 09/05/18 07:00 98.6 95 21 136/90 (105) 95 09/05/18 06:50 95 Nasal Cannula 3.0 32 09/05/18 06:50 Nasal Cannula 3.0 32 09/05/18 06:00 74 25 129/60 (83) 94 09/05/18 05:35 78 159/66 09/05/18 05:00 75 25 159/66 (97) 96 09/05/18 04:06 98.7 78 27 155/62 (93) 96 09/05/18 04:05 Nasal Cannula 3.0 09/05/18 04:05 73 09/05/18 03:00 77 22 145/95 (112) 94 09/05/18 02:00 74 22 148/71 (96) 99 09/05/18 01:00 76 22 138/76 (96) 98 09/05/18 00:00 Nasal Cannula 3.0 09/05/18 00:00 98.0 72 22 137/60 (85) 97 09/05/18 00:00 75 09/04/18 23:00 73 21 153/72 (99) 99 09/04/18 22:00 76 22 146/77 (100) 97 09/04/18 21:33 77 151/74 09/04/18 21:29 78 151/74 09/04/18 21:00 76 21 151/74 (99) 98 09/04/18 20:00 Nasal Cannula 3.0 09/04/18 20:00 74 09/04/18 20:00 74 21 142/67 (92) 100 09/04/18 19:24 Nasal Cannula 3.0 32 09/04/18 19:23 99 Nasal Cannula 3.0 32 09/04/18 19:00 97.7 76 21 146/74 (98) 100 09/04/18 16:07 78 154/58 09/04/18 16:00 79 09/04/18 16:00 Nasal Cannula 3.0 09/04/18 16:00 3.0 Intake and Output 09/04/18 09/05/18 18:59 06:59 Intake Total 520 ml 2480 ml Output Total 200 ml 430 ml Balance 320 ml 2050 ml Intake Free Water 60 ml IV Total 350 ml 1800 ml Tube Feeding 110 ml 440 ml Other 240 ml Output Urine Total 200 ml 430 ml # Bowel Movements 4 2 Laboratory Tests Test 09/04/18 16:20 09/04/18 17:50 09/05/18 06:20 Urine Color Yellow Urine Appearance Slightly cloudy Urine pH 6.5 (4.5-8.0) Urine Specific [place] 1.005 (1.005-1.035) Urine Protein 4+ (NEGATIVE) H Urine Glucose (UA) 1+ (NEGATIVE) H Urine Ketones Negative (NEGATIVE) Urine Blood 5+ (NEGATIVE) H Urine Nitrite Negative (NEGATIVE) Urine Bilirubin Negative (NEGATIVE) Urine Urobilinogen Normal MG/DL (0.0-1.0) Urine Leukocyte Esterase 1+ (NEGATIVE) H Urine RBC Tntc /HPF (0 - 0) H Urine WBC 5-10 /HPF (0 - 0) H Urine Squamous Epithelial Cells None /LPF (NONE/OCC) Urine Bacteria Moderate /HPF (NONE) H Urine Eosinophils None seen (NONE SEEN) Urine Osmolality 370 mOsm/kg (429-449) L Urine Random Sodium 26 mmol/L (20-110) Urine Random Chloride 60 mmol/L (55-125) Urine Potassium Timed 62 mmol/L (12-62) Sodium Level 147 MMOL/L (136-145) H 148 MMOL/L (136-145) H Potassium Level 6.4 MMOL/L (3.5-5.1) *H 5.0 MMOL/L (3.5-5.1) Chloride Level 114 MMOL/L (98-107) H 111 MMOL/L (98-107) H Carbon Dioxide Level 26 MMOL/L (21-32) 25 MMOL/L (21-32) Anion Gap 7 mmol/L (5-15) 12 mmol/L (5-15) Blood Urea Nitrogen 115 mg/dL (7-18) H 113 mg/dL (7-18) H Creatinine 4.7 MG/DL (0.55-1.30) H 4.8 MG/DL (0.55-1.30) H Estimat Glomerular Filtration Rate mL/min (>60) mL/min (>60) Glucose Level 139 MG/DL (74-106) H 114 MG/DL (74-106) H Calcium Level 8.0 MG/DL (8.5-10.1) L 7.6 MG/DL (8.5-10.1) L White Blood Count 12.8 K/UL (4.8-10.8) H Red Blood Count 2.76 M/UL (4.70-6.10) L Hemoglobin 8.5 G/DL (14.2-18.0) L Hematocrit 26.2 % (42.0-52.0) L Mean Corpuscular Volume 95 FL (80-99) Mean Corpuscular Hemoglobin 30.7 PG (27.0-31.0) Mean Corpuscular Hemoglobin Concent 32.5 G/DL (32.0-36.0) Red Cell Distribution Width 15.7 % (11.6-14.8) H Platelet Count 257 K/UL (150-450) Mean Platelet Volume 6.6 FL (6.5-10.1) Neutrophils (%) (Auto) % (45.0-75.0) Lymphocytes (%) (Auto) % (20.0-45.0) Monocytes (%) (Auto) % (1.0-10.0) Eosinophils (%) (Auto) % (0.0-3.0) Basophils (%) (Auto) % (0.0-2.0) Differential Total Cells Counted 100 Neutrophils % (Manual) 87 % (45-75) H Lymphocytes % (Manual) 7 % (20-45) L Monocytes % (Manual) 2 % (1-10) Eosinophils % (Manual) 3 % (0-3) Basophils % (Manual) 1 % (0-2) Band Neutrophils 0 % (0-8) Platelet Estimate Adequate Platelet Morphology Normal Hypochromasia 2+ Anisocytosis 1+ Hemoglobin A1c 5.8 % (4.3-6.0) Uric Acid 6.1 MG/DL (2.6-7.2) Phosphorus Level 6.8 MG/DL (2.5-4.9) H Magnesium Level 2.2 MG/DL (1.8-2.4) Total Bilirubin 0.5 MG/DL (0.2-1.0) Aspartate Amino Transf (AST/SGOT) 35 U/L (15-37) Alanine Aminotransferase (ALT/SGPT) 14 U/L (12-78) Alkaline Phosphatase 87 U/L (46-116) Troponin I 0.048 ng/mL (0.000-0.056) C-Reactive Protein, Quantitative 13.9 mg/dL (0.00-0.90) H Pro-B-Type Natriuretic Peptide 63814 pg/mL (0-125) H Total Protein 5.1 G/DL (6.4-8.2) L Albumin 1.7 G/DL (3.4-5.0) L Globulin 3.4 g/dL Albumin/Globulin Ratio 0.5 (1.0-2.7) L Triglycerides Level 107 MG/DL (30-150) Cholesterol Level 81 MG/DL (< 200) LDL Cholesterol 45 mg/dL (<100) HDL Cholesterol 22 MG/DL (40-60) L Cholesterol/HDL Ratio 3.7 (3.3-4.4) Thyroid Stimulating Hormone (TSH) 4.122 uiU/mL (0.358-3.740) Microbiology Date/Time Source Procedure Growth Status 09/04/18 16:20 Urine,Clean Catch Urine Culture - Preliminary NO GROWTH Resulted Height (Feet): 5 Height (Inches): 9.00 Weight (Pounds): 180 Medications Current Medications Medications (Trade) Dose Ordered Sig/Vahe Route PRN Reason Start Time Stop Time Status Last Admin Dose Admin Acetaminophen (Tylenol) 650 mg Q4H PRN ORAL T>100.5 09/05/18 15:00 10/04/18 14:59 Chlorhexidine Gluconate (Sadia-Hex 2%) 1 applic DAILY@2000 TOPIC 09/05/18 20:00 10/05/18 19:59 Dextrose (Dextrose 50%) 25 ml Q30M PRN IV Hypoglycemia 09/05/18 15:00 10/04/18 10:59 Dextrose (Dextrose 50%) 50 ml Q30M PRN IV Hypoglycemia 09/05/18 15:00 10/04/18 10:59 Diltiazem HCl (Cardizem) 60 mg EVERY 6 HOURS GT 09/05/18 18:00 10/04/18 21:59 Divalproex Sodium (Depakote Sprinkles) 125 mg Q12HR GT 09/05/18 21:00 10/05/18 20:59 Epoetin Jacobo (Procrit (for non ESRD use)) 10,000 units SAT-SAT-SAT SUBQ 09/05/18 21:00 10/05/18 20:59 Heparin Sodium (Porcine) (Heparin 5000 units/ml) 5,000 units EVERY 12 HOURS SUBQ 09/05/18 21:00 10/04/18 20:59 Hydralazine HCl (Apresoline) 10 mg Q4H PRN IV bp over 160 syst 09/05/18 16:00 10/05/18 11:59 Hydralazine HCl (Apresoline) 10 mg Q6HR GT 09/05/18 18:00 10/05/18 11:59 Insulin Aspart (NovoLOG) Q6HR SUBQ 09/05/18 18:00 10/04/18 11:59 Isosorbide Dinitrate (Isordil) 10 mg Q6HR GT 09/05/18 18:00 10/05/18 11:59 Lorazepam (Ativan 2mg/ml 1ml) 0.5 mg Q4H PRN IV For Anxiety 09/05/18 15:00 09/11/18 14:59 Metoclopramide HCl (Reglan) 10 mg Q8H PRN IVP Nausea & Vomiting 09/05/18 15:00 10/04/18 14:59 Metoprolol Tartrate (Lopressor) 100 mg Q12HR GT 09/05/18 21:00 10/04/18 20:59 Morphine Sulfate (Morphine Sulfate) 1 mg Q4H PRN IVP For Pain 09/05/18 16:00 09/11/18 15:59 Ondansetron HCl (Zofran) 4 mg Q6H PRN IVP Nausea & Vomiting 09/05/18 15:00 10/04/18 14:59 Pantoprazole (Protonix) 40 mg EVERY 12 HOURS IVP 09/05/18 21:00 10/04/18 20:59 Piperacillin Sod/ Tazobactam Sod 3.375 gm/Dextrose 110 ml @ 27.5 mls/hr Q12H IVPB 09/05/18 15:00 09/12/18 14:59 Polyethylene Glycol (Miralax) 17 gm HSPRN PRN ORAL Constipation 09/06/18 21:00 10/04/18 20:59 Sodium Chloride 1,000 ml @ 150 mls/hr Q6H40M IV 09/05/18 15:00 10/04/18 17:09 Vancomycin HCl (Vanco rx to dose) 1 ea DAILY PRN MISC Per rx protocol 09/05/18 13:30 10/05/18 13:29 Vancomycin HCl/ Dextrose 250 ml @ 166.667 mls/hr ONCE ONCE IVPB 09/05/18 15:00 09/05/18 16:29 Zolpidem Tartrate (Ambien) 5 mg HSPRN PRN ORAL Insomnia 09/05/18 21:00 09/12/18 20:59 Assessment/Plan Assessment/Plan Hematology Consultation REQ : Evans Jarrett RFC: Anemia evaluation DOS: 09/05/18 HPI Is an 78-year-old male with multiple medical problem including seizure, schizophrenia, CAD with pacemaker. He also had cervical fracture 6 months ago for which he wears a hard collar. He presents with chief complaint of rest or distress and hypoxia, tachycardia. 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 He had a history of aspiration. Patient was placed on oxygen and brought here. Unable to get any history from this patient. Patient was also warm to the touch. Allergies: NO KNOWN ALLERGIES (Unverified Allergy, Unknown, 08/25/15) Patient History Past Medical History: see triage record, old chart reviewed Past Surgical History: other Pertinent Family History: none Social History: Denies: smoking Immunizations: other Reviewed Nursing Documentation: PMH: Agreed; PSxH: Agreed Nursing Documentation-PMH Past Medical History: No History, Except For Hx Cardiac Problems: Yes - chf Hx Hypertension: Yes Hx Pacemaker: Yes - icd Hx COPD: Yes Hx Diabetes: Yes Hx Cancer: No Hx Gastrointestinal Problems: No Hx Neurological Problems: Yes Hx Dementia: Yes Hx Alzheimer's Disease: Yes Hx Seizures: Yes ER ROS - General Constitutional: Reports: fever, malaise Respiratory: Reports: shortness of breath All Other Systems: limited - secondary to condition ER Physical Exam - General Physical Exam Last Vital Signs Date Time Temp Pulse Resp B/P (MAP) Pulse Ox O2 Delivery O2 Flow Rate FiO2 09/05/18 13:00 98.4 72 22 127/71 (89) 100 09/05/18 12:00 Nasal Cannula 3.0 09/05/18 06:50 32 Sp02: abnormal General Appearance: moderate distress, Chronically Ill, Stupor Head: normocephalic, atraumatic Eyes: bilateral eye PERRL ENT: other - Oropharynx with lots of thick mucus Neck: other - stiff with collar on Respiratory: respiratory distress, rhonchi Cardiovascular: regular rate, rhythm, no murmur Gastrointestinal: normal bowel sounds + peg Musculoskeletal: other - contracted. UE with edema Skin: warm/dry +++ decub Assessment and Recs: # Anemia due to underlying chronic disease -- anemia panel has been reviewed --> Also since downtrending since admission, with sepsis, could be related to hemodilution --> Anemia panel reviewed from last admission as well, ferritin 171 --> DW PCP, transfuse only if clinically unstable, and hgb <7 --> No evidence of hemolysis is noted --> peripheral smear has been reviewed # Thrombocytopenia from sepsis from aspiration pneumonia. On abx as per ID --> hepatitis and hiv negative, could be due to infection --> us abd to be considered if downtrending # Pleural effusions demonstrated on cxr ---> as per pulm eval # Resolved aspiration pneumonia --> abx on prn only # ARF (acute renal failure) --> per renal # Respiratory failure with hypoxia # Encephalopathy # UTI (urinary tract infection) h/o The timing of this note does not necessarily reflect the time of the patient was seen Greatly appreciate consultation! Elias Walters MD Sep 05, 2018 15:14
[2018-09-05] MEDS ORDERED: Morphine Sulfate 4mg/ml Inj (IV/IM USE ONLY) IVP PRN (16:00)
[2018-09-05] MEDS: Piperacillin/Tazobactam 3.375 GM in D5W 110 ML IVPB SCH (17:00)
[2018-09-05] MEDS: HydrALAZINE 10mg Tab GT SCH (18:15)
--- NOTE | 2018-09-05 19:20 | NUR ---
HAND-OFF: Report given to VARINDER Khanna. Patient VS stable at this time with no sign of acute distress. Patient has order for urine culture, sputum culture, and swab for flu. Urine was collected. endorsed to follow up.
[2018-09-05] MEDS ORDERED: Dyna-Hex 2% Top Sol 2oz TOPIC SCH (20:00)
--- NOTE | 2018-09-05 20:00 | NUR ---
NURSE NOTES: Patient received from Tiffanie REEDER. Patient is awake, mildly confused at times. Patient is able to verbalize in French only. Patient has R femoral TLC 1/2 NS at 150. PAtient has Nepro at 45ml/hr. Wounds noted. Patient is on NC at 3L. Spo2 is 95%NAD. Bed in low position and bed alarm set on.
[2018-09-05] MEDS: Dyna-Hex 2% Top Sol 2oz TOPIC SCH (20:44)
[2018-09-05] MEDS: Epogen (for non ESRD use) SUBQ SCH (20:46)
[2018-09-05] MEDS ORDERED: Epogen (for non ESRD use) SUBQ SCH (21:00)
[2018-09-05] MEDS ORDERED: Zolpidem 5mg tab ORAL PRN (21:00)
[2018-09-06] VITALS: BP 135/70
--- NOTE | 2018-09-06 | NUR ---
NURSE NOTES: Reposiotioned, oral care done, NAD, no acute events. Urine collected and sent. Influenza swab done and sent Sputum culture collected and sent
[2018-09-06] MEDS: Piperacillin/Tazobactam 3.375 GM in D5W 110 ML IVPB SCH ×2 (03:00→14:10)
[2018-09-06 04:00] VITALS: BP 142/73
--- NOTE | 2018-09-06 04:00 | NUR ---
NURSE NOTES: Patient has Normal BM. NAD, Patient cleaned. New Feeding hung.
[2018-09-06] MEDS: dilTIAZem HCl 60mg tab GT SCH ×4 (05:31→17:24)
[2018-09-06] MEDS: HydrALAZINE 10mg Tab GT SCH ×4 (05:31→17:25)
[2018-09-06 05:47] LABS: BASOPHILS % (AUTO) 0.9 % (0.0-2.0); EOSINOPHILS % (AUTO) 4.4 % (0.0-3.0); HEMATOCRIT 25.2 % (42.0-52.0); HEMOGLOBIN 8.4 G/DL (14.2-18.0); LYMPHOCYTES % (AUTO) 8.7 % (20.0-45.0); MEAN CORPUSCULAR VOLUME 94 FL (80-99); MONOCYTES % (AUTO) 5.7 % (1.0-10.0); NEUTROPHILS % (AUTO) 80.4 % (45.0-75.0); PLATELET COUNT 302 K/UL (150-450); RED CELL DISTRIBUTION WIDTH 15.4 % (11.6-14.8); WHITE BLOOD COUNT 12.3 K/UL (4.8-10.8)
[2018-09-06 05:57] LABS: PHOSPHORUS 7.5 MG/DL (2.5-4.9)
[2018-09-06] MEDS: NovoLOG Insulin Flexpen SUBQ SCH ×4 (06:06→17:27)
[2018-09-06 06:16] LABS: % IRON SATURATION 53 % (15-50); ALANINE AMINOTRANSFERASE 14 U/L (12-78); ALBUMIN 1.6 G/DL (3.4-5.0); ALBUMIN/GLOBULIN RATIO 0.4 (1.0-2.7); ALKALINE PHOSPHATASE 102 U/L (46-116); ANION GAP 16 mmol/L (5-15); ASPARTATE AMINO TRANSFERASE 23 U/L (15-37); BILIRUBIN,TOTAL 0.4 MG/DL (0.2-1.0); BLOOD UREA NITROGEN 113 mg/dL (7-18); CALCIUM 7.4 MG/DL (8.5-10.1); CARBON DIOXIDE 24 MMOL/L (21-32); CHLORIDE 108 MMOL/L (98-107); CREATININE 4.8 MG/DL (0.55-1.30); FERRITIN 631 NG/ML (8-388); IRON 57 ug/dL (50-175); POTASSIUM 3.6 MMOL/L (3.5-5.1); SODIUM 148 MMOL/L (136-145); TOTAL IRON BINDING CAPACITY 108 ug/dL (250-450)
--- NOTE | 2018-09-06 07:22 | NUR ---
NURSE NOTES: Report received from VARINDER Khanna. Observed patient in bed. Open eyes spontaneously but unable to follow command with confusion. No s/s of pain at this time. Receiving 3L of oxygen via N/C with no distress noted. GT site intact and patent with ongoing feeding. HOB elevated. F/C intact and draining well. Bed in lowest position. Call light within reach. Will continue to monitor.
[2018-09-06 08:00] VITALS: BP 130/60
[2018-09-06] MEDS: Depakote 125mg Sprinkles GT SCH ×2 (08:37→21:31)
[2018-09-06] MEDS: Pantoprazole Inj IVP SCH ×2 (08:37→21:32)
[2018-09-06] MEDS: Heparin 5000 units/ml inj SUBQ SCH ×2 (08:38→21:33)
--- NOTE | 2018-09-06 08:48 | Pulmonology Progress Note ---
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 seizure disorder hx of neck fracture ( 6 m ago), cervical collar on anemia of chronic kidney disease abnormal cardiac enzymes sacral and R ischial tuberosity pressure ulcers , POA PLAN OF CARE RUSTY weaned off BiPAP to nasal cannula suppl oxygen to keep pulse ox above 92; pulmonary toilet as needed CXR with worsening CHF give one dose of Lasix-80 mg ( discussed with nephro ) fup with CXR in am abx per ID recs strict aspiration precaution G-tube feeding, monitor tolerance Echo with EF 55-60 and RVSP c/w mild pulmonary hypertension BP management with hydralazine and calcium channel glendy troponin with minimal elevation, likely troponin leak 2 to renal failure nephro follows, IVF, monitor renal parameters, lytes, correct lytes as needed,avoid nephrotoxic, urine studies fup with nephro recs, possibly acute on chronic renal fiaslrue BS management with SSI seizure precaution , continue Depakote monitor H&H with goal to keep hemoglobin above 7 wound care per protocol continue with cervical collar case discussed and evaluated by supervising physician Subjective Allergies: Coded Allergies: NO KNOWN ALLERGIES (Unverified Allergy, Unknown, 08/25/15) Subjective afebrile, leukocytosis trending down on O2 3 L via NC, pulse ox stable renal parameters w/out change Objective Last 24 Hour Vital Signs Date Time Temp Pulse Resp B/P (MAP) Pulse Ox O2 Delivery O2 Flow Rate FiO2 09/06/18 08:37 65 130/60 09/06/18 08:00 Nasal Cannula 3.0 09/06/18 08:00 97.0 65 19 130/60 (83) 95 09/06/18 07:52 95 Nasal Cannula 3.0 32 09/06/18 07:52 Nasal Cannula 3.0 32 09/06/18 05:31 142/73 09/06/18 05:31 142/73 09/06/18 05:31 67 142/73 09/06/18 04:00 Nasal Cannula 3.0 09/06/18 04:00 96.9 67 22 142/73 (96) 94 09/06/18 03:38 75 09/06/18 00:00 96.8 70 24 135/70 (91) 95 09/06/18 00:00 64 09/06/18 00:00 139/74 09/06/18 00:00 139/74 09/06/18 00:00 65 145/83 09/06/18 00:00 Nasal Cannula 3.0 09/05/18 20:49 72 139/74 09/05/18 20:00 Nasal Cannula 3.0 09/05/18 20:00 98.2 70 22 120/56 (77) 93 09/05/18 20:00 65 09/05/18 19:44 Nasal Cannula 3.0 32 09/05/18 19:44 96 Nasal Cannula 3.0 32 09/05/18 18:18 98.4 72 24 139/74 (95) 94 09/05/18 18:15 139/74 09/05/18 18:15 139/74 09/05/18 18:15 72 139/74 09/05/18 16:00 Nasal Cannula 3.0 09/05/18 16:00 70 09/05/18 16:00 98.4 72 24 139/74 (95) 94 09/05/18 14:00 75 25 116/68 (84) 92 09/05/18 13:00 98.4 72 22 127/71 (89) 100 09/05/18 12:38 151/64 09/05/18 12:38 151/64 09/05/18 12:38 73 151/64 09/05/18 12:00 89 09/05/18 12:00 88 28 145/59 (87) 98 09/05/18 12:00 Nasal Cannula 3.0 09/05/18 11:00 73 25 151/64 (93) 98 09/05/18 10:00 73 25 149/61 (90) 95 Intake and Output 09/05/18 09/06/18 19:00 07:00 Intake Total 810.0 ml 1980.0 ml Output Total 590 ml 275 ml Balance 220.0 ml 1705.0 ml Intake Free Water 50 ml 80 ml IV Total 205.0 ml 1405.0 ml Tube Feeding 555 ml 495 ml Output Urine Total 590 ml 275 ml # Bowel Movements 2 General Appearance: no acute distress, other - chronically ill looking, bedbound male HEENT: normocephalic Respiratory/Chest: no respiratory distress, crackles/rales - scattered crackles , other - cervical coallr on Cardiovascular: normal rate - SR on tele , other - CL left femoral intact Abdomen: normal bowel sounds, soft, non tender, other - G tube Extremities: other - +1 edema BLE Neurologic/Psychiatric: abnormal gait - bedbound , alert - poorly but responsive Musculoskeletal: atrophy - BLE Microbiology Date/Time Source Procedure Growth Status 09/04/18 05:45 Blood Blood Culture - Preliminary NO GROWTH AFTER 48 HOURS Resulted 09/04/18 05:35 Blood Blood Culture - Preliminary NO GROWTH AFTER 48 HOURS Resulted 09/04/18 16:20 Urine,Clean Catch Urine Culture - Preliminary NO GROWTH Resulted 09/04/18 07:58 Urine,Clean Catch Urine Culture - Preliminary NO GROWTH Resulted Laboratory Tests 09/05/18 18:51: Urine Legionella Antigen [Pending] 09/06/18 02:00: Urine Legionella Antigen [Pending] 09/06/18 04:00: White Blood Count 12.3H, Red Blood Count 2.70L, Hemoglobin 8.4L, Hematocrit 25.2L, Mean Corpuscular Volume 94, Mean Corpuscular Hemoglobin 31.3H, Mean Corpuscular Hemoglobin Concent 33.4, Red Cell Distribution Width 15.4H, Platelet Count 302, Mean Platelet Volume 6.6, Neutrophils (%) (Auto) 80.4H, Lymphocytes (%) (Auto) 8.7L, Monocytes (%) (Auto) 5.7, Eosinophils (%) (Auto) 4.4H, Basophils (%) (Auto) 0.9, Sodium Level 148H, Potassium Level 3.6, Chloride Level 108H, Carbon Dioxide Level 24, Anion Gap 16H, Blood Urea Nitrogen 113H, Creatinine 4.8H, Estimat Glomerular Filtration Rate , Glucose Level 125H, Uric Acid 6.0, Calcium Level 7.4L, Phosphorus Level 7.5H, Magnesium Level 2.2, Iron Level 57, Total Iron Binding Capacity 108L, Percent Iron Saturation 53H, Unsaturated Iron Binding 51L, Ferritin 631H, Total Bilirubin 0.4 , Aspartate Amino Transf (AST/SGOT) 23, Alanine Aminotransferase (ALT/SGPT) 14, Alkaline Phosphatase 102, Troponin I 0.062H, Pro-B-Type Natriuretic Peptide 30573J, Total Protein 5.2L, Albumin 1.6L, Globulin 3.6, Albumin/Globulin Ratio 0.4L, Vitamin B12 Level 460, Folate 19.2, Random Vancomycin Level 11.9 Current Medications Medications (Trade) Dose Ordered Sig/Vahe Route PRN Reason Start Time Stop Time Status Last Admin Dose Admin Acetaminophen (Tylenol) 650 mg Q4H PRN ORAL T>100.5 09/05/18 15:00 10/04/18 14:59 Chlorhexidine Gluconate (Sadia-Hex 2%) 1 applic DAILY@2000 TOPIC 09/05/18 20:00 10/05/18 19:59 09/05/18 20:44 Dextrose (Dextrose 50%) 25 ml Q30M PRN IV Hypoglycemia 09/05/18 15:00 10/04/18 10:59 Dextrose (Dextrose 50%) 50 ml Q30M PRN IV Hypoglycemia 09/05/18 15:00 10/04/18 10:59 Diltiazem HCl (Cardizem) 60 mg EVERY 6 HOURS GT 09/05/18 18:00 10/04/18 21:59 09/06/18 05:31 Divalproex Sodium (Depakote Sprinkles) 125 mg Q12HR GT 09/05/18 21:00 10/05/18 20:59 09/06/18 08:37 Epoetin Jacobo (Procrit (for non ESRD use)) 10,000 units SAT-SAT-SAT SUBQ 09/05/18 21:00 10/05/18 20:59 09/05/18 20:46 Heparin Sodium (Porcine) (Heparin 5000 units/ml) 5,000 units EVERY 12 HOURS SUBQ 09/05/18 21:00 10/04/18 20:59 09/06/18 08:38 Hydralazine HCl (Apresoline) 10 mg Q4H PRN IV bp over 160 syst 09/05/18 16:00 10/05/18 11:59 Hydralazine HCl (Apresoline) 10 mg Q6HR GT 09/05/18 18:00 10/05/18 11:59 09/06/18 05:31 Insulin Aspart (NovoLOG) Q6HR SUBQ 09/05/18 18:00 10/04/18 11:59 09/06/18 06:06 Isosorbide Dinitrate (Isordil) 10 mg Q6HR GT 09/05/18 18:00 10/05/18 11:59 09/06/18 05:31 Lorazepam (Ativan 2mg/ml 1ml) 0.5 mg Q4H PRN IV For Anxiety 09/05/18 15:00 09/11/18 14:59 Metoclopramide HCl (Reglan) 10 mg Q8H PRN IVP Nausea & Vomiting 09/05/18 15:00 10/04/18 14:59 Metoprolol Tartrate (Lopressor) 100 mg Q12HR GT 09/05/18 21:00 10/04/18 20:59 09/06/18 08:37 Morphine Sulfate (Morphine Sulfate) 1 mg Q4H PRN IVP For Pain 09/05/18 16:00 09/11/18 15:59 Ondansetron HCl (Zofran) 4 mg Q6H PRN IVP Nausea & Vomiting 09/05/18 15:00 10/04/18 14:59 Pantoprazole (Protonix) 40 mg EVERY 12 HOURS IVP 09/05/18 21:00 10/04/18 20:59 09/06/18 08:37 Piperacillin Sod/ Tazobactam Sod 3.375 gm/Dextrose 110 ml @ 27.5 mls/hr Q12H IVPB 09/05/18 15:00 09/12/18 14:59 09/06/18 03:00 Polyethylene Glycol (Miralax) 17 gm HSPRN PRN ORAL Constipation 09/06/18 21:00 10/04/18 20:59 Sodium Chloride 1,000 ml @ 150 mls/hr Q6H40M IV 09/05/18 15:00 10/04/18 17:09 09/06/18 05:00 Vancomycin HCl (Vanco rx to dose) 1 ea DAILY PRN MISC Per rx protocol 09/05/18 13:30 10/05/18 13:29 Vancomycin HCl/ Dextrose 250 ml @ 166.667 mls/hr ONCE IVPB 09/06/18 09:00 09/06/18 11:00 Zolpidem Tartrate (Ambien) 5 mg HSPRN PRN ORAL Insomnia 09/05/18 21:00 09/12/18 20:59 Sanam Corey NP Sep 06, 2018 08:48
[2018-09-06] MEDS ORDERED: Vancomycin 1250mg/D5W 250ml IVPB SCH (09:00)
--- NOTE | 2018-09-06 09:58 | NUR ---
CASE MANAGEMENT: REVIEW 09/06/2018 SI: RESP DISTRESS . PNEUMONITIS T 97 HR 65 RR 19 B/P 130/60 SATS 95% ON 3L/NC WBC 12.3 NA 148 CL 108 BUN 113 CR 4.8 GLU 125 CA 7.4 PHOS 7.5 TROPONIN 0.062 BNP 91390 IS: PROCRIT SUBQ MWF ZOSYN IV Q12HR CARDIZEM GT Q6HR ISOSORBIDE GT Q6HR HYDRALAZINE GT Q6HR LOPRESSOR GT Q12HR TELE STATUS DCP: PATIENT IS FROM [facility]
--- NOTE | 2018-09-06 10:03 | Nephrology Progress Note ---
Assessment/Plan Problem List: (1) ICD (implantable cardioverter-defibrillator) in place (2) ATN (acute tubular necrosis) (3) Acute respiratory failure (4) Anemia in chronic kidney disease (CKD) Assessment (1) ARF (acute renal failure) (2) Schizophrenia (3) Toxic encephalopathy (4) Anemia (5) Sepsis (6) ICD (implantable cardioverter-defibrillator) in place Renal failure- Pre renal picture- ? Underlying Chronic Renal failure Sepsis Asp pneumonia UTI Anemia Sz disorder CAD + Pacemaker s/p Cervical Fx 6 months ago COPD DM Plan Plan: aim to reduce pre load and after load Kayexelate as needed Hydrate Antibiotics Monitor renal parameters Avoid Nephrotoxics watch for chf per orders 24 h urine crcl Subjective ROS Limited/Unobtainable: No Constitutional: Reports: malaise Objective Objective Last 24 Hour Vital Signs Date Time Temp Pulse Resp B/P (MAP) Pulse Ox O2 Delivery O2 Flow Rate FiO2 09/06/18 08:37 65 130/60 09/06/18 08:00 Nasal Cannula 3.0 09/06/18 08:00 62 09/06/18 08:00 97.0 65 19 130/60 (83) 95 09/06/18 07:52 95 Nasal Cannula 3.0 32 09/06/18 07:52 Nasal Cannula 3.0 32 09/06/18 05:31 142/73 09/06/18 05:31 142/73 09/06/18 05:31 67 142/73 09/06/18 04:00 Nasal Cannula 3.0 09/06/18 04:00 96.9 67 22 142/73 (96) 94 09/06/18 03:38 75 09/06/18 00:00 96.8 70 24 135/70 (91) 95 09/06/18 00:00 64 09/06/18 00:00 139/74 09/06/18 00:00 139/74 09/06/18 00:00 65 145/83 09/06/18 00:00 Nasal Cannula 3.0 09/05/18 20:49 72 139/74 09/05/18 20:00 Nasal Cannula 3.0 09/05/18 20:00 98.2 70 22 120/56 (77) 93 09/05/18 20:00 65 09/05/18 19:44 Nasal Cannula 3.0 32 09/05/18 19:44 96 Nasal Cannula 3.0 32 09/05/18 18:18 98.4 72 24 139/74 (95) 94 09/05/18 18:15 139/74 19 18:15 139/74 09/05/18 18:15 72 139/74 09/05/18 16:00 Nasal Cannula 3.0 09/05/18 16:00 70 09/05/18 16:00 98.4 72 24 139/74 (95) 94 09/05/18 14:00 75 25 116/68 (84) 92 09/05/18 13:00 98.4 72 22 127/71 (89) 100 09/05/18 12:38 151/64 09/05/18 12:38 151/64 09/05/18 12:38 73 151/64 09/05/18 12:00 89 09/05/18 12:00 88 28 145/59 (87) 98 09/05/18 12:00 Nasal Cannula 3.0 09/05/18 11:00 73 25 151/64 (93) 98 Intake and Output 09/05/18 09/06/18 19:00 07:00 Intake Total 810.0 ml 1980.0 ml Output Total 590 ml 275 ml Balance 220.0 ml 1705.0 ml Intake Free Water 50 ml 80 ml IV Total 205.0 ml 1405.0 ml Tube Feeding 555 ml 495 ml Output Urine Total 590 ml 275 ml # Bowel Movements 2 Laboratory Tests 09/05/18 18:51: Urine Legionella Antigen [Pending] 09/06/18 02:00: Urine Legionella Antigen [Pending] 09/06/18 04:00: White Blood Count 12.3H, Red Blood Count 2.70L, Hemoglobin 8.4L, Hematocrit 25.2L, Mean Corpuscular Volume 94, Mean Corpuscular Hemoglobin 31.3H, Mean Corpuscular Hemoglobin Concent 33.4, Red Cell Distribution Width 15.4H, Platelet Count 302, Mean Platelet Volume 6.6, Neutrophils (%) (Auto) 80.4H, Lymphocytes (%) (Auto) 8.7L, Monocytes (%) (Auto) 5.7, Eosinophils (%) (Auto) 4.4H, Basophils (%) (Auto) 0.9, Sodium Level 148H, Potassium Level 3.6, Chloride Level 108H, Carbon Dioxide Level 24, Anion Gap 16H, Blood Urea Nitrogen 113H, Creatinine 4.8H, Estimat Glomerular Filtration Rate , Glucose Level 125H, Uric Acid 6.0, Calcium Level 7.4L, Phosphorus Level 7.5H, Magnesium Level 2.2, Iron Level 57, Total Iron Binding Capacity 108L, Percent Iron Saturation 53H, Unsaturated Iron Binding 51L, Ferritin 631H, Total Bilirubin 0.4 , Aspartate Amino Transf (AST/SGOT) 23, Alanine Aminotransferase (ALT/SGPT) 14, Alkaline Phosphatase 102, Troponin I 0.062H, Pro-B-Type Natriuretic Peptide 24913I, Total Protein 5.2L, Albumin 1.6L, Globulin 3.6, Albumin/Globulin Ratio 0.4L, Vitamin B12 Level 460, Folate 19.2, Random Vancomycin Level 11.9 Height (Feet): 5 Height (Inches): 9.00 Weight (Pounds): 181 General Appearance: no apparent distress Cardiovascular: normal rate Respiratory/Chest: decreased breath sounds Abdomen: distended Objective no change Joe Feliciano MD Sep 06, 2018 10:03
[2018-09-06] MEDS: Renvela 800mg Pkt NG SCH ×3 (10:14→17:25)
--- NOTE | 2018-09-06 11:06 | Diagnostic Imaging Report ---
EXAM: XR Chest, 1 View CLINICAL HISTORY: DYSPNEA TECHNIQUE: Frontal view of the chest. COMPARISON: Chest x-ray 09/05/18 752 FINDINGS: Lungs: Bilateral airspace opacities/pulmonary edema has worsened. Pleural space: [id number] bilateral pleural effusions are similar. No pneumothorax. Heart: Cardiomegaly. Mediastinum: Unremarkable. Bones/joints: Degenerative changes of the spine. Tubes, lines and devices: Cardiac pacemaker. IMPRESSION: 1. Worsening CHF.
--- NOTE | 2018-09-06 11:29 | Infectious Diseases Prog Note ---
Assessment/Plan Assessment/Plan Assessment: Sepsis- 2ry to PNA -CXR: Hazy bilateral basilar opacities likely pleural effusions demonstrated. The heart is enlarged. There is suggestion of interstitial edema. -u/a wbc 5-10, nit neg, leuk +1 ;UCx NTD afebrile Leukocytosis, improving Hx of recent PNA/UTI RENETTA Seizures HTN CHF Schizophrenia CAD s/p Pacemaker hx of Neck Fx (6mo ago) on cervical collar [facility] resident Plan: -Start empiric IV Vancomycin and Zosyn d # 2 pending cultures - 08/31 SP Levofloxacin #7 - 08/27/18 SP Cefepime #3 vancomycin #3 -sp cx, influenza sc, legionella ag urine -f/u Blcx -Monitor CBC/CMP, temperatures Subjective Allergies: Coded Allergies: NO KNOWN ALLERGIES (Unverified Allergy, Unknown, 08/25/15) Subjective Afebrile Objective Vital Signs Last 24 Hour Vital Signs Date Time Temp Pulse Resp B/P (MAP) Pulse Ox O2 Delivery O2 Flow Rate FiO2 09/06/18 08:37 65 130/60 09/06/18 08:00 Nasal Cannula 3.0 09/06/18 08:00 62 09/06/18 08:00 97.0 65 19 130/60 (83) 95 09/06/18 07:52 95 Nasal Cannula 3.0 32 09/06/18 07:52 Nasal Cannula 3.0 32 09/06/18 05:31 142/73 09/06/18 05:31 142/73 09/06/18 05:31 67 142/73 09/06/18 04:00 Nasal Cannula 3.0 09/06/18 04:00 96.9 67 22 142/73 (96) 94 09/06/18 03:38 75 09/06/18 00:00 96.8 70 24 135/70 (91) 95 09/06/18 00:00 64 09/06/18 00:00 139/74 09/06/18 00:00 139/74 09/06/18 00:00 65 145/83 09/06/18 00:00 Nasal Cannula 3.0 09/05/18 20:49 72 139/74 09/05/18 20:00 Nasal Cannula 3.0 09/05/18 20:00 98.2 70 22 120/56 (77) 93 09/05/18 20:00 65 09/05/18 19:44 Nasal Cannula 3.0 32 09/05/18 19:44 96 Nasal Cannula 3.0 32 09/05/18 18:18 98.4 72 24 139/74 (95) 94 19 18:15 139/74 09/05/18 18:15 139/74 09/05/18 18:15 72 139/74 09/05/18 16:00 Nasal Cannula 3.0 09/05/18 16:00 70 09/05/18 16:00 98.4 72 24 139/74 (95) 94 09/05/18 14:00 75 25 116/68 (84) 92 09/05/18 13:00 98.4 72 22 127/71 (89) 100 09/05/18 12:38 151/64 09/05/18 12:38 151/64 09/05/18 12:38 73 151/64 09/05/18 12:00 89 09/05/18 12:00 88 28 145/59 (87) 98 09/05/18 12:00 Nasal Cannula 3.0 Height (Feet): 5 Height (Inches): 9.00 Weight (Pounds): 181 HEENT: anicteric Respiratory/Chest: no respiratory distress Cardiovascular: regularly irregular Abdomen: no organomegaly Microbiology Date/Time Source Procedure Growth Status 09/04/18 05:45 Blood Blood Culture - Preliminary NO GROWTH AFTER 48 HOURS Resulted 09/04/18 05:35 Blood Blood Culture - Preliminary NO GROWTH AFTER 48 HOURS Resulted 09/04/18 16:20 Urine,Clean Catch Urine Culture - Final NO GROWTH AFTER 48 HOURS Complete 09/04/18 07:58 Urine,Clean Catch Urine Culture - Final NO GROWTH AFTER 48 HOURS Complete Laboratory Tests Test 09/05/18 18:51 09/06/18 02:00 09/06/18 04:00 Urine Legionella Antigen Pending Pending White Blood Count 12.3 K/UL (4.8-10.8) H Red Blood Count 2.70 M/UL (4.70-6.10) L Hemoglobin 8.4 G/DL (14.2-18.0) L Hematocrit 25.2 % (42.0-52.0) L Mean Corpuscular Volume 94 FL (80-99) Mean Corpuscular Hemoglobin 31.3 PG (27.0-31.0) H Mean Corpuscular Hemoglobin Concent 33.4 G/DL (32.0-36.0) Red Cell Distribution Width 15.4 % (11.6-14.8) H Platelet Count 302 K/UL (150-450) Mean Platelet Volume 6.6 FL (6.5-10.1) Neutrophils (%) (Auto) 80.4 % (45.0-75.0) H Lymphocytes (%) (Auto) 8.7 % (20.0-45.0) L Monocytes (%) (Auto) 5.7 % (1.0-10.0) Eosinophils (%) (Auto) 4.4 % (0.0-3.0) H Basophils (%) (Auto) 0.9 % (0.0-2.0) Sodium Level 148 MMOL/L (136-145) H Potassium Level 3.6 MMOL/L (3.5-5.1) Chloride Level 108 MMOL/L (98-107) H Carbon Dioxide Level 24 MMOL/L (21-32) Anion Gap 16 mmol/L (5-15) H Blood Urea Nitrogen 113 mg/dL (7-18) H Creatinine 4.8 MG/DL (0.55-1.30) H Estimat Glomerular Filtration Rate mL/min (>60) Glucose Level 125 MG/DL (74-106) H Uric Acid 6.0 MG/DL (2.6-7.2) Calcium Level 7.4 MG/DL (8.5-10.1) L Phosphorus Level 7.5 MG/DL (2.5-4.9) H Magnesium Level 2.2 MG/DL (1.8-2.4) Iron Level 57 ug/dL (50-175) Total Iron Binding Capacity 108 ug/dL (250-450) L Percent Iron Saturation 53 % (15-50) H Unsaturated Iron Binding 51 ug/dL (112-346) L Ferritin 631 NG/ML (8-388) H Total Bilirubin 0.4 MG/DL (0.2-1.0) Aspartate Amino Transf (AST/SGOT) 23 U/L (15-37) Alanine Aminotransferase (ALT/SGPT) 14 U/L (12-78) Alkaline Phosphatase 102 U/L (46-116) Troponin I 0.062 ng/mL (0.000-0.056) C-Reactive Protein, Quantitative 13.0 mg/dL (0.00-0.90) H Pro-B-Type Natriuretic Peptide 13913 pg/mL (0-125) H Total Protein 5.2 G/DL (6.4-8.2) L Albumin 1.6 G/DL (3.4-5.0) L Globulin 3.6 g/dL Albumin/Globulin Ratio 0.4 (1.0-2.7) L Vitamin B12 Level 460 PG/ML (193-986) Folate 19.2 NG/ML (8.6-58.9) Random Vancomycin Level 11.9 ug/mL Current Medications Medications (Trade) Dose Ordered Sig/Vahe Route PRN Reason Start Time Stop Time Status Last Admin Dose Admin Acetaminophen (Tylenol) 650 mg Q4H PRN ORAL T>100.5 09/05/18 15:00 10/04/18 14:59 Chlorhexidine Gluconate (Sadia-Hex 2%) 1 applic DAILY@1999 TOPIC 09/05/18 20:00 10/05/18 19:59 09/05/18 20:44 Dextrose (Dextrose 50%) 25 ml Q30M PRN IV Hypoglycemia 09/05/18 15:00 10/04/18 10:59 Dextrose (Dextrose 50%) 50 ml Q30M PRN IV Hypoglycemia 09/05/18 15:00 10/04/18 10:59 Diltiazem HCl (Cardizem) 60 mg EVERY 6 HOURS GT 09/05/18 18:00 10/04/18 21:59 09/06/18 05:31 Divalproex Sodium (Depakote Sprinkles) 125 mg Q12HR GT 09/05/18 21:00 10/05/18 20:59 09/06/18 08:37 Epoetin Jacobo (Procrit (for non ESRD use)) 10,000 units SAT-SAT-SAT SUBQ 09/05/18 21:00 10/05/18 20:59 09/05/18 20:46 Heparin Sodium (Porcine) (Heparin 5000 units/ml) 5,000 units EVERY 12 HOURS SUBQ 09/05/18 21:00 10/04/18 20:59 09/06/18 08:38 Hydralazine HCl (Apresoline) 10 mg Q4H PRN IV bp over 160 syst 09/05/18 16:00 10/05/18 11:59 Hydralazine HCl (Apresoline) 20 mg Q6HR GT 09/06/18 12:00 10/05/18 11:59 Insulin Aspart (NovoLOG) Q6HR SUBQ 09/05/18 18:00 10/04/18 11:59 09/06/18 06:06 Isosorbide Dinitrate (Isordil) 10 mg Q6HR GT 09/05/18 18:00 10/05/18 11:59 09/06/18 05:31 Lorazepam (Ativan 2mg/ml 1ml) 0.5 mg Q4H PRN IV For Anxiety 09/05/18 15:00 09/11/18 14:59 Metoclopramide HCl (Reglan) 10 mg Q8H PRN IVP Nausea & Vomiting 09/05/18 15:00 10/04/18 14:59 Metoprolol Tartrate (Lopressor) 100 mg Q12HR GT 09/05/18 21:00 10/04/18 20:59 09/06/18 08:37 Morphine Sulfate (Morphine Sulfate) 1 mg Q4H PRN IVP For Pain 09/05/18 16:00 09/11/18 15:59 Ondansetron HCl (Zofran) 4 mg Q6H PRN IVP Nausea & Vomiting 09/05/18 15:00 10/04/18 14:59 Pantoprazole (Protonix) 40 mg EVERY 12 HOURS IVP 09/05/18 21:00 10/04/18 20:59 09/06/18 08:37 Piperacillin Sod/ Tazobactam Sod 3.375 gm/Dextrose 110 ml @ 27.5 mls/hr Q12H IVPB 09/05/18 15:00 09/12/18 14:59 09/06/18 03:00 Polyethylene Glycol (Miralax) 17 gm HSPRN PRN ORAL Constipation 09/06/18 21:00 10/04/18 20:59 Sevelamer Carbonate (Renvela) 800 mg THREE TIMES A DAY NG 09/06/18 10:15 10/06/18 10:14 09/06/18 10:14 Sodium Chloride 1,000 ml @ 50 mls/hr Q20H IV 09/06/18 10:00 10/04/18 09:59 09/06/18 10:14 Vancomycin HCl (Vanco rx to dose) 1 ea DAILY PRN MISC Per rx protocol 09/05/18 13:30 10/05/18 13:29 Zolpidem Tartrate (Ambien) 5 mg HSPRN PRN ORAL Insomnia 09/05/18 21:00 09/12/18 20:59 Hakeem Dominguez MD Sep 06, 2018 11:29
[2018-09-06 12:00] VITALS: BP 135/53
[2018-09-06] MEDS ORDERED: Albuterol/Ipratropium 3ml neb HHN PRN (14:45)
[2018-09-06 16:00] VITALS: BP 139/65
--- NOTE | 2018-09-06 19:14 | NUR ---
HAND-OFF: Report given to VARINDER Contreras. Stable condition.
[2018-09-06] MEDS ORDERED: NS 275ml ONE (19:38)
[2018-09-06] MEDS ORDERED: D5W 275ml ONE (19:38)
[2018-09-06] MEDS ORDERED: Tubing IV Secondary IV ONE (19:38)
[2018-09-06] MEDS ORDERED: 1/2 NS 1000ml IV ONE ×2 (19:38→19:44)
[2018-09-06 20:00] VITALS: BP 123/63
[2018-09-06] MEDS: Dyna-Hex 2% Top Sol 2oz TOPIC SCH (20:05)
[2018-09-06] MEDS ORDERED: Miralax 17gm pkt ORAL PRN (21:00)
[2018-09-06] MEDS: LORazepam Inj 2mg/ml 1ml IV PRN (21:24)
--- NOTE | 2018-09-06 23:30 | Progress Note ---
DATE: 09/05/2018 NOTE: POOR AUDIO SUBJECTIVE: The patient is awake, alert, afebrile, and lethargic. PHYSICAL EXAMINATION: VITAL SIGNS: Blood pressure 120/56, pulse is 70, respirations 22, and temperature 98.2. HEENT: Eyes were normal. ENT, mucous membranes were moist and intact. NECK: Supple with no JVD without lymph nodes. LUNGS: Clear. HEART: Normal sounds with regular heart beats. There is no tachycardia at rest. ABDOMEN: Soft and nontender with normal bowel sounds. Gastrostomy site is clean. EXTREMITIES: Warm without cyanosis, clubbing, or edema. LABORATORY AND DIAGNOSTIC DATA: Hemoglobin is 8.5, hematocrit 26.2 with MCV of 95, WBC of 12.8, and platelets are 257. His BUN and creatinine is and 4.9 respectively. His sodium is 148, potassium 5.7, chloride 111, and CO2 is 25. Glycohemoglobin is 5.6. Uric acid is 6.1. His calcium is 7.6 and phosphorus is 6.6. CRP is 13.9. Troponin is 0.048. ProBNP is . His chest x-ray showed bilateral pleural effusion and bilateral basilar infiltrate, which was unchanged from previous study. IMPRESSION: The patient is hemodynamically stable. PLAN: . The patient has been to the ICU and in the . Repeat laboratory tests will be done in the morning. Evans Jarrett M.D. DR: SOLO JOB#: [id number] CC:
[2018-09-07] VITALS: BP 130/61
[2018-09-07] MEDS: dilTIAZem HCl 60mg tab GT SCH ×4 (00:30→17:25)
[2018-09-07] MEDS: HydrALAZINE 10mg Tab GT SCH ×2 (00:31→06:10)
[2018-09-07] MEDS: NovoLOG Insulin Flexpen SUBQ SCH ×4 (00:32→17:27)
[2018-09-07] MEDS: Piperacillin/Tazobactam 3.375 GM in D5W 110 ML IVPB SCH ×2 (02:00→16:26)
[2018-09-07 04:00] VITALS: BP 138/71
--- NOTE | 2018-09-07 04:30 | Progress Note ---
DATE: 09/06/2018 SUBJECTIVE: The patient is awake, alert, afebrile, and hemodynamically stable. PHYSICAL EXAMINATION: VITAL SIGNS: Blood pressure is 129/65, his pulse is 64, respirations of 24, and temperature 97.6 degrees. HEENT: Eyes were normal. ENT, mucous membranes were moist and intact. NECK: Supple with no JVD without lymph nodes. LUNGS: Clear. HEART: Normal sounds with regular heartbeat. There is no S3, S4, or pericardial rub. ABDOMEN: Soft and nontender with normal bowel sounds. Gastrostomy site is clean. EXTREMITIES: Warm without cyanosis, clubbing, or edema. LABORATORY AND DIAGNOSTIC DATA: His hemoglobin is 8.4, hematocrit 25.2 with MCV of 94, WBC of 12.3, and platelets are 302,000. His BUN and creatinine are 113 and 4.9 respectively. His sodium is 148, potassium 3.6, chloride 108, and CO2 is 24. His uric acid is 6. His phosphorus is 7.5. Magnesium is 2.2. His calcium is 7.4. Troponin was negative at 0.062. CRP increased to 13. Chest x-ray revealed bilateral pulmonary opacities compared to the x-ray from 09/05/2018 that showed moderate bilateral pleural effusion. IMPRESSION: The patient currently is on vancomycin and Zosyn. His anemia has improved and energy has improved, so as sleep quality has improved. His repeat laboratory tests will be done in a.m. Evans Jarrett M.D. DR: TOMMIE JOB#: [id number] CC:
[2018-09-07 06:27] LABS: HEMATOCRIT 22.3 % (42.0-52.0); HEMOGLOBIN 7.5 G/DL (14.2-18.0); MEAN CORPUSCULAR VOLUME 93 FL (80-99); PLATELET COUNT 269 K/UL (150-450); RED BLOOD COUNT 2.39 M/UL (4.70-6.10); RED CELL DISTRIBUTION WIDTH 15.5 % (11.6-14.8); WHITE BLOOD COUNT 9.2 K/UL (4.8-10.8)
[2018-09-07 07:01] LABS: ALANINE AMINOTRANSFERASE 23 U/L (12-78); ALBUMIN 1.4 G/DL (3.4-5.0); ALBUMIN/GLOBULIN RATIO 0.4 (1.0-2.7); ALKALINE PHOSPHATASE 112 U/L (46-116); ANION GAP 14 mmol/L (5-15); ASPARTATE AMINO TRANSFERASE 21 U/L (15-37); BILIRUBIN,TOTAL 0.3 MG/DL (0.2-1.0); BLOOD UREA NITROGEN 111 mg/dL (7-18); CALCIUM 6.9 MG/DL (8.5-10.1); CARBON DIOXIDE 24 MMOL/L (21-32); CHLORIDE 107 MMOL/L (98-107); PHOSPHORUS 8.2 MG/DL (2.5-4.9); POTASSIUM 2.9 MMOL/L (3.5-5.1); SODIUM 145 MMOL/L (136-145)
--- NOTE | 2018-09-07 07:15 | NUR ---
HAND-OFF: Report given to VARINDER Robbins.
--- NOTE | 2018-09-07 07:31 | NUR ---
NURSE NOTES: Report received from VARINDER Contreras. Observed patient in bed sleeping. Arousable by voice and verbally responsive with confusion. No S/S of pain at this time. Receiving 3L of oxygen via N/C with no distress noted. GT site intact with ongoing feeding. HOB elevated. No residual noted. F/C intact and draining well. TLC on left femoral intact with ongoing IVF running at prescribed rate. Bed in lowest position. Call light within reach. Will continue to monitor.
--- NOTE | 2018-09-07 07:37 | Pulmonology Progress Note ---
Assessment/Plan Assessment/Plan ASSESSMENT acute resp failure sepsis 2 to PNA and possible UTI ATN /ARF possible on CKD hyper K- resolved/ today hypo K COPD CHF/ pulmonary edema HTN mild pulmonary HTN AICD cerebrovascular disease with hx of multiple CVA seizure disorder hx of neck fracture ( 6 m ago), cervical collar on anemia of chronic kidney disease abnormal cardiac enzymes sacral and R ischial tuberosity pressure ulcers , POA PLAN OF CARE RSUTY weaned off BiPAP to nasal cannula suppl oxygen to keep pulse ox above 92; pulmonary toilet as needed CXR with worsening CHF s/p 1 dose of Lasix-80 mg ( discussed with nephro ) 09/06 fup CXR this am closely monitor volumes, cardiorenal parameters likely will need spot diuresis abx per ID recs strict aspiration precaution G-tube feeding, monitor tolerance Echo with EF 55-60 and RVSP c/w mild pulmonary hypertension BP management with hydralazine and calcium channel glendy troponin with minimal elevation, likely troponin leak 2 to renal failure nephro follows, IVF, monitor renal parameters, lytes, correct lytes as needed,avoid nephrotoxic, urine studies replace K, Mg stable renal US fup with nephro recs, possibly acute on chronic renal fiaslrue BS management with SSI seizure precaution , continue Depakote monitor H&H with goal to keep hemoglobin above 7 wound care per protocol continue with cervical collar case discussed and evaluated by supervising physician Subjective Allergies: Coded Allergies: NO KNOWN ALLERGIES (Unverified Allergy, Unknown, 08/25/15) Subjective afebrile, leukocytosis resolved on O2 3 L via NC, pulse ox stable creat up to 5.0 Objective Last 24 Hour Vital Signs Date Time Temp Pulse Resp B/P (MAP) Pulse Ox O2 Delivery O2 Flow Rate FiO2 09/07/18 06:10 139/65 09/07/18 06:10 139/65 09/07/18 06:10 70 139/65 09/07/18 04:00 Nasal Cannula 3.0 09/07/18 04:00 70 09/07/18 00:31 139/65 09/07/18 00:31 139/65 09/07/18 00:30 64 139/65 09/07/18 00:00 97.4 68 20 130/61 (84) 94 09/07/18 00:00 Nasal Cannula 3.0 09/07/18 00:00 70 09/06/18 21:31 64 139/65 09/06/18 20:50 Nasal Cannula 3.0 32 09/06/18 20:49 95 Nasal Cannula 3.0 32 09/06/18 20:00 Nasal Cannula 3.0 09/06/18 20:00 97.6 65 24 123/63 (83) 90 09/06/18 20:00 61 09/06/18 17:25 139/65 09/06/18 17:24 139/65 09/06/18 17:24 64 139/65 09/06/18 16:00 97.0 65 20 139/65 (89) 93 09/06/18 16:00 64 09/06/18 16:00 Nasal Cannula 3.0 09/06/18 13:18 63 09/06/18 12:19 135/53 09/06/18 12:19 135/53 09/06/18 12:19 62 135/53 09/06/18 12:00 98.2 64 19 135/53 (80) 97 09/06/18 12:00 Nasal Cannula 3.0 09/06/18 08:37 65 130/60 09/06/18 08:00 Nasal Cannula 3.0 09/06/18 08:00 62 09/06/18 08:00 97.0 65 19 130/60 (83) 95 09/06/18 07:52 95 Nasal Cannula 3.0 32 09/06/18 07:52 Nasal Cannula 3.0 32 Intake and Output 09/06/18 09/07/18 19:00 07:00 Intake Total 1720.000 ml 720 ml Output Total 300 ml 300 ml Balance 1420.000 ml 420 ml Intake Free Water 120 ml 180 ml IV Total 1060.000 ml Tube Feeding 540 ml 540 ml Output Urine Total 300 ml 300 ml # Bowel Movements 2 1 Objective General Appearance: no acute distress, chronically ill looking, bedbound male HEENT: normocephalic Respiratory/Chest: no respiratory distress, few scattered crackles , cervical collar on Cardiovascular: normal rate - SR on tele , CL left femoral intact Abdomen: normal bowel sounds, soft, non tender, G tube with TF Extremities: other - +1 edema BLE Neurologic/Psychiatric: abnormal gait - bedbound , poorly but responsive Musculoskeletal: atrophy - BLE Microbiology Date/Time Source Procedure Growth Status 09/06/18 10:30 Nasopharynx Influenza Types A,B Antigen (CURT) - Final Complete 09/04/18 16:20 Urine,Clean Catch Urine Culture - Final NO GROWTH AFTER 48 HOURS Complete 09/04/18 07:58 Urine,Clean Catch Urine Culture - Final NO GROWTH AFTER 48 HOURS Complete Laboratory Tests 09/07/18 04:30: White Blood Count 9.2, Red Blood Count 2.39L, Hemoglobin 7.5L, Hematocrit 22.3L , Mean Corpuscular Volume 93, Mean Corpuscular Hemoglobin 31.5H, Mean Corpuscular Hemoglobin Concent 33.8, Red Cell Distribution Width 15.5H, Platelet Count 269, Mean Platelet Volume 6.9, Neutrophils (%) (Auto) , Lymphocytes (%) (Auto) , Monocytes (%) (Auto) , Eosinophils (%) (Auto) , Basophils (%) (Auto) , Neutrophils % (Manual) [Pending], Lymphocytes % (Manual) [Pending], Platelet Estimate [Pending], Platelet Morphology [Pending], Sodium Level 145, Potassium Level 2.9L, Chloride Level 107, Carbon Dioxide Level 24, Anion Gap 14, Blood Urea Nitrogen 111H, Creatinine 5.0H, Estimat Glomerular Filtration Rate , Glucose Level 152H, Uric Acid 5.8, Calcium Level 6.9L, Phosphorus Level 8.2H, Magnesium Level 2.1, Total Bilirubin 0.3, Aspartate Amino Transf (AST/SGOT) 21, Alanine Aminotransferase (ALT/SGPT) 23, Alkaline Phosphatase 112, Troponin I 0.433H, Pro-B-Type Natriuretic Peptide 26723T, Total Protein 4.8L, Albumin 1.4L, Globulin 3.4, Albumin/Globulin Ratio 0.4L Current Medications Medications (Trade) Dose Ordered Sig/Vahe Route PRN Reason Start Time Stop Time Status Last Admin Dose Admin Acetaminophen (Tylenol) 650 mg Q4H PRN ORAL T>100.5 09/05/18 15:00 10/04/18 14:59 Albuterol/ Ipratropium (Albuterol/ Ipratropium) 3 ml Q4H PRN HHN Shortness of Breath 09/06/18 14:45 09/11/18 14:44 Chlorhexidine Gluconate (Sadia-Hex 2%) 1 applic DAILY@1999 TOPIC 09/05/18 20:00 10/05/18 19:59 09/06/18 20:05 Dextrose (Dextrose 50%) 25 ml Q30M PRN IV Hypoglycemia 09/05/18 15:00 10/04/18 10:59 Dextrose (Dextrose 50%) 50 ml Q30M PRN IV Hypoglycemia 09/05/18 15:00 10/04/18 10:59 Diltiazem HCl (Cardizem) 60 mg EVERY 6 HOURS GT 09/05/18 18:00 10/04/18 21:59 09/07/18 06:10 Divalproex Sodium (Depakote Sprinkles) 125 mg Q12HR GT 09/05/18 21:00 10/05/18 20:59 09/06/18 21:31 Epoetin Jacobo (Procrit (for non ESRD use)) 10,000 units SAT-SAT-SAT SUBQ 09/05/18 21:00 10/05/18 20:59 09/05/18 20:46 Heparin Sodium (Porcine) (Heparin 5000 units/ml) 5,000 units EVERY 12 HOURS SUBQ 09/05/18 21:00 10/04/18 20:59 09/06/18 21:33 Hydralazine HCl (Apresoline) 10 mg Q4H PRN IV bp over 160 syst 09/05/18 16:00 10/05/18 11:59 Hydralazine HCl (Apresoline) 20 mg Q6HR GT 09/06/18 12:00 10/05/18 11:59 09/07/18 06:10 Insulin Aspart (NovoLOG) Q6HR SUBQ 09/05/18 18:00 10/04/18 11:59 09/07/18 06:14 Isosorbide Dinitrate (Isordil) 10 mg Q6HR GT 09/05/18 18:00 10/05/18 11:59 09/07/18 06:10 Lorazepam (Ativan 2mg/ml 1ml) 0.5 mg Q4H PRN IV For Anxiety 09/05/18 15:00 09/11/18 14:59 09/06/18 21:24 Metoclopramide HCl (Reglan) 10 mg Q8H PRN IVP Nausea & Vomiting 09/05/18 15:00 10/04/18 14:59 Metoprolol Tartrate (Lopressor) 100 mg Q12HR GT 09/05/18 21:00 10/04/18 20:59 09/06/18 21:31 Morphine Sulfate (Morphine Sulfate) 1 mg Q4H PRN IVP For Pain 09/05/18 16:00 09/11/18 15:59 Ondansetron HCl (Zofran) 4 mg Q6H PRN IVP Nausea & Vomiting 09/05/18 15:00 10/04/18 14:59 Pantoprazole (Protonix) 40 mg EVERY 12 HOURS IVP 09/05/18 21:00 10/04/18 20:59 09/06/18 21:32 Piperacillin Sod/ Tazobactam Sod 3.375 gm/Dextrose 110 ml @ 27.5 mls/hr Q12H IVPB 09/05/18 15:00 09/12/18 14:59 09/07/18 02:00 Polyethylene Glycol (Miralax) 17 gm HSPRN PRN ORAL Constipation 09/06/18 21:00 10/04/18 20:59 Sevelamer Carbonate (Renvela) 800 mg THREE TIMES A DAY NG 09/06/18 10:15 10/06/18 10:14 09/06/18 17:25 Sodium Chloride 1,000 ml @ 50 mls/hr Q20H IV 09/06/18 10:00 10/04/18 09:59 09/07/18 06:00 Vancomycin HCl (Vanco rx to dose) 1 ea DAILY PRN MISC Per rx protocol 09/05/18 13:30 10/05/18 13:29 Zolpidem Tartrate (Ambien) 5 mg HSPRN PRN ORAL Insomnia 09/05/18 21:00 09/12/18 20:59 Sanam Corey NP Sep 07, 2018 07:37
--- NOTE | 2018-09-07 07:43 | NUR ---
NURSE NOTES: Called and left message to CLAUDETTE Marion regarding low potassium level. Awaiting for call back.
[2018-09-07 08:00] VITALS: BP 151/72
--- NOTE | 2018-09-07 08:30 | NUR ---
NURSE NOTES: CLAUDETTE Marion came to see patient and gave new order for low potassium level. Order carried out.
[2018-09-07] MEDS: Pantoprazole Inj IVP SCH ×2 (08:57→20:46)
[2018-09-07] MEDS: Depakote 125mg Sprinkles GT SCH ×2 (08:57→20:46)
[2018-09-07] MEDS: Renvela 800mg Pkt NG SCH (08:58)
[2018-09-07] MEDS: Heparin 5000 units/ml inj SUBQ SCH ×2 (08:59→20:48)
--- NOTE | 2018-09-07 09:30 | NUR ---
NURSE NOTES: Informed CLAUDETTE Marion regarding elevated troponin from 0.062 to 0.433. Awaiting for call back.
--- NOTE | 2018-09-07 09:52 | NUR ---
NURSE NOTES: CLAUDETTE Marion called back regarding elevated troponin with no new order at this time.
--- NOTE | 2018-09-07 10:07 | NUR ---
CASE MANAGEMENT: REVIEW 09/07/2018 SI: RESP DISTRESS. PNEUMONITIS. T 97.6 HR 74 RR 25 B/P 151/72 SATS 95% ON 3L/NC HGB 7.5 HCT 22.3 K 2.9 BUN 111 CR 5 GLU 152 CA 6.9 PHOS 8.2 TROPONIN 0.433 BNP [id number] IS: PROCRIT SUBQ MWF ZOSYN IV Q12HR CARDIZEM GT Q6HR ISOSORBIDE GT Q6HR HYDRALAZINE GT Q6HR LOPRESSOR GT Q12HR RUSTY STATUS DCP: PATIENT IS FROM [facility] PLAN OF CARE: US RENAL CXR
--- NOTE | 2018-09-07 10:34 | Nephrology Progress Note ---
Assessment/Plan Problem List: (1) ICD (implantable cardioverter-defibrillator) in place (2) ATN (acute tubular necrosis) (3) Acute respiratory failure (4) Anemia in chronic kidney disease (CKD) Assessment (1) ARF (acute renal failure) (2) Schizophrenia (3) Toxic encephalopathy (4) Anemia (5) Sepsis (6) ICD (implantable cardioverter-defibrillator) in place Renal failure- Pre renal picture- ? Underlying Chronic Renal failure Sepsis Asp pneumonia UTI Anemia Sz disorder CAD + Pacemaker s/p Cervical Fx 6 months ago COPD DM Plan Plan: DC IV fluids- aim to reduce pre load and after load Transfuse one unit Hydrate Antibiotics Monitor renal parameters Avoid Nephrotoxics watch for chf per orders 24 h urine crcl pending per orders Subjective ROS Limited/Unobtainable: No Constitutional: Reports: malaise Objective Objective Last 24 Hour Vital Signs Date Time Temp Pulse Resp B/P (MAP) Pulse Ox O2 Delivery O2 Flow Rate FiO2 09/07/18 08:58 74 151/72 09/07/18 08:00 97.6 74 25 151/72 (98) 95 09/07/18 08:00 Nasal Cannula 3.0 09/07/18 07:47 70 09/07/18 07:12 96 Nasal Cannula 3.0 32 09/07/18 07:12 Nasal Cannula 3.0 32 09/07/18 06:10 139/65 09/07/18 06:10 139/65 09/07/18 06:10 70 139/65 09/07/18 04:00 Nasal Cannula 3.0 09/07/18 04:00 70 09/07/18 04:00 96.9 71 22 138/71 (93) 96 09/07/18 00:31 139/65 09/07/18 00:31 139/65 09/07/18 00:30 64 139/65 09/07/18 00:00 97.4 68 20 130/61 (84) 94 09/07/18 00:00 Nasal Cannula 3.0 09/07/18 00:00 70 09/06/18 21:31 64 139/65 09/06/18 20:50 Nasal Cannula 3.0 32 09/06/18 20:49 95 Nasal Cannula 3.0 32 09/06/18 20:00 Nasal Cannula 3.0 09/06/18 20:00 97.6 65 24 123/63 (83) 90 09/06/18 20:00 61 09/06/18 17:25 139/65 09/06/18 17:24 139/65 09/06/18 17:24 64 139/65 09/06/18 16:00 97.0 65 20 139/65 (89) 93 09/06/18 16:00 64 09/06/18 16:00 Nasal Cannula 3.0 09/06/18 13:18 63 09/06/18 12:19 135/53 09/06/18 12:19 135/53 09/06/18 12:19 62 135/53 09/06/18 12:00 98.2 64 19 135/53 (80) 97 09/06/18 12:00 Nasal Cannula 3.0 Intake and Output 09/06/18 09/07/18 19:00 07:00 Intake Total 1720.000 ml 770 ml Output Total 300 ml 300 ml Balance 1420.000 ml 470 ml Intake Free Water 120 ml 180 ml IV Total 1060.000 ml 50 ml Tube Feeding 540 ml 540 ml Output Urine Total 300 ml 300 ml # Bowel Movements 2 1 Laboratory Tests 09/07/18 04:30: White Blood Count 9.2, Red Blood Count 2.39L, Hemoglobin 7.5L, Hematocrit 22.3L , Mean Corpuscular Volume 93, Mean Corpuscular Hemoglobin 31.5H, Mean Corpuscular Hemoglobin Concent 33.8, Red Cell Distribution Width 15.5H, Platelet Count 269, Mean Platelet Volume 6.9, Neutrophils (%) (Auto) , Lymphocytes (%) (Auto) , Monocytes (%) (Auto) , Eosinophils (%) (Auto) , Basophils (%) (Auto) , Differential Total Cells Counted 100, Neutrophils % ( Manual) 79H, Lymphocytes % (Manual) 7L, Monocytes % (Manual) 6, Eosinophils % ( Manual) 6H, Basophils % (Manual) 2, Band Neutrophils 0, Platelet Estimate Adequate, Platelet Morphology Normal, Hypochromasia 3+, Anisocytosis 1+, Spherocytes 1+, Sodium Level 145, Potassium Level 2.9L, Chloride Level 107, Carbon Dioxide Level 24, Anion Gap 14, Blood Urea Nitrogen 111H, Creatinine 5.0H , Estimat Glomerular Filtration Rate , Glucose Level 152H, Uric Acid 5.8, Calcium Level 6.9L, Phosphorus Level 8.2H, Magnesium Level 2.1, Total Bilirubin 0.3, Aspartate Amino Transf (AST/SGOT) 21, Alanine Aminotransferase (ALT/SGPT) 23, Alkaline Phosphatase 112, Troponin I 0.433H, Pro-B-Type Natriuretic Peptide 60277J, Total Protein 4.8L, Albumin 1.4L, Globulin 3.4, Albumin/Globulin Ratio 0.4L Height (Feet): 5 Height (Inches): 9.00 Weight (Pounds): 201 General Appearance: no apparent distress Cardiovascular: normal rate Respiratory/Chest: decreased breath sounds Abdomen: distended Objective no change Joe Feliciano MD Sep 07, 2018 10:34
--- NOTE | 2018-09-07 11:11 | Diagnostic Imaging Report ---
EXAM: XR Chest, 1 View CLINICAL HISTORY: SOB TECHNIQUE: Frontal view of the chest. COMPARISON: Chest x-ray, 09/06/18 FINDINGS: Lungs: Hypoventilatory lungs. Bilateral airspace opacities/edema, similar slightly worse to prior study. Pleural space: [id number] bilateral pleural effusions, slightly worse. No pneumothorax. Heart: Cardiomegaly. Mediastinum: Unremarkable. Bones/joints: Degenerative changes of the spine. Tubes, lines and devices: Cardiac pacemaker. IMPRESSION: 1. Worsening CHF.
[2018-09-07] MEDS: HydrALAZINE 25mg tab GT SCH ×2 (11:57→17:26)
[2018-09-07 12:00] VITALS: BP 137/68
[2018-09-07] MEDS ORDERED: Renvela 800mg Pkt NG SCH (12:00)
--- NOTE | 2018-09-07 13:30 | NUR ---
NURSE NOTES: 1 unit of PRBC starting at this time. Blood verified with VARINDER Fernandez. Vitals checked with stable condition.
--- NOTE | 2018-09-07 13:45 | NUR ---
NURSE NOTES: Re-checked vital signs with stable condition. No adverse reaction noted for blood transfusion at this time. Will continue to monitor.
[2018-09-07 16:00] VITALS: BP 133/82
--- NOTE | 2018-09-07 16:20 | NUR ---
NURSE NOTES: Blood transfusion finished at this time. No adverse reaction noted. Vitals are stable.
[2018-09-07] MEDS: Renvela 800mg Pkt GT SCH (17:26)
--- NOTE | 2018-09-07 17:49 | NUR ---
NURSE NOTES: Received call from Julissa from lab, she told me that 24hr urine collection wasn't process in this morning until now. Urine specimen was in room temperature since this morning so it should be collected again for accurate result. Informed Dr. Feliciano and doctor said to collect another one. Order carried out.
--- NOTE | 2018-09-07 19:23 | NUR ---
HAND-OFF: Report given to VARINDER East. Stable condition.
--- NOTE | 2018-09-07 19:24 | NUR ---
NURSE NOTES: Received a patient from VARINDER Robbins.patient in a bed,stable,SR on desk monitor,tolerated well N/C with 3 L/min,BiPAP order PRN 15/5 FiO2 50%,GT running with Nephro @ 45 ml/hr 50 ml flush Q 6 hrs,BS active in all quadrants,no c/o pain,no respiratory distress noted,IV TLC intact,dressing changed 09/05/18, 24 hr urine started @ 1800,urine keeping in a ice,bed secured in a low safety position,call light within a reach.Will continue to monitor.
[2018-09-07 20:00] VITALS: BP 134/67
[2018-09-07] MEDS: Dyna-Hex 2% Top Sol 2oz TOPIC SCH (20:45)
[2018-09-07] MEDS: LORazepam Inj 2mg/ml 1ml IV PRN (20:49)
[2018-09-08] VITALS: BP 140/66
[2018-09-08] MEDS: Renvela 800mg Pkt GT SCH ×5 (00:14→23:42)
[2018-09-08] MEDS: dilTIAZem HCl 60mg tab GT SCH ×5 (00:15→23:44)
[2018-09-08] MEDS: HydrALAZINE 25mg tab GT SCH ×5 (00:15→23:43)
[2018-09-08] MEDS: NovoLOG Insulin Flexpen SUBQ SCH ×5 (00:17→23:45)
[2018-09-08] MEDS: Piperacillin/Tazobactam 3.375 GM in D5W 110 ML IVPB SCH ×2 (03:34→14:08)
[2018-09-08 04:00] VITALS: BP 136/88
[2018-09-08 06:01] LABS: BASOPHILS % (AUTO) 1.3 % (0.0-2.0); EOSINOPHILS % (AUTO) 3.2 % (0.0-3.0); HEMATOCRIT 25.4 % (42.0-52.0); HEMOGLOBIN 8.5 G/DL (14.2-18.0); LYMPHOCYTES % (AUTO) 6.1 % (20.0-45.0); MEAN CORPUSCULAR VOLUME 91 FL (80-99); MONOCYTES % (AUTO) 6.2 % (1.0-10.0); NEUTROPHILS % (AUTO) 83.1 % (45.0-75.0); PLATELET COUNT 289 K/UL (150-450); RED BLOOD COUNT 2.78 M/UL (4.70-6.10); RED CELL DISTRIBUTION WIDTH 16.1 % (11.6-14.8); WHITE BLOOD COUNT 9.6 K/UL (4.8-10.8)
[2018-09-08 06:28] LABS: ANION GAP 14 mmol/L (5-15); BLOOD UREA NITROGEN 113 mg/dL (7-18); CALCIUM 7.3 MG/DL (8.5-10.1); CARBON DIOXIDE 25 MMOL/L (21-32); CHLORIDE 105 MMOL/L (98-107); CREATININE 5.2 MG/DL (0.55-1.30); POTASSIUM 3.4 MMOL/L (3.5-5.1); SODIUM 144 MMOL/L (136-145)
--- NOTE | 2018-09-08 06:30 | Progress Note ---
DATE: 09/07/2018 SUBJECTIVE: The patient is awake, alert, afebrile, and hemodynamically stable. PHYSICAL EXAMINATION: VITAL SIGNS: Blood pressure 140/66, pulse is 65, respirations 24, and temperature 97.1. HEENT: Eyes were normal. ENT, mucous membranes were moist and intact. NECK: Supple with no JVD without lymph nodes. Cervical collar on the neck interferes with patient's exam. LUNGS: Clear with upper lobe both bases laterally and posteriorly without rhonchi of moderate intensity. HEART: Normal sounds with regular heartbeat. There is no tachycardia at rest. Sinus rhythm on monitor. ABDOMEN: Soft and nontender with normal bowel sounds. GASTROSTOMY: Site is clean. EXTREMITIES: Warm without cyanosis, clubbing, or edema. LABORATORY DATA: His hemoglobin is 7.5, hematocrit 22.3 with MCV of 93, WBC of 9.2, and platelets 269. His BUN and creatinine are 111 and 5.0 respectively. His sodium is 145, potassium 2.9, chloride 107, and CO2 is 24. His uric acid is 5.6. His calcium is 6.9. His phosphorus is 8.2 and magnesium is 2.1. His troponin had increased from 0.062 on 09/06/2018 to 0.493 on 09/07/2018. At the same time, his BUN and creatinine increased from 113/4.8 to 211/5.0, had increased nearly 8 times in the last 24 hours. The patient's clinical condition is improving. Chest x-ray done today revealed hyperventilation lungs, small to moderate bilateral pleural effusion, cardiomegaly. . IMPRESSION: The patient is afebrile, hemodynamically stable. His chest x-ray did not improve and his troponin substantially increased. Repeat laboratory tests will be done in the a.m. Cardiology consult will be called to assist in the management of this case. Evans Jarrett M.D. DR: RODOLFO JOB#: [id number] CC:
[2018-09-08 06:46] LABS: ALANINE AMINOTRANSFERASE 16 U/L (12-78); ALBUMIN 1.4 G/DL (3.4-5.0); ALKALINE PHOSPHATASE 97 U/L (46-116); ASPARTATE AMINO TRANSFERASE 29 U/L (15-37); BILIRUBIN,DIRECT 0.1 MG/DL (0.0-0.3); BILIRUBIN,TOTAL 0.3 MG/DL (0.2-1.0); PHOSPHORUS 8.9 MG/DL (2.5-4.9)
[2018-09-08 06:50] LABS: CREATININE 4.8 MG/DL (0.55-1.30)
--- NOTE | 2018-09-08 07:25 | NUR ---
HAND-OFF: Report given to VARINDER Dolan.Patient stable.
--- NOTE | 2018-09-08 07:26 | NUR ---
NURSE NOTES: Received patient in bed. On nasal cannula at 3LPM. On continuous GTF. Will continue plan of care.
[2018-09-08 08:00] VITALS: BP 150/83
[2018-09-08] MEDS ORDERED: Vancomycin 1250mg/D5W 250ml IVPB ONE (08:00)
[2018-09-08] MEDS: Heparin 5000 units/ml inj SUBQ SCH ×2 (09:12→20:43)
[2018-09-08] MEDS: Pantoprazole Inj IVP SCH (09:13)
[2018-09-08] MEDS: Depakote 125mg Sprinkles GT SCH ×2 (09:32→20:42)
--- NOTE | 2018-09-08 10:26 | Infectious Diseases Prog Note ---
Assessment/Plan Assessment/Plan Assessment: Sepsis- 2ry to PNA -09/07 CXR: 1. Worsening CHF. -CXR: Hazy bilateral basilar opacities likely pleural effusions demonstrated. The heart is enlarged. There is suggestion of interstitial edema. -u/a wbc 5-10, nit neg, leuk +1 ;UCx Neg -Bcx NTD -sp cx normal resp dwight -influenza sc neg afebrile Leukocytosis, SP CHF exacerbation Hx of recent PNA/UTI RENETTA Seizures HTN CHF Schizophrenia CAD s/p Pacemaker hx of Neck Fx (6mo ago) on cervical collar [place] resident Plan: -d/c empiric IV Vancomycin #4 -Continue empiric Zosyn d # 4/5-7 for PNA - 08/31 SP Levofloxacin #7 - 08/27/18 SP Cefepime #3 vancomycin #3 -f/u, legionella ag urine -f/u Blcx -Monitor CBC/CMP, temperatures Subjective Allergies: Coded Allergies: NO KNOWN ALLERGIES (Unverified Allergy, Unknown, 08/25/15) Subjective afebrile no leukocytosis at 3l NC Objective Vital Signs Last 24 Hour Vital Signs Date Time Temp Pulse Resp B/P (MAP) Pulse Ox O2 Delivery O2 Flow Rate FiO2 09/08/18 09:32 67 150/83 09/08/18 08:00 96.8 67 28 150/83 (105) 89 09/08/18 06:37 96 Nasal Cannula 3.0 32 09/08/18 06:37 67 24 Nasal Cannula 3.0 32 09/08/18 06:37 Nasal Cannula 3.0 32 09/08/18 05:40 136/88 09/08/18 05:39 136/88 09/08/18 05:38 64 136/88 09/08/18 04:00 97.0 64 24 136/88 (104) 92 09/08/18 04:00 Nasal Cannula 3.0 09/08/18 03:20 61 09/08/18 00:15 140/66 09/08/18 00:15 65 140/66 09/08/18 00:14 140/66 09/08/18 00:00 Nasal Cannula 3.0 09/08/18 00:00 97.1 65 24 140/66 (90) 93 09/07/18 23:16 64 09/07/18 20:46 66 134/67 09/07/18 20:00 Nasal Cannula 3.0 09/07/18 20:00 97.4 66 34 134/67 (89) 96 09/07/18 19:24 95 Nasal Cannula 3.0 32 09/07/18 19:24 Nasal Cannula 3.0 32 09/07/18 19:23 67 09/07/18 17:26 133/82 09/07/18 17:26 133/82 09/07/18 17:25 63 133/82 09/07/18 16:00 96.3 63 27 133/82 (99) 93 09/07/18 16:00 Nasal Cannula 3.0 09/07/18 15:37 64 09/07/18 12:00 Nasal Cannula 3.0 09/07/18 12:00 96.1 68 24 137/68 (91) 94 09/07/18 11:57 137/68 09/07/18 11:57 137/68 09/07/18 11:56 68 137/68 09/07/18 11:46 66 Height (Feet): 5 Height (Inches): 9.00 Weight (Pounds): 203 Objective General Appearance: severe distress, lethargic, Chronically Ill Head: atraumatic ENT: normal ENT inspection, hearing grossly normal, normal voice Neck: supple, no bony tend, limited range of motion - c-collar Respiratory: normal inspection, lungs clear, normal breath sounds, no respiratory distress, no retraction, no wheezing Cardiovascular # tachycardia, edema Gastrointestinal: normal inspection, normal bowel sounds, non tender, soft, no guarding, no hernia Genitourinary: no CVA tenderness Musculoskeletal: normal inspection, back normal, decreased range of motion Neurologic: alert, speech normal, motor weakness - bilateral upper and lower Skin: normal inspection, normal color, no rash Microbiology Date/Time Source Procedure Growth Status 09/06/18 10:30 Nasopharynx Influenza Types A,B Antigen (CURT) - Final Complete Laboratory Tests Test 09/08/18 03:30 White Blood Count 9.6 K/UL (4.8-10.8) Red Blood Count 2.78 M/UL (4.70-6.10) L Hemoglobin 8.5 G/DL (14.2-18.0) L Hematocrit 25.4 % (42.0-52.0) L Mean Corpuscular Volume 91 FL (80-99) Mean Corpuscular Hemoglobin 30.6 PG (27.0-31.0) Mean Corpuscular Hemoglobin Concent 33.6 G/DL (32.0-36.0) Red Cell Distribution Width 16.1 % (11.6-14.8) H Platelet Count 289 K/UL (150-450) Mean Platelet Volume 6.3 FL (6.5-10.1) L Neutrophils (%) (Auto) 83.1 % (45.0-75.0) H Lymphocytes (%) (Auto) 6.1 % (20.0-45.0) L Monocytes (%) (Auto) 6.2 % (1.0-10.0) Eosinophils (%) (Auto) 3.2 % (0.0-3.0) H Basophils (%) (Auto) 1.3 % (0.0-2.0) Sodium Level 144 MMOL/L (136-145) Potassium Level 3.4 MMOL/L (3.5-5.1) L Chloride Level 105 MMOL/L (98-107) Carbon Dioxide Level 25 MMOL/L (21-32) Anion Gap 14 mmol/L (5-15) Blood Urea Nitrogen 113 mg/dL (7-18) H Creatinine 5.2 MG/DL (0.55-1.30) H Estimat Glomerular Filtration Rate mL/min (>60) Glucose Level 151 MG/DL (74-106) H Uric Acid 6.0 MG/DL (2.6-7.2) Calcium Level 7.3 MG/DL (8.5-10.1) L Phosphorus Level 8.9 MG/DL (2.5-4.9) H Magnesium Level 2.2 MG/DL (1.8-2.4) Total Bilirubin 0.3 MG/DL (0.2-1.0) Direct Bilirubin 0.1 MG/DL (0.0-0.3) Aspartate Amino Transf (AST/SGOT) 29 U/L (15-37) Alanine Aminotransferase (ALT/SGPT) 16 U/L (12-78) Alkaline Phosphatase 97 U/L (46-116) Total Protein 5.0 G/DL (6.4-8.2) L Albumin 1.4 G/DL (3.4-5.0) L Random Vancomycin Level 17.5 ug/mL Current Medications Medications (Trade) Dose Ordered Sig/Vahe Route PRN Reason Start Time Stop Time Status Last Admin Dose Admin Acetaminophen (Tylenol) 650 mg Q4H PRN ORAL T>100.5 09/05/18 15:00 10/04/18 14:59 Albuterol/ Ipratropium (Albuterol/ Ipratropium) 3 ml Q4H PRN HHN Shortness of Breath 09/06/18 14:45 09/11/18 14:44 Chlorhexidine Gluconate (Sadia-Hex 2%) 1 applic DAILY@1999 TOPIC 09/05/18 20:00 10/05/18 19:59 09/07/18 20:45 Dextrose (Dextrose 50%) 25 ml Q30M PRN IV Hypoglycemia 09/05/18 15:00 10/04/18 10:59 Dextrose (Dextrose 50%) 50 ml Q30M PRN IV Hypoglycemia 09/05/18 15:00 10/04/18 10:59 Diltiazem HCl (Cardizem) 60 mg EVERY 6 HOURS GT 09/05/18 18:00 10/04/18 21:59 09/08/18 05:38 Divalproex Sodium (Depakote Sprinkles) 125 mg Q12HR GT 09/05/18 21:00 10/05/18 20:59 09/08/18 09:32 Epoetin Jacobo (Procrit (for non ESRD use)) 10,000 units MON-WED-SAT SUBQ 09/05/18 21:00 10/05/18 20:59 09/05/18 20:46 Heparin Sodium (Porcine) (Heparin 5000 units/ml) 5,000 units EVERY 12 HOURS SUBQ 09/05/18 21:00 10/04/18 20:59 09/08/18 09:12 Hydralazine HCl (Apresoline) 10 mg Q4H PRN IV bp over 160 syst 09/05/18 16:00 10/05/18 11:59 Hydralazine HCl (Apresoline) 25 mg Q6HR GT 09/07/18 12:00 10/05/18 11:59 09/08/18 05:40 Insulin Aspart (NovoLOG) Q6HR SUBQ 09/05/18 18:00 10/04/18 11:59 09/08/18 05:41 Isosorbide Dinitrate (Isordil) 20 mg Q6HR GT 09/07/18 12:00 10/05/18 11:59 09/08/18 05:39 Lorazepam (Ativan 2mg/ml 1ml) 0.5 mg Q4H PRN IV For Anxiety 09/05/18 15:00 09/11/18 14:59 09/07/18 20:49 Metoclopramide HCl (Reglan) 10 mg Q8H PRN IVP Nausea & Vomiting 09/05/18 15:00 10/04/18 14:59 Metoprolol Tartrate (Lopressor) 100 mg Q12HR GT 09/05/18 21:00 10/04/18 20:59 09/08/18 09:32 Morphine Sulfate (Morphine Sulfate) 1 mg Q4H PRN IVP For Pain 09/05/18 16:00 09/11/18 15:59 Ondansetron HCl (Zofran) 4 mg Q6H PRN IVP Nausea & Vomiting 09/05/18 15:00 10/04/18 14:59 Pantoprazole (Protonix) 40 mg EVERY 12 HOURS IVP 09/05/18 21:00 10/04/18 20:59 09/08/18 09:13 Piperacillin Sod/ Tazobactam Sod 3.375 gm/Dextrose 110 ml @ 27.5 mls/hr Q12H IVPB 09/05/18 15:00 09/12/18 14:59 09/08/18 03:34 Polyethylene Glycol (Miralax) 17 gm HSPRN PRN ORAL Constipation 09/06/18 21:00 10/04/18 20:59 Sevelamer Carbonate (Renvela) 1,600 mg Q6HR GT 09/07/18 18:00 10/06/18 10:14 09/08/18 05:38 Vancomycin HCl (Vanco rx to dose) 1 ea DAILY PRN MISC Per rx protocol 09/05/18 13:30 10/05/18 13:29 Zolpidem Tartrate (Ambien) 5 mg HSPRN PRN ORAL Insomnia 09/05/18 21:00 09/12/18 20:59 Michelle Watt M.D. Sep 08, 2018 10:26
--- NOTE | 2018-09-08 11:06 | Pulmonology Progress Note ---
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 aspiration precaution Subjective ROS Limited/Unobtainable: No Constitutional: Reports: no symptoms HEENT: Repors: no symptoms Respiratory: Reports: no symptoms Allergies: Coded Allergies: NO KNOWN ALLERGIES (Unverified Allergy, Unknown, 08/25/15) Objective Last 24 Hour Vital Signs Date Time Temp Pulse Resp B/P (MAP) Pulse Ox O2 Delivery O2 Flow Rate FiO2 09/08/18 09:32 67 150/83 09/08/18 08:00 Nasal Cannula 3.0 09/08/18 08:00 96.8 67 28 150/83 (105) 89 09/08/18 06:37 96 Nasal Cannula 3.0 32 09/08/18 06:37 67 24 Nasal Cannula 3.0 32 09/08/18 06:37 Nasal Cannula 3.0 32 09/08/18 05:40 136/88 09/08/18 05:39 136/88 09/08/18 05:38 64 136/88 09/08/18 04:00 97.0 64 24 136/88 (104) 92 09/08/18 04:00 Nasal Cannula 3.0 09/08/18 03:20 61 09/08/18 00:15 140/66 09/08/18 00:15 65 140/66 09/08/18 00:14 140/66 09/08/18 00:00 Nasal Cannula 3.0 09/08/18 00:00 97.1 65 24 140/66 (90) 93 09/07/18 23:16 64 09/07/18 20:46 66 134/67 09/07/18 20:00 Nasal Cannula 3.0 09/07/18 20:00 97.4 66 34 134/67 (89) 96 09/07/18 19:24 95 Nasal Cannula 3.0 32 09/07/18 19:24 Nasal Cannula 3.0 32 09/07/18 19:23 67 09/07/18 17:26 133/82 09/07/18 17:26 133/82 09/07/18 17:25 63 133/82 09/07/18 16:00 96.3 63 27 133/82 (99) 93 09/07/18 16:00 Nasal Cannula 3.0 09/07/18 15:37 64 09/07/18 12:00 Nasal Cannula 3.0 09/07/18 12:00 96.1 68 24 137/68 (91) 94 09/07/18 11:57 137/68 09/07/18 11:57 137/68 09/07/18 11:56 68 137/68 09/07/18 11:46 66 Intake and Output 09/07/18 09/08/18 19:00 07:00 Intake Total 938.75 ml 837.50 ml Output Total 250 ml Balance 688.75 ml 837.50 ml Intake Free Water 180 ml 160 ml IV Total 218.75 ml 137.50 ml Tube Feeding 540 ml 540 ml Output Urine Total 250 ml # Bowel Movements 1 HEENT: normocephalic, atraumatic Respiratory/Chest: chest wall non-tender, lungs clear Cardiovascular: normal peripheral pulses, regular rhythm Abdomen: normal bowel sounds, soft, non tender Genitourinary: normal external genitalia Extremities: no clubbing Skin: no rash Neurologic/Psychiatric: go go dancer II-XII grossly normal Musculoskeletal: normal muscle bulk Microbiology Date/Time Source Procedure Growth Status 09/06/18 10:30 Nasopharynx Influenza Types A,B Antigen (CURT) - Final Complete Laboratory Tests 09/08/18 03:30: White Blood Count 9.6, Red Blood Count 2.78L, Hemoglobin 8.5L, Hematocrit 25.4L , Mean Corpuscular Volume 91, Mean Corpuscular Hemoglobin 30.6, Mean Corpuscular Hemoglobin Concent 33.6, Red Cell Distribution Width 16.1H, Platelet Count 289, Mean Platelet Volume 6.3L, Neutrophils (%) (Auto) 83.1H, Lymphocytes (%) (Auto) 6.1L, Monocytes (%) (Auto) 6.2, Eosinophils (%) (Auto) 3.2H, Basophils (%) (Auto) 1.3, Sodium Level 144, Potassium Level 3.4L, Chloride Level 105, Carbon Dioxide Level 25, Anion Gap 14, Blood Urea Nitrogen 113H, Creatinine 5.2H, Estimat Glomerular Filtration Rate , Glucose Level 151H, Uric Acid 6.0, Calcium Level 7.3L, Phosphorus Level 8.9H, Magnesium Level 2.2, Total Bilirubin 0.3, Direct Bilirubin 0.1, Aspartate Amino Transf (AST/SGOT) 29 , Alanine Aminotransferase (ALT/SGPT) 16, Alkaline Phosphatase 97, Total Protein 5.0L, Albumin 1.4L, Random Vancomycin Level 17.5 Current Medications Medications (Trade) Dose Ordered Sig/Vahe Route PRN Reason Start Time Stop Time Status Last Admin Dose Admin Acetaminophen (Tylenol) 650 mg Q4H PRN ORAL T>100.5 09/05/18 15:00 10/04/18 14:59 Albuterol/ Ipratropium (Albuterol/ Ipratropium) 3 ml Q4H PRN HHN Shortness of Breath 09/06/18 14:45 09/11/18 14:44 Chlorhexidine Gluconate (Sadia-Hex 2%) 1 applic DAILY@2000 TOPIC 09/05/18 20:00 10/05/18 19:59 09/07/18 20:45 Dextrose (Dextrose 50%) 25 ml Q30M PRN IV Hypoglycemia 09/05/18 15:00 10/04/18 10:59 Dextrose (Dextrose 50%) 50 ml Q30M PRN IV Hypoglycemia 09/05/18 15:00 10/04/18 10:59 Diltiazem HCl (Cardizem) 60 mg EVERY 6 HOURS GT 09/05/18 18:00 10/04/18 21:59 09/08/18 05:38 Divalproex Sodium (Depakote Sprinkles) 125 mg Q12HR GT 09/05/18 21:00 10/05/18 20:59 09/08/18 09:32 Epoetin Jacobo (Procrit (for non ESRD use)) 10,000 units MON-WED-FRI SUBQ 09/05/18 21:00 10/05/18 20:59 09/05/18 20:46 Heparin Sodium (Porcine) (Heparin 5000 units/ml) 5,000 units EVERY 12 HOURS SUBQ 09/05/18 21:00 10/04/18 20:59 09/08/18 09:12 Hydralazine HCl (Apresoline) 10 mg Q4H PRN IV bp over 160 syst 09/05/18 16:00 10/05/18 11:59 Hydralazine HCl (Apresoline) 25 mg Q6HR GT 09/07/18 12:00 10/05/18 11:59 09/08/18 05:40 Insulin Aspart (NovoLOG) Q6HR SUBQ 09/05/18 18:00 10/04/18 11:59 09/08/18 05:41 Isosorbide Dinitrate (Isordil) 20 mg Q6HR GT 09/07/18 12:00 10/05/18 11:59 09/08/18 05:39 Lorazepam (Ativan 2mg/ml 1ml) 0.5 mg Q4H PRN IV For Anxiety 09/05/18 15:00 09/11/18 14:59 09/07/18 20:49 Metoclopramide HCl (Reglan) 10 mg Q8H PRN IVP Nausea & Vomiting 09/05/18 15:00 10/04/18 14:59 Metoprolol Tartrate (Lopressor) 100 mg Q12HR GT 09/05/18 21:00 10/04/18 20:59 09/08/18 09:32 Morphine Sulfate (Morphine Sulfate) 1 mg Q4H PRN IVP For Pain 09/05/18 16:00 09/11/18 15:59 Ondansetron HCl (Zofran) 4 mg Q6H PRN IVP Nausea & Vomiting 09/05/18 15:00 10/04/18 14:59 Pantoprazole (Protonix) 40 mg EVERY 12 HOURS IVP 09/05/18 21:00 10/04/18 20:59 09/08/18 09:13 Piperacillin Sod/ Tazobactam Sod 3.375 gm/Dextrose 110 ml @ 27.5 mls/hr Q12H IVPB 09/05/18 15:00 09/12/18 14:59 09/08/18 03:34 Polyethylene Glycol (Miralax) 17 gm HSPRN PRN ORAL Constipation 09/06/18 21:00 10/04/18 20:59 Sevelamer Carbonate (Renvela) 1,600 mg Q6HR GT 09/07/18 18:00 10/06/18 10:14 09/08/18 05:38 Vancomycin HCl (Vanco rx to dose) 1 ea DAILY PRN MISC Per rx protocol 09/05/18 13:30 10/05/18 13:29 Zolpidem Tartrate (Ambien) 5 mg HSPRN PRN ORAL Insomnia 09/05/18 21:00 09/12/18 20:59 Stefanie Ball MD Sep 08, 2018 11:06
--- NOTE | 2018-09-08 11:11 | Diagnostic Imaging Report ---
Indication: Renal insufficiency Technique: US Renal Comp Comparison: None Findings: Right kidney measures 11.4 cm in length. Left kidney measures 10.5 cm in length. Both kidneys demonstrate normal echogenicity. A simple appearing cysts in the right kidney measures approximately 1.9 cm. There is no hydronephrosis or sonographically appreciable renal stone bilaterally. Color flow to the bilateral kidneys appears normal. There is bladder wall thickening and echogenic material layering dependently in the bladder. A Figueredo catheter is reported to be in place although some urine is noted within the bladder. This raises question for appropriate catheter functioning. Mild ascites is visualized in the pelvis. Imaged portions of the liver grossly unremarkable. IMPRESSION: * No hydronephrosis or sonographically appreciable renal stone. * Renal echogenicity appears within normal limits bilaterally. * Simple-appearing right renal cyst. * Thickening of the bladder wall which may be related to underdistention however cystitis not excludable. Echogenic material is noted in the posterior aspect of the bladder. This is not vascular upon interrogation with color Doppler and may be related to debris, bladder mass versus mass effect from enlarged adjacent prostate. Unable to distinguish sonographically. Correlation with digital rectal exam and/or direct visualization recommended. CT of the pelvis with contrast can also be obtained for further evaluation. * Mild pelvic ascites procedure visualized. * Reported Figueredo catheter in place. Some urine is noted within the bladder is in question for appropriate catheter functioning. Correlate clinically.
--- NOTE | 2018-09-08 11:47 | Nephrology Progress Note ---
Assessment/Plan Problem List: (1) ICD (implantable cardioverter-defibrillator) in place (2) ATN (acute tubular necrosis) (3) Acute respiratory failure (4) Anemia in chronic kidney disease (CKD) Assessment (1) ARF (acute renal failure) (2) Schizophrenia (3) Toxic encephalopathy (4) Anemia (5) Sepsis (6) ICD (implantable cardioverter-defibrillator) in place Renal failure- Pre renal picture- ? Underlying Chronic Renal failure Sepsis Asp pneumonia UTI Anemia Sz disorder CAD + Pacemaker s/p Cervical Fx 6 months ago COPD DM Plan Plan: DC IV fluids- aim to reduce pre load and after load Transfuse one unit Hydrate Antibiotics Monitor renal parameters Avoid Nephrotoxics watch for chf per orders 24 h urine crcl pending per orders Subjective ROS Limited/Unobtainable: No Objective Objective Last 24 Hour Vital Signs Date Time Temp Pulse Resp B/P (MAP) Pulse Ox O2 Delivery O2 Flow Rate FiO2 09/08/18 09:32 67 150/83 09/08/18 08:00 Nasal Cannula 3.0 09/08/18 08:00 96.8 67 28 150/83 (105) 89 09/08/18 06:37 96 Nasal Cannula 3.0 32 09/08/18 06:37 67 24 Nasal Cannula 3.0 32 09/08/18 06:37 Nasal Cannula 3.0 32 09/08/18 05:40 136/88 09/08/18 05:39 136/88 09/08/18 05:38 64 136/88 09/08/18 04:00 97.0 64 24 136/88 (104) 92 09/08/18 04:00 Nasal Cannula 3.0 09/08/18 03:20 61 09/08/18 00:15 140/66 09/08/18 00:15 65 140/66 09/08/18 00:14 140/66 09/08/18 00:00 Nasal Cannula 3.0 09/08/18 00:00 97.1 65 24 140/66 (90) 93 09/07/18 23:16 64 09/07/18 20:46 66 134/67 09/07/18 20:00 Nasal Cannula 3.0 09/07/18 20:00 97.4 66 34 134/67 (89) 96 09/07/18 19:24 95 Nasal Cannula 3.0 32 09/07/18 19:24 Nasal Cannula 3.0 32 09/07/18 19:23 67 09/07/18 17:26 133/82 09/07/18 17:26 133/82 09/07/18 17:25 63 133/82 09/07/18 16:00 96.3 63 27 133/82 (99) 93 09/07/18 16:00 Nasal Cannula 3.0 09/07/18 15:37 64 09/07/18 12:00 Nasal Cannula 3.0 09/07/18 12:00 96.1 68 24 137/68 (91) 94 09/07/18 11:57 137/68 09/07/18 11:57 137/68 09/07/18 11:56 68 137/68 Intake and Output 09/07/18 09/08/18 19:00 07:00 Intake Total 938.75 ml 837.50 ml Output Total 250 ml Balance 688.75 ml 837.50 ml Intake Free Water 180 ml 160 ml IV Total 218.75 ml 137.50 ml Tube Feeding 540 ml 540 ml Output Urine Total 250 ml # Bowel Movements 1 Laboratory Tests 09/08/18 03:30: White Blood Count 9.6, Red Blood Count 2.78L, Hemoglobin 8.5L, Hematocrit 25.4L , Mean Corpuscular Volume 91, Mean Corpuscular Hemoglobin 30.6, Mean Corpuscular Hemoglobin Concent 33.6, Red Cell Distribution Width 16.1H, Platelet Count 289, Mean Platelet Volume 6.3L, Neutrophils (%) (Auto) 83.1H, Lymphocytes (%) (Auto) 6.1L, Monocytes (%) (Auto) 6.2, Eosinophils (%) (Auto) 3.2H, Basophils (%) (Auto) 1.3, Sodium Level 144, Potassium Level 3.4L, Chloride Level 105, Carbon Dioxide Level 25, Anion Gap 14, Blood Urea Nitrogen 113H, Creatinine 5.2H, Estimat Glomerular Filtration Rate , Glucose Level 151H, Uric Acid 6.0, Calcium Level 7.3L, Phosphorus Level 8.9H, Magnesium Level 2.2, Total Bilirubin 0.3, Direct Bilirubin 0.1, Aspartate Amino Transf (AST/SGOT) 29 , Alanine Aminotransferase (ALT/SGPT) 16, Alkaline Phosphatase 97, Total Protein 5.0L, Albumin 1.4L, Random Vancomycin Level 17.5 Height (Feet): 5 Height (Inches): 9.00 Weight (Pounds): 203 General Appearance: no apparent distress Neck: limited range of motion Cardiovascular: normal rate Respiratory/Chest: decreased breath sounds Abdomen: distended Objective no change Joe Feliciano MD Sep 08, 2018 11:47
[2018-09-08 12:00] VITALS: BP 145/68
[2018-09-08] MEDS: LORazepam Inj 2mg/ml 1ml IV PRN (13:28)
--- NOTE | 2018-09-08 14:14 | Diagnostic Imaging Report ---
Indication: Shortness of breath Technique: XRAY Chest 1v Comparison: 09/07/2018 Findings: Worsening aeration with increasing obscuration of the bilateral hemithoraces likely related to increasing bilateral pleural effusions, moderate to large. There is pulmonary edema with interstitial and bilateral airspace opacities. No pneumothorax. Left-sided dual-lead pacer/AICD noted. There are degenerative changes in the spine. Gastrostomy tube partially visualized. IMPRESSION: Suggesting aeration with increasing obscuration of the bilateral hemithoraces likely related to increasing pleural effusions, moderate to large bilaterally. Evidence of worsening pulmonary edema. Superimposed pneumonia not excludable.
--- NOTE | 2018-09-08 15:08 | NUR ---
FLOW MATCH SOFA CUTTERFIXED ASSETS ACCOUNTANT SI: RESP DISTRESS, RENAL FAILURE T. 96.6 HR 62 RR 28 B/P 145/68 3L NC O2 SAT @ 98% BUN 113 CR 5.2 CXR= WORSENING PULMONARY EDEMA IS: ZOSYN IV HEPARIN SUBC 24HR URINE COLLECTION STEP DOWN STATUS
[2018-09-08 16:00] VITALS: BP_SYST 137; BP_SYST 145; BP_DIAS 61; BP_DIAS 68
--- NOTE | 2018-09-08 17:30 | NUR ---
NURSE NOTES: Left femoral TLC removed. Will monitor for bleeding.
[2018-09-08 18:44] LABS: CREATININE 5.2 MG/DL (0.55-1.30)
--- NOTE | 2018-09-08 19:09 | NUR ---
HAND-OFF: Report given to Kita Johnson RN.
--- NOTE | 2018-09-08 19:10 | NUR ---
NURSE NOTES: Received a bed side report from VARINDER Fernandez.Patient in a bed,stable,SR on nurse researcher,tolerated well N/C with 3 L/min,BiPAP order PRN 15/5 FiO2 50%,GT running with Nephro @ 45 ml/hr 50 ml flush Q 6 hrs,BS active in all quadrants,tolerated well renal diet oral gratification only,no c/o pain,no respiratory distress noted,IV TLC D/C,new IV inserted today on L hand 22 G HL 24 hr urine collected @ 1800,bed secured in a low safety position,call light within a reach.Will continue to monitor.
[2018-09-08 20:00] VITALS: BP 132/61
[2018-09-08] MEDS: Dyna-Hex 2% Top Sol 2oz TOPIC SCH (20:41)
[2018-09-08] MEDS: Epogen (for non ESRD use) SUBQ SCH (20:44)
[2018-09-09] VITALS (31 sets, daily range): BP systolic 49–130; BP diastolic 20–79
--- NOTE | 2018-09-09 01:20 | NUR ---
NURSE NOTES: Patient HR 30,SB on monitor car operator,no pulse noted,pt become pale.Code blue activated.
--- NOTE | 2018-09-09 01:25 | NUR ---
NURSE NOTES: Pt transferred in ICU, notified ,new orders received.Patient stable
--- NOTE | 2018-09-09 01:41 | NUR ---
NURSE NOTES: Patient transferred to ICU,246-H.Pt.intubated,B/P 84/32, stable,HR 58
--- NOTE | 2018-09-09 01:47 | NUR ---
RESPIRATORY NOTE: Previously alert/awake pt suddenly became unresponsive & MAIL CALLER was called. It eventually turned into a Code BLUE as pt didn't have spontaneous breaths or pulse upon arrival at bedside. See Code BLUE sheet. Pt now transferred to ICU & placed on ventilator w/ settings: AC 16, 600VT, 100%, PEEP +5. Pt intubated w/ ETT 7.5 @ 23cm lipline, secured anchorfast. B/S jameson. rhonchi, sxn small to moderate amounts of thick, card/yellow secretions. Vent plugged into red outlet, ambubag at bedside. Pt stable, in no apparent distress at this time. Will continue to monitor pt.
--- NOTE | 2018-09-09 01:55 | NUR ---
NURSE NOTES: Chest X-ray is done and readed by ,no abnormalities noted.
--- NOTE | 2018-09-09 02:00 | NUR ---
NURSE NOTES: RT placed pt on ventilator w/ settings: AC 16, 600VT, 100%, PEEP +5. Pt intubated ETT 7.5 @ 23cm lip line, secured ,tolerated settings well. notified.
--- NOTE | 2018-09-09 02:15 | NUR ---
NURSE NOTES: Called and left massage for dopamine drips order and PICC line placement.Waiting for responds
--- NOTE | 2018-09-09 02:30 | NUR ---
NURSE NOTES: Received a phone call order from for Dopamine drip and central line placement.
--- NOTE | 2018-09-09 02:42 | NUR ---
NURSE NOTES: Called for Dopamine drip and central line order.Waiting for new orders
[2018-09-09] MEDS ORDERED: Albuterol/Ipratropium 3ml neb HHN PRN (02:45)
[2018-09-09] MEDS: Piperacillin/Tazobactam 3.375 GM in D5W 110 ML IVPB SCH ×2 (03:00→15:11)
--- NOTE | 2018-09-09 03:00 | Progress Note ---
DATE: 09/08/2018 SUBJECTIVE: The patient is awake, alert, afebrile, and hemodynamically stable, however, he is tachycardic. Respiratory rate was 26 to 30. He had bilateral examination of the chest inspiration. The patient is tachypneic, tachycardic, and improving sleep. PHYSICAL EXAMINATION: VITAL SIGNS: Blood pressure is 130/59, his pulse is 62, respirations 24, and temperature 98.2. HEENT: Eyes were normal. ENT, mucous membranes are moist and intact. NECK: Supple with no JVD with no lymph nodes. LUNGS: Clear. HEART: Normal sounds with regular beats. ABDOMEN: Soft and nontender with normal bowel sounds. EXTREMITIES: Warm without cyanosis, clubbing, or edema. LABORATORY DATA: Hemoglobin is 8.5, hematocrit 25.4 with MCV of 91, WBC of 9.8, and platelets is 289,000. His BUN and creatinine is 114 and 5.2 respectively. His sodium is 144, potassium 3.4, chloride 105, and CO2 is 25. Glucose is 151. His chest x-ray done today revealed . IMPRESSION AND PLAN: The patient is on treatment for congestive heart failure. Currently, the patient . Repeat laboratory tests will be done in the a.m. Evans Jarrett M.D. DR: ALYSSA JOB#: [id number] CC:
[2018-09-09] MEDS: DOPamine 400mg/250ml 250 ML IV SCH ×2 (03:36→05:37)
[2018-09-09] MEDS ORDERED: Morphine Sulfate 4mg/ml Inj (IV/IM USE ONLY) IVP PRN ×2 (04:00→12:00)
--- NOTE | 2018-09-09 05:00 | NUR ---
NURSE NOTES: Patient stable,no s/s of respiratory distress noted,dopamine drip running 69 ml/hr 20 mcg/kg/min,SR on conveyor monitor,BP stable.Will continue to monitor
--- NOTE | 2018-09-09 05:22 | Emergency Room Report ---
History of Present Illness General Chief Complaint: Dyspnea/Respdistress Source: Medical Record, PMD Present Illness HPI This is a 78-year-old male who was admitted to stepdown unit for respiratory failure and pleural effusion. I responded to a CODE BLUE. Per nursing staff, patient heart rate drops and he became unresponsive with no blood pressure. On my arrival CPR arty initiated. Patient received a milligram of epinephrine already. There was no pulse with it. During the code, he received a total of 4 mg of epinephrine. I intubated the patient. At the end of the code, it appeared that his AICD defibrillated because patient jerked. After this, he had a pulse. Patient was then placed an ICU. Afterward I place a central line for service. Please see code sheet for full admission. Allergies: Coded Allergies: NO KNOWN ALLERGIES (Unverified Allergy, Unknown, 08/25/15) Nursing Documentation-[facility] Past Medical History Deferred: Pt Cognitively Impaired Hx Hypertension: Yes Hx Pacemaker: Yes - Left upper chest AICD Hx COPD: Yes Hx Diabetes: Yes Hx Cancer: No Hx Gastrointestinal Problems: No Hx Neurological Problems: Yes - schizo, tonic enceopalopathy Hx Dementia: Yes Hx Alzheimer's Disease: Yes Hx Parkinson's Disease: Yes Hx Seizures: Yes Hx Epilepsy: Yes Hx Traumatic Brain Injury: Yes Hx Dysphasia: Yes Review of Systems Respiratory: Reports: shortness of breath, other - Respiratory distress Physical Exam Vital Signs Date Time Temp Pulse Resp B/P (MAP) Pulse Ox O2 Delivery O2 Flow Rate FiO2 09/05/18 07:00 98.6 95 21 136/90 (105) 95 09/05/18 08:00 Nasal Cannula 3.0 09/05/18 19:44 32 Sp02 EP Interpretation: abnormal General Appearance: severe distress, Stupor Eyes: bilateral eye PERRL ENT: normal pharynx Neck: full range of motion Respiratory: decreased breath sounds, accessory muscle use, rales, other - No respiration without [id number] Cardiovascular #1: other - No pulse without CPR Gastrointestinal: soft Musculoskeletal: swelling - 1+ Neurologic: other - Unresponsive Skin: normal color Procedures Critical Care Time Critical Care Time Critical care is mandated in this patient who presented with respiratory failure and cardiac arrest. Patient require my urgent intervention to attenuate the risks of metabolic collapse which may lead to cardiovascular collapse and . Critical care time is 35 minutes excluding any reportable procedure. Critical care time included evaluation, multiple reevaluation, looking at old charts, interpreting laboratory and diagnostic data, discussing case with patient and family and consultants, and charting. Central Line Central Line : Consent: Emergent Central Line Lumen: triple Maximal Sterile Barrier Tech: yes cap, yes mask, yes sterile gown, yes sterile gloves, yes large sterile sheet, yes hand hygiene, yes chlorhexidine prep Central Line Postion: femoral (L) Complications: none Central Line Post Position: sutured, good blood return Attempts: One Patient Tolerated: Well Complications: None CPR/Code Blue CPR/Code Blue Narrative Received code sheet for full admission. Patient received a total 4 milligrams of epinephrine. He retained a pulse afterward. During CPR, chest compression, his AICD defibrillated once. Intubation Intubation : Consent: Emergent Intubation Method: orotracheal Tube Size (cm): 7.5 Breath Sounds after Intubation: equal Intubation Complications: no complications Post Intubation Xray: Yes Progress/Xray Impression: Endotracheal tube in good position. No pneumothorax Attempts: One Patient Tolerated: Well Complications: None Medical Decision Making Diagnostic Impression: Primary Impression: Acute respiratory failure Additional Impressions: Acute kidney failure Pleural effusion Hyperkalemia Cardiac arrest Last Vital Signs Date Time Temp Pulse Resp B/P (MAP) Pulse Ox O2 Delivery O2 Flow Rate FiO2 09/09/18 05:00 75 8 75/57 97 100 09/09/18 04:00 93.6 09/09/18 04:00 Nasal Cannula 3.0 Disposition: ADMITTED INPATIENT Condition: Critical Referrals: Evans Jarrett MD (PCP) Jose Alejandro Caputo MD Sep 09, 2018 05:22
[2018-09-09] MEDS: Renvela 800mg Pkt GT SCH ×3 (05:39→18:02)
[2018-09-09] MEDS ORDERED: HydrALAZINE 25mg tab GT SCH (06:00)
[2018-09-09] MEDS ORDERED: dilTIAZem HCl 60mg tab GT SCH (06:00)
[2018-09-09] MEDS: NovoLOG Insulin Flexpen SUBQ SCH ×3 (06:01→18:00)
[2018-09-09 06:15] LABS: HEMATOCRIT 31.3 % (42.0-52.0); HEMOGLOBIN 10.1 G/DL (14.2-18.0); MEAN CORPUSCULAR VOLUME 93 FL (80-99); PLATELET COUNT 358 K/UL (150-450); RED BLOOD COUNT 3.38 M/UL (4.70-6.10); RED CELL DISTRIBUTION WIDTH 16.7 % (11.6-14.8); WHITE BLOOD COUNT 10.2 K/UL (4.8-10.8)
--- NOTE | 2018-09-09 06:57 | NUR ---
NURSE NOTES: Pt stable,clean and dry,no respiratory distress at this moment,tolerated vent settings well,BP 99/33,HR 82.Will continue to monitor.
[2018-09-09 06:58] LABS: ALANINE AMINOTRANSFERASE 22 U/L (12-78); ALBUMIN 1.4 G/DL (3.4-5.0); ALBUMIN/GLOBULIN RATIO 0.3 (1.0-2.7); ALKALINE PHOSPHATASE 134 U/L (46-116); ANION GAP 22 mmol/L (5-15); ASPARTATE AMINO TRANSFERASE 45 U/L (15-37); BILIRUBIN,TOTAL 0.4 MG/DL (0.2-1.0); BLOOD UREA NITROGEN 108 mg/dL (7-18); CALCIUM 7.2 MG/DL (8.5-10.1); CARBON DIOXIDE 18 MMOL/L (21-32); CHLORIDE 103 MMOL/L (98-107); CREATININE 5.5 MG/DL (0.55-1.30); PHOSPHORUS 9.9 MG/DL (2.5-4.9); POTASSIUM 3.6 MMOL/L (3.5-5.1); SODIUM 142 MMOL/L (136-145)
[2018-09-09] MEDS ORDERED: Metoclopramide 10mg/2ml Inj IVP PRN (07:00)
--- NOTE | 2018-09-09 07:10 | NUR ---
RESPIRATORY NOTE: received pt on ventilator, intubated with 7.5 ETT placed 23 at the lip. ETT is secured via anchor fast with no redness around facial area. vent settings are current and is plugged into red outlet. ambu bag at bedside with alarms on and audible. no resp distress at this time. will cont to monitor.
--- NOTE | 2018-09-09 07:10 | NUR ---
NURSE NOTES: Received an order from to continue same vent setting,order placed.
--- NOTE | 2018-09-09 07:13 | NUR ---
NURSE NOTES: Received pt from VARINDER [place]. Pt is S/P code 0130 this morning from [facility].Pt is obtunded, eyes do not open spontaneously. No reaction to tactile stimuli. Gag reflex positive. Orally intubated with ETT7.5/23cm at lipline, AC 16/ TV 600/FIO2 100%/Peep +5, SPO2 100%, RR 18. Carotid pulse palpable. Pt has a Left upper chest AICD. Dopamine drip continued at 20mcg/min. BP 98/54, HR 87. PEG tubed, NPO at this time. Ax temp 94.5, pt has a bear hugger. Right femoral TLC noted with dressing c/d/i. Bilateral legs noted with DTI, echymosis on bilateral arms and sacral decubitus ulcer. Bed locked, alarmed and in lowest position. Will continue plan of care.
--- NOTE | 2018-09-09 07:28 | NUR ---
HAND-OFF: Report given to VARINDER Moreno.Patient stable.
--- NOTE | 2018-09-09 07:30 | NUR ---
NURSE NOTES: Troponin =1.[address] Ball, no new orders at this time.
--- NOTE | 2018-09-09 08:52 | NUR ---
NURSE NOTES: Heparin held due to bleeding noted during sxn via ETT. Metoprolol held due to decreased BP. PMD made aware.
[2018-09-09] MEDS ORDERED: Depakote 125mg Sprinkles GT SCH (09:00)
[2018-09-09] MEDS ORDERED: Heparin 5000 units/ml inj SUBQ SCH (09:00)
--- NOTE | 2018-09-09 09:38 | NUR ---
NURSE NOTES: Dr. Ball at bedside. Continue GTF and hold off on Thoracentesis for now. Decreased Dopamine drip to 6mcg/min, BP is 117/74, MAP 83.
--- NOTE | 2018-09-09 09:46 | Pulmonolgy Critical Care Note ---
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 (6) ICD (implantable cardioverter-defibrillator) in place (7) Decubital ulcer (8) HTN (hypertension) Respiratory: monitor respiratory rate, adjust FIO2, CXR Cardiac: continue to monitor HR/BP Renal: F/U I&O Infectious Disease: check cultures Gastrointestinal: continue feedings/current rate Endocrine: monitor blood sugar Hematologic: monitor H/H, transfuse if hgb<8.5 Neurologic: keep patient comfortable Affect: PRN ativan Prophylaxis: Protonix Notes Reviewed: cardio, renal Discussed with: consultants, manager caseconsumer loan manager - Objective Last 24 Hour Vital Signs Date Time Temp Pulse Resp B/P (MAP) Pulse Ox O2 Delivery O2 Flow Rate FiO2 09/09/18 09:30 91 20 100 09/09/18 08:00 Mechanical Ventilator 09/09/18 07:06 83 19 100 09/09/18 07:00 82 6 99/32 100 100 09/09/18 06:45 81 8 99/31 100 100 09/09/18 06:30 80 8 105/26 100 100 09/09/18 06:15 80 8 99/20 100 100 09/09/18 06:00 99/57 09/09/18 06:00 79 6 99/20 100 100 09/09/18 05:45 78 6 109/48 100 100 09/09/18 05:38 82/38 09/09/18 05:38 77 82/38 09/09/18 05:37 82/38 09/09/18 05:37 82/38 09/09/18 05:30 93.6 75 9 88/50 97 100 09/09/18 05:15 76 6 75/57 96 100 09/09/18 05:00 75 8 75/57 97 100 09/09/18 05:00 6 75/57 (63) 76 09/09/18 05:00 82/38 09/09/18 04:56 75 16 100 09/09/18 04:45 76 8 75/53 97 100 09/09/18 04:45 11 74/42 (53) 78 09/09/18 04:30 75 18 76/31 89 100 09/09/18 04:15 66 9 78/44 97 100 09/09/18 04:00 93.6 75 18 82/28 89 100 09/09/18 04:00 85/20 09/09/18 04:00 Nasal Cannula 3.0 09/09/18 03:45 70 8 82/54 85 100 09/09/18 03:40 76 09/09/18 03:36 71/50 09/09/18 03:30 76 18 84/20 94 100 09/09/18 03:15 71 10 73/44 89 100 09/09/18 03:00 78 19 92/61 93 100 09/09/18 03:00 78 18 100 09/09/18 02:45 79 18 91/20 90 100 09/09/18 02:30 60 0 49/36 75 100 09/09/18 02:15 71 16 71/50 89 100 09/09/18 02:07 16 71/50 (57) 09/09/18 02:00 100 09/09/18 02:00 55 5 61/46 86 100 09/09/18 02:00 0 85/43 (57) 84 09/09/18 01:57 0 49/36 (40) 09/09/18 01:57 0 49/36 (40) 09/09/18 01:52 0 0 54/43 (47) 87 09/09/18 01:50 8 5 61/46 (51) 86 09/09/18 01:46 69 16 100 09/09/18 01:45 70 6 09/09/18 01:45 67 16 75/54 85 100 09/09/18 01:45 70 6 09/09/18 01:44 67 16 75/54 (61) 09/09/18 01:40 95/79 (84) 09/09/18 01:30 55 16 95/79 91 100 09/09/18 00:00 96.5 60 24 130/59 (82) 93 09/09/18 00:00 Nasal Cannula 3.0 09/08/18 23:43 130/59 09/08/18 23:43 130/59 09/08/18 23:14 62 09/08/18 20:42 60 132/61 09/08/18 20:07 60 09/08/18 20:00 98.7 60 24 132/61 (84) 93 09/08/18 20:00 Nasal Cannula 3.0 09/08/18 19:24 98 Nasal Cannula 3.0 32 09/08/18 19:24 Nasal Cannula 3.0 32 09/08/18 19:24 64 20 Nasal Cannula 3.0 32 09/08/18 17:27 61 137/61 09/08/18 17:26 137/61 09/08/18 17:26 137/61 09/08/18 16:00 Nasal Cannula 3.0 09/08/18 16:00 61 22 137/61 (86) 98 09/08/18 15:44 60 09/08/18 13:00 145/68 09/08/18 13:00 145/68 09/08/18 13:00 62 145/68 09/08/18 12:00 96.6 62 28 145/68 (93) 90 09/08/18 12:00 Nasal Cannula 3.0 09/08/18 12:00 62 Status: obtunded Condition: critical Lungs: rales, rhonchi Heart: HR/BP stable Abdomen: soft, active bowel sounds Extremities: no C/C/E Decubiti: location Micro: Microbiology Date/Time Source Procedure Growth Status 09/06/18 10:30 Nasopharynx Influenza Types A,B Antigen (CURT) - Final Complete Accucheck: 220 Critical Care - Subjective ROS Limited/Unobtainable: Yes Interval Events: pt had a code blue this morning, he rojelio down and became asystolic. He had CPR for around 7 minutes then he gained his pulse. FI02: 100 Vent Support Breath Rate: 16 Vent Support Mode: AC Vent Tidal Volume: 600 Sputum Amount: Small PEEP: 5.0 PIP: 29 Tube Feeding Amount: 45 I&O: Intake and Output 09/08/18 09/09/18 19:00 07:00 Intake Total 300.0 ml 595.6 ml Output Total 200 ml 100 ml Balance 100.0 ml 495.6 ml Intake Free Water 100 ml 120 ml IV Total 110.0 ml 205.6 ml Tube Feeding 90 ml 270 ml Output Urine Total 200 ml 100 ml CXR: bilateral effusion ET-Tube: 7.5 ET Position: 23 Labs: Laboratory Tests Test 09/08/18 11:30 09/08/18 18:00 09/09/18 02:28 09/09/18 04:00 Prothrombin Time 10.4 SEC (9.30-11.50) Prothromb Time International Ratio 1.0 (0.9-1.1) Activated Partial Thromboplast Time 25 SEC (23-33) Creatinine 5.2 MG/DL (0.55-1.30) H 5.5 MG/DL (0.55-1.30) H Estimat Glomerular Filtration Rate mL/min (>60) mL/min (>60) Arterial Blood pH 7.043 (7.350-7.450) Arterial Blood Partial Pressure CO2 52.4 mmHg (35.0-45.0) H Arterial Blood Partial Pressure O2 171.4 mmHg (75.0-100.0) H Arterial Blood HCO3 13.9 mmol/L (22.0-26.0) *L Arterial Blood Oxygen Saturation 98.3 % (95-100) Arterial Blood Base Excess -16.2 (-2-2) *L Popeye Test Positive White Blood Count 10.2 K/UL (4.8-10.8) Red Blood Count 3.38 M/UL (4.70-6.10) L Hemoglobin 10.1 G/DL (14.2-18.0) L Hematocrit 31.3 % (42.0-52.0) L Mean Corpuscular Volume 93 FL (80-99) Mean Corpuscular Hemoglobin 30.0 PG (27.0-31.0) Mean Corpuscular Hemoglobin Concent 32.4 G/DL (32.0-36.0) Red Cell Distribution Width 16.7 % (11.6-14.8) H Platelet Count 358 K/UL (150-450) Mean Platelet Volume 6.9 FL (6.5-10.1) Neutrophils (%) (Auto) % (45.0-75.0) Lymphocytes (%) (Auto) % (20.0-45.0) Monocytes (%) (Auto) % (1.0-10.0) Eosinophils (%) (Auto) % (0.0-3.0) Basophils (%) (Auto) % (0.0-2.0) Sodium Level 142 MMOL/L (136-145) Potassium Level 3.6 MMOL/L (3.5-5.1) Chloride Level 103 MMOL/L (98-107) Carbon Dioxide Level 18 MMOL/L (21-32) L Anion Gap 22 mmol/L (5-15) H Blood Urea Nitrogen 108 mg/dL (7-18) H Glucose Level 212 MG/DL (74-106) H Calcium Level 7.2 MG/DL (8.5-10.1) L Phosphorus Level 9.9 MG/DL (2.5-4.9) H Magnesium Level 2.2 MG/DL (1.8-2.4) Total Bilirubin 0.4 MG/DL (0.2-1.0) Aspartate Amino Transf (AST/SGOT) 45 U/L (15-37) H Alanine Aminotransferase (ALT/SGPT) 22 U/L (12-78) Alkaline Phosphatase 134 U/L (46-116) H Troponin I 1.545 ng/mL (0.000-0.056) Total Protein 5.6 G/DL (6.4-8.2) L Albumin 1.4 G/DL (3.4-5.0) L Globulin 4.2 g/dL Albumin/Globulin Ratio 0.3 (1.0-2.7) L Stefanie Ball MD Sep 09, 2018 09:46
--- NOTE | 2018-09-09 10:00 | NUR ---
NURSE NOTES: Dopamine drip turned off. BP 98/56, will continue to monitor.
--- NOTE | 2018-09-09 10:05 | NUR ---
RESPIRATORY NOTE: Vt was changed to 700 per MD. ABG will be followed post 1 hour of change. RN, notified
[2018-09-09] MEDS: LORazepam Inj 2mg/ml 1ml IV PRN ×3 (10:48→18:36)
--- NOTE | 2018-09-09 11:02 | Nephrology Progress Note ---
Assessment/Plan Problem List: (1) ICD (implantable cardioverter-defibrillator) in place (2) ATN (acute tubular necrosis) (3) Acute respiratory failure (4) Anemia in chronic kidney disease (CKD) (5) Cardiac arrest Assessment (1) ARF (acute renal failure) (2) Schizophrenia (3) Toxic encephalopathy (4) Anemia (5) Sepsis (6) ICD (implantable cardioverter-defibrillator) in place Renal failure- Pre renal picture- ? Underlying Chronic Renal failure Sepsis Asp pneumonia UTI Anemia Sz disorder CAD + Pacemaker s/p Cervical Fx 6 months ago COPD DM Plan Plan: adjust meds for low BP pulmonary support aim to reduce pre load and after load Transfuse one unit Hydrate as needed Antibiotics Monitor renal parameters Avoid Nephrotoxics watch for chf per orders 24 h urine crcl low ! now DNR per orders Subjective ROS Limited/Unobtainable: Yes Objective Objective Last 24 Hour Vital Signs Date Time Temp Pulse Resp B/P (MAP) Pulse Ox O2 Delivery O2 Flow Rate FiO2 09/09/18 09:30 91 20 100 09/09/18 08:00 Mechanical Ventilator 09/09/18 07:06 83 19 100 09/09/18 07:00 82 6 99/32 100 100 09/09/18 06:45 81 8 99/31 100 100 09/09/18 06:30 80 8 105/26 100 100 09/09/18 06:15 80 8 99/20 100 100 09/09/18 06:00 99/57 09/09/18 06:00 79 6 99/20 100 100 09/09/18 05:45 78 6 109/48 100 100 09/09/18 05:38 82/38 09/09/18 05:38 77 82/38 09/09/18 05:37 82/38 09/09/18 05:37 82/38 09/09/18 05:30 93.6 75 9 88/50 97 100 09/09/18 05:15 76 6 75/57 96 100 09/09/18 05:00 75 8 75/57 97 100 09/09/18 05:00 6 75/57 (63) 76 09/09/18 05:00 82/38 09/09/18 04:56 75 16 100 09/09/18 04:45 76 8 75/53 97 100 09/09/18 04:45 11 74/42 (53) 78 09/09/18 04:30 75 18 76/31 89 100 09/09/18 04:15 66 9 78/44 97 100 09/09/18 04:00 93.6 75 18 82/28 89 100 09/09/18 04:00 85/20 09/09/18 04:00 Nasal Cannula 3.0 09/09/18 03:45 70 8 82/54 85 100 09/09/18 03:40 76 09/09/18 03:36 71/50 09/09/18 03:30 76 18 84/20 94 100 09/09/18 03:15 71 10 73/44 89 100 09/09/18 03:00 78 19 92/61 93 100 09/09/18 03:00 78 18 100 09/09/18 02:45 79 18 91/20 90 100 09/09/18 02:30 60 0 49/36 75 100 09/09/18 02:15 71 16 71/50 89 100 09/09/18 02:07 16 71/50 (57) 09/09/18 02:00 100 09/09/18 02:00 55 5 61/46 86 100 09/09/18 02:00 0 85/43 (57) 84 09/09/18 01:57 0 49/36 (40) 09/09/18 01:57 0 49/36 (40) 09/09/18 01:52 0 0 54/43 (47) 87 09/09/18 01:50 8 5 61/46 (51) 86 09/09/18 01:46 69 16 100 09/09/18 01:45 70 6 09/09/18 01:45 67 16 75/54 85 100 09/09/18 01:45 70 6 09/09/18 01:44 67 16 75/54 (61) 09/09/18 01:40 95/79 (84) 09/09/18 01:30 55 16 95/79 91 100 09/09/18 00:00 96.5 60 24 130/59 (82) 93 09/09/18 00:00 Nasal Cannula 3.0 09/08/18 23:43 130/59 09/08/18 23:43 130/59 09/08/18 23:14 62 09/08/18 20:42 60 132/61 09/08/18 20:07 60 09/08/18 20:00 98.7 60 24 132/61 (84) 93 09/08/18 20:00 Nasal Cannula 3.0 09/08/18 19:24 98 Nasal Cannula 3.0 32 09/08/18 19:24 Nasal Cannula 3.0 32 09/08/18 19:24 64 20 Nasal Cannula 3.0 32 09/08/18 17:27 61 137/61 09/08/18 17:26 137/61 09/08/18 17:26 137/61 09/08/18 16:00 Nasal Cannula 3.0 09/08/18 16:00 61 22 137/61 (86) 98 09/08/18 15:44 60 09/08/18 13:00 145/68 09/08/18 13:00 145/68 09/08/18 13:00 62 145/68 09/08/18 12:00 96.6 62 28 145/68 (93) 90 09/08/18 12:00 Nasal Cannula 3.0 09/08/18 12:00 62 Intake and Output 09/08/18 09/09/18 19:00 07:00 Intake Total 300.0 ml 595.6 ml Output Total 200 ml 100 ml Balance 100.0 ml 495.6 ml Intake Free Water 100 ml 120 ml IV Total 110.0 ml 205.6 ml Tube Feeding 90 ml 270 ml Output Urine Total 200 ml 100 ml Laboratory Tests 09/08/18 11:30: Prothrombin Time 10.4, Prothromb Time International Ratio 1.0, Activated Partial Thromboplast Time 25 09/08/18 18:00: Creatinine 5.2H, Estimat Glomerular Filtration Rate 09/09/18 02:28: Arterial Blood pH 7.043*L, Arterial Blood Partial Pressure CO2 52.4H, Arterial Blood Partial Pressure O2 171.4H, Arterial Blood HCO3 13.9*L, Arterial Blood Oxygen Saturation 98.3, Arterial Blood Base Excess -16.2*L, Popeye Test Positive 09/09/18 04:00: Creatinine 5.5H, Estimat Glomerular Filtration Rate , White Blood Count 10.2, Red Blood Count 3.38L, Hemoglobin 10.1L, Hematocrit 31.3L, Mean Corpuscular Volume 93, Mean Corpuscular Hemoglobin 30.0, Mean Corpuscular Hemoglobin Concent 32.4, Red Cell Distribution Width 16.7H, Platelet Count 358, Mean Platelet Volume 6.9, Neutrophils (%) (Auto) , Lymphocytes (%) (Auto) , Monocytes (%) (Auto) , Eosinophils (%) (Auto) , Basophils (%) (Auto) , Sodium Level 142, Potassium Level 3.6, Chloride Level 103, Carbon Dioxide Level 18L, Anion Gap 22H, Blood Urea Nitrogen 108H, Glucose Level 212H, Calcium Level 7.2L , Phosphorus Level 9.9H, Magnesium Level 2.2, Total Bilirubin 0.4, Aspartate Amino Transf (AST/SGOT) 45H, Alanine Aminotransferase (ALT/SGPT) 22, Alkaline Phosphatase 134H, Troponin I 1.545H, Total Protein 5.6L, Albumin 1.4L, Globulin 4.2, Albumin/Globulin Ratio 0.3L 09/09/18 09:45: Arterial Blood pH 7.223*L, Arterial Blood Partial Pressure CO2 44.6, Arterial Blood Partial Pressure O2 37.1*L, Arterial Blood HCO3 18.0L, Arterial Blood Oxygen Saturation 61.2*L, Arterial Blood Base Excess -9.3*L, Popeye Test Positive Height (Feet): 5 Height (Inches): 9.00 Weight (Pounds): 210 EENT: other - intubated on Vent Cardiovascular: normal rate Respiratory/Chest: decreased breath sounds Abdomen: distended Objective no change Joe Feliciano MD Sep 09, 2018 11:02
--- NOTE | 2018-09-09 11:02 | Diagnostic Imaging Report ---
Indication: Status post intubation Technique: One view of the chest Comparison: 09/08/2018 Findings: Interim endotracheal intubation, endotracheal tube tip projecting approximately 4 cm above the roula, although the roula is not well-demonstrated. Left chest AICD is again demonstrated. Overlying defibrillator paddles are noted. Bilateral pleural effusions and extensive interstitial and airspace disease are again demonstrated. Lungs do appear better aerated. Impression: Satisfactory endotracheal intubation Bilateral pleural effusions and interstitial and airspace disease again noted This agrees with the preliminary interpretation provided overnight by [facility] teleradiology service.
--- NOTE | 2018-09-09 11:16 | NUR ---
NURSE NOTES: Pt had x1 yellow emesis and seizure like twitching noted on left arm and leg. Witnessed by Alejandra ADKINS. Ativan given as per ordered. Notified Dr. Ball, received orders to not start pressors. read back given and verified.
[2018-09-09] MEDS ORDERED: Acetaminophen 650mg/20.3ml GT PRN (11:30)
--- NOTE | 2018-09-09 11:34 | Infectious Diseases Prog Note ---
Assessment/Plan Assessment/Plan Assessment: S/p COde blue, s/p intubation 09/08 Sepsis- 2ry to PNA -09/09 CXR: Bilateral pleural effusions and interstitial and airspace disease again noted -09/07 CXR: 1. Worsening CHF. -CXR: Hazy bilateral basilar opacities likely pleural effusions demonstrated. The heart is enlarged. There is suggestion of interstitial edema. -u/a wbc 5-10, nit neg, leuk +1 ;UCx Neg -Bcx NTD -sp cx normal resp dwight -influenza sc, legionella ag urine neg afebrile Leukocytosis, SP CHF exacerbation Hx of recent PNA/UTI RENETTA Seizures HTN CHF Schizophrenia CAD s/p Pacemaker hx of Neck Fx (6mo ago) on cervical collar [facility] resident Plan: -Continue empiric Zosyn d # 5/ for PNA -09/08 SP IV Vancomycin #4 - 08/31 SP Levofloxacin #7 - 08/27/18 SP Cefepime #3 vancomycin #3 -f/u Blcx -Monitor CBC/CMP, temperatures Subjective Allergies: Coded Allergies: NO KNOWN ALLERGIES (Unverified Allergy, Unknown, 08/25/15) Subjective code blue last night intubated and transferred to ICU, on 100% Fio2 was placed on dopamine, now off afebrile no leukocytosis Objective Vital Signs Last 24 Hour Vital Signs Date Time Temp Pulse Resp B/P (MAP) Pulse Ox O2 Delivery O2 Flow Rate FiO2 09/09/18 11:14 85 20 100 09/09/18 09:30 91 20 100 09/09/18 08:00 Mechanical Ventilator 09/09/18 07:06 83 19 100 09/09/18 07:00 82 6 99/32 100 100 09/09/18 06:45 81 8 99/31 100 100 09/09/18 06:30 80 8 105/26 100 100 09/09/18 06:15 80 8 99/20 100 100 09/09/18 06:00 99/57 09/09/18 06:00 79 6 99/20 100 100 09/09/18 05:45 78 6 109/48 100 100 09/09/18 05:38 82/38 09/09/18 05:38 77 82/38 09/09/18 05:37 82/38 09/09/18 05:37 82/38 09/09/18 05:30 93.6 75 9 88/50 97 100 09/09/18 05:15 76 6 75/57 96 100 09/09/18 05:00 75 8 75/57 97 100 09/09/18 05:00 6 75/57 (63) 76 09/09/18 05:00 82/38 09/09/18 04:56 75 16 100 09/09/18 04:45 76 8 75/53 97 100 09/09/18 04:45 11 74/42 (53) 78 09/09/18 04:30 75 18 76/31 89 100 09/09/18 04:15 66 9 78/44 97 100 09/09/18 04:00 93.6 75 18 82/28 89 100 09/09/18 04:00 85/20 09/09/18 04:00 Nasal Cannula 3.0 09/09/18 03:45 70 8 82/54 85 100 09/09/18 03:40 76 09/09/18 03:36 71/50 09/09/18 03:30 76 18 84/20 94 100 09/09/18 03:15 71 10 73/44 89 100 09/09/18 03:00 78 19 92/61 93 100 09/09/18 03:00 78 18 100 09/09/18 02:45 79 18 91/20 90 100 09/09/18 02:30 60 0 49/36 75 100 09/09/18 02:15 71 16 71/50 89 100 09/09/18 02:07 16 71/50 (57) 09/09/18 02:00 100 09/09/18 02:00 55 5 61/46 86 100 09/09/18 02:00 0 85/43 (57) 84 09/09/18 01:57 0 49/36 (40) 09/09/18 01:57 0 49/36 (40) 09/09/18 01:52 0 0 54/43 (47) 87 09/09/18 01:50 8 5 61/46 (51) 86 09/09/18 01:46 69 16 100 09/09/18 01:45 70 6 09/09/18 01:45 67 16 75/54 85 100 09/09/18 01:45 70 6 09/09/18 01:44 67 16 75/54 (61) 09/09/18 01:40 95/79 (84) 09/09/18 01:30 55 16 95/79 91 100 09/09/18 00:00 96.5 60 24 130/59 (82) 93 09/09/18 00:00 Nasal Cannula 3.0 09/08/18 23:43 130/59 09/08/18 23:43 130/59 09/08/18 23:14 62 09/08/18 20:42 60 132/61 09/08/18 20:07 60 09/08/18 20:00 98.7 60 24 132/61 (84) 93 09/08/18 20:00 Nasal Cannula 3.0 09/08/18 19:24 98 Nasal Cannula 3.0 32 09/08/18 19:24 Nasal Cannula 3.0 32 09/08/18 19:24 64 20 Nasal Cannula 3.0 32 09/08/18 17:27 61 137/61 09/08/18 17:26 137/61 09/08/18 17:26 137/61 09/08/18 16:00 Nasal Cannula 3.0 09/08/18 16:00 61 22 137/61 (86) 98 09/08/18 15:44 60 09/08/18 13:00 145/68 09/08/18 13:00 145/68 09/08/18 13:00 62 145/68 09/08/18 12:00 96.6 62 28 145/68 (93) 90 09/08/18 12:00 Nasal Cannula 3.0 09/08/18 12:00 62 Height (Feet): 5 Height (Inches): 9.00 Weight (Pounds): 210 Objective General Appearance: severe distress, lethargic, Chronically Ill Head: atraumatic ENT: normal ENT inspection, hearing grossly normal, normal voice Neck: supple, no bony tend, limited range of motion - c-collar Respiratory: normal inspection, lungs clear, normal breath sounds, no respiratory distress, no retraction, no wheezing Cardiovascular # tachycardia, edema Gastrointestinal: normal inspection, normal bowel sounds, non tender, soft, no guarding, no hernia Genitourinary: no CVA tenderness Musculoskeletal: normal inspection, back normal, decreased range of motion Neurologic: alert, speech normal, motor weakness - bilateral upper and lower Skin: normal inspection, normal color, no rash Laboratory Tests Test 09/08/18 11:30 09/08/18 18:00 09/09/18 02:28 09/09/18 04:00 Prothrombin Time 10.4 SEC (9.30-11.50) Prothromb Time International Ratio 1.0 (0.9-1.1) Activated Partial Thromboplast Time 25 SEC (23-33) Creatinine 5.2 MG/DL (0.55-1.30) H 5.5 MG/DL (0.55-1.30) H Estimat Glomerular Filtration Rate mL/min (>60) mL/min (>60) Arterial Blood pH 7.043 (7.350-7.450) Arterial Blood Partial Pressure CO2 52.4 mmHg (35.0-45.0) H Arterial Blood Partial Pressure O2 171.4 mmHg (75.0-100.0) H Arterial Blood HCO3 13.9 mmol/L (22.0-26.0) *L Arterial Blood Oxygen Saturation 98.3 % (95-100) Arterial Blood Base Excess -16.2 (-2-2) *L Popeye Test Positive White Blood Count 10.2 K/UL (4.8-10.8) Red Blood Count 3.38 M/UL (4.70-6.10) L Hemoglobin 10.1 G/DL (14.2-18.0) L Hematocrit 31.3 % (42.0-52.0) L Mean Corpuscular Volume 93 FL (80-99) Mean Corpuscular Hemoglobin 30.0 PG (27.0-31.0) Mean Corpuscular Hemoglobin Concent 32.4 G/DL (32.0-36.0) Red Cell Distribution Width 16.7 % (11.6-14.8) H Platelet Count 358 K/UL (150-450) Mean Platelet Volume 6.9 FL (6.5-10.1) Neutrophils (%) (Auto) % (45.0-75.0) Lymphocytes (%) (Auto) % (20.0-45.0) Monocytes (%) (Auto) % (1.0-10.0) Eosinophils (%) (Auto) % (0.0-3.0) Basophils (%) (Auto) % (0.0-2.0) Sodium Level 142 MMOL/L (136-145) Potassium Level 3.6 MMOL/L (3.5-5.1) Chloride Level 103 MMOL/L (98-107) Carbon Dioxide Level 18 MMOL/L (21-32) L Anion Gap 22 mmol/L (5-15) H Blood Urea Nitrogen 108 mg/dL (7-18) H Glucose Level 212 MG/DL (74-106) H Calcium Level 7.2 MG/DL (8.5-10.1) L Phosphorus Level 9.9 MG/DL (2.5-4.9) H Magnesium Level 2.2 MG/DL (1.8-2.4) Total Bilirubin 0.4 MG/DL (0.2-1.0) Aspartate Amino Transf (AST/SGOT) 45 U/L (15-37) H Alanine Aminotransferase (ALT/SGPT) 22 U/L (12-78) Alkaline Phosphatase 134 U/L (46-116) H Troponin I 1.545 ng/mL (0.000-0.056) Total Protein 5.6 G/DL (6.4-8.2) L Albumin 1.4 G/DL (3.4-5.0) L Globulin 4.2 g/dL Albumin/Globulin Ratio 0.3 (1.0-2.7) L Test 09/09/18 09:45 Arterial Blood pH 7.223 (7.350-7.450) Arterial Blood Partial Pressure CO2 44.6 mmHg (35.0-45.0) Arterial Blood Partial Pressure O2 37.1 mmHg (75.0-100.0) Arterial Blood HCO3 18.0 mmol/L (22.0-26.0) L Arterial Blood Oxygen Saturation 61.2 % (95-100) *L Arterial Blood Base Excess -9.3 (-2-2) *L Popeye Test Positive Current Medications Medications (Trade) Dose Ordered Sig/Vahe Route PRN Reason Start Time Stop Time Status Last Admin Dose Admin Acetaminophen (Tylenol) 650 mg Q4H PRN GT Temp > 100.5 09/09/18 11:30 10/09/18 11:29 Albuterol/ Ipratropium (Albuterol/ Ipratropium) 3 ml Q4H PRN HHN Shortness of Breath 09/09/18 02:45 09/11/18 14:44 Chlorhexidine Gluconate (Sadia-Hex 2%) 1 applic DAILY@2000 TOPIC 09/09/18 20:00 10/05/18 19:59 Dextrose (Dextrose 50%) 25 ml Q30M PRN IV Hypoglycemia 09/09/18 02:30 10/04/18 10:59 Dextrose (Dextrose 50%) 50 ml Q30M PRN IV Hypoglycemia 09/09/18 02:30 10/04/18 10:59 Diltiazem HCl (Cardizem) 30 mg Q6HR GT 09/09/18 12:00 10/09/18 11:59 Divalproex Sodium (Depakote Sprinkles) 125 mg Q12HR GT 09/09/18 09:00 10/05/18 20:59 09/09/18 08:51 Docusate Sodium (Colace) 100 mg THREE TIMES A DAY GT 09/09/18 13:00 10/09/18 12:59 Dopamine HCl/ Dextrose 250 ml @ 0 mls/hr Q24H IV 09/09/18 02:45 10/09/18 02:44 09/09/18 05:37 Epoetin Jacobo (Procrit (for non ESRD use)) 10,000 units SAT-SAT-SAT SUBQ 09/10/18 21:00 10/05/18 20:59 Heparin Sodium (Porcine) (Heparin 5000 units/ml) 5,000 units EVERY 12 HOURS SUBQ 09/09/18 09:00 10/04/18 20:59 Hydralazine HCl (Apresoline) 10 mg Q6HR GT 09/09/18 12:00 10/09/18 11:59 Insulin Aspart (NovoLOG) Q6HR SUBQ 09/09/18 06:00 10/04/18 11:59 09/09/18 06:01 Isosorbide Dinitrate (Isordil) 10 mg Q6HR GT 09/09/18 12:00 10/05/18 11:59 Lorazepam (Ativan 2mg/ml 1ml) 0.5 mg Q4H PRN IV For Anxiety 09/09/18 03:00 09/11/18 14:59 09/09/18 10:48 Metoclopramide HCl (Reglan) 10 mg Q8H PRN IVP Nausea & Vomiting 09/09/18 07:00 10/04/18 14:59 Metoprolol Tartrate (Lopressor) 25 mg Q12HR GT 09/09/18 21:00 10/09/18 20:59 Morphine Sulfate (Morphine Sulfate) 4 mg Q4H PRN IVP For Pain 09/09/18 12:00 09/11/18 15:59 Ondansetron HCl (Zofran) 4 mg Q6H PRN IVP Nausea & Vomiting 09/09/18 03:00 10/04/18 14:59 Piperacillin Sod/ Tazobactam Sod 3.375 gm/Dextrose 110 ml @ 27.5 mls/hr Q12H IVPB 09/09/18 03:00 09/12/18 14:59 09/09/18 03:00 Sevelamer Carbonate (Renvela) 1,600 mg Q6HR GT 09/09/18 06:00 10/06/18 10:14 Michelle Watt M.D. Sep 09, 2018 11:34
[2018-09-09] MEDS: dilTIAZem HCl 30mg tab GT SCH ×2 (12:00→17:07)
[2018-09-09] MEDS: HydrALAZINE 10mg Tab GT SCH ×2 (12:00→17:07)
--- NOTE | 2018-09-09 13:31 | NUR ---
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 2) Altered nutrition related lab values r/t clinical status, ATN as evidenced by elev BUN (108), Cr (5.5), elev K (6.8-> wnl), elev Phos (9.9), elev BNP (44447). 3) Increased kcal and protein needs r/t wound healing as evidenced by pt w/ recent adm w/ multiple DTPI wounds. CURRENT TF:NÉSTOR @50ml/hr -> held ENTERAL NUTRITION RECOMMENDATIONS: NEPRO @37ml/hr x24 hrs to provide 888ml, 1598kcal, 72g prot, 646ml free water - Resume TF as medically appropriate and w/ HD stability - LOWER current TF of NEPRO to goal of 37ml/hr x24 hrs. - Flush per MD. HOB over 30 degrees WITHOUT HD STABILITY: rec trophic feeding of Nepro @ 10ml/hr ADDITIONAL RECOMMENDATIONS: 1) Calibrated bed scale wts 2) WOUNDS: add SEVERO BID 3) weekly calibrated bed scale wts 4) monitor lytes, renal fxn- worsening renal fxn at this time 5) Monitor HD stability
[2018-09-09] MEDS: Docusate 100mg/10ml Liq GT SCH ×2 (13:51→17:07)
--- NOTE | 2018-09-09 14:45 | NUR ---
NURSE NOTES: Pt having jerking movements. ativan given as per ordered. Bp stable.
--- NOTE | 2018-09-09 15:30 | NUR ---
NURSE NOTES: Awaiting call from God sonTrever to discuss plan of care.
--- NOTE | 2018-09-09 15:54 | NUR ---
NURSE NOTES: Turned and repositioned. x1 large brown BM, incontinence care given. Kept dry and clean. BP 113/59 HR 80, NSR on monitor.
--- NOTE | 2018-09-09 17:30 | NUR ---
NURSE NOTES: Spoke to the Gino per the request of the [employer], who is the patient's designated decision maker regarding the signed POLST. Per the designee, he was clear on the patient's wishes to be a DNR/DNI and wanted to adhere to his wishes of a terminal extubation.
--- NOTE | 2018-09-09 17:35 | NUR ---
NURSE NOTES: Spoke to Dr Ball regarding the wishes of the patient according to the POLST and according to the designee, gave orders for terminal extubation and comfort measure medications. All orders were d/c'd to adhere to the comfort measures and terminal care.
--- NOTE | 2018-09-09 17:47 | NUR ---
Social Service Note SW located patient POLST indicating patient is a DNR/DNI/Comfort focused care. POLST in chart. ACACIA has attempted to contact God-son [phone] multiple times today regarding patient's declining medical condition. No return call at this time. ACACIA discussed with charge nurse. Will continue to monitor and follow up,
[2018-09-09] MEDS ORDERED: Morphine Sulfate 10mg/ml Inj IVP SCH (18:23)
[2018-09-09] MEDS ORDERED: LORazepam Inj 2mg/ml 1ml IV SCH (18:24)
--- NOTE | 2018-09-09 19:19 | NUR ---
RESPIRATORY THERAPY: Terminally extubated patient per Dr. Ball's orders. Charge nurse Alejandra caputo. Patient remain on RA.
--- NOTE | 2018-09-09 19:22 | NUR ---
NURSE NOTES: Terminally extubated by RT. Morphine 10mg IVP given before extubation. Paced beat non-capturing on monitor at 1915,.No Palpable pulse,pupils Fixed dilated,no gag on suctioning,no B/P. made aware.To be pronounce by Agustín RAMOS sonTrever notified. Endorsed to VARINDER Sharma.
--- NOTE | 2018-09-09 19:30 | NUR ---
NURSE NOTES:PT DNR/DNI BP O/O HR O NOPULSE PALPABLE PUPIL PEX AND DILATED PRONUNCE BY DR MARYBEL WINCHESTER NOTIFY PCST HOMERO CARE DONE FAMILY IN AND SEEN PT AND CONSENT ANDREW REMAINS DONE
[2018-09-09] MEDS ORDERED: NS 275ml ONE (19:32)
[2018-09-09] MEDS ORDERED: Dyna-Hex 2% Top Sol 2oz TOPIC SCH (20:00)
[2018-09-09] MEDS ORDERED: Miralax 17gm pkt ORAL PRN (21:00)
[2018-09-09] MEDS ORDERED: Zolpidem 5mg tab ORAL PRN (21:00)
[2018-09-09] MEDS ORDERED: Metoprolol 25mg tab GT SCH (21:00)
--- NOTE | 2018-09-09 21:44 | General Progress Note ---
Assessment/Plan Assessment/Plan Assessment and Recs: # Anemia due to underlying chronic disease -- anemia panel has been reviewed --> Also since downtrending since admission, with sepsis, could be related to hemodilution --> Anemia panel reviewed from last admission as well, ferritin 171 --> DW PCP, transfuse only if clinically unstable, and hgb <7 --> No evidence of hemolysis is noted --> peripheral smear has been reviewed # Thrombocytopenia from sepsis from aspiration pneumonia. On abx as per ID --> hepatitis and hiv negative, could be due to infection --> us abd to be considered if downtrending # Pleural effusions demonstrated on cxr ---> as per pulm eval # Resolved aspiration pneumonia --> abx on prn only # ARF (acute renal failure) --> per renal # Respiratory failure with hypoxia -->s/p intubation 09/08 # Encephalopathy # UTI (urinary tract infection) h/o The timing of this note does not necessarily reflect the time of the patient was seen Greatly appreciate consultation! Subjective ROS Limited/Unobtainable: Yes Allergies: Coded Allergies: NO KNOWN ALLERGIES (Unverified Allergy, Unknown, 08/25/15) Subjective 09/09: Patient is seen by bedside, S/p code blue, s/p intubation 09/08. Objective Last 24 Hour Vital Signs Date Time Temp Pulse Resp B/P (MAP) Pulse Ox O2 Delivery O2 Flow Rate FiO2 09/09/18 17:27 91 26 100 09/09/18 17:08 83/59 09/09/18 17:07 83/59 09/09/18 17:07 80 83/59 09/09/18 16:00 Mechanical Ventilator 09/09/18 16:00 80 09/09/18 15:32 82 26 100 09/09/18 14:02 80 22 100 09/09/18 12:00 81 09/09/18 12:00 99/32 09/09/18 12:00 83/59 09/09/18 12:00 85 99/32 09/09/18 12:00 Mechanical Ventilator 09/09/18 11:14 85 20 100 09/09/18 09:30 91 20 100 09/09/18 08:00 78 09/09/18 08:00 Mechanical Ventilator 09/09/18 07:06 83 19 100 09/09/18 07:00 82 6 99/32 100 100 09/09/18 06:45 81 8 99/31 100 100 09/09/18 06:30 80 8 105/26 100 100 09/09/18 06:15 80 8 99/20 100 100 09/09/18 06:00 99/57 09/09/18 06:00 79 6 99/20 100 100 09/09/18 05:45 78 6 109/48 100 100 09/09/18 05:38 82/38 09/09/18 05:38 77 82/38 09/09/18 05:37 82/38 09/09/18 05:37 82/38 09/09/18 05:30 93.6 75 9 88/50 97 100 09/09/18 05:15 76 6 75/57 96 100 09/09/18 05:00 75 8 75/57 97 100 09/09/18 05:00 6 75/57 (63) 76 09/09/18 05:00 82/38 09/09/18 04:56 75 16 100 09/09/18 04:45 76 8 75/53 97 100 09/09/18 04:45 11 74/42 (53) 78 09/09/18 04:30 75 18 76/31 89 100 09/09/18 04:15 66 9 78/44 97 100 09/09/18 04:00 93.6 75 18 82/28 89 100 09/09/18 04:00 85/20 09/09/18 04:00 Nasal Cannula 3.0 09/09/18 03:45 70 8 82/54 85 100 09/09/18 03:40 76 09/09/18 03:36 71/50 09/09/18 03:30 76 18 84/20 94 100 09/09/18 03:15 71 10 73/44 89 100 09/09/18 03:00 78 19 92/61 93 100 09/09/18 03:00 78 18 100 09/09/18 02:45 79 18 91/20 90 100 09/09/18 02:30 60 0 49/36 75 100 09/09/18 02:15 71 16 71/50 89 100 09/09/18 02:07 16 71/50 (57) 09/09/18 02:00 100 09/09/18 02:00 55 5 61/46 86 100 09/09/18 02:00 0 85/43 (57) 84 09/09/18 01:57 0 49/36 (40) 09/09/18 01:57 0 49/36 (40) 09/09/18 01:52 0 0 54/43 (47) 87 09/09/18 01:50 8 5 61/46 (51) 86 09/09/18 01:46 69 16 100 09/09/18 01:45 70 6 09/09/18 01:45 67 16 75/54 85 100 09/09/18 01:45 70 6 09/09/18 01:44 67 16 75/54 (61) 09/09/18 01:40 95/79 (84) 09/09/18 01:30 55 16 95/79 91 100 09/09/18 00:00 96.5 60 24 130/59 (82) 93 09/09/18 00:00 Nasal Cannula 3.0 09/08/18 23:43 130/59 09/08/18 23:43 130/59 09/08/18 23:14 62 Intake and Output 09/08/18 09/09/18 19:00 07:00 Intake Total 300.0 ml 595.6 ml Output Total 200 ml 100 ml Balance 100.0 ml 495.6 ml Intake Free Water 100 ml 120 ml IV Total 110.0 ml 205.6 ml Tube Feeding 90 ml 270 ml Output Urine Total 200 ml 100 ml Laboratory Tests 09/09/18 02:28: Arterial Blood pH 7.043*L, Arterial Blood Partial Pressure CO2 52.4H, Arterial Blood Partial Pressure O2 171.4H, Arterial Blood HCO3 13.9*L, Arterial Blood Oxygen Saturation 98.3, Arterial Blood Base Excess -16.2*L, Popeye Test Positive 09/09/18 04:00: White Blood Count 10.2, Red Blood Count 3.38L, Hemoglobin 10.1L, Hematocrit 31.3L, Mean Corpuscular Volume 93, Mean Corpuscular Hemoglobin 30.0, Mean Corpuscular Hemoglobin Concent 32.4, Red Cell Distribution Width 16.7H, Platelet Count 358, Mean Platelet Volume 6.9, Neutrophils (%) (Auto) , Lymphocytes (%) (Auto) , Monocytes (%) (Auto) , Eosinophils (%) (Auto) , Basophils (%) (Auto) , Sodium Level 142, Potassium Level 3.6, Chloride Level 103 , Carbon Dioxide Level 18L, Anion Gap 22H, Blood Urea Nitrogen 108H, Creatinine 5.5H, Estimat Glomerular Filtration Rate , Glucose Level 212H, Calcium Level 7.2L, Phosphorus Level 9.9H, Magnesium Level 2.2, Total Bilirubin 0.4, Aspartate Amino Transf (AST/SGOT) 45H, Alanine Aminotransferase (ALT/SGPT) 22, Alkaline Phosphatase 134H, Troponin I 1.545H, Total Protein 5.6L, Albumin 1.4L, Globulin 4.2, Albumin/Globulin Ratio 0.3L 09/09/18 09:45: Arterial Blood pH 7.223*L, Arterial Blood Partial Pressure CO2 44.6, Arterial Blood Partial Pressure O2 37.1*L, Arterial Blood HCO3 18.0L, Arterial Blood Oxygen Saturation 61.2*L, Arterial Blood Base Excess -9.3*L, Popeye Test Positive Height (Feet): 5 Height (Inches): 9.00 Weight (Pounds): 210 Objective General Appearance: moderate distress, Chronically Ill, Stupor Head: normocephalic, atraumatic Eyes: bilateral eye PERRL ENT: other - Oropharynx with lots of thick mucus Neck: other - stiff with collar on Respiratory: respiratory distress, rhonchi, s/p intubation Cardiovascular: regular rate, rhythm, no murmur Gastrointestinal: normal bowel sounds + peg Musculoskeletal: other - contracted. UE with edema Skin: warm/dry +++ decub Elias Walters MD Sep 09, 2018 21:44
--- NOTE | 2018-09-09 21:44 | Emergency Room Report ---
History of Present Illness General Chief Complaint: Dyspnea/Respdistress Source: Medical Record, PMD Present Illness Allergies: Coded Allergies: NO KNOWN ALLERGIES (Unverified Allergy, Unknown, 08/25/15) Nursing Documentation-[facility] Past Medical History Deferred: Pt Cognitively Impaired Hx Hypertension: Yes Hx Pacemaker: Yes - Left upper chest AICD Hx COPD: Yes Hx Diabetes: Yes Hx Cancer: No Hx Gastrointestinal Problems: No Hx Neurological Problems: Yes - schizo, tonic enceopalopathy Hx Dementia: Yes Hx Alzheimer's Disease: Yes Hx Parkinson's Disease: Yes Hx Seizures: Yes Hx Epilepsy: Yes Hx Traumatic Brain Injury: Yes Hx Dysphasia: Yes Physical Exam Vital Signs Date Time Temp Pulse Resp B/P (MAP) Pulse Ox O2 Delivery O2 Flow Rate FiO2 09/05/18 07:00 98.6 95 21 136/90 (105) 95 09/05/18 08:00 Nasal Cannula 3.0 09/05/18 19:44 32 Medical Decision Making Diagnostic Impression: Primary Impression: Acute respiratory failure Additional Impressions: Cardiac arrest Acute kidney failure Pleural effusion Hyperkalemia ER Course I was called to the ICU to pronounce this patient, he had been pulseless and apneic for several hours, when I arrived he was cyanotic, fixed pupils, absent corneal reflex, and I pronounced his at 9:30 PM on 09/09/2018. Last Vital Signs Date Time Temp Pulse Resp B/P (MAP) Pulse Ox O2 Delivery O2 Flow Rate FiO2 09/09/18 17:27 91 26 100 09/09/18 17:08 83/59 09/09/18 16:00 Mechanical Ventilator 09/09/18 07:00 100 09/09/18 05:30 93.6 09/09/18 04:00 3.0 Disposition: ADMITTED INPATIENT Condition: Critical Referrals: Evans Jarrett MD (PCP) LESLIE MCWILLIAMS M.D Sep 09, 2018 21:44
--- NOTE | 2018-09-10 02:00 | Discharge Summary ---
DATE OF ADMISSION: 09/04/2018 DATE OF DISCHARGE: 09/09/2018 SUMMARY HISTORY: This is last admission to [facility] for this 78-year-old patient because of sepsis. HISTORY OF PRESENT ILLNESS: Details of the event and circumstances that led the patient to be admitted to this hospital can be found in H and P. In brief, the patient is a resident of an extended care facility where he has been in stable condition over the last several weeks. He is known to have several chronic medical syndrome, but has been stable on current medication. On the day of admission, he developed fever, tachycardia, tachypnea, and hypotension. He was transferred to [facility] ER where he was found to have right lower lobe pneumonia, pleural effusion, and was transferred back to the [facility] unit. Upon admission, the patient underwent clinical, biological, and imaging study. Clinical assessment revealed the patient was hemodynamically stable. The patient was assessed. On admission, he was found to have sepsis with fever, tachycardia, and leukocytosis. He was placed on broad-spectrum antibiotic and multiple consultants were called to assist in management of this case. Over the next several days, the patient has been seen by criminal justice department chair, Infectious Disease specialist, development specialist, and even orthopedic surgeon in general assessment of his decubitus. His condition stabilized and the patient was transferred to the ICU and to the [facility] unit. In the [facility] unit, he was doing well. In regard to his cardiovascular performance, today he developed hypotension and bradycardia. The patient to be intubated and placed on mechanical ventilation. Prior to admission, the patient was on intermittent bronchotherapy four hours scale. He need to insist on do not intubate and immunosuppressant. Family knows the patient was extubated and in several hours after family arrival, they insist the patient is DNR/DNI and the patient was extubated and less than an hour later. Evans Jarrett M.D. DR: PAULA JOB#: [id number] CC:
--- NOTE | 2018-09-10 14:14 | Discharge Summary ---
Discharge Summary Hospital Course Date of Admission Sep 04, 2018 at 07:09 Date of Discharge Sep 09, 2018 at 19:33 Admitting Diagnosis acute respiratory failure, sepsis, pneumonia HPI Arie Florence is a 78 year old male who was admitted on Sep 04, 2018 at 07:09 for Respiratory Distress,Pneumositis Hospital Course Please refer to previous dc summary by dr Jarrett FINAL DIAGNOSES: Acute respiratory failure requiring intubation, status post cardiac arrest status post terminal extubation Sepsis secondary to pneumonia and possible UTI Aspiration pneumonia Possible UTI Acute tubular necrosis/acute renal failure possibly on chronic kidney disease Hyperkalemia COPD Seizure disorder Toxic encephalopathy Coronary artery disease Abnormal cardiac enzymes status post cervical fracture , 6 months ago CHF Bilateral pleural effusions Hypertension Mild pulmonary hypertension AICD 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 Cause of : cardiopulmonary arrest. Discharge Discharge Disposition Patient was discharged to Sanam Corey NP Sep 10, 2018 14:14
[2018-09-10] MEDS ORDERED: Epogen (for non ESRD use) SUBQ SCH (21:00)
== END 2018-09-09 19:33 | disposition expired | DRG 871 ==
LOC: EDBD 05:21 → EMR 07:02 → ICU 07:09 → EDBEDREQ 07:43 → 2W 09-05 15:41 → ICU 09-09 01:39
PROC: 06HN33Z Insertion of Infusion Device into Left Femoral Vein, Percutaneous Approach (ICD-10-PCS; principal; 2018-09-04)
PROC: 5A12012 Performance of Cardiac Output, Single, Manual (ICD-10-PCS; 2018-09-09)
PROC: 5A1935Z Respiratory Ventilation, Less than 24 Consecutive Hours (ICD-10-PCS; 2018-09-09)
PROC: 0BH17EZ Insertion of Endotracheal Airway into Trachea, Via Natural or Artificial Opening (ICD-10-PCS; 2018-09-09)
DX: A41.9 Sepsis, unspecified organism (principal); G92 Toxic encephalopathy; J96.01 Acute respiratory failure with hypoxia; N17.0 Acute kidney failure with tubular necrosis; J69.0 Pneumonitis due to inhalation of food and vomit; I13.0 Hypertensive heart and chronic kidney disease with heart failure and stage 1 through stage 4 chronic kidney disease, or unspecified chronic kidney disease; J90 Pleural effusion, not elsewhere classified; N39.0 Urinary tract infection, site not specified; I50.9 Heart failure, unspecified; N18.9 Chronic kidney disease, unspecified; E87.5 Hyperkalemia; F20.9 Schizophrenia, unspecified; D63.1 Anemia in chronic kidney disease; Z95.810 Presence of automatic (implantable) cardiac defibrillator; I25.10 Atherosclerotic heart disease of native coronary artery without angina pectoris; G40.909 Epilepsy, unspecified, not intractable, without status epilepticus; D69.6 Thrombocytopenia, unspecified; J44.9 Chronic obstructive pulmonary disease, unspecified; Z86.73 Personal history of transient ischemic attack (TIA), and cerebral infarction without residual deficits
CPT/HCPCS: 36415; 36600; 71045; 76770; 80048; 80053; 80061; 80076; 80202; 81001; 81003; 81050; 82164; 82436; 82533; 82550; 82553; 82575; 82607; 82728; 82746; 82803; 82962; 83036; 83540; 83550; 83605; 83735; 83880; 83930; 83935; 84100; 84133; 84156; 84300; 84439; 84443; 84481; 84484; 84550; 85007; 85025; 85610; 85730; 86140; 86710; 86850; 86900; 86901; 86920; 87040; 87070; 87086; 87205; 89050; 92950; 93005; 94002; 94003; 94660; 94664; 94760; 96365; 96366; 96375; 99291; J1815; J2765; J8499